=== PATIENT | male | born 1935 | race Caucasian/White ===

== ENCOUNTER 2020-11-16 17:37 | Inpatient (IN) ==
--- NOTE | 2020-11-16 20:09 | Emergency Department Note ---
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 It was very humid but he thinks he kept up with his fluid he had diarrhea for the last 2 days that has been the more of a loose stool without blood or melena. He tried some Pepto-Bismol. He feels quite a bit better now no abdominal pain no chest pain no ear ringing. No fall or trauma. No emesis. No urinary symptoms no unusual food or sick contacts no recent antibiotic use. No history of C. difficile. No focal numbness weakness no difficulty speaking or swallowing no change in vision. 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 Home Medications Medication Instructions Recorded Confirmed Type aspirin 81 mg tablet,delayed 81 mg PO DAILY 11/16/20 11/16/20 History release atorvastatin 80 mg tablet 80 mg PO DAILY 11/16/20 11/16/20 History cholecalciferol (vitamin D3) 25 25 mcg PO DAILY 11/16/20 11/16/20 History mcg (1,000 unit) tablet (Vitamin D3) hydrochlorothiazide 25 mg tablet 12.5 mg PO DAILY 11/16/20 11/16/20 History lisinopril 20 mg tablet 20 mg PO DAILY 11/16/20 11/16/20 History Allergies Allergy/AdvReac Type Severity Reaction Status Date / Time No Known Allergies Allergy Verified 11/16/20 22:04 Past Med/Surg History Social History Smoking Status: Former smoker Preferred Language: Yakut Feels Safe at Home: Yes Review of Systems A total of 10 systems reviewed and were otherwise negative Physical Exam Vital Signs Vital Signs - 24 hr 11/16/20 17:41 11/16/20 19:55 11/16/20 19:59 Temperature 36.9 C Temperature Source Temporal Artery Scan Pulse Rate 98 H Pulse Rate [Apical] 89 Pulse Rate from SpO2 Sensor Pulse Rhythm [Apical] Regular Pulse Strength [Apical] Normal Respiratory Rate 18 22 Respiratory Effort / Characteristics Non-Labored Non-Labored Spontaneous Respiratory Depth Normal Normal Respiratory Pattern Regular Blood Pressure 111/61 Blood Pressure Mean 77 Pulse Oximetry 94 98 Oxygen Delivery Method Room Air Room Air Room Air Oxygen Flow Rate Sepsis Recent Fever Within 48 Hours Yes Sepsis New/Unexplained Change in Mental Status No Sepsis Action Taken by Nursing No Action Required 11/16/20 20:01 11/16/20 20:10 11/16/20 20:16 Temperature Temperature Source Pulse Rate 97 H 91 H 95 H Pulse Rate [Apical] Pulse Rate from SpO2 Sensor Pulse Rhythm [Apical] Pulse Strength [Apical] Respiratory Rate 24 26 H 20 Respiratory Effort / Characteristics Respiratory Depth Respiratory Pattern Blood Pressure Blood Pressure Mean Pulse Oximetry 98 Oxygen Delivery Method Room Air Oxygen Flow Rate Sepsis Recent Fever Within 48 Hours Sepsis New/Unexplained Change in Mental Status Sepsis Action Taken by Nursing 11/16/20 20:20 11/16/20 20:30 11/16/20 20:40 Temperature Temperature Source Pulse Rate 94 H 86 81 Pulse Rate [Apical] Pulse Rate from SpO2 Sensor Pulse Rhythm [Apical] Pulse Strength [Apical] Respiratory Rate 20 29 H 26 H Respiratory Effort / Characteristics Respiratory Depth Respiratory Pattern Blood Pressure Blood Pressure Mean Pulse Oximetry Oxygen Delivery Method Oxygen Flow Rate Sepsis Recent Fever Within 48 Hours Sepsis New/Unexplained Change in Mental Status Sepsis Action Taken by Nursing 11/16/20 20:57 11/16/20 21:22 11/16/20 21:51 Temperature Temperature Source Pulse Rate 125 H 129 H 113 H Pulse Rate [Apical] Pulse Rate from SpO2 Sensor 128 H 114 H Pulse Rhythm [Apical] Pulse Strength [Apical] Respiratory Rate 23 50 H 47 H Respiratory Effort / Characteristics Respiratory Depth Respiratory Pattern Blood Pressure 197/121 H 225/133 H Blood Pressure Mean 146 163 Pulse Oximetry 92 97 Oxygen Delivery Method Oxygen Flow Rate 2 5 Sepsis Recent Fever Within 48 Hours Sepsis New/Unexplained Change in Mental Status Sepsis Action Taken by Nursing 11/16/20 22:00 11/16/20 22:15 11/16/20 22:30 Temperature Temperature Source Pulse Rate 120 H 107 H 82 Pulse Rate [Apical] Pulse Rate from SpO2 Sensor 119 H 116 H 84 Pulse Rhythm [Apical] Pulse Strength [Apical] Respiratory Rate 34 H 43 H 41 H Respiratory Effort / Characteristics Respiratory Depth Respiratory Pattern Blood Pressure 191/119 H 189/117 H 178/103 H Blood Pressure Mean 143 141 128 Pulse Oximetry 92 87 L 96 Oxygen Delivery Method Oxygen Flow Rate Sepsis Recent Fever Within 48 Hours Sepsis New/Unexplained Change in Mental Status Sepsis Action Taken by Nursing 11/16/20 22:46 11/16/20 22:50 11/16/20 23:00 Temperature Temperature Source Pulse Rate 106 H 125 H 85 Pulse Rate [Apical] Pulse Rate from SpO2 Sensor 114 H 124 H 82 Pulse Rhythm [Apical] Pulse Strength [Apical] Respiratory Rate 39 H 29 H Respiratory Effort / Characteristics Respiratory Depth Respiratory Pattern Blood Pressure 182/131 H 185/131 H 180/85 H Blood Pressure Mean 148 149 116 Pulse Oximetry 92 97 Oxygen Delivery Method Oxygen Flow Rate Sepsis Recent Fever Within 48 Hours Sepsis New/Unexplained Change in Mental Status Sepsis Action Taken by Nursing 11/16/20 23:16 11/16/20 23:29 11/16/20 23:30 Temperature Temperature Source Pulse Rate 78 74 Pulse Rate [Apical] 79 Pulse Rate from SpO2 Sensor 81 76 Pulse Rhythm [Apical] Pulse Strength [Apical] Respiratory Rate 44 H 30 H 44 H Respiratory Effort / Characteristics Non-Labored Spontaneous Respiratory Depth Respiratory Pattern Blood Pressure 188/105 H 158/90 H Blood Pressure Mean 132 112 Pulse Oximetry 98 99 100 Oxygen Delivery Method Nasal Cannula Oxygen Flow Rate 5 Sepsis Recent Fever Within 48 Hours Sepsis New/Unexplained Change in Mental Status Sepsis Action Taken by Nursing 11/16/20 23:49 11/16/20 23:50 11/17/20 00:00 Temperature Temperature Source Pulse Rate 126 H 114 H 117 H Pulse Rate [Apical] Pulse Rate from SpO2 Sensor 120 H 120 H Pulse Rhythm [Apical] Pulse Strength [Apical] Respiratory Rate 36 H 43 H 34 H Respiratory Effort / Characteristics Respiratory Depth Respiratory Pattern Blood Pressure 159/95 H Blood Pressure Mean 116 Pulse Oximetry 87 L 95 Oxygen Delivery Method Oxygen Flow Rate Sepsis Recent Fever Within 48 Hours Sepsis New/Unexplained Change in Mental Status Sepsis Action Taken by Nursing 11/17/20 00:15 11/17/20 00:30 11/17/20 00:45 Temperature Temperature Source Pulse Rate 107 H 101 H 95 H Pulse Rate [Apical] Pulse Rate from SpO2 Sensor 106 H 101 H 95 H Pulse Rhythm [Apical] Pulse Strength [Apical] Respiratory Rate 35 H 30 H 30 H Respiratory Effort / Characteristics Respiratory Depth Respiratory Pattern Blood Pressure 146/82 H 153/76 H 136/72 Blood Pressure Mean 103 101 93 Pulse Oximetry 96 96 97 Oxygen Delivery Method Oxygen Flow Rate 3 3 Sepsis Recent Fever Within 48 Hours Sepsis New/Unexplained Change in Mental Status Sepsis Action Taken by Nursing General: Well developed well nourished in no acute distress, breathing comfortably on room air. Normal speech HEENT: Normal cephalic atraumatic. Pupils are equal round and reactive to light. Baseline surgery and droop on the right eye/face with postsurgical c hanges. Extraocular movements are intact. Oropharynx is pink with moist mucous membranes. No swelling of the mouth lips or tongue. TMs are partially particular by cerumen bilaterally Neck: Supple with a midline trachea. No meningeal signs or stiffness, no JVD or bruits. No Stridor. Chest: Clear to auscultation bilaterally. No wheezes or rhonchi. No increased work of breathing. Heart: Regular rate and rhythm without murmurs or gallops. Abdomen: Soft nontender, nondistended without rebound guarding or rigidity. Extremities: No cyanosis clubbing or edema. No calf tenderness or assymetry Spine/Back. Non tender to palpation. No CVA tenderness Skin: Good turgor without rashes. Neurologic exam: Cranial nerves two through 12 are intact. Motor and sensation are intact and symmetrical throughout. Finger-nose intact. Course Administered Medications Diltiazem HCl 125 mg/ Dextrose 125 mls @ 5 mls/hr IV .Q24H [facility]; Protocol Stop: 12/16/20 22:59 Last Admin: 11/16/20 23:13 Dose: 5 mg/hr, 5 mls/hr Documented by: [id number] Cosigned by: [id number] Heparin Sodium/Dextrose (Heparin Sodium/Dextrose) 25,000 units in 500 mls @ 20 mls/hr IV .Q24H [facility]; Protocol Stop: 12/16/20 23:14 Last Admin: 11/16/20 23:18 Dose: 1,000 units/hr, 20 mls/hr Documented by: [id number] Cosigned by: [id number] Levalbuterol HCl (Levalbuterol 1.25mg/0.5ml Neb) 1.25 mg NEB Q4H PRN PRN Reason: Shortness Of Breath Or Wheezing Stop: 12/16/20 23:00 Last Admin: 11/16/20 23:25 Dose: 1.25 mg Documented by: [id number] Discontinued Medications Diltiazem HCl (Diltiazem Hcl 5 Mg/Ml 5 Ml Vial) 10 mg IV NOW STA Stop: 11/16/20 22:38 Last Admin: 11/16/20 22:52 Dose: 10 mg Documented by: [id number] Cosigned by: [id number] Furosemide (Furosemide 40 Mg/4 Ml Vial) 20 mg IV NOW STA Stop: 11/17/20 00:52 Last Admin: 11/17/20 01:02 Dose: 20 mg Documented by: [id number] Heparin Sodium/Dextrose (Heparin Iv Adult Wt-Based Low-Dose *No* Bolus Protocol) 1 ea N/A ONE ONE; Protocol Stop: 11/16/20 23:02 Last Admin: 11/16/20 23:13 Dose: 1 ea Documented by: [id number] Sodium Chloride (Nss 1000ml) 1,000 mls @ 999 mls/hr IV .Q1H1M JORDAN Stop: 11/16/20 21:15 Last Infusion: 11/16/20 21:25 Dose: 999 mls/hr Documented by: [id number] Admin: 11/16/20 20:15 Dose: 999 mls/hr Documented by: [id number] Metoprolol Tartrate (Metoprolol Tartrate 1 Mg/Ml Vial) 3 mg IV NOW STA Stop: 11/16/20 22:10 Last Admin: 11/16/20 22:12 Dose: 3 mg Documented by: [id number] Miscellaneous (Stat Iv Infusion Titration Per Protocol) 1 ea N/A NOW STA Stop: 11/16/20 22:38 Last Admin: 11/16/20 23:17 Dose: 1 ea Documented by: [id number] Morphine Sulfate (Morphine Sulfate 2 Mg/Ml Carp) 2 mg IV NOW STA Stop: 11/16/20 21:46 Last Admin: 11/16/20 21:52 Dose: 2 mg Documented by: [id number] Ondansetron HCl (Ondansetron Inj 2 Mg/Ml 2 Ml Vial) 4 mg IV NOW STA Stop: 11/16/20 21:46 Last Admin: 11/16/20 21:52 Dose: 4 mg Documented by: [id number] Medical Decision Making Differential Diagnosis Dehydration, electrolyte or metabolic abnormality cardiac arrhythmia, anemia, diarrhea, intra-abdominal process, neurologic disease, intracranial process Medical Records Attestation: I reviewed the patient's medical records. Home Medications Current Medication List: was personally reviewed by me Laboratory Data Attestation: I reviewed the patient's lab results. Result diagrams: 11/16/20 20:20 11/16/20 20:20 Lab Results 11/16/20 11/16/20 11/16/20 Range/Units 20:20 20:20 21:24 WBC 7.26 (4.8-10.8) K/uL RBC 3.86 L (4.7-6.1) M/uL Hgb 12.7 L (14.0-18.0) g/dL Hct 37.9 L (42-52) % MCV 98.2 (80-100) fL MCH 32.9 (25-34) pg MCHC 33.5 (32-36) g/dL RDW Std Deviation 54.3 H (36.4-46.3) fL RDW Coeff of Derrek 15.0 H (11.5-14.5) % Plt Count 187 (130-400) K/uL MPV 10.4 (7.4-10.4) fL Immature Gran % (Auto) 0.1 % Neut % (Auto) 89.5 % Lymph % (Auto) 7.3 % [place] % (Auto) 2.8 % Eos % (Auto) 0.0 % Baso % (Auto) 0.3 % Neut # (Auto) 6.50 (1.4-6.5) K/uL Lymph # (Auto) 0.53 L (1.2-3.4) K/uL [place] # (Auto) 0.20 (0.11-0.59) K/uL Eos # (Auto) 0.00 (0-0.5) K/uL Baso # (Auto) 0.02 (0-0.2) K/uL Immature Gran # (Auto) 0.01 (0.00-0.02) K/uL Sodium 137 (136-145) mmol/L Potassium 3.8 (3.5-5.1) mmol/L Chloride 108 H (98-107) mmol/L Carbon Dioxide 25 (21-32) mmol/L Anion Gap 4.0 (3-11) BUN 30 H (7-18) mg/dl Creatinine 1.38 (0.6-1.4) mg/dl Est Cr Clr Drug Dosing 48.0 ml/min Est GFR ( Amer) 53.6 ml/min Est GFR (Non-Af Amer) 46.3 ml/min BUN/Creatinine Ratio 21.5 H (10-20) Glucose 106 H (70-99) mg/dl Calcium 8.1 L (8.5-10.1) mg/dl Total Bilirubin 0.5 (0.2-1) mg/dl AST 24 (15-37) U/L ALT 23 (12-78) U/L Alkaline Phosphatase 61 (45-117) U/L Troponin I 0.072 H* (0-0.045) ng/ml NT-Pro-B Natriuret Pep 2013 H (0-1800) pg/ml Total Protein 7.0 (6.4-8.2) gm/dl Albumin 3.4 (3.4-5.0) gm/dl Globulin 3.6 (2.5-4.0) gm/dl Albumin/Globulin Ratio 0.9 (0.9-2) TSH 1.550 (0.300-4.500) uIu/ml Urine Color Yellow Urine Appearance Clear (Clear) Urine pH 5.0 (4.5-7.5) Ur Specific [place] 1.014 (1.000-1.030) Urine Protein Negative (Negative) Urine Glucose (UA) Negative (Negative) Urine Ketones Negative (Negative) Urine Blood 3+ H (Negative) Urine Nitrite Negative (Negative) Urine Bilirubin Negative (Negative) Urine Urobilinogen Negative (Negative) Ur Leukocyte Esterase Negative (Negative) Urine WBC (Auto) 1-5 (0-5) /hpf Urine RBC (Auto) 10-30 H (0-4) /hpf U Hyaline Cast (Auto) 1-5 (0-5) /lpf U Epithel Cells (Auto) 5-10 H (0-5) /lpf Urine Bacteria (Auto) Negative (Negative) COVID-19 Eval Order SARS-CoV-2 (PCR) (Negative) 11/16/20 11/16/20 Range/Units 22:02 22:02 WBC (4.8-10.8) K/uL RBC (4.7-6.1) M/uL Hgb (14.0-18.0) g/dL Hct (42-52) % MCV (80-100) fL MCH (25-34) pg MCHC (32-36) g/dL RDW Std Deviation (36.4-46.3) fL RDW Coeff of Derrek (11.5-14.5) % Plt Count (130-400) K/uL MPV (7.4-10.4) fL Immature Gran % (Auto) % Neut % (Auto) % Lymph % (Auto) % [place] % (Auto) % Eos % (Auto) % Baso % (Auto) % Neut # (Auto) (1.4-6.5) K/uL Lymph # (Auto) (1.2-3.4) K/uL [place] # (Auto) (0.11-0.59) K/uL Eos # (Auto) (0-0.5) K/uL Baso # (Auto) (0-0.2) K/uL Immature Gran # (Auto) (0.00-0.02) K/uL Sodium (136-145) mmol/L Potassium (3.5-5.1) mmol/L Chloride (98-107) mmol/L Carbon Dioxide (21-32) mmol/L Anion Gap (3-11) BUN (7-18) mg/dl Creatinine (0.6-1.4) mg/dl Est Cr Clr Drug Dosing ml/min Est GFR ( Amer) ml/min Est GFR (Non-Af Amer) ml/min BUN/Creatinine Ratio (10-20) Glucose (70-99) mg/dl Calcium (8.5-10.1) mg/dl Total Bilirubin (0.2-1) mg/dl AST (15-37) U/L ALT (12-78) U/L Alkaline Phosphatase (45-117) U/L Troponin I (0-0.045) ng/ml NT-Pro-B Natriuret Pep (0-1800) pg/ml Total Protein (6.4-8.2) gm/dl Albumin (3.4-5.0) gm/dl Globulin (2.5-4.0) gm/dl Albumin/Globulin Ratio (0.9-2) TSH (0.300-4.500) uIu/ml Urine Color Urine Appearance (Clear) Urine pH (4.5-7.5) Ur Specific [place] (1.000-1.030) Urine Protein (Negative) Urine Glucose (UA) (Negative) Urine Ketones (Negative) Urine Blood (Negative) Urine Nitrite (Negative) Urine Bilirubin (Negative) Urine Urobilinogen (Negative) Ur Leukocyte Esterase (Negative) Urine WBC (Auto) (0-5) /hpf Urine RBC (Auto) (0-4) /hpf U Hyaline Cast (Auto) (0-5) /lpf U Epithel Cells (Auto) (0-5) /lpf Urine Bacteria (Auto) (Negative) COVID-19 Eval Order Covid19 at [facility] SARS-CoV-2 (PCR) NEGATIVE (Negative) Imaging Data Attestation: I personally reviewed and interpreted this imaging study as follows: My Impression: Chest x-rayno acute infiltrate, failure, pneumothorax seen Radiologist's Impression: Abdomen/Pelvis CT 11/16/20 20:[address] WITHOUT CONTRAST CT DOSE: 663.17 mGy.cm HISTORY: Acute generalized abdominal pain. History of salivary gland neoplasm. abd pain, dizziness TECHNIQUE: Multiaxial CT images of the abdomen and pelvis were performed without contrast. A dose lowering technique was utilized adhering to the principles of ALARA. COMPARISON STUDY: PET CT 07/11/2011 FINDINGS: Mild bibasilar bronchial wall thickening with subsegmental atelectasis/scarring. Mild soft tissue thickening with calcifications noted along the right diaphragmatic margin, progressed from comparison. Study is mildly degraded by respiratory motion artifact. No pneumatosis or pneumoperitoneum. Cardiomegaly. Coronary artery calcifications. Absent spleen. Soft tissue nodules of the abdominal left upper quadrant are suggestive of splenosis, some of which are partially calcified. Mildly atrophic pancreas. The adrenal glands are within normal limits. Moderate gallbladder distention. Unremarkable liver. 4.5 cm cyst of the superior pole right kidney. 1.5 cm nonobstructing calculus of the inferior pole left kidney. No ureteral calculi or hydronephrosis. Mild prostamegaly. Unremarkable urinary bladder. Small fat filled hernias suggested. Calcified plaque the abdominal aorta without aneurysm. No adenopathy. No bowel obstruction or bowel wall thickening. Tiny hiatal hernia. Enteric contrast within the ascending colon. Normal appendix. No ascites or mesenteric inflammation. Right hip total joint arthroplasty. Degenerative changes of the spine, pelvis and left hip. No suspicious bone lesions. IMPRESSION: 1. No bowel obstruction or bowel wall thickening. Normal appendix. 2. Nonobstructing left nephrolithiasis. 3. Mild gallbladder distention. 4. Additional findings as above. ACT 112: Negative or not required by law. The above report was generated using voice recognition software. It may contain grammatical, syntax or spelling errors. Electronically signed by: Jake Colon M.D. 11/16/2020 9:[address] 11/16/20 20:03 CT head/brain wo con CLINICAL HISTORY: 85 years-old Male with dizziness. Acute dizziness TECHNIQUE: Multiple axial CT images of the head were obtained without contrast. A dose lowering technique was utilized adhering to the principles of ALARA. CT DOSE: 537.48 mGy.cm COMPARISON: None. FINDINGS: No acute intracranial hemorrhage, midline shift, intracranial mass, hydrocephalus, territorial ischemia or abnormal extra-axial collection. Age- related involutional changes. White matter hypodensities suggestive of chronic microvascular ischemic disease. Cerebral vascular calcifications. The calvarium is intact. Small right mastoid effusion. Left mastoid air cells and paranasal sinuses are clear. Unremarkable soft tissues. Prior bilateral lens repair. Metallic density focus is noted anterior to the right globe with resultant streak artifact. IMPRESSION: 1. No acute intracranial abnormality. 2. Small right mastoid effusion. ACT 112: Negative or not required by law. The above report was generated using voice recognition software. It may contain grammatical, syntax or spelling errors. Electronically signed by: Jake Colon M.D. 11/16/2020 8:54 PM Chest X-Ray 11/16/20 20:04 XR chest 1V portable HISTORY: 85 years-old Male weakness acute weakness COMPARISON: Chest radiographs 06/02/2013 TECHNIQUE: Portable AP view of the chest FINDINGS: Cardiac silhouette is enlarged. Pulmonary vascular congestion with emphysema and chronic interstitial coarsening. No pneumothorax, pleural effusion or overt pulmonary edema. Chronic blunting of the costophrenic angles is unchanged linear left lung base atelectasis/scarring. Previously noted 9 mm nodule of the right upper lung is not identified. There is a new 11 mm nodular opacity of the right lung base. Degenerative changes of the shoulders and spine. IMPRESSION: 1. Cardiomegaly with pulmonary vascular congestion. 2. Emphysema. 3. Indeterminate 11 mm nodule of the right lung base. ACT 112: Negative or not required by law. The above report was generated using voice recognition software. It may contain grammatical, syntax or spelling errors. Electronically signed by: Jake Colon M.D. 11/16/2020 8:41 PM ECG Data Attestation: I personally reviewed and interpreted this ECG as follows: Indication: + weakness Rate (beats per minute): 92 Rhythm: + normal sinus ECG Intervals/blocks: + First degree AV block ECG [place]: + Normal ECG ST segments: + Nonspecific ST abnormalities ECG Findings: no PACs or no PVCs Comparison ECG Date: from (07/03/10) Change: no significant change Additional Comments: EKG #2, A. fib with rapid ventricular response and 128 rate. There is some ST depression laterally. Compared EKG #1 there are significant changes he is now in A. fib. MDM Narrative This patient is an 85-year-old male who comes in after having sensation of weakness and dizziness he says it was not a spinning. He felt woozy has had diarrhea for couple days and was out in the heat. No chest pain. IV access was established and he was hydrated with 1 L normal saline bolus was placed on a library monitor. I did a chest x-ray head CT and abdominal and pelvis CT as well as multiple blood tests and urinalysis and culture. EKG does not show any significant arrhythmia. His EKG does not suggest ischemia or ectopy initially. His troponin did come back mildly elevated. The patient then started complain of abdominal cramping and lower abdomen and was given morphine 2 mg IV and Zofran 4 mg IV. When I noticed on his EKG he had a rapid A. fib which is new he has no reported history of A. fib. He also was hypoxemic with the A. fib although did not appear to be short of breath. He was given Lopressor 3 mg IV as he is never had these meds before and his heart rate came down in the 80s. His O2 sat came up into the high 90s and he looks much better. I do think he needs to be admitted/observe given his elevated troponin and his new onset A. fib. I have consulted Dr. Singh who who saw the patient in the ER and will admit him for these measures Continuous cardiac monitoring: Orders placed in EMR for continuous cardiac monitoring. Upon my interpretation the patient was noted to be in normal sinus rhythm in 90s. Impression & Plan New onset a-fib, Elevated troponin, Weakness, Abdominal cramping, Lab test negative for COVID-19 virus Discharge Plan Visit Data Chief Complaint: GI Assessment Stated Complaint: DIZZY, UPSET STOMACH, RUNNING A FEVER ED Provider: Garcia Snyder Discharge Problem: New onset a-fib, Elevated troponin, Weakness, Abdominal cramping, Lab test negative for COVID-19 virus Forms Stand Alone Forms: [facility] Prescriptions Prescriptions: No Action atorvastatin 80 mg tablet 80 mg PO DAILY RF: 0 lisinopril 20 mg tablet 20 mg PO DAILY RF: 0 aspirin [Aspir-Low] 81 mg Tablet,Delayed Release (Dr/Ec) 81 mg PO DAILY RF: 0 hydrochlorothiazide 25 mg tablet 12.5 mg PO DAILY RF: 0 cholecalciferol (vitamin D3) [Vitamin D3] 25 mcg (1,000 unit) Tablet 25 mcg PO DAILY RF: 0 Referrals Referrals: PCP,NO [Physician] -
[2020-11-16] MEDS ORDERED: SODIUM CHLORIDE 0.9% 1000ML 1,000 ML IV SCH (20:15)
[2020-11-16 20:37] LABS: Basophils # (auto) 0.02 K/uL (0-0.2); Basophils % (auto) 0.3 %; Hematocrit (blood only) 37.9 % (42-52); Hemoglobin 12.7 g/dL (14.0-18.0); Immature Granulocytes # (auto) 0.01 K/uL (0.00-0.02); Immature Granulocytes % (auto) 0.1 %; Lymphocytes # (auto) 0.53 K/uL (1.2-3.4); Lymphocytes % (auto) 7.3 %; Mean Corpuscular Hemoglobin 32.9 pg (25-34); Mean Corpuscular Hgb Conc 33.5 g/dL (32-36); Mean Corpuscular Volume 98.2 fL (80-100); Mean Platelet Volume 10.4 fL (7.4-10.4); Monocytes % (auto) 2.8 %; Neutrophils % (auto) 89.5 %; Platelet Count 187 K/uL (130-400); RDW Standard Deviation 54.3 fL (36.4-46.3); Red Blood Count 3.86 M/uL (4.7-6.1); White Blood Count 7.26 K/uL (4.8-10.8)
--- NOTE | 2020-11-16 20:43 | XRay Report ---
XR chest 1V portable HISTORY: 85 years-old Male weakness acute weakness COMPARISON: Chest radiographs 06/02/2013 TECHNIQUE: Portable AP view of the chest FINDINGS: Cardiac silhouette is enlarged. Pulmonary vascular congestion with emphysema and chronic interstitial coarsening. No pneumothorax, pleural effusion or overt pulmonary edema. Chronic blunting of the cost ophrenic angles is unchanged linear left lung base atelectasis/scarring. Previously noted 9 mm nodule of the right upper lung is not identified. There is a new 11 mm nodular opacity of the right lung ba se. Degenerative changes of the shoulders and spine. IMPRESSION: 1. Cardiomegaly with pulmonary vascular congestion. 2. Emphysema. 3. Indeterminate 11 mm nodule of the right lung base. ACT 112: Negative or not required by law. The above report was generated using voice recognition software. It may contain grammatical, syntax o r spelling errors. Electronically signed by: Jake Colon M.D. 11/16/2020 8:41 PM
[2020-11-16 20:50] LABS: Albumin Level 3.4 gm/dl (3.4-5.0); BUN Creatinine Ratio 21.5 (10-20); Calcium 8.1 mg/dl (8.5-10.1); Est GFR (African American) 53.6 ml/min; Est GFR (Non-African American) 46.3 ml/min; Potassium 3.8 mmol/L (3.5-5.1)
--- NOTE | 2020-11-16 20:56 | CT Scan Report ---
CT head/brain wo con CLINICAL HISTORY: 85 years-old Male with dizziness. Acute dizziness TECHNIQUE: Multiple axial CT images of the head were obtained without contrast. A dose lowering tech nique was utilized adhering to the principles of ALARA. CT DOSE: 537.48 mGy.cm COMPARISON: None. FINDINGS: No acute intracranial hemorrhage, midline shift, intracranial mass, hydrocephalus, territorial ischem ia or abnormal extra-axial collection. Age-related involutional changes. White matter hypodensities s uggestive of chronic microvascular ischemic disease. Cerebral vascular calcifications. The calvarium is intact. Small right mastoid effusion. Left mastoid air cells and paranasal sinuses are clear. Unremarkable soft tissues. Prior bilateral lens repair. Metallic density focus is noted an terior to the right globe with resultant streak artifact. IMPRESSION: 1. No acute intracranial abnormality. 2. Small right mastoid effusion. ACT 112: Negative or not required by law. The above report was generated using voice recognition software. It may contain grammatical, syntax o r spelling errors. Electronically signed by: Jake Colon M.D. 11/16/2020 8:54 PM
--- NOTE | 2020-11-16 21:02 | CT Scan Report ---
ABDOMEN AND PELVIS CT WITHOUT CONTRAST CT DOSE: 663.17 mGy.cm HISTORY: Acute generalized abdominal pain. History of salivary gland neoplasm. abd pain, dizziness TECHNIQUE: Multiaxial CT images of the abdomen and pelvis were performed without contrast. A dose lo wering technique was utilized adhering to the principles of ALARA. COMPARISON STUDY: PET CT 07/11/2011 FINDINGS: Mild bibasilar bronchial wall thickening with subsegmental atelectasis/scarring. Mild soft tissue thi ckening with calcifications noted along the right diaphragmatic margin, progressed from comparison. S tudy is mildly degraded by respiratory motion artifact. No pneumatosis or pneumoperitoneum. Cardiomeg radha. Coronary artery calcifications. Absent spleen. Soft tissue nodules of the abdominal left upper q uadrant are suggestive of splenosis, some of which are partially calcified. Mildly atrophic pancreas. The adrenal glands are within normal limits. Moderate gallbladder distention. Unremarkable liver. 4.5 cm cyst of the superior pole right kidney. 1.5 cm nonobstructing calculus of the inferior pole le ft kidney. No ureteral calculi or hydronephrosis. Mild prostamegaly. Unremarkable urinary bladder. Sm all fat filled hernias suggested. Calcified plaque the abdominal aorta without aneurysm. No adenopath y. No bowel obstruction or bowel wall thickening. Tiny hiatal hernia. Enteric contrast within the ascend ing colon. Normal appendix. No ascites or mesenteric inflammation. Right hip total joint arthroplasty . Degenerative changes of the spine, pelvis and left hip. No suspicious bone lesions. IMPRESSION: 1. No bowel obstruction or bowel wall thickening. Normal appendix. 2. Nonobstructing left nephrolithiasis. 3. Mild gallbladder distention. 4. Additional findings as above. ACT 112: Negative or not required by law. The above report was generated using voice recognition software. It may contain grammatical, syntax o r spelling errors. Electronically signed by: Jake Colon M.D. 11/16/2020 9:01 PM
[2020-11-16 21:05] LABS: Albumin Globulin Ratio 0.9 (0.9-2); Bilirubin,Total 0.5 mg/dl (0.2-1); Globulin 3.6 gm/dl (2.5-4.0); Thyroid Stimulating Hormone 1.55 uIu/ml (0.300-4.500); Troponin I 0.072 ng/ml (0-0.045)
[2020-11-16 21:38] LABS: Appearance Urine Clear (Clear); Bacteria Urine Automated Negative (Negative); Bilirubin Urine Negative (Negative); Blood Urine 3+ (Negative); Color Urine Yellow; Glucose Urine UA Negative (Negative); Ketones Urine Negative (Negative); Leukocyte Esterase Urine Negative (Negative); Nitrite Urine Negative (Negative); Protein Urine Negative (Negative); Specific Gravity Urine 1.014 (1.000-1.030); Urobilinogen Urine Negative (Negative)
[2020-11-16] MEDS ORDERED: ONDANSETRON INJ 2 MG/ML 2 ML VIAL IV STA (21:45)
[2020-11-16] MEDS ORDERED: MoRPHine SULFATE 2 MG/ML CARP IV STA (21:45)
[2020-11-16] MEDS ORDERED: METOPROLOL TARTRATE 1 MG/ML VIAL IV STA (22:09)
[2020-11-16] MEDS ORDERED: STAT IV Infusion **Titration per Protocol STA (22:37)
[2020-11-16] MEDS ORDERED: dilTIAZem HCl 5 MG/ML 5 ML VIAL IV STA (22:37)
[2020-11-16] MEDS ORDERED: dilTIAZem HCL 125 MG in DEXTROSE 5% 100 ML IV SCH (23:00)
[2020-11-16] MEDS ORDERED: Heparin IV Adult Wt-Based Low-Dose *NO* Bolus Protocol ONE (23:01)
[2020-11-16] MEDS ORDERED: LEVALBUTEROL 1.25MG/0.5ML NEB NEB PRN (23:01)
[2020-11-16] MEDS: HEPARIN SODIUM/DEXTROSE 25,000 UNITS/500 ML BAG IV SCH (23:18)
[2020-11-17] MEDS ORDERED: FUROSEMIDE 40 MG/4 ML VIAL IV STA (00:51)
--- NOTE | 2020-11-17 04:03 | History and Physical Report ---
DATE OF ADMISSION: 11/16/2020. CHIEF COMPLAINT: Dizziness and near syncope. HISTORY OF PRESENT ILLNESS: An 85-year-old male with past medical history significant for hyperlipidemia, prediabetes, mitral valve regurgitation, hypertension, chronic kidney disease stage III, vitamin D deficiency, history of parotid cancer. The patient presents with dizziness and near syncope. 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 Today, he felt almost passed out and dizzy, so that is why he was brought in here. In the ER he was found to be in rapid AFib and elevated blood pressure. His troponin was slightly low at 0.07. BNP was 2000. SARS-CoV-2 PCR negative. Chest x-ray showed mild congestion. CT head, no acute findings. CT of abdomen and pelvis, mild diverticulosis, otherwise no acute findings. The patient denies any palpitations. No chest pain. Does not feel short of breath, but is requiring 5 liters of oxygen in the ER. Denies any headache, no blurred visions, no earache, no runny nose, no sore throat, no cough, no nausea, some abdominal cramps because he states he did not eat anything today. Normal bowel and bladder movements. ALLERGIES: No known drug allergies. PAST MEDICAL HISTORY: As mentioned above. PAST SURGICAL HISTORY: Colonoscopy with biopsy, removal of right side parotid tumor, splenectomy, tonsillectomy, bilateral cataract surgery, suture repair of ectropion on the right side. MEDICATIONS: The patient is on aspirin 81 mg p.o. daily, atorvastatin 80 mg p.o. daily, vitamin D 25 mg p.o. daily, hydrochlorothiazide 12.5 mg p.o. daily, Lisinopril 20 mg p.o. daily. FAMILY HISTORY: Significant for mother has Alzheimer's; father has [place], history of hyperlipidemia, brother has hyperlipidemia. SOCIAL HISTORY: , lives with . Quit smoking in 1963. Smoked for 20 years. Alcohol, rarely. No drug use. REVIEW OF SYSTEMS: As per HPI. Rest of review of system is negative. PHYSICAL EXAMINATION: GENERAL: The patient is of moderate build, not in acute distress. VITAL SIGNS: Temperature 36.9, pulse 107, respiratory rate in the 30s, blood pressure when he came in was like 210_/133, currently 146/82, oxygen 96% on 5 liters. HEENT: Pupils equal, round and reactive to light. Status post right parotid tumor excision and right sided facial deformities seen. Oral mucosa moist. NECK: No JVD or neck masses. HEART: S1 and S2 heard. Tachycardia. Irregular. No murmurs. RESPIRATORY SYSTEM: Normal AP diameter. No accessory muscle use. Mild bibasilar crackles. No wheezing. ABDOMEN: Soft, bowel sounds present. Mild abdominal discomfort, no guarding, no rigidity. CENTRAL NERVOUS SYSTEM: Cranial nerves II-XII grossly intact, nonfocal. EXTREMITIES: No edema, no erythema. LABORATORY DATA: WBC 7.2, hemoglobin 12.7, hematocrit 37.9, platelets 187. Sodium 137, potassium 3.8, chloride 108, bicarbonate 25, BUN 30, creatinine 1.3, serum glucose 106, calcium 8.1, total bilirubin 0.5, AST 24, ALT 23, alkaline phosphatase 61. Troponin I is 0.07. BNP is 2000. TSH 1.5. Urinalysis negative. SARS-CoV-2 PCR negative. IMAGING DATA: Chest x-ray: Mild pulmonary vascular congestion, emphysema. Head CT: No acute intracranial abnormality. Small right sided mastoid effusion. CT of abdomen and pelvis without contrast, no bowel obstruction or bowel wall thickening. Normal appendix. Nonobstructing left nephrolithiasis, mild gallbladder distention. EKG: Atrial fibrillation with rapid ventricular response with PVCs, rate of 128. ASSESSMENT AND PLAN: This is an 85-year-old male presents with near syncope and probable rapid atrial fibrillation. 1. Rapid atrial fibrillation: He received a dose of Lopressor in the ER. We will place him on Cardizem drip and bolus and IV heparin low dose. Follow his cardiac enzymes and echo, consult cardiology in a.m. Monitor in the tele floor. 2. Mild elevation of troponin, most likely demand ischemia. Denies any chest pain. We will follow serial enzymes, echocardiogram. 3. Near syncope, possibly from above. We will monitor in tele. 4. Hypoxia requiring 5 liters of oxygen. denies any shortness of breath. Chest x-ray showed mild congestion and BNP is elevated. The patient also has possible Acut CHF. We will give a small dose of IV Lasix and follow echocardiogram. Monitor the response. 5. Hypertension: On lisinopril, We will hold hydrochlorothiazide. Currently getting a Cardizem drip. We will monitor the blood pressure. 6. Chronic kidney disease stage III, creatinine is 1.3, seems at baseline. We will follow the labs. 7. History of parotid cancer, status post resection. Right side facial deformity seen. 8. Prediabetes. We will follow HbA1c levels. 9. Hyperlipidemia, on statin. 10. Deep venous thrombosis prophylaxis, on IV heparin. DISPOSITION: Closely monitor in tele floor. Level 1 full code. PT/OT prior to discharge. Social service to help with discharge planning. Job ID: [id number] [facility]
[2020-11-17] MEDS ORDERED: NITROGLYCERIN SL 0.4 MG/TAB TAB SL PRN (04:42)
[2020-11-17 05:49] LABS: Partial Thromboplastin Ratio 1.7; Partial Thromboplastin Time 43.7 Seconds (21.0-31.0)
[2020-11-17] MEDS ORDERED: METOPROLOL TARTRATE 1 MG/ML VIAL IV PRN (06:10)
--- NOTE | 2020-11-17 06:13 | Hospitalist Progress Note ---
Date of Service November 17, 2020 Assessment & Plan Admission and Anticipated Discharge Date Admission Date: November 17, 2020 Subjective NSTEMI. Troponin went upto 1.7. Seems asymtomatic and currently in sinus rhythm. Stopped Cardizem drip. Started on low dose lopressor and placed on iv lopressor prn. Results & Data Results & Data ([facility]) Vital Signs (Past 12 Hours) Vital Signs Temp Pulse Pulse Resp BP BP Pulse Ox 11/17/20 04:45 36.9 C 90 20 132/69 95 11/17/20 04:00 75 29 H 105/58 L 100 11/17/20 03:45 72 31 H 117/61 98 11/17/20 03:30 80 28 H 133/71 99 11/17/20 03:15 73 31 H 112/56 L 99 11/17/20 03:00 75 30 H 106/57 L 98 11/17/20 02:45 75 29 H 107/60 98 11/17/20 02:30 78 32 H 103/53 L 97 11/17/20 02:15 83 28 H 109/55 L 96 11/17/20 02:00 83 31 H 112/58 L 96 11/17/20 01:45 85 30 H 107/67 97 11/17/20 01:30 89 29 H 130/67 96 11/17/20 01:15 93 H 31 H 124/64 95 11/17/20 01:00 99 H 26 H 134/66 97 11/17/20 00:45 95 H 30 H 136/72 97 11/17/20 00:30 101 H 30 H 153/76 H 96 11/17/20 00:15 107 H 35 H 146/82 H 96 11/17/20 00:00 117 H 34 H 159/95 H 95 11/16/20 23:50 114 H 43 H 87 L 11/16/20 23:49 126 H 36 H 11/16/20 23:30 74 44 H 158/90 H 100 11/16/20 23:29 79 30 H 99 11/16/20 23:16 78 44 H 188/105 H 98 11/16/20 23:00 85 29 H 180/85 H 97 11/16/20 22:50 125 H 39 H 185/131 H 92 11/16/20 22:46 106 H 182/131 H 11/16/20 22:30 82 41 H 178/103 H 96 11/16/20 22:15 107 H 43 H 189/117 H 87 L 11/16/20 22:00 120 H 34 H 191/119 H 92 11/16/20 21:51 113 H 47 H 225/133 H 97 11/16/20 21:22 129 H 50 H 197/121 H 92 11/16/20 20:57 125 H 23 11/16/20 20:40 81 26 H 11/16/20 20:30 86 29 H 11/16/20 20:20 94 H 20 11/16/20 20:16 95 H 20 98 11/16/20 20:10 91 H 26 H 11/16/20 20:01 97 H 24 11/16/20 19:59 89 22 98
[2020-11-17] MEDS ORDERED: METOPROLOL TARTRATE 25 MG TAB PO SCH ×2 (06:45→09:00)
[2020-11-17] MEDS: ATORVASTATIN 40 MG TAB PO SCH (08:21)
[2020-11-17] MEDS: ASPIRIN 81 MG ECTAB PO SCH (08:21)
[2020-11-17] MEDS: CHOLECALCIFEROL 1,000 UNITS 25 MCG TAB PO SCH (08:22)
--- NOTE | 2020-11-17 08:43 | Hospitalist Progress Note ---
Date of Service November 17, 2020 Assessment & Plan (1) New onset a-fib: Plan: ASSESSMENT AND PLAN: This is an 85-year-old male presents with near syncope and probable rapid atrial fibrillation. 1. Rapid atrial fibrillation:Acute on Chronic combined Systolic and Diastolic CHF. He received a dose of Lopressor in the ER. We will place him on Cardizem drip and bolus and IV heparin low dose. Follow his cardiac enzymes and echo, consult cardiology in a.m. Monitor in the tele floor. 2. Mild elevation of troponin, most likely demand ischemia. Denies any chest pain. We will follow serial enzymes, echocardiogram. 3. Near syncope, possibly from above. We will monitor in tele. 4. Hypoxia requiring 5 liters of oxygen. denies any shortness of breath. Chest x-ray showed mild congestion and BNP is elevated. The patient also has Acute on Chronic combined CHF. We will give a small dose of IV Lasix and follow echocardiogram. Monitor the response. 5. Hypertension: On lisinopril, We will hold hydrochlorothiazide. Currently getting a Cardizem drip. We will monitor the blood pressure. 6. Chronic kidney disease stage III, creatinine is 1.3, seems at baseline. We will follow the labs. 7. History of parotid cancer, status post resection. Right side facial deformity seen. 8. Prediabetes. We will follow HbA1c levels. 9. Hyperlipidemia, on statin. 10. Deep venous thrombosis prophylaxis, on IV heparin. DISPOSITION: Closely monitor in tele floor. Level 1 full code. PT/OT prior to discharge. Social service to help with discharge planning. Patient was seen by my partner at 4 am and I saw him as well-Continue Plan ROS-No Headache, No Visual Changes, No Nausea, No Vomiting, No Fever, No Chills, No Neck Pain or Stiffness, No Chest Pain, No Palpitations, No SOB, No CONLEY, No Cough, No Sputum, No Wheezing, No Abdominal Pain, No Diarrhea, No Hematemesis, No Hemoptysis, No Unexpected Weight Loss, No Flank pain, No Melena, No Hematochezia, No Frequency, No Urgency, No Burning, No Hematuria, No Rashes, No Diaphoresis. Appetite is Normal Physical Exam Gen-AAO x 3, NAD, Afebrile Head-NCAT, EOMI, PERRLA, Anicteric Sclera, No Posterior Pharyngeal Erythema Neck-Supple, No JVD, No Thyromegaly, No Masses, No LAD, No Bruits Lungs-Clear to Auscultation Bilaterally, No Rales, No Rhonchi, No Wheezing, No Crepitus Chest-Irreg/Irreg, No S4, +S1, +S2, No S3, No Murmurs, No Rubs, No Gallops, No Ectopy Abdomen-Soft, Bowel Sounds Present, Non Tender, Non Distended, No Hepatomegaly, No Splenomegaly, No Palpable Masses, No Rebound, No Rigidity, No Guarding Musculoskeletal-Full Range of Motion Bilaterally, No CVAT Extremities-No Cyanosis, No Clubbing, No Edema Nuero-Cranial Nerves II-XII grossly intact, Motor WNL, DTRs WNL, Strength WNL, Non Focal Psych-Normal Mood Admission and Anticipated Discharge Date Admission Date: November 17, 2020 Results & Data Results & Data ([facility]) Vital Signs (Past 12 Hours) Vital Signs Temp Pulse Pulse Resp BP BP Pulse Ox 11/17/20 08:01 37.0 C 105 H 18 142/65 H 100 11/17/20 04:45 36.9 C 90 20 132/69 95 11/17/20 04:00 75 29 H 105/58 L 100 11/17/20 03:45 72 31 H 117/61 98 11/17/20 03:30 80 28 H 133/71 99 11/17/20 03:15 73 31 H 112/56 L 99 11/17/20 03:00 75 30 H 106/57 L 98 11/17/20 02:45 75 29 H 107/60 98 11/17/20 02:30 78 32 H 103/53 L 97 11/17/20 02:15 83 28 H 109/55 L 96 11/17/20 02:00 83 31 H 112/58 L 96 11/17/20 01:45 85 30 H 107/67 97 11/17/20 01:30 89 29 H 130/67 96 11/17/20 01:15 93 H 31 H 124/64 95 11/17/20 01:00 99 H 26 H 134/66 97 11/17/20 00:45 95 H 30 H 136/72 97 11/17/20 00:30 101 H 30 H 153/76 H 96 11/17/20 00:15 107 H 35 H 146/82 H 96 11/17/20 00:00 117 H 34 H 159/95 H 95 11/16/20 23:50 114 H 43 H 87 L 11/16/20 23:49 126 H 36 H 11/16/20 23:30 74 44 H 158/90 H 100 11/16/20 23:29 79 30 H 99 11/16/20 23:16 78 44 H 188/105 H 98 11/16/20 23:00 85 29 H 180/85 H 97 11/16/20 22:50 125 H 39 H 185/131 H 92 11/16/20 22:46 106 H 182/131 H 11/16/20 22:30 82 41 H 178/103 H 96 11/16/20 22:15 107 H 43 H 189/117 H 87 L 11/16/20 22:00 120 H 34 H 191/119 H 92 11/16/20 21:51 113 H 47 H 225/133 H 97 11/16/20 21:22 129 H 50 H 197/121 H 92 11/16/20 20:57 125 H 23 11/16/20 20:40 81 26 H
[2020-11-17] MEDS ORDERED: lisinopril 20 MG TAB PO SCH (09:00)
--- NOTE | 2020-11-17 10:24 | Cardiology Consultation ---
Date of Consultation November 17, 2020 Assessment & Plan (1) Weakness: (2) PAF (paroxysmal atrial fibrillation): (3) Elevated troponin: (4) NSTEMI (non-ST elevated myocardial infarction): (5) HTN (hypertension): (6) Dyslipidemia, goal LDL below 70: Patient admitted following an episode of weakness and near syncope, transiently lapsing into atrial fibrillation with a rapid ventricular response with resultant demand ischemia, non-ST segment elevation myocardial infarction. Rhythm currently sinus/sinus tachycardia with a degree AV block. No overt angina symptoms. There is no clinical evidence of volume overload (clinically appears hypovolemic). Recommendations Metoprolol tartrate 25 mg twice per day. Continue IV heparin for now, likely transitioning to Eliquis anticoagulation tomorrow noting the elevated [id number] Score of 4-5 points. Hold diuretics Continue aspirin Continue high intensity statin therapy. Reassess labs. Await resting echocardiography interpretation. Consider noncardiac evaluation of hypoxemia Supervising Physician Co-Signing Physician Notes I have seen and examined the patient. I have reviewed the medical record and discussed the case with Mr. Kumar. I agree with his current management plan. History of Present Illness Reason for Consultation: Atrial fibrillation Requesting Physician: Mora Attending Physician: Aly History of Present Illness Mr. Kevin Guthrie is a very pleasant 85-year-old male who awoke yesterday morning with an upset stomach. 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 He ultimately decided to attend and notes that it was very hot and humid. He had been doing quite a bit of walking when all of a sudden he had trouble keeping his balance, developing dizziness, and going to the ground without overt loss of consciousness. He notes that the girls that were with him helped put him in the chair then called his . He then stopped and picked up some Pepto-Bismol which seemed to ease the stomach before presenting to the ER for further evaluation. Initial EKG revealed atrial fibrillation with a rapid ventricular response with premature ventricular or aberrantly conducted complexes with the lateral ST depression. Follow-up EKG revealed sinus rhythm with first-degree AV block and a QTC of 479 ms. EKG this morning reveals sinus rhythm at 86 bpm with a first-degree AV block and a QTC of 483 ms. Troponin was minimally elevated at 0.072 then 1.780. Chest x-ray was reported as demonstrating cardiomegaly with pulmonary vascular congestion, emphysema, and an indeterminate 11 mm nodule of the right lung base. The patient denies chest pain, overt palpitations, or unusual dyspnea. He notes no recent colds, cough, chest congestion, or sick contacts. No fevers, chills, or night sweats. No orthopnea, PND, or peripheral edema. No true syncope. Patient denies prior cardiac history. He specifically denies history of arrhyth arlet, heart murmur, CAD, IA, CHF, rheumatic fever, or scarlet fever. 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 He notes receiving both radiation and chemotherapy for the parotid carcinoma. He notes a history of hypertension, dyslipidemia, chronic kidney disease, and prediabetes. Family History: Father with an IA at 52. Sister with an IA at 82. Mother at 85 with dementia. 2 brothers are alive and well. Social History: Reformed smoker having smoked up until the age of 22. No alcohol. No illegal drug use. . 2 children - 1 daughter and 1 son. He notes that his daughter who lives in [place] and works for [employer] lost her sudden 1 month ago. 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 Allergies Allergy/AdvReac Type Severity Reaction Status Date / Time No Known Allergies Allergy Verified 11/16/20 22:04 Home Medications Medication Instructions Recorded Confirmed Type aspirin 81 mg tablet,delayed 81 mg PO DAILY 11/16/20 11/16/20 History release atorvastatin 80 mg tablet 80 mg PO DAILY 11/16/20 11/16/20 History cholecalciferol (vitamin D3) 25 25 mcg PO DAILY 11/16/20 11/16/20 History mcg (1,000 unit) tablet (Vitamin D3) hydrochlorothiazide 25 mg tablet 12.5 mg PO DAILY 11/16/20 11/16/20 History lisinopril 20 mg tablet 20 mg PO DAILY 11/16/20 11/16/20 History Patient History Medical History (Updated 11/17/20 @ 10:23 by Sergio Kumar) Dyslipidemia, goal LDL below 70 HTN (hypertension) NSTEMI (non-ST elevated myocardial infarction) PAF (paroxysmal atrial fibrillation) Social History Smoking Status: Former smoker Do You Dip or Chew Tobacco: No; Hx Alcohol Use: No Hx Substance Use: No Preferred Language: Welsh Communication Ability: Effective Beliefs That Will Affect Care: None Current Living Situation: Spouse Other Information That Helps Us Care for You: No Feels Safe at Home: Yes Safety Concerns: Feels Safe At This Time Assistive Devices: Glasses, Hearing Aid - Left and Hearing Aid - Right Review of Systems Review of Systems: Complete Review of Systems is as stated above, negative, or noncontributory. Physical Exam Physical Exam: General: A&Ox3. NAD. HENT: Right sided facial droop Neck: Bilateral carotid bruits. Lungs: Dry crackles. Heart: Regular at 100 bpm with a soft systolic murm Abdomen: +BS. Soft. Nontender. Extremities: No clubbing. No cyanosis. No edema. Neuro: Right sided facial droop, chronic. Pulses are excellent bilaterally, radial: 2/4, posterior tibial 2-3/4. Results & Data ([facility]) Vital Signs (Past 12 Hours) Vital Signs Temp Pulse Pulse Resp BP BP Pulse Ox 11/17/20 08:01 37.0 C 105 H 18 142/65 H 100 11/17/20 04:45 36.9 C 90 20 132/69 95 11/17/20 04:00 75 29 H 105/58 L 100 11/17/20 03:45 72 31 H 117/61 98 11/17/20 03:30 80 28 H 133/71 99 11/17/20 03:15 73 31 H 112/56 L 99 11/17/20 03:00 75 30 H 106/57 L 98 11/17/20 02:45 75 29 H 107/60 98 11/17/20 02:30 78 32 H 103/53 L 97 11/17/20 02:15 83 28 H 109/55 L 96 11/17/20 02:00 83 31 H 112/58 L 96 11/17/20 01:45 85 30 H 107/67 97 11/17/20 01:30 89 29 H 130/67 96 11/17/20 01:15 93 H 31 H 124/64 95 11/17/20 01:00 99 H 26 H 134/66 97 11/17/20 00:45 95 H 30 H 136/72 97 11/17/20 00:30 101 H 30 H 153/76 H 96 11/17/20 00:15 107 H 35 H 146/82 H 96 11/17/20 00:00 117 H 34 H 159/95 H 95 11/16/20 23:50 114 H 43 H 87 L 11/16/20 23:49 126 H 36 H 11/16/20 23:30 74 44 H 158/90 H 100 11/16/20 23:29 79 30 H 99 11/16/20 23:16 78 44 H 188/105 H 98 11/16/20 23:00 85 29 H 180/85 H 97 11/16/20 22:50 125 H 39 H 185/131 H 92 11/16/20 22:46 106 H 182/131 H 11/16/20 22:30 82 41 H 178/103 H 96 Laboratory Results Laboratory Results - last 24 hr 11/16/20 11/16/20 11/16/20 20:20 20:20 21:24 WBC 7.26 RBC 3.86 L Hgb 12.7 L Hct 37.9 L MCV 98.2 MCH 32.9 MCHC 33.5 RDW Std Deviation 54.3 H RDW Coeff of Derrek 15.0 H Plt Count 187 MPV 10.4 Immature Gran % (Auto) 0.1 Neut % (Auto) 89.5 Lymph % (Auto) 7.3 Vance % (Auto) 2.8 Eos % (Auto) 0.0 Baso % (Auto) 0.3 Neut # (Auto) 6.50 Lymph # (Auto) 0.53 L Vance # (Auto) 0.20 Eos # (Auto) 0.00 Baso # (Auto) 0.02 Immature Gran # (Auto) 0.01 APTT PTT Ratio Sodium 137 Potassium 3.8 Chloride 108 H Carbon Dioxide 25 Anion Gap 4.0 BUN 30 H Creatinine 1.38 Est Cr Clr Drug Dosing 48.0 Est GFR ( Amer) 53.6 Est GFR (Non-Af Amer) 46.3 BUN/Creatinine Ratio 21.5 H Glucose 106 H Calcium 8.1 L Total Bilirubin 0.5 AST 24 ALT 23 Alkaline Phosphatase 61 Troponin I 0.072 H* NT-Pro-B Natriuret Pep 2013 H Total Protein 7.0 Albumin 3.4 Globulin 3.6 Albumin/Globulin Ratio 0.9 TSH 1.550 Urine Color Yellow Urine Appearance Clear Urine pH 5.0 Ur Specific [place] 1.014 Urine Protein Negative Urine Glucose (UA) Negative Urine Ketones Negative Urine Blood 3+ H Urine Nitrite Negative Urine Bilirubin Negative Urine Urobilinogen Negative Ur Leukocyte Esterase Negative Urine WBC (Auto) 1-5 Urine RBC (Auto) 10-30 H U Hyaline Cast (Auto) 1-5 U Epithel Cells (Auto) 5-10 H Urine Bacteria (Auto) Negative COVID-19 Eval Order SARS-CoV-2 (PCR) 11/16/20 11/16/20 11/17/20 22:02 22:02 05:24 WBC RBC Hgb Hct MCV MCH MCHC RDW Std Deviation RDW Coeff of Derrek Plt Count MPV Immature Gran % (Auto) Neut % (Auto) Lymph % (Auto) Vance % (Auto) Eos % (Auto) Baso % (Auto) Neut # (Auto) Lymph # (Auto) Vance # (Auto) Eos # (Auto) Baso # (Auto) Immature Gran # (Auto) APTT PTT Ratio Sodium Potassium Chloride Carbon Dioxide Anion Gap BUN Creatinine Est Cr Clr Drug Dosing Est GFR ( Amer) Est GFR (Non-Af Amer) BUN/Creatinine Ratio Glucose Calcium Total Bilirubin AST ALT Alkaline Phosphatase Troponin I 1.780 H* NT-Pro-B Natriuret Pep Total Protein Albumin Globulin Albumin/Globulin Ratio TSH Urine Color Urine Appearance Urine pH Ur Specific [place] Urine Protein Urine Glucose (UA) Urine Ketones Urine Blood Urine Nitrite Urine Bilirubin Urine Urobilinogen Ur Leukocyte Esterase Urine WBC (Auto) Urine RBC (Auto) U Hyaline Cast (Auto) U Epithel Cells (Auto) Urine Bacteria (Auto) COVID-19 Eval [address] Cov[address] [facility] SARS-CoV-2 (PCR) NEGATIVE 11/17/20 05:24 WBC RBC Hgb Hct MCV MCH MCHC RDW Std Deviation RDW Coeff of Derrek Plt Count MPV Immature Gran % (Auto) Neut % (Auto) Lymph % (Auto) Vance % (Auto) Eos % (Auto) Baso % (Auto) Neut # (Auto) Lymph # (Auto) Vance # (Auto) Eos # (Auto) Baso # (Auto) Immature Gran # (Auto) APTT 43.7 H PTT Ratio 1.7 Sodium Potassium Chloride Carbon Dioxide Anion Gap BUN Creatinine Est Cr Clr Drug Dosing Est GFR ( Amer) Est GFR (Non-Af Amer) BUN/Creatinine Ratio Glucose Calcium Total Bilirubin AST ALT Alkaline Phosphatase Troponin I NT-Pro-B Natriuret Pep Total Protein Albumin Globulin Albumin/Globulin Ratio TSH Urine Color Urine Appearance Urine pH Ur Specific [place] Urine Protein Urine Glucose (UA) Urine Ketones Urine Blood Urine Nitrite Urine Bilirubin Urine Urobilinogen Ur Leukocyte Esterase Urine WBC (Auto) Urine RBC (Auto) U Hyaline Cast (Auto) U Epithel Cells (Auto) Urine Bacteria (Auto) COVID-19 Eval Order SARS-CoV-2 (PCR) Diagnostic Findings Telemetry reveals atrial fibrillation initially then sinus with pac's, first degree AV block.
[2020-11-17 11:19] LABS: Hematocrit (blood only) 40.8 % (42-52); Hemoglobin 13.4 g/dL (14.0-18.0); Mean Corpuscular Hemoglobin 32.5 pg (25-34); Mean Corpuscular Hgb Conc 32.8 g/dL (32-36); Mean Platelet Volume 11.1 fL (7.4-10.4); Platelet Count 188 K/uL (130-400); RDW Standard Deviation 54.6 fL (36.4-46.3); Red Blood Count 4.12 M/uL (4.7-6.1)
[2020-11-17 11:30] LABS: BUN Creatinine Ratio 19.3 (10-20); Calcium 8.1 mg/dl (8.5-10.1); Creatinine Clr Calc Pharmacy 41.2 ml/min; Potassium 3.5 mmol/L (3.5-5.1)
[2020-11-17] MEDS: METOPROLOL TARTRATE 25 MG TAB PO SCH ×2 (12:03→22:00)
[2020-11-17 12:28] LABS: Partial Thromboplastin Ratio 2.2
[2020-11-17 12:29] LABS: Partial Thromboplastin Time 56.7 Seconds (21.0-31.0)
--- NOTE | 2020-11-17 13:53 | Electrocardiogram Report ---
Test Reason : Blood Pressure : / mmHG Vent. Rate : 092 BPM Atrial Rate : 092 BPM P-R Int : 224 ms QRS Dur : 100 ms QT Int : 388 ms P-R-T Axes : 075 023 056 degrees QTc Int : 479 ms Sinus rhythm with 1st degree A-V block Nonspecific ST and T wave abnormality Prolonged QT Abnormal ECG When compared with ECG of 03-JUL-2010 10:00, Vent. rate has increased BY 30 BPM QT has lengthened Confirmed by José Mcginnis ([id number]) on 11/17/2020 1:53:19 PM Referred By: REFERRED SELF Confirmed By:Melvin Mcginnis
--- NOTE | 2020-11-17 13:54 | Electrocardiogram Report ---
Test Reason : Blood Pressure : / mmHG Vent. Rate : 128 BPM Atrial Rate : 104 BPM P-R Int : 000 ms QRS Dur : 100 ms QT Int : 302 ms P-R-T Axes : 000 051 042 degrees QTc Int : 440 ms Poor data quality, interpretation may be adversely affected Atrial fibrillation with rapid ventricular response with premature ventricular or aberrantly conducte d complexes ST depression, consider subendocardial injury Abnormal ECG When compared with ECG of 16-NOV-2020 20:04, (unconfirmed) Atrial fibrillation has replaced Sinus rhythm Confirmed by José Mcginnis ([id number]) on 11/17/2020 1:54:14 PM Referred By: REFERRED SELF Confirmed By:Melvin Mcginnis
--- NOTE | 2020-11-17 16:44 | Electrocardiogram Report ---
Test Reason : Blood Pressure : / mmHG Vent. Rate : 086 BPM Atrial Rate : 086 BPM P-R Int : 216 ms QRS Dur : 104 ms QT Int : 404 ms P-R-T Axes : 076 017 045 degrees QTc Int : 483 ms Sinus rhythm with 1st degree A-V block Prolonged QT Abnormal ECG When compared with ECG of 16-NOV-2020 21:47, (unconfirmed) Sinus rhythm has replaced Atrial fibrillation Vent. rate has decreased BY [address] no longer depressed in Lateral leads Confirmed by José Mcginnis ([id number]) on 11/17/2020 4:44:20 PM Referred By: REFERRED SELF Confirmed By:Melvin Mcginnis
[2020-11-17] MEDS: ACETAMINOPHEN 325 MG TAB PO PRN ×2 (17:23→20:35)
[2020-11-17] MEDS ORDERED: RAPID SEQUENCE INDUCTION BAG ONE (18:17)
[2020-11-17] MEDS ORDERED: NITROGLYCERIN/D5W 100 MCG/ML BTL ONE (18:18)
--- NOTE | 2020-11-17 18:20 | XRay Report ---
XR chest 1V portable HISTORY: Respiratory distress. COMPARISON: Chest 11/16/2020. FINDINGS: Interval development of a right mid to lower lung zone airspace opacity. Mild diffuse inter stitial thickening also persists. Patchy densities at the left lung base remain unchanged. The heart is top normal in size. There are trace bilateral pleural effusions. No pneumothorax. Degenerative britton nges again noted within the shoulders. IMPRESSION: 1. Interval development of a right mid to lower lung zone airspace opacity. This likely represents a pneumonia. Asymmetric pulmonary edema could also have a similar appearance in the appropriate clinica l setting. 2. Trace bilateral pleural effusions. ACT 112: Negative or not required by law. Electronically signed by: Jose Carlos Winkler M.D. 11/17/2020 6:18 PM
[2020-11-17 18:27] LABS: Basophils # (auto) 0.02 K/uL (0-0.2); Basophils % (auto) 0.2 %; Hematocrit (blood only) 44.4 % (42-52); Immature Granulocytes # (auto) 0.02 K/uL (0.00-0.02); Immature Granulocytes % (auto) 0.2 %; Lymphocytes # (auto) 2.53 K/uL (1.2-3.4); Lymphocytes % (auto) 20.1 %; Mean Corpuscular Hemoglobin 32.9 pg (25-34); Mean Corpuscular Volume 97.4 fL (80-100); Mean Platelet Volume 10.5 fL (7.4-10.4); Monocytes # (auto) 0.34 K/uL (0.11-0.59); Monocytes % (auto) 2.7 %; Neutrophils # (auto) 9.65 K/uL (1.4-6.5); Neutrophils % (auto) 76.8 %; Platelet Count 142 K/uL (130-400); RDW Standard Deviation 53.3 fL (36.4-46.3); Red Blood Count 4.56 M/uL (4.7-6.1); White Blood Count 12.56 K/uL (4.8-10.8)
[2020-11-17 18:29] LABS: Mean Corpuscular Hgb Conc 33.8 g/dL (32-36)
[2020-11-17] MEDS ORDERED: PROPOFOL IV EMULSION 10 MG/ML 100 ML VIAL IV ONE (18:29)
--- NOTE | 2020-11-17 18:44 | Critical Care Consultation ---
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 A CODE PURPLE on 11/17 in which patient was reported to have abdominal pain, and was found to be in acute hypoxemic, hypercapnic respiratory failure in the setting of new, right-sided lung opacities seen on chest imaging. His work- up is ongoing. He requires ICU placement for management of his AHHRF and intensive hemodynamic monitoring. Neuro - [facility] ICU: Unobtainable Sedation: Versed Analgesia: Fentanyl Metabolic Encephalopathy * Suspect secondary to acute hypercapnia and acidemia in setting of respiratory decline * In setting of profound HTN, AMS, AFib --> stat CT-H to r/o ischemic and hemorrhagic process --> Echocardiogram 11/17 revealing of mildly diminished LV function, but otherwise normal * Lytes, CBC otherwise unrevealing * Given concern for respiratory decline and deteriorating mental status, patient was emergently intubated for airway protection and ventilation * History of R facial droop sec to prior intracranial mass (s/p resection) per Nursing. Noted in previous exams on patient's chart Cardiac - Atrial Fibrillation with Rapid Ventricular Response * Patient found to be in AFib with RVR in 120-130s upon arrival to [facility] * Lopressor IV p.r.n. for rates > 110 * Metoprolol tartrate 25mg b.i.d. via OG * Hold hep gtt while CT-H w/u is ongoing to r/o hemorrhagic process * Echocardiogram 11/17 revealing of mildly diminished LV function (EF 45-50), but otherwise normal HTN * Patient found with BPs exceeding 200-220/100-110 upon arrival to [facility] * Out of concern for possible acute CHF --> initially nitro SL, then briefly on nitro gtt * Hold nitro gtt for now * Proceed with A-line for continuous hemodynamic monitoring Elevated Troponin * Troponin from admission initially downtrended (peak 2.070) - last at 1441 * Repeat troponin demonstrating 1.780 * Will continue to trend in setting of AHHRF, unclear abdominal/back pain, new arrhythmia * Stat ECG * As above - hep gtt pending CT-H * ASA, statin via OGT * Strict I+Os Respiratory - Right Airspace Opacities * CXR on arrival revealing for mild pulmonary vascular congestion and emphysema * CXR during [facility] --> right RML/RLL opacities c/f aspiration/pneumonitis vs. asymmetric pulmonary edema * At this time, suspect that this is likely due to aspiration * Consider Unasyn pending work-up * Await ongoing work-up -- consider diuresis * Strict I+Os VDRF * Patient briefly transition to BiPAP prior to transfer in the ICU * Emergent intubation sec to deteriorating mental status and respiratory decline * Recheck ABG in 1 hour GI - Abdominal Pain * Upon arrival to [facility], patient was c/o significant right-sided/flank abdominal pain * No obvious distention on exam, +TTP, no rebound or guarding * Major concern in +new-onset AFib is mesenteric ischemia sec to embolus * Stat CT-A/P with contrast, follow-up results * NPO * OGT RENAL/LYTES - Acute Kidney Injury * Unknown baseline Cr, does have h/o CKD3 - on admission Cr 1.71 * Worsening from this AM - BUN 27 / 1.71 from (28/1.44) * Suspect likely prerenal at this point * Consider gentle IVF once volume status elucidated - * Insert [place] * Strict I+Os ENDO - * ICU Hyperglycemia protocol HEME - * Stable H&H * Will monitor for any drops in the setting of Heparin gtt ID - * See respiratory above INTEGUMENTARY - * No acute concerns LINES/IV ACCESS - PIVs intact, anticipate A-line DVT PROPHYLAXIS - Heparin gtt - currently on hold while awaiting CT-H Thank you for allowing us to be part of this patient's care. Please refer to Dr. Segal's documentation for any further recommendations. (2) NSTEMI (non-ST elevated myocardial infarction): (3) PAF (paroxysmal atrial fibrillation): (4) New onset a-fib: (5) Elevated troponin: (6) Weakness: (7) Abdominal cramping: (8) Lab test negative for COVID-19 virus: (9) Dyslipidemia, goal LDL below 70: Supervising Physician Co-Signing Physician Notes Dr. Peck was resident physician during care of patient. I separately evaluated patient for mason portions of the history and the exam. I was present during the critical portion of medical decision making, and I discussed the case with the resident. I generally agree with the findings and plan. Acute hypercapnic respiratory failure I have personally spent 45 minutes of critical care time in the direct management of this patient. This is a life/limb threatening event. This includes time spent evaluating patient, direct bedside care, chart review, placing orders, interpretation of diagnostic studies, discussion with consultants, patient, and/or family members regarding treatment decisions, as well as other required patient management activities. This time is exclusive of all separately billable procedures, and teaching time and separate from and in addition to any other critical care service time. History of Present Illness Attending Physician: Leonardo Lu DO History of Present Illness This is an 85-year-old gentleman with a notable past medical history of hypertension, hyperlipidemia, prediabetes, known mitral valve regurgitation, CKD stage III, history of parotid cancer who presented to [facility] for evaluation of dizziness and near syncope. In the ER, he was found to be in A. fib with rapid ventricular response, as well as hypertensive. CT of the head at that time showed no findings, nor did CT of abdomen and pelvis. At this time, he did deny chest pain, palpitations, shortness of breath, although he did require 5 L of oxygen. He was subsequently started on a Cardizem drip after receiving a dose of Lopressor in the ER, and was also started on IV heparin. Echocardiography performed this morning demonstrated mildly reduced left ventricular function with an EF 45 to 50%, with normal right ventricular function. Between 1730 and 1800, patient was noted to have increasing oxygen requirement as well as having severe abdominal pain. A CODE PURPLE was called. Upon arrival in the room, patient was found to be tachypneic with increased work of breathing. He was found to be in atrial fibrillation with rapid ventricular response with rates in the 120s to 140 range. His blood pressure was found to be rising into the 200-220/110 range. His respiratory exam was significant for bilateral rales, more appreciable on the right than the left. There was mild tenderness to palpation in the right abdomen and flank; no appreciable distention. He was subsequently given sublingual nitro X3 with only modest improvement in his pressures. He was subsequently transferred down to the ICU I- STAT demonstrated respiratory acidosis with pH of 7.2, PCO2 of 70, HCO3 of 27, PO2 235. In the ICU, patient became more alteredhe intermittently stopped responding to questions and was unable to follow commands. He would then have some return of mentation and could follow commands; although this was not clear. Given concern for his deteriorating mentation and inability to protect his airw ay and increasing oxygenation and ventilatory requirements, patient was intubated emergently and sent to imaging for further diagnostic aid. Per nursing report, patient has a history of a brain tumor that was resected a number of years ago that yielded a permanent right facial droop. Allergies Allergy/AdvReac Type Severity Reaction Status Date / Time No Known Allergies Allergy Verified 11/16/20 22:04 Home Medications Medication Instructions Recorded Confirmed Type aspirin 81 mg tablet,delayed 81 mg PO DAILY 11/16/20 11/16/20 History release atorvastatin 80 mg tablet 80 mg PO DAILY 11/16/20 11/16/20 History cholecalciferol (vitamin D3) 25 25 mcg PO DAILY 11/16/20 11/16/20 History mcg (1,000 unit) tablet (Vitamin D3) hydrochlorothiazide 25 mg tablet 12.5 mg PO DAILY 11/16/20 11/16/20 History lisinopril 20 mg tablet 20 mg PO DAILY 11/16/20 11/16/20 History Patient History Medical History (Updated 11/17/20 @ 10:23 by Sergio Kumar) Dyslipidemia, goal LDL below 70 HTN (hypertension) NSTEMI (non-ST elevated myocardial infarction) PAF (paroxysmal atrial fibrillation) Social History Smoking Status: Former smoker Do You Dip or Chew Tobacco: No; Hx Alcohol Use: No Hx Substance Use: No Preferred Language: Belarusian Communication Ability: Effective Beliefs That Will Affect Care: None Current Living Situation: Spouse Other Information That Helps Us Care for You: No Feels Safe at Home: Yes Safety Concerns: Feels Safe At This Time Assistive Devices: Glasses, Hearing Aid - Bilateral and Oxygen - Continuous Review of Systems Review of Systems: Unobtainable due to cognitive status Physical Exam Physical Exam: General: Frail appearing 85-year-old gentleman who is lying back in his hospital bed in obvious distress. There is evidence of right facial droop. He intermittently responds to questions before occasionally dosing off and becoming unresponsive to pain or tactile stimuli. HEENT: NCAT. Eyes - Sclera are white, anicteric, and without injection. There is clear ptosis and facial droop involving the RIGHT face. PERRL. Mouth - MMM with no tonsillar edema or exudates. Cardiac: Rapid rate and irregular rhythm; S1 and S2 present with no murmurs, rubs, or gallops. Pulmonary: Moderate respiratory distress. Use of accessory muscles in the neck noted mildly. Lungs demonstrate prominent deep wheezes, more appreciable on RIGHT rather than left - although also present on left too. Abdominal: Abdomen was soft, nondistended, and moderately tender to palpation in the RUQ/RLQ, alongside the midaxillary line. No involuntary guarding. Extremities: Upper and lower extremities are warm and well perfused. Radial and dorsalis pedis pulses were EQUAL and 2+ b/l. Capillary refill assessed in UE was 3 sec. Neuro: - Cranial Nerves: Right-sided facial droop noted. EOMs appear intact grossly. - Motor: UE - Finger, wrist, elbow, and shoulder strength is 5/5 bilaterally. LE - Hip, knee, and ankle strength is 5/5 bilaterally. Results & Data Results & Data ([facility]) Vital Signs (Past 12 Hours) Vital Signs Temp Pulse Pulse Resp BP Pulse Ox 11/17/20 18:13 120 H 34 H 94 11/17/20 16:00 36.8 C 99 H 20 135/74 95 11/17/20 11:53 37.0 C 102 H 18 138/67 94 11/17/20 08:01 37.0 C 105 H 18 142/65 H 100 Resident Activity Tracking Resident Involvement: Resident Care Provided Care Provided: Adult [facility]
[2020-11-17] MEDS ORDERED: OPTIRAY 320 125ml IV ONE (18:46)
[2020-11-17 18:49] LABS: INR 1.1 (0.9-1.1); Partial Thromboplastin Ratio 2.9; Prothrombin Time 10.8 Seconds (9.0-12.0)
[2020-11-17 18:51] LABS: iSTAT Allen Test Pass; iSTAT Art Bld Gas pCO2 Correct 70 mmHg (35-46); iSTAT Art Bld Gas pH Corrected 7.203 (7.35-7.45); iSTAT Arterial Blood Gas HCO3 27 meg/L (19-24); iSTAT Arterial Blood Gas pCO2 70 mmHg (35-46); iSTAT Arterial Blood Gas pO2 235 mmHg (80-95); iSTAT Arterial Blood Gas pO2 C 235; iSTAT Carbon Dioxide 30 mmol/L (24-31); iSTAT FiO2 100 %; iSTAT Hematocrit 45 % (42-52); iSTAT Hemoglobin 15.3 g/dl (14.0-18.0); iSTAT Potassium 3.8 mmol/L (3.3-5.0); iSTAT Site R Radial; iSTAT Sodium 134 mmol/L (135-144)
[2020-11-17 18:55] LABS: Albumin Level 3.2 gm/dl (3.4-5.0); BUN Creatinine Ratio 15.7 (10-20); Calcium 7.6 mg/dl (8.5-10.1); Creatinine Clr Calc Pharmacy 34.7 ml/min; Est GFR (African American) 41.4 ml/min; Est GFR (Non-African American) 35.7 ml/min; Potassium 3.8 mmol/L (3.5-5.1)
--- NOTE | 2020-11-17 18:56 | Billing Data ---
Date of Service November 17, 2020 Coding Level of Care Code Critical Care 1st -74 mins
--- NOTE | 2020-11-17 18:58 | Procedure Note ---
Procedure Note Date of Service November 17, 2020 Note Procedure Date: Noted above Procedure: Endotracheal intubation Pre-procedure Diagnosis: Acute hypercapnic respiratory Post-procedure Diagnosis: same as above Prior to Procedure: Informed Consent: emergent Attending Staff: Elizabeth Segal DO Resident: Cisco LINDO The identity of the patient was confirmed and a bedside time out was performed. Description of Procedure: Patient was evaluated and required intubation for impending respiratory failure. The patient was prepared in the usual fashion. A video laryngoscope was used. A 8 mm inner diameter endotrachial tube was placed endotracheally. A grade 1 view was obtained. The endotracheal tube was noted to pass through the vocal cords. Chest rise was bilateral. Bilateral breath sounds were heard without air sounds in the abdomen. Mist was noted in the endotracheal tube. End-tidal CO2 measurement was positive. Chest x-ray shows proper endotracheal tube placement. Complications: None Findings: Not applicable Specimens: Not applicable Estimated blood loss: Zero Coding CPT Codes Resuscitation - Resuscitation: 88472 Endotracheal Intubation, emergency ([id number]) [facility] Procedure Codes (Charges) Resuscitation Resuscitation: 03183 Endotracheal Intubation, emergency
[2020-11-17 19:03] LABS: Albumin Globulin Ratio 0.7 (0.9-2); Bilirubin,Total 0.6 mg/dl (0.2-1); Globulin 4.5 gm/dl (2.5-4.0); Total Protein 7.7 gm/dl (6.4-8.2); Troponin I 1.78 ng/ml (0-0.045)
[2020-11-17 19:05] LABS: Partial Thromboplastin Time 77.1 Seconds (21.0-31.0)
[2020-11-17] MEDS ORDERED: STAT IV Infusion **Titration per Protocol STA ×2 (19:11→19:52)
[2020-11-17] MEDS ORDERED: MIDAZOLAM BOLUS FROM BAG IV PRN (19:11)
[2020-11-17] MEDS ORDERED: MIDAZOLAM HCL 125MG/250ML D5W ONE (19:13)
[2020-11-17] MEDS ORDERED: MIDAZOLAM HCL 125 MG/250 ML BAG IV SCH (19:15)
--- NOTE | 2020-11-17 19:18 | CT Scan Report ---
HEAD CT NONCONTRAST CT DOSE: HISTORY: Altered mental status. Hypertension. TECHNIQUE: Multiaxial CT images of the head were performed without the use of intravenous contrast. A utomated exposure control was utilized for this study. A dose lowering technique was utilized adheri ng to the principles of ALARA. Comparison: Head CT 11/16/2020. Findings: Small right mastoid effusion, unchanged. The paranasal sinuses and left mastoid air cells a re clear. Metallic density anterior to the right globe with associated streak artifact. This remains unchanged. Focal soft tissue defect within the right lateral neck unchanged. This is likely due to ol d postoperative change. The calvarium and skull base are intact. There is no mass, hematoma, midline shift, acute infarct. White matter hypodensity is nonspecific but suggestive of microvascular ischemi c change. The ventricles and sulci demonstrate mild age-related involutional changes. Impression: No significant change compared to the prior study. No acute intracranial abnormality. ACT 112: Negative or not required by law. Electronically signed by: Jose Carlos Winkler M.D. 11/17/2020 7:16 PM
--- NOTE | 2020-11-17 20:06 | CT Scan Report ---
CHEST CTA for PULMONARY ARTERIES CT DOSE: 2152.31 mGy.cm HISTORY: acute hypoxia, AFib, chest/abdominal pain - r/o PE TECHNIQUE: Multiaxial CT images of the chest were performed following the intravenous administration of contrast to evaluate the pulmonary arteries. Maximal intensity projection images were also obtaine d. A dose lowering technique was utilized adhering to the principles of ALARA. COMPARISON STUDY: PET CT 11/30/2013. FINDINGS: An endotracheal tube terminates 4.9 cm from the latricia. A nasogastric tube terminates in th e proximal stomach. Mild calcified plaque within the thoracic aorta. No evidence for an aortic dissec tion. Trace pericardial effusion. There is also a trace right pleural effusion. A few partially calci fied mediastinal lymph nodes are noted. No significant mediastinal hilar lymphadenopathy. There are r ight basilar calcified pleural plaques. No suspicious lytic or blastic osseous lesions. Suboptimal ev aluation of the bilateral lower lobe and right middle lobe segmental and subsegmental pulmonary arter ies due to the motion artifact. However, no definite filling defects within the pulmonary arteries to suggest a pulmonary embolus. No pneumothorax. Emphysema. Partial opacification of the right middle a nd lower lobe distal bronchi with associated bronchial wall thickening. Small patchy groundglass dens ities at the base of the left lower lobe. Consolidative and groundglass airspace opacities within the right upper lobe, right middle lobe, and right lower lobe most pronounced posteriorly. This is consi stent with a pneumonia could be secondary to aspiration. IMPRESSION: 1. No evidence for pulmonary embolus. 2. Satisfactory support line placement. 3. Right lung airspace opacities as described above as well as a small patchy airspace opacities with in the base of the left lower lobe. These likely represent a pneumonia could be secondary to aspirati on. 4. Trace pericardial effusion and a trace right pleural effusion. ACT 112: Negative or not required by law. Electronically signed by: Jose Carlos Winkler M.D. 11/17/2020 8:05 PM
[2020-11-17 20:09] LABS: iSTAT Allen Test Pass; iSTAT Art Bld Gas pCO2 Correct 50 mmHg (35-46); iSTAT Art Bld Gas pH Corrected 7.335 (7.35-7.45); iSTAT Arterial Blood Gas HCO3 27 meg/L (19-24); iSTAT Arterial Blood Gas pCO2 48 mmHg (35-46); iSTAT Arterial Blood Gas pH 7.35 (7.35-7.45); iSTAT Arterial Blood Gas pO2 85 mmHg (80-95); iSTAT Arterial Blood Gas pO2 C 93; iSTAT Carbon Dioxide 28 mmol/L (24-31); iSTAT FiO2 50 %; iSTAT Hematocrit 38 % (42-52); iSTAT Hemoglobin 12.9 g/dl (14.0-18.0); iSTAT Potassium 3.6 mmol/L (3.3-5.0); iSTAT Site L Radial; iSTAT Sodium 133 mmol/L (135-144)
[2020-11-17] MEDS ORDERED: fentaNYL citrate 100 MCG/2 ML VIAL IV ONE (20:09)
[2020-11-17] MEDS ORDERED: ETOMIDATE 2 MG/ML 20 ML VIAL IV ONE (20:09)
[2020-11-17] MEDS ORDERED: SUCCINYLCHOLINE CHLORIDE 20 MG/ML 10 ML VIAL IV ONE (20:09)
--- NOTE | 2020-11-17 20:12 | CT Scan Report ---
ABDOMEN AND PELVIS CT WITH IV CONTRAST CT DOSE: HISTORY: abdominal pain, afib - r/o mesenteric ischemia TECHNIQUE: Multiaxial CT images of the abdomen and pelvis were performed following the use of intrave nous contrast. A dose lowering technique was utilized adhering to the principles of ALARA. COMPARISON STUDY: Abdomen and pelvis CT 11/16/2020. FINDINGS: Please refer to same day chest CTA for further evaluation of the lung bases. A nasogastric tube terminates in the proximal stomach. Suboptimal evaluation of the abdomen and pelvis due to motio n artifact and streak artifact from the patient's overlapping left arm. No pneumoperitoneum. No pneum atosis. There is a right total hip arthroplasty. 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 This remains unchanged. F at-containing bilateral inguinal hernias, unchanged. The gallbladder remains mildly distended. Questi onable mild gallbladder wall thickening is noted. The liver, pancreas, and adrenal glands are unremar kable. Suboptimal evaluation of the kidneys due to motion artifact. Stable hypodense lesions within t he right kidney consistent with cysts. No hydronephrosis. Stable left-sided nephrolithiasis. Calcifie d plaque within the mildly ectatic abdominal aorta. No retroperitoneal lymphadenopathy. The main port al vein is patent. There is splenosis within the left upper quadrant. The visualized bladder appears unremarkable. A few colonic diverticula. No evidence for acute diverticulitis. No bowel wall thickeni ng or obstruction. Normal appendix. IMPRESSION: 1. Distended gallbladder. This is similar to the prior study. There may be mild gallbladder wall thic kening. Consider follow-up right upper quadrant ultrasound to exclude the possibility of a developing acute cholecystitis. 2. Left-sided nephrolithiasis. No hydronephrosis. 3. A nasogastric tube terminates in the proximal stomach. 4. No definite bowel wall thickening or obstruction. 5. Additional findings as described above. ACT 112: Negative or not required by law. Electronically signed by: Jose aCrlos Winkler M.D. 11/17/2020 8:11 PM
--- NOTE | 2020-11-17 20:45 | XRay Report ---
XR chest 1V portable HISTORY: line placement COMPARISON: Chest 11/17/2020. FINDINGS: Right lung airspace opacities have slightly improved in the interval. No pneumothorax. No p leural effusions. The heart remains mildly enlarged. Interval placement of right jugular central veno us catheter which terminates in the expected location of the SVC. The endotracheal tube terminates 4. 1 cm and the latricia. Nasogastric tube terminates in the proximal stomach. IMPRESSION: 1. Satisfactory support line placement. 2. No pneumothorax. 3. Slight improved aeration within the right lung airspace opacities consistent with a pneumonia. ACT 112: Negative or not required by law. Electronically signed by: Jose Carlos Winkler M.D. 11/17/2020 8:44 PM
[2020-11-17] MEDS ORDERED: VANCOMYCIN CONSULT ACTIVE PRN ×2 (20:46)
--- NOTE | 2020-11-17 20:52 | Procedure Note ---
Procedure Note Date of Service November 17, 2020 Note INTERNAL JUGULAR CENTRAL LINE PROCEDURE NOTE: Procedure: Internal Jugular Central Line Placement Attending: Dr. Garcai Segal Provider: ALICIA Bay Indication: Central Drug Administration Anesthesia: None Line placed emergently in the setting of hypotension/septic shock requiring vasopressor support. A time-out was completed verifying correct patient, procedure, site, positioning, and implants(s) or special equipment if applicable. Patients right neck was cleansed and draped in the typical sterile fashion using Chloraprep. The Internal Jugular Vein and Carotid Artery were identified using ultrasound. The Internal Jugular vein was cannulated under direct ultrasound guidance using an introducer needle on a syringe. Good venous blood return was maintained prior to removal of syringe from introducer needle. Using Seldinger Technique, a guide wire was advanced through the introducer needle without resistance. The introducer needle was removed and ultrasound images were obtained of the guide wire within the Internal Jugular Vein and saved to the patients medical record. A small incision was made in penetrating fashion at the guide wire insertion site utilizing an 11 blade scalpel. The dilator was advanced to the vessel without resistance. The dilator was exchanged for the triple lumen catheter which was advanced into the vessel without resistance. The guide wire was removed intact from the catheter without issue. Claves were placed on each catheter tip with confirmation of good blood flow from each lumen. Each port was easily flushed with sterile saline. The catheter was placed at 17 cm and sut[address] in place. BioPatch was applied to the catheter and a sterile Tegaderm dressing was applied over the catheter with careful attention to sterility. Patient tolerated procedure well. No immediate complications were met. Post procedure x-ray was completed, placement was appropriate and no pneumothorax was noted. Images obtained are saved for permanent record Procedural Ultrasound Guidance: Procedure Date: 11/17/2020 Indication: Central venous catheter insertion Attending: Dr. Garcia Segal Provider: ALICIA Bay Artery AND Vein visualized: Yes Compressible Vein: Yes Guidewire or Short Catheter seen in vein prior to dilation: Yes Line confirmed in Vein with ultrasound: Yes Images obtained are saved for permanent record. Coding CPT Codes Tubes, Drains, and Vasc Access - Tubes, Drains, and Vasc Access: [id number] Place catheter in vein superior or inferior vena cava ([id number]) Tubes, Drains, and Vasc Access - Tubes, Drains, and Vasc Access: [id number] Ultrasound Guidance For Vascular ([id number]) [facility] [place] Procedure Codes (Charges) Tubes, Drains, and Vasc Access Procedure 3: Tubes, Drains, and Vasc Access: [id number] Place catheter in vein superior or inferior vena cava Procedure 4: Tubes, Drains, and Vasc Access: [id number] Ultrasound Guidance For Vascular
--- NOTE | 2020-11-17 20:53 | Procedure Note ---
Procedure Note Date of Service November 17, 2020 Note ARTERIAL LINE PROCEDURE NOTE: Procedure: Arterial Line Placement Attending: Dr. Garcia Segal Provider: ALICIA Bay Indication: Monitoring on Pressors Anesthesia: None Line placed emergently in the setting of hypotension/septic shock requiring vasopressor support. A time-out was completed verifying correct patient, procedure, site, positioning, and implant(s) or special equipment if applicable. Allens test was performed to ensure adequate perfusion. Patients right wrist was prepped and draped in the usual sterile fashion. Ultrasound guidance was used to aid needle placement. A 20g Arrow arterial line was introduced into the right radial artery. Catheter was threaded, and the needle was removed with appropriate blood return. Good waveform was observed. The patient tolerated the procedure well. Confirmation of placement with ultrasound. Blood Loss: Minimal Complications: None Procedural Ultrasound Guidance: Procedure Date: 11/17/2020 Indication: Arterial line insertion Attending: Dr. Garcia Segal Provider: ALICIA Bay Artery Identified: YES Line confirmed in Artery with ultrasound: Yes Complications: NONE Patient tolerated procedure: WELL Coding CPT Codes Tubes, Drains, and Vasc Access - Tubes, Drains, and Vasc Access: [id number] Place Catheter In Artery ([id number]) Tubes, Drains, and Vasc Access - Tubes, Drains, and Vasc Access: [id number] Ultrasound Guidance For Vascular ([id number]) [facility] Procedure Codes (Charges) Tubes, Drains, and Vasc Access Procedure 1: Tubes, Drains, and Vasc Access: [id number] Place Catheter In Artery Procedure 2: Tubes, Drains, and Vasc Access: [id number] Ultrasound Guidance For Vascular
[2020-11-17] MEDS ORDERED: ICU PROTOCOL FOR HYPERGLYCEMIA PRN (20:57)
[2020-11-17] MEDS ORDERED: NORMOSOL-R 500 ML IV ONE (20:57)
[2020-11-17 21:14] LABS: Gastric Occult Blood Positive (Negative); pH Gastric Fluid 3
[2020-11-17] MEDS ORDERED: VANCOMYCIN HCL 1,750 MG in SODIUM CHLORIDE 0.9% 500 ML IV ONE (21:30)
[2020-11-17] MEDS ORDERED: PANTOPRAZOLE BOLUS/DRIP 1 EA IV STA (21:38)
[2020-11-17] MEDS ORDERED: PANTOprazole 80 MG in DEXTROSE 5% 100 ML IV ONE (21:45)
[2020-11-17] MEDS: fentaNYL DRIP 1,250 MCG/250 ML BAG IV SCH (21:56)
[2020-11-17] MEDS: NOREPINEPHRINE/D5W 8 MG/508 ML BAG IV SCH (22:03)
[2020-11-17 22:18] LABS: Magnesium 2.1 mg/dl (1.8-2.4); Phosphorus 3.2 mg/dl (2.5-4.9); Troponin I 3.52 ng/ml (0-0.045)
[2020-11-17] MEDS: levoFLOXacin/D5W 750 MG/150 ML BAG IV SCH (22:27)
[2020-11-17] MEDS: CEFEPIME 2,000 MG in SYRINGE 0 ML IV SCH (22:27)
[2020-11-17] MEDS: NORMOSOL-R 1,000 ML IV SCH (22:53)
[2020-11-18 00:09] LABS: Hematocrit (blood only) 36.3 % (42-52); Hemoglobin 12.2 g/dL (14.0-18.0)
[2020-11-18] MEDS: PANTOprazole 40 MG in DEXTROSE 5% 100 ML IV SCH ×3 (01:24→07:51)
[2020-11-18] MEDS: ACETAMINOPHEN 325 MG TAB PO PRN (01:31)
[2020-11-18 04:38] LABS: Hematocrit (blood only) 36.3 % (42-52); Hemoglobin 12.2 g/dL (14.0-18.0); Mean Corpuscular Hemoglobin 31.8 pg (25-34); Mean Corpuscular Hgb Conc 33.6 g/dL (32-36); Mean Corpuscular Volume 94.5 fL (80-100); Mean Platelet Volume 10.2 fL (7.4-10.4); Platelet Count 111 K/uL (130-400); RDW Standard Deviation 52.1 fL (36.4-46.3); Red Blood Count 3.84 M/uL (4.7-6.1); White Blood Count 5.95 K/uL (4.8-10.8)
[2020-11-18] MEDS: fentaNYL DRIP 1,250 MCG/250 ML BAG IV SCH ×2 (04:58→16:14)
[2020-11-18 05:01] LABS: Albumin Globulin Ratio 0.8 (0.9-2); Albumin Level 2.4 gm/dl (3.4-5.0); BUN Creatinine Ratio 25.6 (10-20); Bilirubin Direct 0.3 mg/dl (0-0.2); Bilirubin,Total 0.7 mg/dl (0.2-1); Calcium 6.8 mg/dl (8.5-10.1); Est GFR (African American) 59.9 ml/min; Est GFR (Non-African American) 51.7 ml/min; Globulin 3.1 gm/dl (2.5-4.0); Potassium 3.2 mmol/L (3.5-5.1); Total Protein 5.5 gm/dl (6.4-8.2)
[2020-11-18 05:24] LABS: iSTAT Art Bld Gas pCO2 Correct 43 mmHg (35-46); iSTAT Art Bld Gas pH Corrected 7.372 (7.35-7.45); iSTAT Arterial Blood Gas HCO3 24 meg/L (19-24); iSTAT Arterial Blood Gas pCO2 39 mmHg (35-46); iSTAT Arterial Blood Gas pO2 77 mmHg (80-95); iSTAT Arterial Blood Gas pO2 C 89; iSTAT Carbon Dioxide 25 mmol/L (24-31); iSTAT FiO2 40 %; iSTAT Hematocrit 36 % (42-52); iSTAT Hemoglobin 12.2 g/dl (14.0-18.0); iSTAT Site Art Line; iSTAT Sodium 134 mmol/L (135-144)
[2020-11-18] MEDS: ACETAMINOPHEN 1,000 MG/100 ML VIAL IV PRN (05:29)
[2020-11-18] MEDS ORDERED: POTASSIUM PHOS 3 MMOL/1 ML INFUSION IV STA (05:39)
[2020-11-18] MEDS ORDERED: POTASSIUM PHOSPHATE 30 MMOL in SODIUM CHLORIDE 0.9% 500 ML IV ONE (06:00)
--- NOTE | 2020-11-18 06:06 | Critical Care Progress Note ---
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 A CODE [facility] on 11/17 in which patient was reported to have abdominal pain, and was found to be in acute hypoxemic, hypercapnic respiratory failure in the setting of new, right-sided lung opacities seen on chest imaging, as well as HTN urgency. His work-up is ongoing. He requires ICU placement for management of his AHHRF, HTN and intensive hemodynamic monitoring. Neuro - [facility] ICU: Unobtainable Sedation: Versed Analgesia: Fentanyl Metabolic Encephalopathy * Secondary to acute hypercapnia and acidemia in setting of respiratory decline * Possible component of hypertensive encephalopathy in context of HTN urgency vs. emergency yesterday * Repeat CT-H without acute process * Lytes, CBC otherwise unrevealing * Maintain intubation * History of chronic RIGHT facial droop sec to prior intracranial mass (s/p resection) per Nursing. Noted in previous exams on patient's chart Cardiac - Atrial Fibrillation with Rapid Ventricular Response * Patient found to be in AFib with RVR in 120-130s upon arrival to [facility] and on admission * Metoprolol tartrate 25mg b.i.d. via OG * Lopressor IV p.r.n. for rates > 110 * Resume heparin gtt * Echocardiogram 11/17 revealing of mildly diminished LV function (EF 45-50), but otherwise normal * Maintain K > 4, Mg > 2 HTN Urgency - Resolved * Patient found with BPs exceeding 200-220/100-110 upon arrival to [facility] * In setting of +encephalopathy, +JOÃO, +elevating troponins * s/p nitroglycerin with achievement of normotension * A-line Shock * Patient now requiring pressor support for maintenance of BPs * Good peripheral perfusion on exam * Possibly secondary to sepsis VS. sedation > cardiogenic * Maintain MAP > 65, UOP > 0.5cc/kg/hr Elevated Troponin * Troponin from admission initially downtrended (peak 2.070) * Troponin trend demonstrating 1.780 --> 4.350 --> 5.18 this AM * Suspect secondary to demand ischemia * Continue heparin gtt * ASA, statin via OGT * Strict I+Os * Continue trending troponin, serial ECGs * Cardiology following Respiratory - Aspiration Pneumonia * CXR on arrival revealing for mild pulmonary vascular congestion and emphysema * CT Chest demonstrating diffuse right airspace and LLL opacities --> +procal, +high fevers overnight * At this time, suspect that this is likely due to aspiration in setting of AMS * Continue cefepime, levofloxacin, * Discontinue vancomycin * Await BCX * VDRF as below VDRF * Patient briefly transition to BiPAP prior to transfer in the ICU * Emergent intubation sec to deteriorating mental status and respiratory decline * Still requiring mechanical ventilation * Ween as tolerated. Recheck ABGs. GI - Abdominal Pain * Upon arrival to [facility], patient was c/o significant right-sided/flank abdominal pain * No obvious distention on exam, +TTP, no rebound or guarding * CT-A/P: Distended gallbladder with possible mild wall thickening, nephrolithiasis -- Low threshold for US RUQ / Gallbladder * Diet via OGT RENAL/LYTES - Acute Kidney Injury * Unknown baseline Cr, does have h/o CKD3 - on admission Cr 1.71 * Improving - BUN 27 / 1.71 ----> 32 / 1.3 * Prerenal vs. secondary to HTN emergency * Continue Normosol mIVF - * [place] * Strict I+Os ENDO - * ICU Hyperglycemia protocol HEME - * Stable H&H * Will monitor for any drops in the setting of Heparin gtt ID - * See respiratory above INTEGUMENTARY - * No acute concerns LINES/IV ACCESS - PIVs intact, A-line, OGT DVT PROPHYLAXIS - Heparin gtt Thank you for allowing us to be part of this patient's care. Please refer to Dr. Segal's documentation for any further recommendations. (2) NSTEMI (non-ST elevated myocardial infarction): (3) PAF (paroxysmal atrial fibrillation): (4) New onset a-fib: (5) Elevated troponin: (6) Weakness: (7) Abdominal cramping: (8) Lab test negative for COVID-19 virus: (9) Dyslipidemia, goal LDL below 70: Admission and Anticipated Discharge Date Admission Date: November 17, 2020 Supervising Physician Co-Signing Physician Notes Dr. Peck was resident physician during care of patient. I separately evaluated patient for mason portions of the history and the exam. I was present during the critical portion of medical decision making, and I discussed the case with the resident. I generally agree with the findings and plan. Acute hypercapnic respiratory failure, suspect secondary to aspiration event. O vernight patient was febrile he is on antibiotics for aspiration: Cefepime Levaquin can discontinue vancomycin. Lactic acidosis resolved, JOÃO improved. Normal sinus rhythm from his paroxysmal atrial fibrillation. Can discontinue Protonix infusion and convert to 80 mg twice daily, I do not believe he needs aggressive intervention as his H&H remains within acceptable limits. Continue heparin for increasing troponins. Decrease ventilator settings from yesterday. Repeat BMP and H&H this afternoon. I have personally spent 50 minutes of critical care time in the direct management of this patient. This is a life/limb threatening event. This includes time spent evaluating patient, direct bedside care, chart review, placing orders, interpretation of diagnostic studies, discussion with co nsultants, patient, and/or family members regarding treatment decisions, as well as other required patient management activities. This time is exclusive of all separately billable procedures, and teaching time and separate from and in addition to any other critical care service time. Subjective Overnight, patient did become hypotensive and required emergent placement of central venous catheter as well as initiation of Levophed. Further, he did have a T-max of 40 C; while this is decreased, he still remains with an elevated temperature this morning, ranging between high 37 and 39 C. Still requiring mechanical ventilation. Minimally responsive, on Versed and fentanyl. Review of Systems 2 Review of Systems: Unobtainable due to endotracheal tube and Unobtainable due to reduced consciousness Physical Exam Physical Exam: General: Intubated and mechanically ventilated 85-year-old gentleman lying in his hospital bed. He is unresponsive to verbal, tactile, or painful stimuli this morning. HEENT: NCAT. Eyes - Sclera are white, anicteric, and without injection. Right facial droop is evident. Pupils are sluggish, but equal and reactive to light; size approximately 2 mm bilaterally. Minimal corneal reflex, oculocephalic reflex negative. Endotracheal tube in place. Cardiac: Normal rate and regular rhythm; S1 and S2 present with no murmurs, rubs, or gallops. Pulmonary: Mechanically ventilated. There is decreased lung sounds globally across the right lung gautam; intermittent crackles are heard throughout. The left lung demonstrates vesicular breath sounds. Abdominal: Normoactive bowel sounds. Abdomen was soft and mildly distended to palpation. Extremities: Upper and lower extremities are warm and well perfused. Capillary refill approximately 2 seconds. Neuro: As aboveevidence of chronic right-sided facial droop, sluggish pupil response, minimal corneal reflex, oculocephalic reflex negative. Upper and lower extremities are flaccid. Reflexes 2+ in the upper extremities and lower extremities. Results & Data Results & Data ([facility]) Vital Signs (Past 12 Hours) Vital Signs Temp Pulse Resp BP Pulse Ox 11/18/20 04:37 39.4 C H 70 94/57 L 96 11/18/20 04:22 77 87/54 L 96 11/18/20 04:07 39.6 C H 79 89/59 L 96 11/18/20 03:52 40 C H 71 95/59 L 95 11/18/20 03:37 84 91/58 L 94 11/18/20 03:27 95 H 18 91 11/18/20 03:22 91 H 89/55 L 94 11/18/20 03:07 39.8 C H 94 H 105/64 94 11/18/20 02:52 99 H 141/76 H 98 11/18/20 02:37 90 123/65 95 11/18/20 02:22 91 H 108/63 94 11/18/20 02:07 39.7 C H 92 H 91/57 L 94 11/18/20 01:52 39.5 C H 99 H 81/50 L 94 11/18/20 01:37 106 H 102/63 93 11/18/20 01:16 113 H 129/73 93 11/18/20 01:07 39.3 C H 106 H 114/72 89 L 11/18/20 00:52 103 H 147/82 H 94 11/18/20 00:37 39.1 C H 89 98/69 L 98 11/18/20 00:22 83 102/58 L 99 11/18/20 00:07 79 94/53 L 99 11/17/20 23:52 76 86/55 L 97 11/17/20 23:37 75 97/70 L 81 L 11/17/20 23:22 74 93/60 L 96 11/17/20 23:07 74 93/62 L 96 11/17/20 22:52 73 87/58 L 95 11/17/20 22:37 67 128/76 97 11/17/20 22:31 67 18 97 11/17/20 22:22 67 123/76 96 11/17/20 22:07 69 113/73 98 11/17/20 21:52 67 107/68 97 11/17/20 21:37 68 104/67 97 11/17/20 21:22 38.2 C H 69 107/66 95 11/17/20 21:02 71 97/59 L 94 11/17/20 20:52 72 100/65 94 11/17/20 20:32 38.3 C H 72 81/55 L 96 11/17/20 20:22 72 102/65 95 11/17/20 20:02 38.4 C H 83 62/43 L 92 11/17/20 19:52 82 66/42 L 93 11/17/20 19:38 88 70/55 L 93 11/17/20 19:30 88 22 93 11/17/20 19:23 81 21 122/65 96 11/17/20 19:03 88 26 H 79/47 L 90 11/17/20 18:30 105 H 22 93 11/17/20 18:13 120 H 34 H 94 Resident Activity Tracking Resident Involvement: Resident Care Provided Care Provided: Adult Hospital Medicine
[2020-11-18] MEDS: NORMOSOL-R 1,000 ML IV SCH (07:51)
[2020-11-18] MEDS: ATORVASTATIN 40 MG TAB PO SCH (07:51)
[2020-11-18] MEDS: HEPARIN SODIUM/DEXTROSE 25,000 UNITS/500 ML BAG IV SCH (07:51)
[2020-11-18] MEDS: ASPIRIN 81 MG ECTAB PO SCH (07:52)
[2020-11-18] MEDS: CHOLECALCIFEROL 1,000 UNITS 25 MCG TAB PO SCH (07:52)
[2020-11-18] MEDS: METOPROLOL TARTRATE 25 MG TAB PO SCH ×2 (07:52→20:37)
--- NOTE | 2020-11-18 08:24 | XRay Report ---
XR chest 1V portable HISTORY: resp failure COMPARISON: Chest 11/17/2020. FINDINGS: Satisfactory support line placement with the endotracheal tube terminates 2.3 cm from the c emely. Right lung airspace opacities persist. No pneumothorax. No pleural effusions. The heart remain s mildly enlarged. Calcified right basilar pleural plaques are again noted. IMPRESSION: 1. Satisfactory support line placement. 2. Right lung airspace opacities persist. ACT 112: Negative or not required by law. Electronically signed by: Jose Carlos Winkler M.D. 11/18/2020 8:23 AM
--- NOTE | 2020-11-18 09:14 | Cardiology Progress Note ---
Date of Service November 18, 2020 Assessment & Plan (1) Dyslipidemia, goal LDL below 70: (2) HTN (hypertension): (3) NSTEMI (non-ST elevated myocardial infarction): (4) PAF (paroxysmal atrial fibrillation): Plan: Complex, critically ill, 85-year-old male intubated and mechanically ventilated following probable aspiration event, initially admitted following an episode of weakness and near syncope with observed hypoxemia, transiently lapsing into atrial fibrillation with a rapid ventricular response x 2, with resultant demand ischemia. On initial evaluation, patient was without acute chest pain, symptoms suggestive of pericarditis, or volume overload. Continue IV heparin, aspirin, beta-richard therapy, and high intensity statin therapy. Maintain electrolytes. Admission and Anticipated Discharge Date Admission Date: November 16, 2020 Supervising Physician Co-Signing Physician Notes I have his I have seen and examined the patient. I reviewed the medical record and discussed the case with Mr. Kumar. This is a critically ill patient who is in the ICU possibly following aspiration. He is intubated and mechanically ventilated. I would continue supportive care. Rate control for his atrial fibrillation and anticoagulation. Subjective Patient is seen and examined in the ICU, Room 111 - intubated mechanically ventilated. Events over the last 24 hours reviewed. Transferred to the ICU following a code purple, likely aspiration pneumonia. Patient noted, per documentation, to have significant right-sided/flank abdominal pain with imaging revealing a distended gallbladder with possible mild gallbladder wall thickening. Recurrent transient atrial fibrillation with rapid ventricular response noted, now back in sinus/sinus bradycardia. Echocardiography in the AM on 11/17/2020 was performed with the patient in atrial fibrillation, revealing mildly reduced LV systolic function with an ejection fraction of 45 to 50%. No left ventricular wall motion abnormalities noted. RV size and function were normal. No acute valvular issues observed, with mild aortic sclerosis without significant stenosis, mild mitral regurgitation, trace tricuspid regurgitation. Troponin 5.180 ng/mL. EKG this morning with ? minimal diffuse ST segment elevation. Review of Systems Review of Systems: Unable to be obtained Physical Exam Physical Exam: General: Intubated and mechanically ventilated HEENT: Right-sided facial droop. Right-sided line. Neck veins are flat. Heart: Regular rate and rhythm. No rub. Soft systolic murmur Lungs: Diminished breath sounds anteriorly with scattered rhonchi/crackles Abdomen: Positive bowel sounds Lower extremities: No edema Results & Data ([facility]) Vital Signs (Past 12 Hours) Vital Signs Temp Pulse Resp BP Pulse Ox 11/18/20 08:07 36.1 C L 62 85/61 L 99 11/18/20 07:52 36.3 C L 58 L 88/57 L 98 11/18/20 07:38 36.6 C 61 92/56 L 97 11/18/20 07:27 54 L 18 97 11/18/20 07:22 36.9 C 59 L 89/64 L 96 11/18/20 07:07 37.2 C 59 L 83/56 L 96 11/18/20 06:52 37.4 C 58 L 86/54 L 97 11/18/20 06:37 37.6 C H 58 L 95/56 L 98 11/18/20 06:22 59 L 85/54 L 97 11/18/20 06:07 37.7 C H 65 75/52 L 97 11/18/20 05:52 73 85/57 L 97 11/18/20 05:37 84 98/64 L 96 11/18/20 05:22 82 103/63 99 11/18/20 05:07 77 98/60 L 76 L 11/18/20 04:52 80 98/61 L 94 11/18/20 04:37 39.4 C H 70 94/57 L 96 11/18/20 04:22 77 87/54 L 96 11/18/20 04:07 39.6 C H 79 89/59 L 96 11/18/20 03:52 40 C H 71 95/59 L 95 11/18/20 03:37 84 91/58 L 94 11/18/20 03:27 95 H 18 91 11/18/20 03:22 91 H 89/55 L 94 11/18/20 03:07 39.8 C H 94 H 105/64 94 11/18/20 02:52 99 H 141/76 H 98 11/18/20 02:37 90 123/65 95 11/18/20 02:22 91 H 108/63 94 11/18/20 02:07 39.7 C H 92 H 91/57 L 94 11/18/20 01:52 39.5 C H 99 H 81/50 L 94 11/18/20 01:37 106 H 102/63 93 11/18/20 01:16 113 H 129/73 93 11/18/20 01:07 39.3 C H 106 H 114/72 89 L 11/18/20 00:52 103 H 147/82 H 94 11/18/20 00:37 39.1 C H 89 98/69 L 98 11/18/20 00:22 83 102/58 L 99 11/18/20 00:07 79 94/53 L 99 11/17/20 23:52 76 86/55 L 97 11/17/20 23:37 75 97/70 L 81 L 11/17/20 23:22 74 93/60 L 96 11/17/20 23:07 74 93/62 L 96 11/17/20 22:52 73 87/58 L 95 11/17/20 22:37 67 128/76 97 11/17/20 22:31 67 18 97 11/17/20 22:22 67 123/76 96 11/17/20 22:07 69 113/73 98 11/17/20 21:52 67 107/68 97 11/17/20 21:37 68 104/67 97 11/17/20 21:22 38.2 C H 69 107/66 95
[2020-11-18] MEDS: CEFEPIME 2,000 MG in SYRINGE 0 ML IV SCH ×2 (09:26→21:42)
--- NOTE | 2020-11-18 09:52 | Billing Data ---
Date of Service November 18, 2020 Coding Level of Care Code Critical Care 1st -74 mins
[2020-11-18] MEDS ORDERED: MIDAZOLAM HCL 1 MG/ML 2ML VIAL IV PRN ×2 (10:38)
[2020-11-18] MEDS: NOREPINEPHRINE/D5W 8 MG/508 ML BAG IV SCH ×2 (11:09→23:08)
--- NOTE | 2020-11-18 13:14 | Electrocardiogram Report ---
Test Reason : Blood Pressure : / mmHG Vent. Rate : 070 BPM Atrial Rate : 070 BPM P-R Int : 218 ms QRS Dur : 102 ms QT Int : 442 ms P-R-T Axes : 065 013 032 degrees QTc Int : 477 ms Sinus rhythm with 1st degree A-V block with occasional Premature ventricular complexes Otherwise normal ECG When compared with ECG of 17-NOV-2020 05:01, Premature ventricular complexes are now Present Confirmed by José Mcginnis ([id number]) on 11/18/2020 1:14:30 PM Referred By: REFERRED SELF Confirmed By:Melvin Mcginnis
--- NOTE | 2020-11-18 13:20 | Electrocardiogram Report ---
Test Reason : Blood Pressure : / mmHG Vent. Rate : 066 BPM Atrial Rate : 066 BPM P-R Int : 206 ms QRS Dur : 104 ms QT Int : 444 ms P-R-T Axes : 065 -02 024 degrees QTc Int : 465 ms Normal sinus rhythm with 1st degree A-V block Abnormal ECG When compared with ECG of 17-NOV-2020 22:50, (unconfirmed) Premature ventricular complexes are no longer Present Confirmed by José Mcginnis ([id number]) on 11/18/2020 1:19:33 PM Referred By: REFERRED SELF Confirmed By:Melvin Mcginnis
--- NOTE | 2020-11-18 13:54 | Hospitalist Progress Note ---
Date of Service November 18, 2020 Assessment & Plan (1) New onset a-fib: Plan: Cont Lopressor, when able plan to convert IV heparin to Eliquis for CHADS 4. (2) Acute respiratory failure with hypoxia: Plan: Possibly related to aspiration pneumonia, however, CXR also revealed congestion wtih elevated BNP. EF 45% on echo. No consistent diuretic therapy at this time. Cont mechanical ventilatory support at this time. Cefepime and Levaquin. (3) HTN (hypertension): Plan: held home lisinopril and HCTZ as patient is currently on Levophed for blood pressure support. (4) CKD (chronic kidney disease), stage III: Plan: around baseline. Trend BMP. 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 (6) DVT prophylaxis: Plan: heparin/Protonix Full Code Dispo-pending extubation, needs PT/OT evaluations following this. Sow[facility]iva [facility] and [facility]tic[facility]ated Discharge Date Admission Date: November 16, 2020 Subjective 85 yo M with lightheadedness possibly secondary to new onset atrial fibrillation s/p acute hypoxic respiratory failure. He is intubated and sedated and cannot answer questions. Family is at the bedside and has been updated by the ICU team. Review of Systems Review of Systems: cannot assess 2/2 intubated and sedated with ETT in place. Physical Exam Physical Exam: CONSTITUTIONAL: WNWD, vitals as above, intubated and sedated. EYES: pupils are pinpoint bilaterally, normal conjunctivae ENT: external ear and nose normal, MMM, ETT in place. NECK: trachea midline RESPIRATORY: clear to auscultation bilaterally, no crackles, rales or wheezes, vented. CARDIOVASCULAR: regular rate and rhythm, S1 and 2 heard without murmurs, gallops or rubs, no JVD, no peripheral edema GASTROINTESTINAL: soft, nondistended. MUSCULOSKELETAL: sedated, cannot assess. SKIN: warm and dry NEUROLOGIC: sedated, cannot assess. Results & Data Results & Data ([facility]) Vital Signs (Past 12 Hours) Vital Signs Temp Pulse Resp BP Pulse Ox 11/18/20 13:36 56 L 20 98 11/18/20 12:22 36.7 C 52 L 79/45 L 99 11/18/20 12:07 36.7 C 52 L 82/44 L 100 11/18/20 11:52 36.6 C 54 L 69/43 L 98 11/18/20 11:37 36.5 C 58 L 84/53 L 97 11/18/20 11:22 36.5 C 60 91/58 L 97 11/18/20 11:07 36.4 C L 59 L 95/59 L 98 11/18/20 10:59 58 L 18 97 11/18/20 10:52 36.3 C L 59 L 93/62 L 98 11/18/20 10:37 36.2 C L 58 L 96/59 L 98 11/18/20 10:23 36.1 C L 62 92/47 L 98 11/18/20 10:07 35.9 C L 60 102/60 97 11/18/20 09:52 35.9 C L 64 100/59 L 98 11/18/20 09:37 35.8 C L 63 84/63 L 97 11/18/20 09:22 35.7 C L 61 92/57 L 98 11/18/20 09:07 35.6 C L 61 99/58 L 98 11/18/20 08:52 35.6 C L 55 L 85/60 L 99 11/18/20 08:37 35.7 C L 58 L 105/64 99 11/18/20 08:22 35.9 C L 57 L 92/68 L 98 11/18/20 08:07 36.1 C L 62 85/61 L 99 11/18/20 08:00 59 L 11/18/20 07:52 36.3 C L 58 L 88/57 L 98 11/18/20 07:38 36.6 C 61 92/56 L 97 11/18/20 07:27 54 L 18 97 11/18/20 07:22 36.9 C 59 L 89/64 L 96 11/18/20 07:07 37.2 C 59 L 83/56 L 96 11/18/20 06:52 37.4 C 58 L 86/54 L 97 11/18/20 06:37 37.6 C H 58 L 95/56 L 98 11/18/20 06:22 59 L 85/54 L 97 11/18/20 06:07 37.7 C H 65 75/52 L 97 11/18/20 05:52 73 85/57 L 97 11/18/20 05:37 84 98/64 L 96 11/18/20 05:22 82 103/63 99 11/18/20 05:07 77 98/60 L 76 L 11/18/20 04:52 80 98/61 L 94 11/18/20 04:37 39.4 C H 70 94/57 L 96 11/18/20 04:22 77 87/54 L 96 11/18/20 04:07 39.6 C H 79 89/59 L 96 11/18/20 03:52 40 C H 71 95/59 L 95 11/18/20 03:37 84 91/58 L 94 11/18/20 03:27 95 H 18 91 11/18/20 03:22 91 H 89/55 L 94 11/18/20 03:07 39.8 C H 94 H 105/64 94 11/18/20 02:52 99 H 141/76 H 98 11/18/20 02:37 90 123/65 95 11/18/20 02:22 91 H 108/63 94 11/18/20 02:07 39.7 C H 92 H 91/57 L 94 Laboratory Results Short CBC 11/17/20 11/17/20 11/18/20 Range/Units 18:18 23:56 04:22 WBC 12.56 H 5.95 (4.8-10.8) K/uL Hgb 15.0 12.2 L 12.2 L (14.0-18.0) g/dL Hct 44.4 36.3 L 36.3 L (42-52) % Plt Count 142 111 L (130-400) K/uL BMP 11/17/20 11/18/20 18:18 04:22 Sodium 134 L 134 L Potassium 3.8 3.2 L D Chloride 99 103 Carbon Dioxide 27 29 BUN 27 H 32 H Creatinine 1.71 H 1.26 D Glucose 180 H 111 H Calcium 7.6 L 6.8 L Cardiac Enzymes 11/17/20 11/17/20 11/17/20 Range/Units 14:41 18:18 21:35 Troponin I 2.070 H* 1.780 H* 3.520 H* (0-0.045) ng/ml 11/17/20 11/18/2011/18/21 Range/Units 23:56 04:22 10:07 Troponin I 4.350 H* 5.180 H* 4.410 H* (0-0.045) ng/ml Liver Function 11/17/20 11/18/20 Range/Units 18:18 04:22 Total Bilirubin 0.6 0.7 (0.2-1) mg/dl Direct Bilirubin 0.3 H (0-0.2) mg/dl AST 90 H 94 H (15-37) U/L ALT 38 33 (12-78) U/L Alkaline Phosphatase 66 43 L (45-117) U/L Albumin 3.2 L 2.4 L (3.4-5.0) gm/dl Medications Administered Current Inpatient Medications Aspirin (Aspirin 81 Mg Ectab) 81 mg PO DAILY JORDAN Stop: 12/17/20 08:59 Last Admin: 11/18/20 07:52 Dose: 81 mg Documented by: Atorvastatin Calcium (Atorvastatin 40 Mg Tab) 80 mg PO DAILY JORDAN Stop: 12/17/20 08:59 Last Admin: 11/18/20 07:51 Dose: 80 mg Documented by: Fentanyl Citrate (Fentanyl Bolus From Bag) 50 mcg IV Q60M PRN PRN Reason: Pain or Agitation Stop: 12/01/20 19:10 Heparin Sodium/Dextrose (Heparin Sodium/Dextrose) 25,000 units in 500 mls @ 22 mls/hr IV .[id number] [facility]; Protocol Stop: 12/16/20 23:14 Last Admin: 11/18/20 07:51 Dose: 1,100 units/hr, 22 mls/hr Documented by: Fentanyl Citrate (Fentanyl Drip) 1,250 mcg in 250 mls @ 20 mls/hr IV .[id number] [facility]; Protocol Stop: 12/01/20 19:14 Last Admin: 11/18/20 04:58 Dose: 100 mcg/hr, 20 mls/hr Documented by: Norepinephrine Bitartrate (Levophed/D5w) 8 mg in 508 mls @ 44.329 mls/hr IV .[id number] [facility]; Protocol Stop: 12/17/20 19:59 Last Admin: 11/18/20 11:09 Dose: 0.13 mcg/kg/min, 44.3 mls/hr Documented by: Cefepime HCl 2,000 mg/ Syringe 20 mls @ 5 mls/min IV Q12H [facility]; Protocol Stop: 11/24/20 21:59 Last Admin: 11/18/20 09:26 Dose: 5 mls/min Documented by: Levofloxacin/Dextrose (Levaquin/D5w) 750 mg in 150 mls @ 100 mls/hr IV Q48H [facility]; Protocol Stop: 11/24/20 22:59 Last Infusion: 11/18/20 00:05 Dose: Infused Documented by: Parenteral Electrolytes (Normosol-R) 1,000 mls @ 50 mls/hr IV .Q20H [facility] Stop: 12/17/20 20:59 Last Admin: 11/18/20 07:51 Dose: 50 mls/hr Documented by: Acetaminophen (Ofirmev) 1,000 mg in 100 mls @ 400 mls/hr IV Q8H PRN PRN Reason: Fever Stop: 11/21/20 04:50 Last Infusion: 11/18/20 06:28 Dose: Infused Documented by: Pantoprazole Sodium 40 mg/ (Syringe) 10 mls @ 5 mls/min IV BID [facility] Stop: 11/22/20 09:01 Levalbuterol HCl (Levalbuterol 1.25mg/0.5ml Neb) 1.25 mg NEB Q4H PRN PRN Reason: Shortness Of Breath Or Wheezing Stop: 12/16/20 23:00 Last Admin: 11/16/20 23:25 Dose: 1.25 mg Documented by: Metoprolol Tartrate (Metoprolol Tartrate 1 Mg/Ml Vial) 5 mg IV Q6 PRN PRN Reason: Tachycardia Stop: 12/17/20 11:59 Metoprolol Tartrate (Metoprolol Tartrate 25 Mg Tab) 25 mg PO BID [facility] Stop: 12/17/20 10:44 Last Admin: 11/18/20 07:52 Dose: 25 mg Documented by: Midazolam HCl (Midazolam Hcl 1 Mg/Ml 2ml Vial) 1 mg IV Q2H PRN PRN Reason: RASS goal -1 Stop: 12/18/20 10:37 Midazolam HCl (Midazolam Hcl 1 Mg/Ml 2ml Vial) 2 mg IV Q2H PRN PRN Reason: RASS goal -1 Stop: 12/18/20 10:37 Miscellaneous (Icu Protocol For Hyperglycemia) 1 ea N/A PRN PRN; Protocol PRN Reason: Hyperglycemia Protocol Stop: 11/19/20 20:56 Nitroglycerin (Nitroglycerin Sl 0.4 Mg/Tab Tab) 0.4 mg SL UD PRN PRN Reason: Chest Pain Stop: 12/17/20 04:41 Vitamin D (Cholecalciferol 1,000 Units 25 Mcg Tab) 1,000 units PO DAILY JORDAN Stop: 12/17/20 08:59 Last Admin: 11/18/20 07:52 Dose: 1,000 units Documented by:
[2020-11-18 14:22] LABS: Hematocrit (blood only) 37.7 % (42-52); Hemoglobin 12.5 g/dL (14.0-18.0); Immature Granulocytes # (auto) 0.02 K/uL (0.00-0.02); Immature Granulocytes % (auto) 0.3 %; Lymphocytes # (auto) 0.34 K/uL (1.2-3.4); Lymphocytes % (auto) 4.4 %; Mean Corpuscular Hemoglobin 31.8 pg (25-34); Mean Corpuscular Hgb Conc 33.2 g/dL (32-36); Mean Corpuscular Volume 95.9 fL (80-100); Mean Platelet Volume 11.3 fL (7.4-10.4); Monocytes # (auto) 0.26 K/uL (0.11-0.59); Monocytes % (auto) 3.4 %; Neutrophils % (auto) 91.9 %; Platelet Count 111 K/uL (130-400); RDW Coefficient of Variation 14.9 % (11.5-14.5); RDW Standard Deviation 53.3 fL (36.4-46.3); Red Blood Count 3.93 M/uL (4.7-6.1); White Blood Count 7.72 K/uL (4.8-10.8)
[2020-11-18 14:39] LABS: Albumin Level 2.3 gm/dl (3.4-5.0); BUN Creatinine Ratio 24.2 (10-20); Calcium 6.6 mg/dl (8.5-10.1); Creatinine Clr Calc Pharmacy 39.8 ml/min; Est GFR (African American) 48.9 ml/min; Est GFR (Non-African American) 42.2 ml/min; Potassium 3.7 mmol/L (3.5-5.1)
[2020-11-18 14:41] LABS: Partial Thromboplastin Ratio 3.1
[2020-11-18 14:43] LABS: Albumin Globulin Ratio 0.7 (0.9-2); Bilirubin,Total 0.6 mg/dl (0.2-1); Globulin 3.5 gm/dl (2.5-4.0); Total Protein 5.8 gm/dl (6.4-8.2)
[2020-11-18 14:45] LABS: Partial Thromboplastin Time 81.5 Seconds (21.0-31.0)
[2020-11-18] MEDS: PANTOprazole 40 MG in SYRINGE 0 ML IV SCH (20:41)
[2020-11-18 22:32] LABS: Partial Thromboplastin Ratio 3.7
[2020-11-18 22:37] LABS: Partial Thromboplastin Time 98.5 Seconds (21.0-31.0)
[2020-11-19] MEDS ORDERED: VANCOMYCIN HCL 1,250 MG in SODIUM CHLORIDE 0.9% 250 ML IV SCH (02:00)
[2020-11-19] MEDS: NORMOSOL-R 1,000 ML IV SCH (04:13)
[2020-11-19 04:39] LABS: iSTAT Art Bld Gas pCO2 Correct 37 mmHg (35-46); iSTAT Art Bld Gas pH Corrected 7.423 (7.35-7.45); iSTAT Arterial Blood Gas HCO3 24 meg/L (19-24); iSTAT Arterial Blood Gas pCO2 35 mmHg (35-46); iSTAT Arterial Blood Gas pH 7.44 (7.35-7.45); iSTAT Arterial Blood Gas pO2 83 mmHg (80-95); iSTAT Arterial Blood Gas pO2 C 91; iSTAT Carbon Dioxide 25 mmol/L (24-31); iSTAT FiO2 30 %; iSTAT Hematocrit 35 % (42-52); iSTAT Hemoglobin 11.9 g/dl (14.0-18.0); iSTAT Potassium 3.2 mmol/L (3.3-5.0); iSTAT Site Art Line; iSTAT Sodium 133 mmol/L (135-144)
[2020-11-19] MEDS: fentaNYL DRIP 1,250 MCG/250 ML BAG IV SCH ×2 (05:42→14:24)
[2020-11-19 06:04] LABS: Basophils # (auto) 0.01 K/uL (0-0.2); Basophils % (auto) 0.2 %; Hematocrit (blood only) 37.2 % (42-52); Hemoglobin 12.5 g/dL (14.0-18.0); Immature Granulocytes # (auto) 0.01 K/uL (0.00-0.02); Immature Granulocytes % (auto) 0.2 %; Lymphocytes % (auto) 10.5 %; Mean Corpuscular Hgb Conc 33.6 g/dL (32-36); Mean Corpuscular Volume 95.1 fL (80-100); Mean Platelet Volume 11.9 fL (7.4-10.4); Monocytes # (auto) 0.38 K/uL (0.11-0.59); Monocytes % (auto) 5.7 %; Neutrophils # (auto) 5.55 K/uL (1.4-6.5); Neutrophils % (auto) 83.4 %; Platelet Count 110 K/uL (130-400); RDW Standard Deviation 52.4 fL (36.4-46.3); Red Blood Count 3.91 M/uL (4.7-6.1); White Blood Count 6.65 K/uL (4.8-10.8)
[2020-11-19 06:26] LABS: Partial Thromboplastin Ratio 3.5
[2020-11-19 06:36] LABS: BUN Creatinine Ratio 23.2 (10-20); Calcium 7.1 mg/dl (8.5-10.1); Creatinine Clr Calc Pharmacy 41.7 ml/min; Est GFR (African American) 51.8 ml/min; Est GFR (Non-African American) 44.7 ml/min; Magnesium 2.2 mg/dl (1.8-2.4); Potassium 3.3 mmol/L (3.5-5.1)
[2020-11-19 06:39] LABS: Phosphorus 2.7 mg/dl (2.5-4.9)
[2020-11-19 06:46] LABS: Partial Thromboplastin Time 92.5 Seconds (21.0-31.0)
[2020-11-19] MEDS: POTASSIUM CHLORIDE / WTR 20 MEQ/100 ML PLCT IV SCH ×2 (06:51→08:33)
--- NOTE | 2020-11-19 08:26 | XRay Report ---
XR chest 1V portable HISTORY: Resp failure COMPARISON: Chest 11/18/2020. FINDINGS: Endotracheal tube terminates 2.1 cm from the latricia. Nasogastric tube terminates below the diaphragm. The tip is not included on this study. Right jugular central venous catheter terminates at the proximal SVC. No pneumothorax. Right perihilar airspace opacities have improved in the interval. Suspect trace bilateral pleural effusions. Right basilar calcified pleural plaque is again noted. IMPRESSION: 1. Satisfactory support line placement. 2. Improved aeration within the right lung airspace opacities. ACT 112: Negative or not required by law. Electronically signed by: Jose Carlos Winkler M.D. 11/19/2020 8:25 AM
[2020-11-19] MEDS: CHOLECALCIFEROL 1,000 UNITS 25 MCG TAB PO SCH (08:29)
[2020-11-19] MEDS: ATORVASTATIN 40 MG TAB PO SCH (08:29)
[2020-11-19] MEDS: PANTOprazole 40 MG in SYRINGE 0 ML IV SCH ×2 (08:30→21:00)
[2020-11-19] MEDS: ASPIRIN 81 MG ECTAB PO SCH (08:30)
[2020-11-19] MEDS: METOPROLOL TARTRATE 25 MG TAB PO SCH ×2 (09:26→21:30)
[2020-11-19] MEDS: ACETAMINOPHEN 1,000 MG/100 ML VIAL IV PRN (10:07)
[2020-11-19] MEDS: CEFEPIME 2,000 MG in SYRINGE 0 ML IV SCH ×2 (10:09→21:00)
--- NOTE | 2020-11-19 11:51 | Cardiology Progress Note ---
Date of Service November 19, 2020 Assessment & Plan (1) NSTEMI (non-ST elevated myocardial infarction): (2) PAF (paroxysmal atrial fibrillation): Plan: Respiratory insufficiency due to aspiration pneumonia, suspected supply/demand mismatch related type II non-STEMI. Patient had also been in atrial fibrillation with rapid ventricular response, and has converted to sinus rhythm.Troponin peaded at 5.1 ng/ml on 11/18/20, trending down to 2.5 ng/ml after. Continue IV heparin for now, likely transitioning to Eliquis anticoagulation noting the elevated [id number] Score of 4-5 points when certain he can tolerate pills.Appropriate dose of Eliquis likely 2.5 mg BID given age > 80 years old, and creatinine of ~1.5. Continue ASA, metoprolol, atorvastatin.Received potassium replacement IV earlier today. Admission and Anticipated Discharge Date Admission Date: November 16, 2020 Subjective Patient seen in cardiology follow up. He is awake , conversant and comfortable. He was successfully extubated at 930 am . Telemetry reveals SR in the 80 with occasional PVCs. Current temp 38.4 C with bladder thermometer. Denies any symptoms suggestive of angina. Review of Systems Review of Systems: All systems reviewed & are unremarkable except as noted in HPI & below Physical Exam Physical Exam: Temp Pulse Resp BP Pulse Ox 38.3 C H 91 H 16 101/55 L 97 11/19/20 06:22 11/19/20 07:40 11/19/20 07:40 11/19/20 07:18 11/19/20 07:40 Constitutional: chronically ill in appearance right face consistent with surgical history of parotid carcinoma Respiratory: coarse BS, no wheezing Cardiovascular: RRR, no murmur, no edema Neurologic: PERRL, EOMI, accommodation nl, no face palsy, no dysarthria Results & Data ([facility]) Vital Signs (Past 12 Hours) Vital Signs Temp Pulse Resp BP Pulse Ox 11/19/20 07:40 91 H 16 97 11/19/20 07:18 80 101/55 L 11/19/20 06:22 38.3 C H 80 101/55 L 96 11/19/20 06:07 38.3 C H 74 95/56 L 94 11/19/20 05:52 38.3 C H 86 81/50 L 95 11/19/20 05:38 38.2 C H 87 98/58 L 93 11/19/20 05:22 38.2 C H 106 H 141/84 H 100 11/19/20 05:07 38.2 C H 90 127/86 97 11/19/20 04:52 38.2 C H 81 105/54 L 97 11/19/20 04:37 38.2 C H 67 113/79 97 11/19/20 04:22 38.3 C H 78 117/64 97 11/19/20 04:07 38.3 C H 72 100/54 L 98 11/19/20 03:52 38.3 C H 70 102/57 L 97 11/19/20 03:44 79 22 98 11/19/20 03:37 38.3 C H 77 104/54 L 97 11/19/20 03:22 38.3 C H 70 91/57 L 96 11/19/20 03:07 38.3 C H 72 101/65 96 11/19/20 02:52 38.3 C H 70 105/50 L 95 11/19/20 02:37 38.3 C H 72 103/55 L 95 11/19/20 02:22 38.3 C H 77 93/47 L 97 11/19/20 02:07 38.2 C H 71 119/61 98 11/19/20 01:52 38.2 C H 71 97/56 L 96 11/19/20 01:37 38.2 C H 69 113/62 95 11/19/20 01:22 38.2 C H 69 126/71 97 11/19/20 01:07 38.1 C H 67 109/71 97 11/19/20 00:52 38.1 C H 79 129/72 97 11/19/20 00:37 38.0 C H 62 126/62 96 11/19/20 00:22 38.0 C H 74 136/66 97 11/19/20 00:07 38.0 C H 73 114/73 98 11/19/20 00:00 66 11/18/20 23:52 38.0 C H 67 113/61 96 Laboratory Results Cardiac Enzymes 11/18/20 11/18/20 Range/Units 14:09 15:56 AST 101 H (15-37) U/L Troponin I 2.540 H* (0-0.045) ng/ml Coagulation 11/18/20 11/18/20 11/19/20 Range/Units 14:09 21:28 05:37 APTT 81.5 H* 98.5 H* 92.5 H* (21.0-31.0) Seconds CBC 11/18/20 11/19/20 Range/Units 14:09 05:37 WBC 7.72 6.65 (4.8-10.8) K/uL RBC 3.93 L 3.91 L (4.7-6.1) M/uL Hgb 12.5 L 12.5 L (14.0-18.0) g/dL Hct 37.7 L 37.2 L (42-52) % Plt Count 111 L 110 L (130-400) K/uL Neut # (Auto) 7.10 H 5.55 (1.4-6.5) K/uL Lymph # (Auto) 0.34 L 0.70 L (1.2-3.4) K/uL Walker # (Auto) 0.26 0.38 (0.11-0.59) K/uL Eos # (Auto) 0.00 0.00 (0-0.5) K/uL Baso # (Auto) 0.00 0.01 (0-0.2) K/uL Comprehensive Metabolic Panel 11/18/20 11/19/20 Range/Units 14:09 05:37 Sodium 132 L 133 L (136-145) mmol/L Potassium 3.7 D 3.3 L (3.5-5.1) mmol/L Chloride 101 102 (98-107) mmol/L Carbon Dioxide 24 28 (21-32) mmol/L BUN 36 H 33 H (7-18) mg/dl Creatinine 1.49 H 1.42 H (0.6-1.4) mg/dl Glucose 142 H 105 H (70-99) mg/dl Calcium 6.6 L 7.1 L (8.5-10.1) mg/dl AST 101 H (15-37) U/L ALT 40 (12-78) U/L Alkaline Phosphatase 48 (45-117) U/L Total Protein 5.8 L (6.4-8.2) gm/dl Albumin 2.3 L (3.4-5.0) gm/dl Intake and Output 11/18/20 11/19/20 11/19/20 22:59 06:59 14:59 Intake Total 1047.667 / 3968.462 1491.953 / 3968.462 373.987 / 373.987 Output Total 475 / 1575 675 / 1575 1100 / 1100 Balance 572.667 / 2393.462 816.953 / 2393.462 -726.013 / -726.013 Intake: IV 1047.667 / 3868.462 1491.953 / 3868.462 373.987 / 373.987 Acetaminophen 1,000 mg In 100 100 / 100 ml @ 400 mls/hr IV Q8H PRN Rx#: [id number] Heparin Sodium/Dextrose 25,000 310.366 / 423.699 113.333 / 423.699 0 / 0 units In 500 ml @ 600 UNITS/HR 12 mls/hr IV .Q24H JORDAN Rx#: [id number] Midazolam HCl 125 mg In 250 ml 0 / 27.133 @ 2 MG/HR 4 mls/hr IV .[id number] JORDAN Rx#:[id number] Norepinephrine/D5w 8 mg In 508 453.635 / 843.630 186.953 / 843.630 16.32 / 16.32 ml @ 0 MCG/KG/MIN IV .Q0M JORDAN Rx#:[id number] Normosol-R 1,000 ml @ 50 mls/hr 1000 / 1448.333 IV .Q20H JORDAN Rx#:[id number] Potassium Chloride / Wtr 20 meq 185 / 185 In 100 ml @ 50 mls/hr IV Q2H JORDAN Rx#:[id number] fentaNYL DRIP 1,250 mcg In 250 283.666 / 475.333 191.667 / 475.333 72.667 / 72.667 ml @ 100 MCG/HR 20 mls/hr IV . [id number] JORDAN Rx#:[id number] Output: Urine Amount (Catheter) 475 / 1475 675 / 1475 1100 / 1100 [place]/Indwelling 475 / 1475 675 / 1475 1100 / 1100 Other: Other Intake Source NPO Weight 88.5 kg Weight Measurement Method Built in [facility] Diagnostic Findings EKG 11/18/20: SR at 66, first degree AVB, otherwise normal EKG. Echo 11/17/20: LVEF 45-50%
--- NOTE | 2020-11-19 11:53 | Critical Care Progress Note ---
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 A CODE [facility] on 11/17 in which patient was reported to have abdominal pain, and was found to be in acute hypoxemic, hypercapnic respiratory failure in the setting of new, right-sided lung opacities seen on chest imaging, as well as HTN urgency. His work-up is ongoing. He requires ICU placement for management of his AHHRF, HTN and intensive hemodynamic monitoring. Neuro - [facility] ICU: Unobtainable Sedation: Versed Analgesia: Fentanyl Metabolic Encephalopathy * Secondary to acute hypercapnia and acidemia in setting of respiratory decline * Possible component of hypertensive encephalopathy in context of HTN urgency vs. emergency yesterday * Repeat CT-H without acute process * Lytes, CBC otherwise unrevealing * History of chronic RIGHT facial droop sec to prior intracranial mass (s/p resection) per Nursing. Noted in previous exams on patient's chart Cardiac - Atrial Fibrillation with Rapid Ventricular Response * Patient found to be in AFib with RVR in 120-130s upon arrival to [facility] and on admission * Metoprolol tartrate 25mg b.i.d. via OG * Lopressor IV p.r.n. for rates > 110 * Resume heparin gtt * Echocardiogram 11/17 revealing of mildly diminished LV function (EF 45-50), but otherwise normal * Maintain K > 4, Mg > 2 HTN Urgency / Emergency: Resolved * Patient found with BPs exceeding 200-220/100-[address] [facility] * In setting of +encephalopathy, +JOÃO, +elevating troponins * s/p nitroglycerin with achievement of normotension * A-line Shock: Resolved * Patient now requiring pressor support for maintenance of BPs * Good peripheral perfusion on exam * Possibly secondary to sepsis VS. sedation > cardiogenic * Maintain MAP > 65, UOP > 0.5cc/kg/hr Elevated Troponin * Troponin from admission initially downtrended (peak 2.070) * Suspect secondary to demand ischemia * Continue heparin gtt * ASA, statin via OGT * Strict I+Os * Continue trending troponin, serial ECGs * Cardiology following Respiratory - Aspiration Pneumonia: Improving * CXR on arrival revealing for mild pulmonary vascular congestion and emphysema * CT Chest demonstrating diffuse right airspace and LLL opacities --> +procal, +high fevers overnight * At this time, suspect that this is likely due to aspiration in setting of AMS * Continue cefepime, levofloxacin, vancomycin * Await BCX * VDRF as below VDRF * Patient briefly transition to BiPAP prior to transfer in the ICU * Emergent intubation sec to deteriorating mental status and respiratory decline * Still requiring mechanical ventilation * Ween as tolerated. Recheck ABGs. -Liberated from ventilator this morning GI - Abdominal Pain * Upon arrival to [facility], patient was c/o significant right-sided/flank abdominal pain * No obvious distention on exam, +TTP, no rebound or guarding * CT-A/P: Distended gallbladder with possible mild wall thickening, nephrolithiasis -- Low threshold for US RUQ / Gallbladder * Diet via OGT RENAL/LYTES - Acute Kidney Injury: Improving * Unknown baseline Cr, does have h/o CKD3 - on admission Cr 1.71 * Prerenal vs. secondary to HTN emergency - * [place] * Strict I+Os ENDO - * ICU Hyperglycemia protocol HEME - * Stable H&H * Will monitor for any drops in the setting of Heparin gtt ID - * See respiratory above INTEGUMENTARY - * No acute concerns LINES/IV ACCESS - PIVs intact, A-line, OGT DVT PROPHYLAXIS - Heparin gtt (2) NSTEMI (non-ST elevated myocardial infarction): (3) PAF (paroxysmal atrial fibrillation): (4) New onset a-fib: (5) Elevated troponin: (6) Weakness: (7) Abdominal cramping: (8) Lab test negative for COVID-19 virus: (9) Dyslipidemia, goal LDL below 70: Admission and Anticipated Discharge Date Admission Date: November 16, 2020 Supervising Physician Co-Signing Physician Notes I have personally spent 45 minutes of critical care time in the direct management of this patient. This is a life/limb threatening event. This includes time spent evaluating patient, direct bedside care, chart review, p lacing orders, interpretation of diagnostic studies, discussion with consultants, patient, and/or family members regarding treatment decisions, as well as other required patient management activities. This time is exclusive of all separately billable procedures, and teaching time and separate from and in addition to any other critical care service time. Subjective No overnight events Review of Systems Review of Systems: Unobtainable due to endotracheal tube Physical Exam Physical Exam: General: Sedated. nontoxic. Skin: Warm, dry, Head: Atraumatic Ears, nose, mouth and throat: airway obscured by endotracheal tube Cardiovascular: Normal peripheral perfusion Respiratory: no respiratory distress Gastrointestinal: Non distended Musculoskeletal: No deformity Results & Data Results & Data ([facility]) Vital Signs (Past 12 Hours) Vital Signs Temp Pulse Resp BP Pulse Ox 11/19/20 07:40 91 H 16 97 11/19/20 07:18 80 101/55 L 11/19/20 06:22 38.3 C H 80 101/55 L 96 11/19/20 06:07 38.3 C H 74 95/56 L 94 11/19/20 05:52 38.3 C H 86 81/50 L 95 11/19/20 05:38 38.2 C H 87 98/58 L 93 11/19/20 05:22 38.2 C H 106 H 141/84 H 100 11/19/20 05:07 38.2 C H 90 127/86 97 11/19/20 04:52 38.2 C H 81 105/54 L 97 11/19/20 04:37 38.2 C H 67 113/79 97 11/19/20 04:22 38.3 C H 78 117/64 97 11/19/20 04:07 38.3 C H 72 100/54 L 98 11/19/20 03:52 38.3 C H 70 102/57 L 97 11/19/20 03:44 79 22 98 11/19/20 03:37 38.3 C H 77 104/54 L 97 11/19/20 03:22 38.3 C H 70 91/57 L 96 11/19/20 03:07 38.3 C H 72 101/65 96 11/19/20 02:52 38.3 C H 70 105/50 L 95 11/19/20 02:37 38.3 C H 72 103/55 L 95 11/19/20 02:22 38.3 C H 77 93/47 L 97 11/19/20 02:07 38.2 C H 71 119/61 98 11/19/20 01:52 38.2 C H 71 97/56 L 96 11/19/20 01:37 38.2 C H 69 113/62 95 11/19/20 01:22 38.2 C H 69 126/71 97 11/19/20 01:07 38.1 C H 67 109/71 97 11/19/20 00:52 38.1 C H 79 129/72 97 11/19/20 00:37 38.0 C H 62 126/62 96 11/19/20 00:22 38.0 C H 74 136/66 97 11/19/20 00:07 38.0 C H 73 114/73 98 11/19/20 00:00 66 11/18/20 23:52 38.0 C H 67 113/61 96 Laboratory Results 11/19/20 11/19/20 11/19/20 Range/Units 05:37 05:37 05:37 WBC 6.65 (4.8-10.8) K/uL RBC 3.91 L (4.7-6.1) M/uL Hgb 12.5 L (14.0-18.0) g/dL POC Hgb (14.0-18.0) g/dl Hct 37.2 L (42-52) % POC Hct (42-52) % MCV 95.1 (80-100) fL MCH 32.0 (25-34) pg MCHC 33.6 (32-36) g/dL RDW Std Deviation 52.4 H (36.4-46.3) fL RDW Coeff of Derrek 15.0 H (11.5-14.5) % Plt Count 110 L (130-400) K/uL MPV 11.9 H (7.4-10.4) fL Immature Gran % (Auto) 0.2 % Neut % (Auto) 83.4 % Lymph % (Auto) 10.5 % Robertson % (Auto) 5.7 % Eos % (Auto) 0.0 % Baso % (Auto) 0.2 % Neut # (Auto) 5.55 (1.4-6.5) K/uL Lymph # (Auto) 0.70 L (1.2-3.4) K/uL Robertson # (Auto) 0.38 (0.11-0.59) K/uL Eos # (Auto) 0.00 (0-0.5) K/uL Baso # (Auto) 0.01 (0-0.2) K/uL Immature Gran # (Auto) 0.01 (0.00-0.02) K/uL APTT 92.5 H* (21.0-31.0) Seconds PTT Ratio 3.5 Sample Site POC pH (7.35-7.45) POC pCO2 (35-46) mmHg POC pO2 (80-95) mmHg POC HCO3 (19-24) my/L POC Total CO2 (24-31) mmol/L POC Base Excess (-9-1.8) my/L ABG pH (Temp Correct) (7.35-7.45) ABG pCO2 (Temp Corrct (35-46) mmHg POC ABG pO2 at Pt Temp POC ABG O2 Sat (90-95) % Jose Test O2 Delivery Device POC O2 Rate POC FiO2 % Tidal Volume PEEP POC Sodium (135-144) mmol/L Sodium 133 L (136-145) mmol/L POC Potassium (3.3-5.0) mmol/L Potassium 3.3 L (3.5-5.1) mmol/L Chloride 102 (98-107) mmol/L Carbon Dioxide 28 (21-32) mmol/L Anion Gap 3.0 (3-11) BUN 33 H (7-18) mg/dl Creatinine 1.42 H (0.6-1.4) mg/dl Est Cr Clr Drug Dosing 41.7 ml/min Est GFR ( Amer) 51.8 ml/min Est GFR (Non-Af Amer) 44.7 ml/min BUN/Creatinine Ratio 23.2 H (10-20) Glucose 105 H (70-99) mg/dl POC Glucose (other) (70-99) mg/dl Calcium 7.1 L (8.5-10.1) mg/dl Phosphorus 2.7 (2.5-4.9) mg/dl Magnesium 2.2 (1.8-2.4) mg/dl Total Bilirubin (0.2-1) mg/dl AST (15-37) U/L ALT (12-78) U/L Alkaline Phosphatase (45-117) U/L Troponin I (0-0.045) ng/ml Total Protein (6.4-8.2) gm/dl Albumin (3.4-5.0) gm/dl Globulin (2.5-4.0) gm/dl Albumin/Globulin Ratio (0.9-2) Nasal Screen MRSA (PCR) (Negative) 11/19/20 11/19/20 11/18/20 Range/Units 04:25 00:53 21:28 WBC (4.8-10.8) K/uL RBC (4.7-6.1) M/uL Hgb (14.0-18.0) g/dL POC Hgb 11.9 L (14.0-18.0) g/dl Hct (42-52) % POC Hct 35 L (42-52) % MCV (80-100) fL MCH (25-34) pg MCHC (32-36) g/dL RDW Std Deviation (36.4-46.3) fL RDW Coeff of Derrek (11.5-14.5) % Plt Count (130-400) K/uL MPV (7.4-10.4) fL Immature Gran % (Auto) % Neut % (Auto) % Lymph % (Auto) % Robertson % (Auto) % Eos % (Auto) % Baso % (Auto) % Neut # (Auto) (1.4-6.5) K/uL Lymph # (Auto) (1.2-3.4) K/uL Robertson # (Auto) (0.11-0.59) K/uL Eos # (Auto) (0-0.5) K/uL Baso # (Auto) (0-0.2) K/uL Immature Gran # (Auto) (0.00-0.02) K/uL APTT 98.5 H* (21.0-31.0) Seconds PTT Ratio 3.7 Sample Site Art Line POC pH 7.44 (7.35-7.45) POC pCO2 35 (35-46) mmHg POC pO2 83 (80-95) mmHg POC HCO3 24 (19-24) my/L POC Total CO2 25 (24-31) mmol/L POC Base Excess 0.0 (-9-1.8) my/L ABG pH (Temp Correct) 7.423 (7.35-7.45) ABG pCO2 (Temp Corrct 37 (35-46) mmHg POC ABG pO2 at Pt Temp 91 POC ABG O2 Sat 97.0 H (90-95) % Jose Test NA O2 Delivery Device Ventilator POC O2 Rate 18 POC FiO2 30 % Tidal Volume 500 PEEP 5 POC Sodium 133 L (135-144) mmol/L Sodium (136-145) mmol/L POC Potassium 3.2 L (3.3-5.0) mmol/L Potassium (3.5-5.1) mmol/L Chloride (98-107) mmol/L Carbon Dioxide (21-32) mmol/L Anion Gap (3-11) BUN (7-18) mg/dl Creatinine (0.6-1.4) mg/dl Est Cr Clr Drug Dosing ml/min Est GFR ( Amer) ml/min Est GFR (Non-Af Amer) ml/min BUN/Creatinine Ratio (10-20) Glucose (70-99) mg/dl POC Glucose (other) 118 H (70-99) mg/dl Calcium (8.5-10.1) mg/dl Phosphorus (2.5-4.9) mg/dl Magnesium (1.8-2.4) mg/dl Total Bilirubin (0.2-1) mg/dl AST (15-37) U/L ALT (12-78) U/L Alkaline Phosphatase (45-117) U/L Troponin I (0-0.045) ng/ml Total Protein (6.4-8.2) gm/dl Albumin (3.4-5.0) gm/dl Globulin (2.5-4.0) gm/dl Albumin/Globulin Ratio (0.9-2) Nasal Screen MRSA (PCR) (Negative) 11/18/20 11/18/20 11/18/20 Range/Units 17:47 15:56 14:09 WBC (4.8-10.8) K/uL RBC (4.7-6.1) M/uL Hgb (14.0-18.0) g/dL POC Hgb (14.0-18.0) g/dl Hct (42-52) % POC Hct (42-52) % MCV (80-100) fL MCH (25-34) pg MCHC (32-36) g/dL RDW Std Deviation (36.4-46.3) fL RDW Coeff of Derrek (11.5-14.5) % Plt Count (130-400) K/uL MPV (7.4-10.4) fL Immature Gran % (Auto) % Neut % (Auto) % Lymph % (Auto) % Robertson % (Auto) % Eos % (Auto) % Baso % (Auto) % Neut # (Auto) (1.4-6.5) K/uL Lymph # (Auto) (1.2-3.4) K/uL Robertson # (Auto) (0.11-0.59) K/uL Eos # (Auto) (0-0.5) K/uL Baso # (Auto) (0-0.2) K/uL Immature Gran # (Auto) (0.00-0.02) K/uL APTT 81.5 H* (21.0-31.0) Seconds PTT Ratio 3.1 Sample Site POC pH (7.35-7.45) POC pCO2 (35-46) mmHg POC pO2 (80-95) mmHg POC HCO3 (19-24) my/L POC Total CO2 (24-31) mmol/L POC Base Excess (-9-1.8) my/L ABG pH (Temp Correct) (7.35-7.45) ABG pCO2 (Temp Corrct (35-46) mmHg POC ABG pO2 at Pt Temp POC ABG O2 Sat (90-95) % Jose Test O2 Delivery Device POC O2 Rate POC FiO2 % Tidal Volume PEEP POC Sodium (135-144) mmol/L Sodium (136-145) mmol/L POC Potassium (3.3-5.0) mmol/L Potassium (3.5-5.1) mmol/L Chloride (98-107) mmol/L Carbon Dioxide (21-32) mmol/L Anion Gap (3-11) BUN (7-18) mg/dl Creatinine (0.6-1.4) mg/dl Est Cr Clr Drug Dosing ml/min Est GFR ( Amer) ml/min Est GFR (Non-Af Amer) ml/min BUN/Creatinine Ratio (10-20) Glucose (70-99) mg/dl POC Glucose (other) 143 H (70-99) mg/dl Calcium (8.5-10.1) mg/dl Phosphorus (2.5-4.9) mg/dl Magnesium (1.8-2.4) mg/dl Total Bilirubin (0.2-1) mg/dl AST (15-37) U/L ALT (12-78) U/L Alkaline Phosphatase (45-117) U/L Troponin I 2.540 H* (0-0.045) ng/ml Total Protein (6.4-8.2) gm/dl Albumin (3.4-5.0) gm/dl Globulin (2.5-4.0) gm/dl Albumin/Globulin Ratio (0.9-2) Nasal Screen MRSA (PCR) (Negative) 11/18/20 11/18/20 11/18/20 Range/Units 14:09 14:09 11:46 WBC 7.72 (4.8-10.8) K/uL RBC 3.93 L (4.7-6.1) M/uL Hgb 12.5 L (14.0-18.0) g/dL POC Hgb (14.0-18.0) g/dl Hct 37.7 L (42-52) % POC Hct (42-52) % MCV 95.9 (80-100) fL MCH 31.8 (25-34) pg MCHC 33.2 (32-36) g/dL RDW Std Deviation 53.3 H (36.4-46.3) fL RDW Coeff of Derrek 14.9 H (11.5-14.5) % Plt Count 111 L (130-400) K/uL MPV 11.3 H (7.4-10.4) fL Immature Gran % (Auto) 0.3 % Neut % (Auto) 91.9 % Lymph % (Auto) 4.4 % Robertson % (Auto) 3.4 % Eos % (Auto) 0.0 % Baso % (Auto) 0.0 % Neut # (Auto) 7.10 H (1.4-6.5) K/uL Lymph # (Auto) 0.34 L (1.2-3.4) K/uL Robertson # (Auto) 0.26 (0.11-0.59) K/uL Eos # (Auto) 0.00 (0-0.5) K/uL Baso # (Auto) 0.00 (0-0.2) K/uL Immature Gran # (Auto) 0.02 (0.00-0.02) K/uL APTT (21.0-31.0) Seconds PTT Ratio Sample Site POC pH (7.35-7.45) POC pCO2 (35-46) mmHg POC pO2 (80-95) mmHg POC HCO3 (19-24) my/L POC Total CO2 (24-31) mmol/L POC Base Excess (-9-1.8) my/L ABG pH (Temp Correct) (7.35-7.45) ABG pCO2 (Temp Corrct (35-46) mmHg POC ABG pO2 at Pt Temp POC ABG O2 Sat (90-95) % Jose Test O2 Delivery Device POC O2 Rate POC FiO2 % Tidal Volume PEEP POC Sodium (135-144) mmol/L Sodium 132 L (136-145) mmol/L POC Potassium (3.3-5.0) mmol/L Potassium 3.7 D (3.5-5.1) mmol/L Chloride 101 (98-107) mmol/L Carbon Dioxide 24 (21-32) mmol/L Anion Gap 7.0 (3-11) BUN 36 H (7-18) mg/dl Creatinine 1.49 H (0.6-1.4) mg/dl Est Cr Clr Drug Dosing 39.8 ml/min Est GFR ( Amer) 48.9 ml/min Est GFR (Non-Af Amer) 42.2 ml/min BUN/Creatinine Ratio 24.2 H (10-20) Glucose 142 H (70-99) mg/dl POC Glucose (other) 131 H (70-99) mg/dl Calcium 6.6 L (8.5-10.1) mg/dl Phosphorus (2.5-4.9) mg/dl Magnesium (1.8-2.4) mg/dl Total Bilirubin 0.6 (0.2-1) mg/dl AST 101 H (15-37) U/L ALT 40 (12-78) U/L Alkaline Phosphatase 48 (45-117) U/L Troponin I (0-0.045) ng/ml Total Protein 5.8 L (6.4-8.2) gm/dl Albumin 2.3 L (3.4-5.0) gm/dl Globulin 3.5 (2.5-4.0) gm/dl Albumin/Globulin Ratio 0.7 L (0.9-2) Nasal Screen MRSA (PCR) (Negative) 11/18/20 Range/Units 10:30 WBC (4.8-10.8) K/uL RBC (4.7-6.1) M/uL Hgb (14.0-18.0) g/dL POC Hgb (14.0-18.0) g/dl Hct (42-52) % POC Hct (42-52) % MCV (80-100) fL MCH (25-34) pg MCHC (32-36) g/dL RDW Std Deviation (36.4-46.3) fL RDW Coeff of Derrek (11.5-14.5) % Plt Count (130-400) K/uL MPV (7.4-10.4) fL Immature Gran % (Auto) % Neut % (Auto) % Lymph % (Auto) % Robertson % (Auto) % Eos % (Auto) % Baso % (Auto) % Neut # (Auto) (1.4-6.5) K/uL Lymph # (Auto) (1.2-3.4) K/uL Robertson # (Auto) (0.11-0.59) K/uL Eos # (Auto) (0-0.5) K/uL Baso # (Auto) (0-0.2) K/uL Immature Gran # (Auto) (0.00-0.02) K/uL APTT (21.0-31.0) Seconds PTT Ratio Sample Site POC pH (7.35-7.45) POC pCO2 (35-46) mmHg POC pO2 (80-95) mmHg POC HCO3 (19-24) my/L POC Total CO2 (24-31) mmol/L POC Base Excess (-9-1.8) my/L ABG pH (Temp Correct) (7.35-7.45) ABG pCO2 (Temp Corrct (35-46) mmHg POC ABG pO2 at Pt Temp POC ABG O2 Sat (90-95) % Jose Test O2 Delivery Device POC O2 Rate POC FiO2 % Tidal Volume PEEP POC Sodium (135-144) mmol/L Sodium (136-145) mmol/L POC Potassium (3.3-5.0) mmol/L Potassium (3.5-5.1) mmol/L Chloride (98-107) mmol/L Carbon Dioxide (21-32) mmol/L Anion Gap (3-11) BUN (7-18) mg/dl Creatinine (0.6-1.4) mg/dl Est Cr Clr Drug Dosing ml/min Est GFR ( Amer) ml/min Est GFR (Non-Af Amer) ml/min BUN/Creatinine Ratio (10-20) Glucose (70-99) mg/dl POC Glucose (other) (70-99) mg/dl Calcium (8.5-10.1) mg/dl Phosphorus (2.5-4.9) mg/dl Magnesium (1.8-2.4) mg/dl Total Bilirubin (0.2-1) mg/dl AST (15-37) U/L ALT (12-78) U/L Alkaline Phosphatase (45-117) U/L Troponin I (0-0.045) ng/ml Total Protein (6.4-8.2) gm/dl Albumin (3.4-5.0) gm/dl Globulin (2.5-4.0) gm/dl Albumin/Globulin Ratio (0.9-2) Nasal Screen MRSA (PCR) Negative (Negative) Coding Level of Care Code Critical Care 1st 30-74 mins Diagnoses HTN (hypertension) I10 NSTEMI (non-ST elevated myocardial infarction) I21.4 PAF (paroxysmal atrial fibrillation) I48.0 New onset a-fib I48.91 Elevated troponin R77.8 Weakness R53.1 Abdominal cramping R10.9 Lab test negative for COVID-19 virus Z20.822 Dyslipidemia, goal LDL below 70 E78.5
--- NOTE | 2020-11-19 12:03 | Hospitalist Progress Note ---
Date of Service November 19, 2020 Assessment & Plan (1) Acute metabolic encephalopathy: Plan: Resolved, was related to acute respiratory decline. (2) Acute respiratory failure with hypoxia: Plan: Improved, now extubated and doing well on 3LPM supplemental oxygen. Possibly related to aspiration pneumonia, however, CXR also revealed congestion wtih elevated BNP. EF 45% on echo. No consistent diuretic therapy at this time. Cont Cefepime and Levaquin. (3) Aspiration pneumonia: Plan: Plan as above. New fever noted overnight. Cont to monitor-treatment per ICU team. (4) New onset a-fib: Plan: New onset afib with RVR on arrival with presyncope possibly related to new rhythm. Cont Lopressor, when able plan to convert IV heparin to Eliquis for CHADS 4. Cardiology following. (5) NSTEMI (non-ST elevated myocardial infarction): Plan: Likely related to demand ischemia per cardiology. (6) CKD (chronic kidney disease), stage III: Plan: around baseline creatinine of 1.3 per outpatient [facility] records. Trend BMP. (7) Shock: Plan: resolved but remains on Levophed, per ICU team this was likely related to sepsis vs sedation with a smaller probability of cardiogenic shock considered. Continue weaning Levophed as able. (8) Hypertensive urgency: Plan: BP 225/133 on arrival to the ER on 11/16. Improved with home lisinopril and was placed on diltiazem drip for afib with RVR. Subsequent code purple on 11/17 around 1800 (the following day) and BP was low. He was intubated, sedated and placed on Levophed. Remains off his home lisinopril and HCTZ as he continues on Levophed at this time for blood pressure support. 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 (10) DVT prophylaxis: Plan: heparin/Protonix Full Code Dispo-pending extubation, needs PT/OT evaluations following this. Sowmya Leiva DO [facility] Hospitalist Admission and Anticipated Discharge Date Admission Date: November 16, 2020 Subjective 85-year-old man with a history of brain mass status post resection with chronic residual right-sided facial droop, presented with acute dizziness and near syncope, was found to be in new onset atrial fibrillation with RVR on arrival. A subsequent code purple resulted secondary to abdominal pain and he was found to be in acute hypoxemic, hypercapnic respiratory failure with new right-sided lung opacities on chest imaging and hypertensive emergency. He was subsequently intubated and sedated with management for the past 2 days in the ICU. He was extubated this morning after passing a spontaneous breathing trial and is doing well overall. He denies any pain, although he reports a sore throat from the tube. He denies any shortness of breath or issues with breathing. He has been febrile since last night with a temp of 38.3 C. Review of Systems Review of Systems: All systems were reviewed and negative except as indicated in HPI above. Physical Exam Physical Exam: CONSTITUTIONAL: WNWD, vitals as above, NAD EYES: normal conjunctivae, nonicteric sclerae, significant right sided facial droop that is known ENT: MMM, recently extubated, speech normal, normal work of breathing. NECK: trachea midline RESPIRATORY: coarse rhonchi on the right base, clear to auscultation on the left, no rales or wheezes, normal respiratory effort, no CARDIOVASCULAR: regular rate and rhythm, S1 and 2 heard without murmurs, gallops or rubs, no JVD, no peripheral edema GASTROINTESTINAL: soft, nondistended. MUSCULOSKELETAL: moves arms and legs symmetrically SKIN: warm and dry NEUROLOGIC: chronic right facial droop as noted, oriented to person, place and time, speech normal, no tremor, no sensation deficit. Results & Data Results & Data ([facility]) Vital Signs (Past 12 Hours) Vital Signs Temp Pulse Resp BP Pulse Ox 11/19/20 07:40 91 H 16 97 11/19/20 07:18 80 101/55 L 11/19/20 06:22 38.3 C H 80 101/55 L 96 11/19/20 06:07 38.3 C H 74 95/56 L 94 11/19/20 05:52 38.3 C H 86 81/50 L 95 11/19/20 05:38 38.2 C H 87 98/58 L 93 11/19/20 05:22 38.2 C H 106 H 141/84 H 100 11/19/20 05:07 38.2 C H 90 127/86 97 11/19/20 04:52 38.2 C H 81 105/54 L 97 11/19/20 04:37 38.2 C H 67 113/79 97 11/19/20 04:22 38.3 C H 78 117/64 97 11/19/20 04:07 38.3 C H 72 100/54 L 98 11/19/20 03:52 38.3 C H 70 102/57 L 97 11/19/20 03:44 79 22 98 11/19/20 03:37 38.3 C H 77 104/54 L 97 11/19/20 03:22 38.3 C H 70 91/57 L 96 11/19/20 03:07 38.3 C H 72 101/65 96 11/19/20 02:52 38.3 C H 70 105/50 L 95 11/19/20 02:37 38.3 C H 72 103/55 L 95 11/19/20 02:22 38.3 C H 77 93/47 L 97 11/19/20 02:07 38.2 C H 71 119/61 98 11/19/20 01:52 38.2 C H 71 97/56 L 96 11/19/20 01:37 38.2 C H 69 113/62 95 11/19/20 01:22 38.2 C H 69 126/71 97 11/19/20 01:07 38.1 C H 67 109/71 97 11/19/20 00:52 38.1 C H 79 129/72 97 11/19/20 00:37 38.0 C H 62 126/62 96 11/19/20 00:22 38.0 C H 74 136/66 97 11/19/20 00:07 38.0 C H 73 114/73 98 11/19/20 00:00 66 Laboratory Results Short CBC 11/18/20 11/19/20 Range/Units 14:09 05:37 WBC 7.72 6.65 (4.8-10.8) K/uL Hgb 12.5 L 12.5 L (14.0-18.0) g/dL Hct 37.7 L 37.2 L (42-52) % Plt Count 111 L 110 L (130-400) K/uL BMP 11/18/20 11/19/20 14:09 05:37 Sodium 132 L 133 L Potassium 3.7 D 3.3 L Chloride 101 102 Carbon Dioxide 24 28 BUN 36 H 33 H Creatinine 1.49 H 1.42 H Glucose 142 H 105 H Calcium 6.6 L 7.1 L Cardiac Enzymes 11/18/20 Range/Units 15:56 Troponin I 2.540 H* (0-0.045) ng/ml Liver Function 11/18/20 Range/Units 14:09 Total Bilirubin 0.6 (0.2-1) mg/dl AST 101 H (15-37) U/L ALT 40 (12-78) U/L Alkaline Phosphatase 48 (45-117) U/L Albumin 2.3 L (3.4-5.0) gm/dl Diagnostic Findings XR chest 1V portable (-) HISTORY: Resp failure COMPARISON: Chest 11/18/2020. FINDINGS: Endotracheal tube terminates 2.1 cm from the latricia. Nasogastric tube terminates below the diaphragm. The tip is not included on this study. Right jugular central venous catheter terminates at the proximal SVC. No pneumothorax. Right perihilar airspace opacities have improved in the interval. Suspect trace bilateral pleural effusions. Right basilar calcified pleural plaque is again noted. IMPRESSION: 1. Satisfactory support line placement. 2. Improved aeration within the right lung airspace opacities. Medications Administered Current Inpatient Medications Aspirin (Aspirin 81 Mg Ectab) 81 mg PO DAILY JORDAN Stop: 12/17/20 08:59 Last Admin: 11/19/20 08:30 Dose: 81 mg Documented by: Atorvastatin Calcium (Atorvastatin 40 Mg Tab) 80 mg PO DAILY JORDAN Stop: 12/17/20 08:59 Last Admin: 11/19/20 08:29 Dose: 80 mg Documented by: Heparin Sodium/Dextrose (Heparin Sodium/Dextrose) 25,000 units in 500 mls @ 12 mls/hr IV .Q24H JORDAN; Protocol Stop: 12/16/20 23:14 Last Titration: 11/19/20 07:47 Dose: 600 units/hr, 12 mls/hr Documented by: Norepinephrine Bitartrate (Levophed/D5w) 8 mg in 508 mls @ 10.23 mls/hr IV .Q24H JORDAN; Protocol Stop: 12/17/20 19:59 Last Titration: 11/19/20 11:17 Dose: 0.03 mcg/kg/min, 10.2 mls/hr Documented by: Cefepime HCl 2,000 mg/ Syringe 20 mls @ 5 mls/min IV Q12H JORDAN; Protocol Stop: 11/24/20 21:59 Last Admin: 11/19/20 10:09 Dose: 5 mls/min Documented by: Levofloxacin/Dextrose (Levaquin/D5w) 750 mg in 150 mls @ 100 mls/hr IV Q48H JORDAN; Protocol Stop: 11/24/20 22:59 Last Infusion: 11/18/20 00:05 Dose: Infused Documented by: Acetaminophen ([facility]) 1,000 mg in 100 mls @ 400 mls/hr IV Q8H PRN PRN Reason: Fever Stop: 11/21/20 04:50 Last Infusion: 11/19/20 10:25 Dose: Infused Documented by: Pantoprazole Sodium 40 mg/ (Syringe) 10 mls @ 5 mls/min IV BID JORDAN Stop: 11/22/20 09:01 Last Admin: 11/19/20 08:30 Dose: 5 mls/min Documented by: Levalbuterol HCl (Levalbuterol 1.25mg/0.5ml Neb) 1.25 mg NEB Q4H PRN PRN Reason: Shortness Of Breath Or Wheezing Stop: 12/16/20 23:00 Last Admin: 11/16/20 23:25 Dose: 1.25 mg Documented by: Metoprolol Tartrate (Metoprolol Tartrate 1 Mg/Ml Vial) 5 mg IV Q6 PRN PRN Reason: Tachycardia Stop: 12/17/20 11:59 Metoprolol Tartrate (Metoprolol Tartrate 25 Mg Tab) 25 mg PO BID [facility] Stop: 12/17/20 10:44 Last Admin: 11/19/20 09:26 Dose: 25 mg Documented by: Miscellaneous (Icu Protocol For Hyperglycemia) 1 ea N/A PRN PRN; Protocol PRN Reason: Hyperglycemia Protocol Stop: 11/19/20 20:56 Vitamin D (Cholecalciferol 1,000 Units 25 Mcg Tab) 1,000 units PO DAILY [facility] Stop: 12/17/20 08:59 Last Admin: 11/19/20 08:29 Dose: 1,000 units Documented by:
[2020-11-19] MEDS: NOREPINEPHRINE/D5W 8 MG/508 ML BAG IV SCH (14:23)
[2020-11-19 14:54] LABS: Partial Thromboplastin Ratio 3.5
[2020-11-19 15:28] LABS: Partial Thromboplastin Time 90.8 Seconds (21.0-31.0)
[2020-11-19] MEDS: HEPARIN SODIUM/DEXTROSE 25,000 UNITS/500 ML BAG IV SCH ×2 (16:30→16:47)
[2020-11-19 23:12] LABS: Partial Thromboplastin Ratio 2.6
[2020-11-19] MEDS: levoFLOXacin/D5W 750 MG/150 ML BAG IV SCH (23:20)
[2020-11-19 23:23] LABS: Partial Thromboplastin Time 68.2 Seconds (21.0-31.0)
[2020-11-20 05:37] LABS: Hematocrit (blood only) 36.5 % (42-52); Hemoglobin 12.3 g/dL (14.0-18.0); Mean Corpuscular Hemoglobin 32.5 pg (25-34); Mean Corpuscular Hgb Conc 33.7 g/dL (32-36); Mean Corpuscular Volume 96.3 fL (80-100); Mean Platelet Volume 11.3 fL (7.4-10.4); Platelet Count 103 K/uL (130-400); RDW Coefficient of Variation 15.1 % (11.5-14.5); RDW Standard Deviation 54.1 fL (36.4-46.3); Red Blood Count 3.79 M/uL (4.7-6.1); White Blood Count 7.64 K/uL (4.8-10.8)
[2020-11-20 05:57] LABS: Partial Thromboplastin Ratio 2.1
[2020-11-20 06:12] LABS: Partial Thromboplastin Time 55.4 Seconds (21.0-31.0)
[2020-11-20 06:26] LABS: BUN Creatinine Ratio 25.4 (10-20); Calcium 7.8 mg/dl (8.5-10.1); Creatinine Clr Calc Pharmacy 48.2 ml/min; Est GFR (African American) 61.7 ml/min; Est GFR (Non-African American) 53.2 ml/min; Magnesium 2.3 mg/dl (1.8-2.4); Phosphorus 2.5 mg/dl (2.5-4.9); Potassium 3.6 mmol/L (3.5-5.1)
[2020-11-20 06:45] LABS: Acanthocytes 1+; Basophils # (auto) 0.09 K/uL (0-0.2); Basophils % (auto) 1.2 %; Dohle Bodies 1+; Echinocytes 1+; Eosinophils # (auto) 0.01 K/uL (0-0.5); Eosinophils % (auto) 0.1 %; Immature Granulocytes # (auto) 0.01 K/uL (0.00-0.02); Immature Granulocytes % (auto) 0.1 %; Lymphocytes # (auto) 1.45 K/uL (1.2-3.4); Monocytes # (auto) 0.56 K/uL (0.11-0.59); Monocytes % (auto) 7.3 %; Neutrophils # (auto) 5.52 K/uL (1.4-6.5); Neutrophils % (auto) 72.3 %
[2020-11-20] MEDS ORDERED: POTASSIUM CHLORIDE CRTAB 20 MEQ TABCR PO STA (06:54)
--- NOTE | 2020-11-20 07:29 | Critical Care Progress Note ---
Date of Service November 20, 2020 Assessment & Plan (1) HTN (hypertension): Plan: Reason Critically Ill: Kevin is an 85-year-old gentleman with a reported history of a brain mass s/p resection with residual/chronic RIGHT sided facial droop, hypertension, hyperlipidemia, prediabetes, known mitral valve regurgitation, CKD stage III, history of parotid cancer who presented to [facility] for evaluation of dizziness and near syncope, found to be in AFib with RVR on arrival. A CODE PURPLE on 11/17 in which patient was reported to have abdominal pain, and was found to be in acute hypoxemic, hypercapnic respiratory failure in the setting of new, right-sided lung opacities seen on chest imaging, as well as HTN urgency. His work-up is ongoing. He requires ICU placement for management of his AHHRF, HTN and intensive hemodynamic monitoring. Neuro - [facility] ICU: Unobtainable Sedation: Versed Analgesia: Fentanyl Metabolic Encephalopathy: Resolved * Secondary to acute hypercapnia and acidemia in setting of respiratory decline * Possible component of hypertensive encephalopathy in context of HTN urgency vs. emergency yesterday * Repeat CT-H without acute process * Lytes, CBC otherwise unrevealing * History of chronic RIGHT facial droop sec to prior intracranial mass (s/p resection) per Nursing. Noted in previous exams on patient's chart Cardiac - Atrial Fibrillation with Rapid Ventricular Response: Resolved * Patient found to be in AFib with RVR in 120-130s upon arrival to [facility] and on admission *Increase metoprolol to 50 mg * Resume heparin gtt * Echocardiogram 11/17 revealing of mildly diminished LV function (EF 45-50), but otherwise normal * Maintain K > 4, Mg > 2 HTN Urgency / Emergency: Resolved * Patient found with BPs exceeding 200-220/100-110 upon arrival to [facility] * In setting of +encephalopathy, +JOÃO, +elevating troponins * s/p nitroglycerin with achievement of normotension * A-line: Discontinue Shock: Resolved * Possibly secondary to sepsis VS. sedation > cardiogenic * Maintain MAP > 65, UOP > 0.5cc/kg/hr Elevated Troponin * Troponin from admission initially downtrended (peak 2.070) * Suspect secondary to demand ischemia * Continue heparin gtt * ASA, statin * Cardiology following Respiratory - Aspiration Pneumonia: Improving * CXR on arrival revealing for mild pulmonary vascular congestion and emphysema * CT Chest demonstrating diffuse right airspace and LLL opacities * At this time, suspect that this is likely due to aspiration in setting of AMS *Discontinue cefepime and vancomycin finish course of Levaquin VDRF: Resolved GI - Abdominal Pain: Resolved * Upon arrival to [facility], patient was c/o significant right-sided/flank abdominal pain * No obvious distention on exam, +TTP, no rebound or guarding * CT-A/P: Distended gallbladder with possible mild wall thickening, nephrolithiasis -- Low threshold for US RUQ / Gallbladder RENAL/LYTES - Acute Kidney Injury: Resolved * Unknown baseline Cr, does have h/o CKD3 - on admission Cr 1.71 * Prerenal vs. secondary to HTN emergency - * [place]: Discontinue ENDO - * ICU Hyperglycemia protocol HEME - * Stable H&H * Will monitor for any drops in the setting of Heparin gtt ID - * See respiratory above INTEGUMENTARY - * No acute concerns LINES/IV ACCESS - PIVs intact, A-line, OGT: Discontinue A-line DVT PROPHYLAXIS - Heparin gtt Patient is stable for downgrade out of ICU (2) NSTEMI (non-ST elevated myocardial infarction): (3) PAF (paroxysmal atrial fibrillation): (4) New onset a-fib: (5) Elevated troponin: (6) Weakness: (7) Abdominal cramping: (8) Lab test negative for COVID-19 virus: (9) Dyslipidemia, goal LDL below 70: Admission and Anticipated Discharge Date Admission Date: November 16, 2020 Subjective No overnight events Physical Exam Physical Exam: General: Alert sitting in chair. nontoxic. Skin: Warm, dry, Head: Atraumatic Ears, nose, mouth and throat: airway patent Cardiovascular: Normal peripheral perfusion Respiratory: no respiratory distress Gastrointestinal: Non distended Musculoskeletal: No deformity Results & Data Results & Data ([facility]) Vital Signs (Past 12 Hours) Vital Signs Temp Pulse BP Pulse Ox 11/20/20 06:31 37.2 C 97 H 165/96 H 95 11/20/20 06:27 95 H 95 11/20/20 06:26 99 H 95 11/20/20 06:25 97 H 96 11/20/20 06:24 101 H 95 11/20/20 05:22 37.2 C 90 150/85 H 95 11/20/20 04:22 37.2 C 102 H 166/99 H 90 11/20/20 03:22 37.3 C 76 150/77 H 97 11/20/20 02:22 37.4 C 81 144/93 H 97 11/20/20 01:22 37.3 C 91 H 151/77 H 96 11/20/20 00:34 76 11/20/20 00:22 37.4 C 85 136/89 97 11/19/20 23:22 37.4 C 81 160/84 H 96 11/19/20 22:22 37.3 C 81 161/88 H 96 11/19/20 21:22 37.2 C 93 H 156/84 H 95 11/19/20 20:22 37.2 C 81 144/81 H 96 Laboratory Results 11/20/20 11/20/20 11/20/20 Range/Units 05:25 05:25 05:25 WBC 7.64 (4.8-10.8) K/uL RBC 3.79 L (4.7-6.1) M/uL Hgb 12.3 L (14.0-18.0) g/dL Hct 36.5 L (42-52) % MCV 96.3 (80-100) fL MCH 32.5 (25-34) pg MCHC 33.7 (32-36) g/dL RDW Std Deviation 54.1 H (36.4-46.3) fL RDW Coeff of Derrek 15.1 H (11.5-14.5) % Plt Count 103 L (130-400) K/uL MPV 11.3 H (7.4-10.4) fL Immature Gran % (Auto) 0.1 % Neut % (Auto) 72.3 % Lymph % (Auto) 19.0 % Granville % (Auto) 7.3 % Eos % (Auto) 0.1 % Baso % (Auto) 1.2 % Neut # (Auto) 5.52 (1.4-6.5) K/uL Lymph # (Auto) 1.45 (1.2-3.4) K/uL [place]ville # (Auto) 0.56 (0.11-0.59) K/uL Eos # (Auto) 0.01 (0-0.5) K/uL Baso # (Auto) 0.09 (0-0.2) K/uL Immature Gran # (Auto) 0.01 (0.00-0.02) K/uL Dohle Bodies 1+ Echinocytes 1+ Acanthocytes (Spur) 1+ APTT 55.4 H* (21.0-31.0) Seconds PTT Ratio 2.1 Sodium Pending Potassium 3.6 (3.5-5.1) mmol/L Chloride 107 (98-107) mmol/L Carbon Dioxide 27 (21-32) mmol/L Anion Gap 6.0 (3-11) BUN 31 H (7-18) mg/dl Creatinine 1.23 (0.6-1.4) mg/dl Est Cr Clr Drug Dosing 48.2 ml/min Est GFR ( Amer) 61.7 ml/min Est GFR (Non-Af Amer) 53.2 ml/min BUN/Creatinine Ratio 25.4 H (10-20) Glucose 95 (70-99) mg/dl Calcium 7.8 L (8.5-10.1) mg/dl Phosphorus 2.5 (2.5-4.9) mg/dl Magnesium 2.3 (1.8-2.4) mg/dl 11/19/20 11/19/20 Range/Units 22:34 14:13 WBC (4.8-10.8) K/uL RBC (4.7-6.1) M/uL Hgb (14.0-18.0) g/dL Hct (42-52) % MCV (80-100) fL MCH (25-34) pg MCHC (32-36) g/dL RDW Std Deviation (36.4-46.3) fL RDW Coeff of Derrek (11.5-14.5) % Plt Count (130-400) K/uL MPV (7.4-10.4) fL Immature Gran % (Auto) % Neut % (Auto) % Lymph % (Auto) % [place]ville % (Auto) % Eos % (Auto) % Baso % (Auto) % Neut # (Auto) (1.4-6.5) K/uL Lymph # (Auto) (1.2-3.4) K/uL [place]ville # (Auto) (0.11-0.59) K/uL Eos # (Auto) (0-0.5) K/uL Baso # (Auto) (0-0.2) K/uL Immature Gran # (Auto) (0.00-0.02) K/uL Dohle Bodies Echinocytes Acanthocytes (Spur) APTT 68.2 H* 90.8 H* (21.0-31.0) Seconds PTT Ratio 2.6 3.5 Sodium Potassium (3.5-5.1) mmol/L Chloride (98-107) mmol/L Carbon Dioxide (21-32) mmol/L Anion Gap (3-11) BUN (7-18) mg/dl Creatinine (0.6-1.4) mg/dl Est Cr Clr Drug Dosing ml/min Est GFR ( Amer) ml/min Est GFR (Non-Af Amer) ml/min BUN/Creatinine Ratio (10-20) Glucose (70-99) mg/dl Calcium (8.5-10.1) mg/dl Phosphorus (2.5-4.9) mg/dl Magnesium (1.8-2.4) mg/dl Coding Level of Care Code 92801 Subseq Hosp Care Lvl 3 Diagnoses HTN (hypertension) I10 NSTEMI (non-ST elevated myocardial infarction) I21.4 PAF (paroxysmal atrial fibrillation) I48.0 New onset a-fib I48.91 Elevated troponin R77.8 Weakness R53.1 Abdominal cramping R10.9 Lab test negative for COVID-19 virus Z20.822 Dyslipidemia, goal LDL below 70 E78.5
[2020-11-20] MEDS: ASPIRIN 81 MG ECTAB PO SCH (08:16)
[2020-11-20] MEDS: ATORVASTATIN 40 MG TAB PO SCH (08:17)
[2020-11-20] MEDS: CHOLECALCIFEROL 1,000 UNITS 25 MCG TAB PO SCH (08:17)
[2020-11-20] MEDS: METOPROLOL TARTRATE 50 MG TAB PO SCH ×2 (09:21→20:20)
--- NOTE | 2020-11-20 13:45 | Cardiology Progress Note ---
Date of Service November 20, 2020 Assessment & Plan (1) NSTEMI (non-ST elevated myocardial infarction): (2) PAF (paroxysmal atrial fibrillation): Plan: Respiratory insufficiency due to aspiration pneumonia, suspected supply/demand mismatch related type II non-STEMI. Patient had also been in atrial fibrillation with rapid ventricular response, and has converted to sinus rhythm.Troponin peaked at 5.1 ng/ml on 11/18/20, trending down to 2.5 ng/ml after. Continue IV heparin for now, likely transitioning to Eliquis anticoagulation noting the elevated [id number] Score of 4-5 points.Appropriate dose of Eliquis likely 2.5 mg BID given age > 80 years old, and creatinine of ~1.5. Continue ASA, metoprolol, atorvastatin.Received potassium replacement IV earlier today. Agree with increasing metoprolol as BP has trended up to 170/94. Resume home treatment with lisinopril and HCTZ. Admission and Anticipated Discharge Date Admission Date: November 16, 2020 Subjective Patient seen in follow up. He is in the bedside chair. His only complaint is that he does not like his food. Review of Systems Review of Systems: All systems reviewed & are unremarkable except as noted in HPI & below Physical Exam Physical Exam: Temp Pulse Resp BP Pulse Ox 37.2 C 89 16 170/94 H 98 11/20/20 08:22 11/20/20 12:00 11/19/20 07:40 11/20/20 12:00 11/20/20 08:22 Respiratory: normal respiratory effort, lungs clear to auscultation Cardiovascular: RRR, no murmur, no edema Gastrointestinal (Abdomen): normal bowel sounds, soft, nontender, no hepatosplenomegaly Neurologic: PERRL, EOMI, accommodation nl, no face palsy, no dysarthria Results & Data ([facility]) Vital Signs (Past 12 Hours) Vital Signs Temp Pulse BP Pulse Ox 11/20/20 12:00 89 170/94 H 11/20/20 08:22 37.2 C 89 170/94 H 98 11/20/20 07:22 37.2 C 105 H 180/104 H 96 11/20/20 06:31 37.2 C 97 H 165/96 H 95 11/20/20 06:27 95 H 95 07/18/21 06:26 99 H 95 11/20/20 06:25 97 H 96 11/20/20 06:24 101 H 95 11/20/20 05:22 37.2 C 90 150/85 H 95 11/20/20 04:22 37.2 C 102 H 166/99 H 90 11/20/20 03:22 37.3 C 76 150/77 H 97 11/20/20 02:22 37.4 C 81 144/93 H 97 Laboratory Results Coagulation 11/19/20 11/19/20 11/20/20 Range/Units 14:13 22:34 05:25 APTT 90.8 H* 68.2 H* 55.4 H* (21.0-31.0) Seconds CBC 11/20/20 Range/Units 05:25 WBC 7.64 (4.8-10.8) K/uL RBC 3.79 L (4.7-6.1) M/uL Hgb 12.3 L (14.0-18.0) g/dL Hct 36.5 L (42-52) % Plt Count 103 L (130-400) K/uL Neut # (Auto) 5.52 (1.4-6.5) K/uL Lymph # (Auto) 1.45 (1.2-3.4) K/uL Rich # (Auto) 0.56 (0.11-0.59) K/uL Eos # (Auto) 0.01 (0-0.5) K/uL Baso # (Auto) 0.09 (0-0.2) K/uL Comprehensive Metabolic Panel 11/20/20 Range/Units 05:25 Sodium 140 D (136-145) mmol/L Potassium 3.6 (3.5-5.1) mmol/L Chloride 107 (98-107) mmol/L Carbon Dioxide 27 (21-32) mmol/L BUN 31 H (7-18) mg/dl Creatinine 1.23 (0.6-1.4) mg/dl Glucose 95 (70-99) mg/dl Calcium 7.8 L (8.5-10.1) mg/dl Intake and Output 11/19/20 11/20/20 11/20/20 22:59 06:59 14:59 Intake Total 311.301 / 1386.992 255.067 / 1386.992 46.6 / 46.6 Output Total 1550 / 3375 725 / 3375 125 / 125 Balance -1238.699 / -1988.008 -469.933 / -1987.008 -78.4 / -78.4 Intake: IV 71.301 / 1096.992 205.067 / 1096.992 46.6 / 46.6 Heparin Sodium/Dextrose 25,000 71.301 / 126.368 55.067 / 126.368 46.6 / 46.6 units In 500 ml @ 400 UNITS/HR 8 mls/hr IV .Q24H JORDAN Rx#: [id number] Norepinephrine/D5w 8 mg In 508 0 / 0 ml @ 0 MCG/KG/MIN IV .Q0M JORDAN Rx#:[id number] levoFLOXacin/D5W 750 mg In 150 150 / 150 ml @ 100 mls/hr IV Q48H JORDAN Rx# :[id number] Oral 240 / 290 50 / 290 Output: Urine Amount (Catheter) 1550 / 3375 725 / 3375 125 / 125 Whitfield/Indwelling 1550 / 3375 725 / 3375 125 / 125
[2020-11-20] MEDS: lisinopril 20 MG TAB PO SCH (14:36)
[2020-11-20] MEDS ORDERED: ACETAMINOPHEN 325 MG TAB PO PRN (15:56)
--- NOTE | 2020-11-20 15:58 | Hospitalist Progress Note ---
Date of Service November 20, 2020 Assessment & Plan (1) Acute metabolic encephalopathy: Plan: Resolved, was related to acute respiratory decline. (2) Acute respiratory failure with hypoxia: Plan: Improved, now extubated and doing well on low amount of supplemental oxygen. Possibly related to aspiration pneumonia, however, CXR also revealed congestion wtih elevated BNP. EF 45% on echo. No consistent diuretic therapy at this time. Cont with Levaquin and wean oxygen as tolerated. (3) Aspiration pneumonia: Plan: Plan as above. Fever yesterday has resolved. Will request a speech evaluation now that he is eating. (4) New onset a-fib: Plan: New onset afib with RVR on arrival with presyncope possibly related to new rhythm. He has converted to sinus rhythm. Cont Lopressor, when able plan to convert IV heparin to Eliquis for CHADS 4. Cardiology following. Would mckeon out Eliquis 2.5mg BID tomorrow before converting him to ensure this won't be cost prohibitive. (5) NSTEMI (non-ST elevated myocardial infarction): Plan: Likely related to demand ischemia as patient had been in atrial fibrillation with rapid ventricular response. (6) CKD (chronic kidney disease), stage III: Plan: around baseline creatinine of 1.3 per outpatient [facility] records. Trend BMP. (7) Shock: Plan: resolved but remains on Levophed, per ICU team this was likely related to sepsis vs sedation with a smaller probability of cardiogenic shock considered. Off pressors and now hypertensive again. (8) Hypertensive urgency: Plan: BP 225/133 on arrival to the ER on 11/16. Improved with home lisinopril and was placed on diltiazem drip for afib with RVR. Subsequent code purple on 11/17 around 1800 (the following day) and BP was low. He was intubated, sedated and placed on Levophed. Levophed stopped and he is more hypertensive today in the 170s systolic. Lisinopril was restarted. Cont holding HCTZ for now. 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 (10) DVT prophylaxis: Plan: heparin/Protonix Full Code Dispo-PT/OT ordered, to home when medically stable. Transferred out of ICU to PCU status. 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 A subsequent code purple resulted secondary to abdominal pain and he was found to be in acute hypoxemic, hypercapnic respiratory failure with new right-sided lung opacities on chest imaging and hypertensive emergency. He was subsequently intubated and sedated with management for the past 2 days in the ICU. He was extubated on 11/19. Fever yesterday has resolved and he feels well overall. He denies abdominal pain and is eating. He reports having a BM. Denies chest pain or SOB. Was up in the chair for most of the morning. Review of Systems Review of Systems: All systems were reviewed and negative except as indicated in HPI above. Physical Exam Physical Exam: CONSTITUTIONAL: WNWD, vitals as above, NAD EYES: normal conjunctivae, nonicteric sclerae, significant right sided facial droop that is known ENT: MMM, speech normal, normal work of breathing. Multiple missing teeth and poor dentition. NECK: trachea midline RESPIRATORY: coarse rhonchi on the right base, clear to auscultation on the left, no rales or wheezes, normal increased respiratory effort CARDIOVASCULAR: regular rate and rhythm, S1 and 2 heard without murmurs, gallops or rubs, no JVD, no peripheral edema GASTROINTESTINAL: soft, nondistended. MUSCULOSKELETAL: moves arms and legs symmetrically SKIN: warm and dry NEUROLOGIC: chronic right facial droop as noted, oriented to person, place and time, speech normal, no tremor, no sensation deficit. Results & Data Results & Data ([facility]) Vital Signs (Past 12 Hours) Vital Signs Temp Pulse Resp BP Pulse Ox 11/20/20 14:38 78 29 H 171/83 H 11/20/20 13:22 37.0 C 76 35 H 146/86 H 97 11/20/20 12:23 37.1 C 72 34 H 130/70 97 11/20/20 12:00 89 170/94 H 11/20/20 11:17 37.1 C 71 28 H 153/86 H 99 11/20/20 10:52 37.3 C 90 173/100 H 90 11/20/20 08:22 37.2 C 89 170/94 H 98 11/20/20 07:22 37.2 C 105 H 180/104 H 96 11/20/20 06:31 37.2 C 97 H 165/96 H 95 11/20/20 06:27 95 H 95 11/20/20 06:26 99 H 95 11/20/20 06:25 97 H 96 11/20/20 06:24 101 H 95 11/20/20 05:22 37.2 C 90 150/85 H 95 11/20/20 04:22 37.2 C 102 H 166/99 H 90 Laboratory Results Short CBC 11/20/20 Range/Units 05:25 WBC 7.64 (4.8-10.8) K/uL Hgb 12.3 L (14.0-18.0) g/dL Hct 36.5 L (42-52) % Plt Count 103 L (130-400) K/uL BMP 11/20/20 05:25 Sodium 140 D Potassium 3.6 Chloride 107 Carbon Dioxide 27 BUN 31 H Creatinine 1.23 Glucose 95 Calcium 7.8 L Medications Administered Current Inpatient Medications Aspirin (Aspirin 81 Mg Ectab) 81 mg PO DAILY [facility] Stop: 12/17/20 08:59 Last Admin: 11/20/20 08:16 Dose: 81 mg Documented by: Atorvastatin Calcium (Atorvastatin 40 Mg Tab) 80 mg PO DAILY [facility] Stop: 12/17/20 08:59 Last Admin: 11/20/20 08:17 Dose: 80 mg Documented by: Hydrochlorothiazide (Hydrochlorothiazide 25 Mg Tab) 12.5 mg PO QAM [facility] Stop: 12/21/20 08:59 Hydrochlorothiazide (Hydrochlorothiazide 25 Mg Tab) 12.5 mg PO QAM [facility] Stop: 12/20/20 15:44 Heparin Sodium/Dextrose (Heparin Sodium/Dextrose) 25,000 units in 500 mls @ 8 mls/hr IV .Q24H [facility]; Protocol Stop: 12/16/20 23:14 Last Titration: 11/20/20 07:09 Dose: 300 units/hr, 6 mls/hr Documented by: Levofloxacin/Dextrose (Levaquin/D5w) 750 mg in 150 mls @ 100 mls/hr IV Q48H [facility]; Protocol Stop: 11/24/20 22:59 Last Infusion: 11/20/20 00:50 Dose: Infused Documented by: Acetaminophen (Ofirmev) 1,000 mg in 100 mls @ 400 mls/hr IV Q8H PRN PRN Reason: Fever Stop: 11/21/20 04:50 Last Infusion: 11/19/20 10:25 Dose: Infused Documented by: Levalbuterol HCl (Levalbuterol 1.25mg/0.5ml Neb) 1.25 mg NEB Q4H PRN PRN Reason: Shortness Of Breath Or Wheezing Stop: 12/16/20 23:00 Last Admin: 11/16/20 23:25 Dose: 1.25 mg Documented by: Lisinopril (Lisinopril 20 Mg Tab) 20 mg PO QAM [facility] Stop: 12/20/20 13:44 Last Admin: 11/20/20 14:36 Dose: 20 mg Documented by: Metoprolol Tartrate (Metoprolol Tartrate 50 Mg Tab) 50 mg PO BID [facility] Stop: 12/20/20 08:59 Last Admin: 11/20/20 09:21 Dose: 50 mg Documented by: Vitamin D (Cholecalciferol 1,000 Units 25 Mcg Tab) 1,000 units PO DAILY [facility] Stop: 12/17/20 08:59 Last Admin: 11/20/20 08:17 Dose: 1,000 units Documented by:
[2020-11-20] MEDS ORDERED: hydroCHLOROthiazide 25 MG TAB PO ONE (16:00)
[2020-11-21 05:49] LABS: Partial Thromboplastin Ratio 1.3; Partial Thromboplastin Time 34.2 Seconds (21.0-31.0)
[2020-11-21 05:53] LABS: Hematocrit (blood only) 35.5 % (42-52); Hemoglobin 11.4 g/dL (14.0-18.0); Mean Corpuscular Hemoglobin 31.1 pg (25-34); Mean Corpuscular Hgb Conc 32.1 g/dL (32-36); Mean Corpuscular Volume 96.7 fL (80-100); Mean Platelet Volume 12.5 fL (7.4-10.4); Platelet Count 111 K/uL (130-400); RDW Coefficient of Variation 15.2 % (11.5-14.5); Red Blood Count 3.67 M/uL (4.7-6.1); White Blood Count 8.81 K/uL (4.8-10.8)
[2020-11-21 06:06] LABS: BUN Creatinine Ratio 25.2 (10-20); Calcium 8.2 mg/dl (8.5-10.1); Creatinine Clr Calc Pharmacy 51.5 ml/min; Est GFR (African American) 66.9 ml/min; Est GFR (Non-African American) 57.7 ml/min; Magnesium 2.1 mg/dl (1.8-2.4); Potassium 3.5 mmol/L (3.5-5.1)
[2020-11-21 06:13] LABS: Acanthocytes 1+; Basophils # (auto) 0.12 K/uL (0-0.2); Basophils % (auto) 1.4 %; Echinocytes 1+; Eosinophils # (auto) 0.07 K/uL (0-0.5); Eosinophils % (auto) 0.8 %; Immature Granulocytes # (auto) 0.02 K/uL (0.00-0.02); Immature Granulocytes % (auto) 0.2 %; Lymphocytes # (auto) 3.27 K/uL (1.2-3.4); Lymphocytes % (auto) 37.1 %; Monocytes # (auto) 0.87 K/uL (0.11-0.59); Monocytes % (auto) 9.9 %; Neutrophils # (auto) 4.46 K/uL (1.4-6.5); Neutrophils % (auto) 50.6 %; Platelet Estimate Decreased (Normal)
[2020-11-21 06:16] LABS: Phosphorus 1.7 mg/dl (2.5-4.9)
[2020-11-21] MEDS ORDERED: HEPARIN SOD (PORCINE) 1000 UNIT/ML IV ONE (06:27)
[2020-11-21] MEDS ORDERED: HEPARIN IV BOLUS 4,000 UNITS in SYRINGE 0 ML IV ONE (06:45)
[2020-11-21] MEDS: lisinopril 20 MG TAB PO SCH (08:45)
[2020-11-21] MEDS: ATORVASTATIN 40 MG TAB PO SCH (08:46)
[2020-11-21] MEDS: METOPROLOL TARTRATE 50 MG TAB PO SCH ×2 (08:46→21:06)
[2020-11-21] MEDS: ASPIRIN 81 MG ECTAB PO SCH (08:46)
[2020-11-21] MEDS: CHOLECALCIFEROL 1,000 UNITS 25 MCG TAB PO SCH (08:46)
[2020-11-21] MEDS ORDERED: hydroCHLOROthiazide 25 MG TAB PO SCH (09:00)
--- NOTE | 2020-11-21 09:10 | Hospitalist Progress Note ---
Date of Service November 21, 2020 Assessment & Plan (1) Acute metabolic encephalopathy: Plan: Resolved, was related to acute respiratory decline. (2) Acute respiratory failure with hypoxia: Plan: Improved, now extubated and doing well on low amount of supplemental oxygen. Possibly related to aspiration pneumonia, however, CXR also revealed congestion wtih elevated BNP. EF 45% on echo. No consistent diuretic therapy at this time. Cont with Levaquin and wean oxygen as tolerated. (3) Aspiration pneumonia: Plan: Plan as above. Speech evaluation pending. (4) New onset a-fib: Plan: New onset afib with RVR on arrival with presyncope possibly related to new rhy thm. He has converted to sinus rhythm. Cont Lopressor, when able plan to convert IV heparin to Eliquis for CHADS 4. Cardiology following. Eliquis 2.5mg BID if able. (5) NSTEMI (non-ST elevated myocardial infarction): Plan: Likely related to demand ischemia as patient had been in atrial fibrillation with rapid ventricular response. (6) CKD (chronic kidney disease), stage III: Plan: around baseline creatinine of 1.3 per outpatient [facility] records. Trend BMP. (7) Shock: Plan: Related to sepsis vs sedation with a smaller probability of cardiogenic shock considered. Off pressors and now hypertensive again. (8) Hypertensive urgency: Plan: BP 225/133 on arrival to the ER on 11/16. Improved with home lisinopril and was placed on diltiazem drip for afib with RVR. Subsequent code purple on 11/17 around 1800 (the following day) and BP was low. He was intubated, sedated and placed on Levophed. Levophed stopped and he is hypertensive now. Lisinopril restarted. Cont holding HCTZ for now. 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 (10) DVT prophylaxis: Plan: heparin/Protonix Full Code Dispo-PT/OT ordered, to home when medically stable. PCU status. Labs Checked Plan: ROS-No Headache, No Visual Changes, No Nausea, No Vomiting, No Fever, No Chills, No Neck Pain or Stiffness, No Chest Pain, No Palpitations, No SOB, No CONLEY, No Cough, No Sputum, No Wheezing, No Abdominal Pain, No Diarrhea, No Hematemesis, No Hemoptysis, No Unexpected Weight Loss, No Flank pain, No Melena, No Hematochezia, No Frequency, No Urgency, No Burning, No Hematuria, No Rashes, No Diaphoresis. Appetite is Normal Physical Exam Gen-AAO x 3, NAD, Afebrile Head-NCAT, EOMI, PERRLA, Anicteric Sclera, No Posterior Pharyngeal Erythema Neck-Supple, No JVD, No Thyromegaly, No Masses, No LAD, No Bruits Lungs-Clear to Auscultation Bilaterally, No Rales, No Rhonchi, No Wheezing, No Crepitus Chest-Irreg/Irreg, No S4, +S1, +S2, No S3, No Murmurs, No Rubs, No Gallops, No Ectopy Abdomen-Soft, Bowel Sounds Present, Non Tender, Non Distended, No Hepatomegaly, No Splenomegaly, No Palpable Masses, No Rebound, No Rigidity, No Guarding Musculoskeletal-Full Range of Motion Bilaterally, No CVAT Extremities-No Cyanosis, No Clubbing, No Edema Nuero-Chronic R Facial from tumor resection, Motor WNL, DTRs WNL, Strength WNL Psych-Normal Mood Admission and Anticipated Discharge Date Admission Date: November 16, 2020 Results & Data Results & Data ([facility]) Vital Signs (Past 12 Hours) Vital Signs Pulse Resp BP Pulse Ox 11/21/20 05:59 67 25 H 164/101 H 97 11/21/20 04:59 71 28 H 153/74 H 94 11/21/20 03:59 71 25 H 166/90 H 96 11/21/20 02:59 62 24 161/83 H 96 11/21/20 01:59 71 28 H 149/90 H 97 11/21/20 00:59 96 H 24 161/93 H 93 11/21/20 00:00 63 27 H 144/84 H 96 11/20/20 23:13 66 11/20/20 22:59 66 35 H 102/88 96 11/20/20 21:59 72 27 H 140/80 96
--- NOTE | 2020-11-21 12:27 | Cardiology Progress Note ---
Date of Service November 21, 2020 Assessment & Plan (1) NSTEMI (non-ST elevated myocardial infarction): (2) PAF (paroxysmal atrial fibrillation): Plan: Respiratory insufficiency due to aspiration pneumonia, suspected supply/demand mismatch related type II non-STEMI. Patient had also been in atrial fibrillation with rapid ventricular response, and has converted to sinus rhythm.Troponin peaked at 5.1 ng/ml on 11/18/20, trending down to 2.5 ng/ml after. EKG on 11/18/20 revealed SR at 66 bpm with first degree AVB , no significant repolarization changes. Continue IV heparin for now, likely transitioning to Eliquis anticoagulation noting the elevated [id number] Score of 4-5 points.Appropriate dose of Eliquis likely 5 mg BID as creatinine is improved, and although he is > 80 years old he weights > 60 kg. Will look in to cost. Continue ASA, metoprolol, atorvastatin.Received potassium replacement IV earlier today. Agree with increasing metoprolol as BP has trended up to 170/94. Resume home treatment with lisinopril and HCTZ. Admission and Anticipated Discharge Date Admission Date: November 16, 2020 Subjective Patient seen in cardiology follow up. He notes no cardiac complaints. Sinus rhythm in the 70s noted on telemetry Physical Exam Physical Exam: Temp Pulse Resp BP Pulse Ox 36.8 C 69 19 156/85 H 91 11/20/20 20:56 11/21/20 12:01 11/21/20 12:01 11/21/20 12:01 11/21/20 12:01 Constitutional: WD/WN, vitals as above Respiratory: normal respiratory effort, lungs clear to auscultation Cardiovascular: RRR, no murmur, no edema Neurologic: PERRL, EOMI, accommodation nl, no face palsy, no dysarthria Results & Data ([facility]) Vital Signs (Past 12 Hours) Vital Signs Pulse Resp BP Pulse Ox 11/21/20 12:01 69 19 156/85 H 91 11/21/20 11:00 63 28 H 161/90 H 98 11/21/20 10:00 62 30 H 97 11/21/20 08:59 72 30 H 164/97 H 91 11/21/20 08:00 81 25 H 175/103 H 96 11/21/20 06:59 62 23 150/95 H 97 11/21/20 05:59 67 25 H 164/101 H 97 11/21/20 04:59 71 28 H 153/74 H 94 11/21/20 03:59 71 25 H 166/90 H 96 11/21/20 02:59 62 24 161/83 H 96 11/21/20 01:59 71 28 H 149/90 H 97 11/21/20 00:59 96 H 24 161/93 H 93
--- NOTE | 2020-11-21 12:59 | Communication Note ---
Date of Service: November 21, 2020 Patient has central line. Will stop heparin gtt. DC central line 2 hours later. Start Eliquis at 2100.
[2020-11-21] MEDS: HEPARIN SODIUM/DEXTROSE 25,000 UNITS/500 ML BAG IV SCH (16:04)
[2020-11-21] MEDS: APIXABAN 5 MG TABLET PO SCH (21:06)
[2020-11-21] MEDS: levoFLOXacin/D5W 750 MG/150 ML BAG IV SCH (22:30)
[2020-11-22 04:46] LABS: Hematocrit (blood only) 32.5 % (42-52); Mean Corpuscular Hemoglobin 32.1 pg (25-34); Mean Corpuscular Hgb Conc 33.8 g/dL (32-36); Mean Corpuscular Volume 94.8 fL (80-100); Platelet Count 114 K/uL (130-400); RDW Coefficient of Variation 15.2 % (11.5-14.5); RDW Standard Deviation 52.6 fL (36.4-46.3); Red Blood Count 3.43 M/uL (4.7-6.1); White Blood Count 11.45 K/uL (4.8-10.8)
[2020-11-22 05:04] LABS: Albumin Level 2.3 gm/dl (3.4-5.0); BUN Creatinine Ratio 30.1 (10-20); Calcium 7.8 mg/dl (8.5-10.1); Creatinine Clr Calc Pharmacy 59.9 ml/min; Est GFR (African American) 80.2 ml/min; Est GFR (Non-African American) 69.2 ml/min; Magnesium 1.9 mg/dl (1.8-2.4); Potassium 3.4 mmol/L (3.5-5.1)
[2020-11-22 05:08] LABS: Albumin Globulin Ratio 0.7 (0.9-2); Bilirubin,Total 0.7 mg/dl (0.2-1); Globulin 3.2 gm/dl (2.5-4.0); Phosphorus 2.2 mg/dl (2.5-4.9); Total Protein 5.5 gm/dl (6.4-8.2)
[2020-11-22 06:41] LABS: ALC (manual) 4.91 K/uL (1.2-3.4); ANC (manual) 5.61 K/uL (1.4-6.5); Acanthocytes 1+; Basophils % (manual) 0.9 %; Eosinophils # (manual) 0.31 K/uL (0-0.5); Eosinophils % (manual) 2.7 %; Lymphocytes # (manual) 1.95 K/uL (1.2-3.4); Monocytes # (manual) 0.52 K/uL (0.11-0.59); Monocytes % (manual) 4.5 %; Neutrophils # (manual) 5.61 K/uL (1.4-6.5); Reactive Lymphocytes # (manual) 2.97 K/uL; Reactive Lymphocytes % (manual) 25.9 %
--- NOTE | 2020-11-22 08:43 | Hospitalist Progress Note ---
Date of Service November 22, 2020 Assessment & Plan (1) Acute metabolic encephalopathy: Plan: Resolved, was related to acute respiratory decline. (2) Acute respiratory failure with hypoxia: Plan: Improved, now extubated and doing well on low amount of supplemental oxygen. Possibly related to aspiration pneumonia, however, CXR also revealed congestion wtih elevated BNP. EF 45% on echo. No consistent diuretic therapy at this time. Cont with Levaquin and wean oxygen as tolerated. 11/22 Low grade fever c Leukocytosis, panculture, hold dc today, 2 step today, change Abx to Vanco and Zosyn, MRSA Swab (3) Aspiration pneumonia: Plan: Plan as above. Speech evaluation noted. (4) New onset a-fib: Plan: New onset afib with RVR on arrival with presyncope possibly related to new rhythm. He has converted to sinus rhythm. Cont Lopressor, when able plan to convert IV heparin to Eliquis for CHADS 4. Cardiology following. Eliquis 2.5mg BID if able. (5) NSTEMI (non-ST elevated myocardial infarction): Plan: Likely related to demand ischemia as patient had been in atrial fibrillation with rapid ventricular response. (6) CKD (chronic kidney disease), stage III: Plan: around baseline creatinine of 1.3 per outpatient [facility] records. Trend BMP. (7) Shock: Plan: Related to sepsis vs sedation with a smaller probability of cardiogenic shock considered. Off pressors. (8) Hypertensive urgency: Plan: BP 225/133 on arrival to the ER on 11/16. Improved with home lisinopril and was placed on diltiazem drip for afib with RVR. Subsequent code purple on 11/17 around 1800 (the following day) and BP was low. He was intubated, sedated and placed on Levophed. Off Levophed. Lisinopril, Metoprolol. Cont holding HCTZ for now. 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 (10) DVT prophylaxis: Plan: heparin/Protonix Replete K and Phos today, Ca, Mg, Phos, ionized Ca in AM, CXR today Full Code Dispo-PT/OT ordered, to home when medically stable. PCU status. Labs Checked Plan: ROS-No Headache, No Visual Changes, No Nausea, No Vomiting, No Fever, No Chills, No Neck Pain or Stiffness, No Chest Pain, No Palpitations, No SOB, No CONLEY, No Cough, No Sputum, No Wheezing, No Abdominal Pain, No Diarrhea, No Hematemesis, No Hemoptysis, No Unexpected Weight Loss, No Flank pain, No Melena, No Hematochezia, No Frequency, No Urgency, No Burning, No Hematuria, No Rashes, No Diaphoresis. Appetite is Normal Physical Exam Gen-AAO x 3, NAD, Afebrile Head-NCAT, EOMI, PERRLA, Anicteric Sclera, No Posterior Pharyngeal Erythema Neck-Supple, No JVD, No Thyromegaly, No Masses, No LAD, No Bruits Lungs-Clear to Auscultation Bilaterally, No Rales, No Rhonchi, No Wheezing, No Crepitus Chest-Irreg/Irreg, No S4, +S1, +S2, No S3, No Murmurs, No Rubs, No Gallops, No Ectopy Abdomen-Soft, Bowel Sounds Present, Non Tender, Non Distended, No Hepatomegaly, No Splenomegaly, No Palpable Masses, No Rebound, No Rigidity, No Guarding Musculoskeletal-Full Range of Motion Bilaterally, No CVAT Extremities-No Cyanosis, No Clubbing, No Edema Nuero-Chronic R Facial from tumor resection, Motor WNL, DTRs WNL, Strength WNL Psych-Normal Mood Admission and Anticipated Discharge Date Admission Date: November 16, 2020 Results & Data Results & Data ([facility]) Vital Signs (Past 12 Hours) Vital Signs Temp Pulse Resp BP Pulse Ox 11/22/20 01:15 37.9 C H 11/22/20 00:59 60 24 146/82 H 96 11/21/20 23:59 61 28 H 153/71 H 95 11/21/20 22:59 60 21 153/79 H 88 L 11/21/20 21:59 65 17 168/96 H 97 11/21/20 21:00 66 30 H 169/95 H 98
[2020-11-22] MEDS: ASPIRIN 81 MG ECTAB PO SCH (08:47)
[2020-11-22] MEDS: METOPROLOL TARTRATE 50 MG TAB PO SCH ×2 (08:47→21:10)
[2020-11-22] MEDS: lisinopril 20 MG TAB PO SCH (08:47)
[2020-11-22] MEDS: ATORVASTATIN 40 MG TAB PO SCH (08:47)
[2020-11-22] MEDS: APIXABAN 5 MG TABLET PO SCH ×2 (08:48→21:09)
[2020-11-22] MEDS: CHOLECALCIFEROL 1,000 UNITS 25 MCG TAB PO SCH (08:48)
--- NOTE | 2020-11-22 09:00 | XRay Report ---
XR chest 1V portable CLINICAL HISTORY: leukocytosis, fever COMPARISON STUDY: Chest CT November 17, 2020. Chest radiograph November 19, 2020. FINDINGS: Lines and tubes have been removed since exam of November 19, 2020. There is no pneumothorax. Th ere may be trace bilateral pleural effusions. Interstitial thickening and right lung opacities have i mproved. Cardiomediastinal silhouette is stable. IMPRESSION: 1. Interval improvement in interstitial thickening and right lung airspace opacities since radiograph s of November 19, 2020. The findings favor improving right lung pneumonia. 2. Trace bilateral pleural effusions. ACT 112: Negative or not required by law. Electronically signed by: Neal Ochoa M.D. 11/22/2020 8:58 AM
[2020-11-22] MEDS ORDERED: PIPERACILL/TAZOBAC CONSULT ACTIVE PRN (11:09)
--- NOTE | 2020-11-22 11:53 | Cardiology Progress Note ---
Date of Service November 22, 2020 Assessment & Plan (1) NSTEMI (non-ST elevated myocardial infarction): (2) PAF (paroxysmal atrial fibrillation): Plan: Respiratory insufficiency due to aspiration pneumonia, suspected supply/demand mismatch related type II non-STEMI. Patient had also been in atrial fibrillation with rapid ventricular response, and has converted to sinus rhythm.Troponin peaked at 5.1 ng/ml on 11/18/20, trending down to 2.5 ng/ml after. EKG on 11/18/20 revealed SR at 66 bpm with first degree AVB , no significant repolarization changes. [id number] Score of 4-5 points. Transitioned to Eliquis 5 mg BID, out of pocket cost $33/month. R IJ Central line removed 11/21/20-no hematoma. Continue ASA, metoprolol, atorvastatin.Received potassium replacement. Continue metoprolol and lisinopril for HTN. HCTZ on hold due to low potassium. Will add dose dose spironolactone for HTN and potassium support. Agree with Zosyn given WBC count has trended up. May need PRN furosemide to keep I/ O even. Admission and Anticipated Discharge Date Admission Date: November 16, 2020 Subjective Patient seen in follow up. Denies cardiac complaints. Out of bed in bedside chair. SR in the 60s with occasional PVCs noted on telemetry. Physical Exam Physical Exam: Temp Pulse Resp BP Pulse Ox 37.9 C H 72 16 146/82 H 93 11/22/20 01:15 11/22/20 09:47 11/22/20 09:47 11/22/20 00:59 11/22/20 09:47 Constitutional: no acute distress Respiratory: normal respiratory effort, lungs clear to auscultation Cardiovascular: RRR, no murmur, no edema Neurologic: PERRL, EOMI, accommodation nl, no face palsy, no dysarthria Results & Data ([facility]) Vital Signs (Past 12 Hours) Vital Signs Temp Pulse Pulse Pulse Pulse Pulse Resp 11/22/20 09:47 78 82 76 72 11/22/20 01:15 37.9 C H 11/22/20 00:59 60 24 11/21/20 23:59 61 28 H Resp Resp Resp Resp BP Pulse Ox Pulse Ox 11/22/20 09:47 18 18 16 16 93 11/22/20 01:15 11/22/20 00:59 146/82 H 96 11/21/20 23:59 153/71 H 95 Pulse Ox Pulse Ox Pulse Ox 11/22/20 09:47 86 L 92 93 11/22/20 01:15 11/22/20 00:59 11/21/20 23:59 Laboratory Results Cardiac Enzymes 11/22/20 Range/Units 04:33 AST 131 H (15-37) U/L CBC 11/22/20 Range/Units 04:33 WBC 11.45 H (4.8-10.8) K/uL RBC 3.43 L (4.7-6.1) M/uL Hgb 11.0 L (14.0-18.0) g/dL Hct 32.5 L (42-52) % Plt Count 114 L (130-400) K/uL Comprehensive Metabolic Panel 11/22/20 Range/Units 04:33 Sodium 144 (136-145) mmol/L Potassium 3.4 L (3.5-5.1) mmol/L Chloride 109 H (98-107) mmol/L Carbon Dioxide 32 (21-32) mmol/L BUN 30 H (7-18) mg/dl Creatinine 0.99 (0.6-1.4) mg/dl Glucose 108 H (70-99) mg/dl Calcium 7.8 L (8.5-10.1) mg/dl AST 131 H (15-37) U/L ALT 82 H (12-78) U/L Alkaline Phosphatase 61 (45-117) U/L Total Protein 5.5 L (6.4-8.2) gm/dl Albumin 2.3 L (3.4-5.0) gm/dl Intake and Output 11/21/20 11/22/20 11/22/20 22:59 06:59 14:59 Intake Total 240 / 1496.333 150 / 1496.333 300 / 300 Output Total 500 / 2150 650 / 2150 Balance -260 / -653.667 -500 / -653.667 300 / 300 Intake: IV 150 / 216.333 levoFLOXacin/D5W 750 mg In 150 150 / 150 ml @ 100 mls/hr IV Q48H [facility] Rx# :[id number] Oral 240 / 1280 300 / 300 Output: Urine 500 / 2150 650 / 2150 Other: Weight 89.5 kg Weight Measurement Method Built in [facility]
--- NOTE | 2020-11-22 12:07 | Fluoroscopy Report ---
FL video swallow HISTORY: r/o aspiration TECHNIQUE: Video fluoroscopic evaluation of swallowing was performed in the AP and lateral projection s by the speech pathology staff. The patient is fed nectar-thick and thin liquid barium, a barium coa carmen wafer, and barium pudding. FLUOROSCOPY TIME: 2.3 minutes. NUMBER OF FLUOROSCOPY IMAGES: [id number] COMPARISON STUDY: None. FINDINGS: There is normal hyoid excursion and epiglottic deflection. No significant penetration or as piration identified. Swallowing function is within normal limits. IMPRESSION: 1. No aspiration identified. 2. Please see the speech pathologist report for detailed findings and recommendations. ACT 112: Negative or not required by law. The above report was generated using voice recognition software. It may contain grammatical, syntax o r spelling errors. Electronically signed by: Eulalia Banegas DO 11/22/2020 12:06 PM
[2020-11-22] MEDS ORDERED: PIPERACILLIN/TAZOBACTAM 3.375 GM in DEXTROSE 5% 100 ML IV ONE (12:30)
[2020-11-22 12:31] LABS: Appearance Urine Clear (Clear); Bilirubin Urine Negative (Negative); Blood Urine 3+ (Negative); Color Urine Yellow; Glucose Urine UA Negative (Negative); Ketones Urine Negative (Negative); Leukocyte Esterase Urine Negative (Negative); Nitrite Urine Negative (Negative); Protein Urine 1+ (Negative); Urobilinogen Urine Negative (Negative)
[2020-11-22] MEDS: POT PHOSPHATE MONOBASIC W/ SOD TAB PO SCH ×4 (12:37→21:08)
[2020-11-22] MEDS: SPIRONOLACTONE 12.5 MG TAB PO SCH (12:38)
[2020-11-22] MEDS: POTASSIUM CHLORIDE CRTAB 20 MEQ TABCR PO SCH ×3 (12:38→21:08)
[2020-11-22 12:54] LABS: Mucus Urine Present (None Prsent)
[2020-11-22 12:55] LABS: Bacteria Urine Automated 1+ (Negative)
[2020-11-22] MEDS: PIPERACILLIN/TAZOBACTAM 3.375 GM in DEXTROSE 5% 100 ML IV SCH (17:29)
[2020-11-23] MEDS: PIPERACILLIN/TAZOBACTAM 3.375 GM in DEXTROSE 5% 100 ML IV SCH ×3 (02:22→16:51)
[2020-11-23 05:16] LABS: Hematocrit (blood only) 35.2 % (42-52); Hemoglobin 11.8 g/dL (14.0-18.0); Mean Corpuscular Hemoglobin 32.1 pg (25-34); Mean Corpuscular Hgb Conc 33.5 g/dL (32-36); Mean Corpuscular Volume 95.7 fL (80-100); Platelet Count 171 K/uL (130-400); RDW Coefficient of Variation 15.2 % (11.5-14.5); RDW Standard Deviation 53.7 fL (36.4-46.3); Red Blood Count 3.68 M/uL (4.7-6.1); White Blood Count 12.97 K/uL (4.8-10.8)
[2020-11-23 05:38] LABS: ALC (manual) 5.86 K/uL (1.2-3.4); ANC (manual) 5.53 K/uL (1.4-6.5); Acanthocytes 1+; Eosinophils # (manual) 0.45 K/uL (0-0.5); Eosinophils % (manual) 3.5 %; Lymphocytes # (manual) 3.72 K/uL (1.2-3.4); Lymphocytes % (manual) 28.7 %; Monocytes # (manual) 1.13 K/uL (0.11-0.59); Monocytes % (manual) 8.7 %; Neutrophils # (manual) 5.53 K/uL (1.4-6.5); Neutrophils % (manual) 42.6 %; Reactive Lymphocytes # (manual) 2.14 K/uL; Reactive Lymphocytes % (manual) 16.5 %
[2020-11-23 05:46] LABS: Albumin Level 2.5 gm/dl (3.4-5.0); BUN Creatinine Ratio 23.3 (10-20); Est GFR (African American) 67.6 ml/min; Est GFR (Non-African American) 58.3 ml/min; Potassium 3.7 mmol/L (3.5-5.1)
[2020-11-23 05:54] LABS: Albumin Globulin Ratio 0.8 (0.9-2); Globulin 3.3 gm/dl (2.5-4.0); Phosphorus 3.6 mg/dl (2.5-4.9); Total Protein 5.8 gm/dl (6.4-8.2)
[2020-11-23] MEDS: POTASSIUM CHLORIDE CRTAB 20 MEQ TABCR PO SCH ×3 (08:59→20:27)
[2020-11-23] MEDS: ATORVASTATIN 40 MG TAB PO SCH (08:59)
[2020-11-23] MEDS: APIXABAN 5 MG TABLET PO SCH (08:59)
[2020-11-23] MEDS: METOPROLOL TARTRATE 50 MG TAB PO SCH ×2 (08:59→20:28)
[2020-11-23] MEDS: CHOLECALCIFEROL 1,000 UNITS 25 MCG TAB PO SCH (08:59)
[2020-11-23] MEDS: ASPIRIN 81 MG ECTAB PO SCH (08:59)
[2020-11-23] MEDS: SPIRONOLACTONE 12.5 MG TAB PO SCH (09:00)
[2020-11-23] MEDS: POT PHOSPHATE MONOBASIC W/ SOD TAB PO SCH ×4 (09:00→20:28)
[2020-11-23] MEDS: lisinopril 20 MG TAB PO SCH (09:00)
--- NOTE | 2020-11-23 09:19 | Cardiology Progress Note ---
Date of Service November 23, 2020 Assessment & Plan (1) NSTEMI (non-ST elevated myocardial infarction): (2) PAF (paroxysmal atrial fibrillation): Plan: Respiratory insufficiency due to aspiration pneumonia, suspected supply/demand mismatch related type II non-STEMI. Patient had also been in atrial fibrillation with rapid ventricular response, and has converted to sinus rhythm.Troponin peaked at 5.1 ng/ml on 11/18/20, trending down to 2.5 ng/ml after. EKG on 11/18/20 revealed SR at 66 bpm with first degree AVB , no significant repolarization changes. [id number] Score of 4-5 points. Transitioned to Eliquis 5 mg BID, out of pocket cost $33/month. R IJ Central line removed 11/21/20-no hematoma. Continue ASA, metoprolol, atorvastatin. CXR 11/22/20 , improving pneumonia, trace bilateral pleural effusions. Continue metoprolol ,lisinopril, spironolactone for HTN. Furosemide 20 mg IV x 1 today given IV intake from IV antiobiotics to keep I/Os even. DVT prophylaxis: on Eliquis for PAF. Admission and Anticipated Discharge Date Admission Date: November 16, 2020 Subjective Patient seen in follow up. Denies cardiac complaints. Eager for discharge , however, he is aware of the concerns of his white blood cell count having trended up. Out of bed in bedside chair. SR in the 70s with occasional PVCs noted on telemetry. Physical Exam Physical Exam: Temp Pulse Resp BP Pulse Ox 37.9 C H 72 16 146/82 H 93 11/22/20 01:15 11/22/20 09:47 11/22/20 09:47 11/22/20 00:59 11/22/20 09:47 Constitutional: WD/WN, vitals as above no acute distress Respiratory: normal respiratory effort, lungs clear to auscultation Cardiovascular: RRR, no murmur, no edema Gastrointestinal (Abdomen): normal bowel sounds, soft, nontender, no hepatosplenomegaly Neurologic: PERRL, EOMI, accommodation nl, no face palsy, no dysarthria Results & Data ([facility]) Vital Signs (Past 12 Hours) Vital Signs Temp Pulse Resp BP BP Pulse Ox 11/23/20 06:28 78 17 179/97 H 91 11/23/20 06:11 68 29 H 190/96 H 89 L 11/23/20 05:38 36.9 C 11/23/20 05:30 69 27 H 195/93 H 91 11/23/20 05:29 73 25 H 190/98 H 92 11/23/20 02:31 37.2 C 11/23/20 00:25 18 145/76 H 91 11/22/20 23:52 60 Laboratory Results Cardiac Enzymes 11/23/20 Range/Units 05:03 AST 137 H (15-37) U/L CBC 11/23/20 Range/Units 05:03 WBC 12.97 H (4.8-10.8) K/uL RBC 3.68 L (4.7-6.1) M/uL Hgb 11.8 L (14.0-18.0) g/dL Hct 35.2 L (42-52) % Plt Count 171 (130-400) K/uL Comprehensive Metabolic Panel 11/23/20 Range/Units 05:03 Sodium 144 (136-145) mmol/L Potassium 3.7 (3.5-5.1) mmol/L Chloride 110 H (98-107) mmol/L Carbon Dioxide 32 (21-32) mmol/L BUN 27 H (7-18) mg/dl Creatinine 1.14 (0.6-1.4) mg/dl Glucose 103 H (70-99) mg/dl Calcium 8.0 L (8.5-10.1) mg/dl AST 137 H (15-37) U/L ALT 109 H (12-78) U/L Alkaline Phosphatase 67 (45-117) U/L Total Protein 5.8 L (6.4-8.2) gm/dl Albumin 2.5 L (3.4-5.0) gm/dl Intake and Output 11/22/20 11/23/20 11/23/20 22:59 06:59 14:59 Intake Total 595 / 1010 115 / 115 Output Total 600 / 1900 1300 / 1900 Balance -5 / -890 -1300 / -890 115 / 115 Intake: IV 115 / 230 115 / 115 Piperacillin/Tazobactam 3.375 115 / 115 115 / 115 gm In Dextrose 5% 100 ml @ 28. 75 mls/hr IV Q8H [facility] Rx#: [id number] Oral 480 / 780 Output: Urine 600 / 1900 1300 / 1900 Other: # Unmeasured Voids 1 Weight 89.5 kg 89.6 kg Weight Measurement Method Built in [facility]
[2020-11-23] MEDS ORDERED: FUROSEMIDE 20 MG in SYRINGE 0 ML IV ONE (09:30)
--- NOTE | 2020-11-23 15:02 | Ultrasound Report ---
US liver CLINICAL HISTORY: 85 years-old Male presenting with concern for acute cholecystitis. TECHNIQUE: Real-time grayscale ultrasound imaging of the upper abdomen was performed for a focused ev aluation at the site of clinical concern. COMPARISON: None. FINDINGS: Visualized portion of pancreas shows no evidence of focal lesions. Dilation of liver parenchyma shows mild diffuse increase in echogenicity without evidence of focal le sions or intrahepatic biliary dilatation. Gallbladder is fluid-filled with small amount of sludge within its dependent portion. Mild fat thicke anna of gallbladder wall is seen measuring 3 mm. Common bile duct is nondilated measuring 3 mm in diameter. Limited evaluation of the right kidney shows no evidence of hydronephrosis and 4.6 x 3.1 cm anechoic lesion within the superior pole most likely representing simple cyst. IMPRESSION: 1. Mild hepatic steatosis 2. Gallbladder sludge. No evidence of acute cholecystitis is seen at this time. 3. Right renal cyst. ACT 112: Negative or not required by law. Electronically signed by: Eulalia Banegas DO 11/23/2020 3:01 PM
--- NOTE | 2020-11-23 15:49 | Hospitalist Progress Note ---
Date of Service November 23, 2020 Assessment & Plan (1) Acute metabolic encephalopathy: Plan: Resolved, was related to acute respiratory decline. (2) Acute respiratory failure with hypoxia: Plan: resolved. (3) Elevated LFTs: Plan: 137/109 today risen from normal on admission. No abdominal pain and he is eating. With rising white count, LFT elevation and fever two nights ago there was concern for intra-abdominal process. RUQ us did not show evidence of acute cholecystitis. He continues on Zosyn for now. Trend CMP and CBC w diff in am. Consult GI. (4) Leukocytosis: Plan: Uncertain cause. Cont Zosyn and trend in am. (5) Aspiration pneumonia: Plan: treated with antibiotics and hypoxia has resolved. (6) New onset a-fib: Plan: New onset afib with RVR on arrival with presyncope possibly related to new rhythm. He has converted to sinus rhythm. Cont Lopressor, Eliquis (7) NSTEMI (non-ST elevated myocardial infarction): Plan: Likely related to demand ischemia as patient had been in atrial fibrillation with rapid ventricular response. (8) CKD (chronic kidney disease), stage III: Plan: at baseline. (9) Shock: Plan: Related to sepsis vs sedation with a smaller probability of cardiogenic shock considered. Off pressors. (10) Hypertensive urgency: Plan: BP 225/133 on arrival to the ER on 11/16. Improved with home lisinopril and was placed on diltiazem drip for afib with RVR. Subsequent code purple on 11/17 around 1800 (the following day) and BP was low. He was intubated, sedated and placed on Levophed. Now extubated and off Levophed. Lisinopril, Metoprolol. Restart HCTZ per home regimen. 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 (12) DVT prophylaxis: Plan: Eliquis Full Code Dispo-to home when medically stable. Family is supportive of caring for him at home. 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 A subsequent code purple resulted secondary to abdominal pain and he was found to be in acute hypoxemic, hypercapnic respiratory failure with new right-sided lung opacities on chest imaging and hypertensive emergency. He was subsequently intubated and sedated with management for the past 2 days in the ICU. He was extubated on 11/19. Some fever was present, thought to be related to pneumonia and resolved shortly after extubation. Antibiotics were de-escalated to Levaquin monotherapy and he again spiked a fever in addition to elevated LFTs and a rising WBC count. He was placed on Zosyn with resolution of his fever, and remains on this now. Although he denied any abdominal pain and has been eating there was concern for acute cholecystitis. A RUQ us was performed today and was positive for GB sludge and fatty liver. He feels well and is eager for discharge. Mentating at baseline. Family at bedside. Although he is slightly weak, family wants to care fo him at home. Review of Systems Review of Systems: All systems were reviewed and negative except as indicated in HPI above. Physical Exam Physical Exam: CONSTITUTIONAL: WNWD, vitals as above, NAD EYES: normal conjunctivae, nonicteric sclerae, significant right sided facial droop that is known ENT: MMM, speech normal, normal work of breathing. Multiple missing teeth and poor dentition. NECK: trachea midline RESPIRATORY: CTA throughout, no rales or wheezes, normal increased respiratory effort CARDIOVASCULAR: regular rate and rhythm, S1 and 2 heard without murmurs, gallops or rubs, no JVD, no peripheral edema GASTROINTESTINAL: soft, nondistended. MUSCULOSKELETAL: moves arms and legs symmetrically SKIN: warm and dry NEUROLOGIC: chronic right facial droop as noted, oriented to person, place and time, speech normal, no tremor, no sensation deficit. Results & Data Results & Data ([facility]) Vital Signs (Past 12 Hours) Vital Signs Temp Pulse Resp BP Pulse Ox 11/23/20 12:00 61 23 11/23/20 11:32 61 23 11/23/20 10:28 65 20 117/90 11/23/20 09:29 70 20 138/77 11/23/20 08:00 74 24 11/23/20 06:28 78 17 179/97 H 91 11/23/20 06:11 68 29 H 190/96 H 89 L 11/23/20 05:38 36.9 C 11/23/20 05:30 69 27 H 195/93 H 91 11/23/20 05:29 73 25 H 190/98 H 92 Laboratory Results Short CBC 11/23/20 Range/Units 05:03 WBC 12.97 H (4.8-10.8) K/uL Hgb 11.8 L (14.0-18.0) g/dL Hct 35.2 L (42-52) % Plt Count 171 (130-400) K/uL BMP 11/23/20 05:03 Sodium 144 Potassium 3.7 Chloride 110 H Carbon Dioxide 32 BUN 27 H Creatinine 1.14 Glucose 103 H Calcium 8.0 L Liver Function 11/23/20 Range/Units 05:03 Total Bilirubin 1.0 (0.2-1) mg/dl AST 137 H (15-37) U/L ALT 109 H (12-78) U/L Alkaline Phosphatase 67 (45-117) U/L Albumin 2.5 L (3.4-5.0) gm/dl Diagnostic Findings US liver CLINICAL HISTORY: 85 years-old Male presenting with concern for acute ch olecystitis. TECHNIQUE: Real-time grayscale ultrasound imaging of the upper abdomen was performed for a focused evaluation at the site of clinical concern. COMPARISON: None. FINDINGS: Visualized portion of pancreas shows no evidence of focal lesions. Dilation of liver parenchyma shows mild diffuse increase in echogenicity without evidence of focal lesions or intrahepatic biliary dilatation. Gallbladder is fluid-filled with small amount of sludge within its dependent portion. Mild fat thickening of gallbladder wall is seen measuring 3 mm. Common bile duct is nondilated measuring 3 mm in diameter. Limited evaluation of the right kidney shows no evidence of hydronephrosis and 4.6 x 3.1 cm anechoic lesion within the superior pole most likely representing simple cyst. IMPRESSION: 1. Mild hepatic steatosis 2. Gallbladder sludge. No evidence of acute cholecystitis is seen at this time. 3. Right renal cyst. ACT 112: Negative or not required by law. Electronically signed by: Eulalia Banegas DO 11/23/2020 3:01 PM
[2020-11-24] MEDS ORDERED: CIPROFLOXACIN 500 MG TAB PO SCH
[2020-11-24] MEDS ORDERED: metroNIDAZOLE 500 MG TAB PO SCH
[2020-11-24] MEDS: PIPERACILLIN/TAZOBACTAM 3.375 GM in DEXTROSE 5% 100 ML IV SCH ×3 (01:48→18:15)
[2020-11-24 03:43] VITALS: O2SAT 93
[2020-11-24 05:22] LABS: Hematocrit (blood only) 34.4 % (42-52); Hemoglobin 11.4 g/dL (14.0-18.0); Mean Corpuscular Hemoglobin 31.8 pg (25-34); Mean Corpuscular Hgb Conc 33.1 g/dL (32-36); Mean Corpuscular Volume 95.8 fL (80-100); Mean Platelet Volume 11.7 fL (7.4-10.4); Platelet Count 221 K/uL (130-400); RDW Coefficient of Variation 15.2 % (11.5-14.5); RDW Standard Deviation 53.5 fL (36.4-46.3); Red Blood Count 3.59 M/uL (4.7-6.1); White Blood Count 12.65 K/uL (4.8-10.8)
[2020-11-24 05:52] LABS: Albumin Level 2.5 gm/dl (3.4-5.0); BUN Creatinine Ratio 22.8 (10-20); Calcium 7.7 mg/dl (8.5-10.1); Creatinine Clr Calc Pharmacy 51.1 ml/min; Est GFR (African American) 66.2 ml/min; Est GFR (Non-African American) 57.1 ml/min; Potassium 3.5 mmol/L (3.5-5.1)
[2020-11-24 05:54] LABS: Albumin Globulin Ratio 0.8 (0.9-2); Bilirubin,Total 1.1 mg/dl (0.2-1); Globulin 3.2 gm/dl (2.5-4.0); Phosphorus 3.8 mg/dl (2.5-4.9); Total Protein 5.7 gm/dl (6.4-8.2)
[2020-11-24 06:25] LABS: ALC (manual) 6.21 K/uL (1.2-3.4); ANC (manual) 4.39 K/uL (1.4-6.5); Acanthocytes 1+; Basophils # (manual) 0.23 K/uL (0-0.2); Basophils % (manual) 1.8 %; Echinocytes 1+; Eosinophils # (manual) 0.68 K/uL (0-0.5); Eosinophils % (manual) 5.4 %; Lymphocytes # (manual) 3.16 K/uL (1.2-3.4); Metamyelocytes # (manual) 0.11 K/uL (0-0); Metamyelocytes % (manual) 0.9 %; Monocytes % (manual) 6.3 %; Myelocytes # (manual) 0.23 K/uL (0-0); Myelocytes % (manual) 1.8 %; Neutrophils # (manual) 4.39 K/uL (1.4-6.5); Neutrophils % (manual) 34.7 %; Reactive Lymphocytes # (manual) 3.05 K/uL; Reactive Lymphocytes % (manual) 24.1 %
[2020-11-24] MEDS: METOPROLOL TARTRATE 50 MG TAB PO SCH (08:09)
[2020-11-24] MEDS: ASPIRIN 81 MG ECTAB PO SCH (08:10)
[2020-11-24] MEDS: SPIRONOLACTONE 12.5 MG TAB PO SCH (08:10)
[2020-11-24] MEDS: ATORVASTATIN 40 MG TAB PO SCH (08:10)
[2020-11-24] MEDS: CHOLECALCIFEROL 1,000 UNITS 25 MCG TAB PO SCH (08:10)
[2020-11-24] MEDS: APIXABAN 5 MG TABLET PO SCH (08:10)
[2020-11-24] MEDS: lisinopril 20 MG TAB PO SCH (08:10)
--- NOTE | 2020-11-24 10:43 | Gastrointestinal Consultation ---
Date of Consultation November 24, 2020 Assessment & Plan (1) Elevated LFTs: (2) Leukocytosis: (3) Fever: Pt is a 85 y/o male admitted for new onset Afib w RVR, respiratory failure requiring intubation (extubated 11/19), aspiration pneumonia; seen for elevated LFTs and fevers, possible intra-abdominal infection. ? cholecystitis given gallbladder wall thickening previously. + gallbladder sludge and fatty liver. Abd exam benign. DDX: biliary obstruction, RIVERA, DILI. - Continue antibx coverage - Will obtain MRCP to r/o biliary obstruction - Trend LFTs - Avoid hepatotoxic meds - If MRCP negative, and LFTs continue to be up, would obtain AIH serologies, acute hepatitis panel, viral panel and perhaps consider OP liver bx evaluation Supervising Physician Co-Signing Physician Notes I saw and evaluated the patient. We were consulted on this fairly complicated patient for evaluation of mild elevation of his liver enzymes and a suspected infection. The patient was admitted with respiratory failure and pneumonia. He does have a history of new onset atrial fibrillation as well. Physical examination Elderly male, no obvious distress, right-sided facial paralysis noted Impression: Patient with mild elevation of liver associated enzymes, likely related to antibiotics or perhaps one of his other medications. At the present time there does not appear to be evidence of a biliary infection especially in light of his recent MRCP. Given his comorbidities and lack of symptoms referable to biliary infection would hold on any invasive evaluation such as endoscopic ultrasound or ERCP at the present time. Recommendations Stop atorvastatin as this could be contributing to his liver test elevation Outpatient follow-up for liver enzymes in 6 to 8 weeks Please call with any questions or concerns GI to sign off History of Present Illness Reason for Consultation: Elevated LFTs, febrile, ? intaabdominal infection Requesting Physician: Dr. Sowmya Leiva Attending Physician: Dr. Sary Brownlee History of Present Illness Pt is a 85 y/o male currently being evaluated for elevated LFT and possible intra-abdominal infection. 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 He was suspected to have aspiration pneumonia after extubation and when his antibx therapy is narrowed from Zosyn to Levaquin IV, he continues to spike fevers w rising WBC count. It is noted that his LFTs are up as well (transaminases AST/ALT 111/109) ? cholecystitis though most recent galbladder u/s suggest no evidence of this. He does have evidence of fatty liver and gallbladder sludge. Blood and urine cultures negative. Pt reports no fevers overnight and denies CP, SOB, abd pain, n/v. Bowels move well, last BM this AM, no signs of rectal bleeding. He has been tolerating solid meals well. Desires to go home. Denies ETOH. No tobacco x 60 yrs Denies herbal supplements, new meds or dose changes in the last 3 months prior to admission Takes APAP sparingly. Denies family hx of liver diseases, AIH Allergies Allergy/AdvReac Type Severity Reaction Status Date / Time No Known Allergies Allergy Verified 11/16/20 22:04 Home Medications Medication Instructions Recorded Confirmed Type aspirin 81 mg tablet,delayed 81 mg PO DAILY 11/16/20 11/16/20 History release atorvastatin 80 mg tablet 80 mg PO DAILY 11/16/20 11/16/20 History cholecalciferol (vitamin D3) 25 25 mcg PO DAILY 11/16/20 11/16/20 History mcg (1,000 unit) tablet (Vitamin D3) hydrochlorothiazide 25 mg tablet 12.5 mg PO DAILY 11/16/20 11/16/20 History lisinopril 20 mg tablet 20 mg PO DAILY 11/16/20 11/16/20 History amoxicillin 875 mg-potassium 1 tab PO Q12H #14 tab 11/22/20 Rx clavulanate 125 mg tablet (Augmentin) apixaban 5 mg tablet (Eliquis) 5 mg PO BID #70 tab 11/22/20 Rx doxycycline monohydrate 100 mg 100 mg PO BID 10 Days #14 cap 11/22/20 Rx capsule metoprolol tartrate 50 mg tablet 50 mg PO BID #60 tab 11/22/20 Rx spironolactone 25 mg tablet 12.5 mg PO DAILY #30 tab 11/22/20 Rx Patient History Medical History (Updated 11/23/20 @ 15:49 by Sowmya Leiva DO) Dyslipidemia, goal LDL below 70 HTN (hypertension) NSTEMI (non-ST elevated myocardial infarction) PAF (paroxysmal atrial fibrillation) Social History Smoking Status: Former smoker Hx Alcohol Use: No Hx Substance Use: No Preferred Language: German Communication Ability: Unable Beliefs That Will Affect Care: None Current Living Situation: Spouse Feels Safe at Home: Yes Assistive Devices: Walker Review of Systems Review of Systems: All systems reviewed & are unremarkable except as noted in HPI & below Physical Exam Constitutional: WD/WN, vitals as above well groomed, cooperative and comfortable Eyes: PERRL, conjunctivae normal, anicteric sclerae ENMT: external ear and nose normal, oropharynx normal Respiratory: normal respiratory effort, lungs clear to auscultation Cardiovascular: RRR, no murmur, no edema Gastrointestinal (Abdomen): normal bowel sounds, soft, nontender, no hepatosplenomegaly Skin: no rashes, warm and dry no jaundice Neurologic: R facial droop Psychiatric: A+Ox3, euthymic affect Lymphatic: no lymphedema Results & Data ([facility]) Vital Signs (Past 12 Hours) Vital Signs Temp Pulse Pulse Resp BP BP BP 11/24/20 09:19 36.8 C 66 20 161/89 H 11/24/20 08:00 62 11/24/20 03:43 36.7 C 65 18 151/87 H 11/24/20 00:51 162/82 H 11/24/20 00:17 65 22 169/88 H 11/24/20 00:00 36.6 C 11/23/20 23:00 62 Pulse Ox 11/24/20 09:19 11/24/20 08:00 11/24/20 03:43 93 11/24/20 00:51 11/24/20 00:17 95 11/24/20 00:00 11/23/20 23:00 Diagnostic Findings MRCP CLINICAL HISTORY: r/o biliary obstruction TECHNIQUE: Utilizing a 1.5 Monae magnet and dedicated coil, multiplanar, multiecho imaging of the upper abdomen was performed utilizing heavily T2 weighted pulsing sequences without IV contrast. COMPARISON STUDY: No previous studies for comparison. FINDINGS: Liver is normal in size and signal characteristics on provided sequences. No focal liver lesions or intrahepatic biliary dilatation seen. Gallbladder is fluid-filled and dilated measuring 11.5 cm in length. No definite intraluminal filling defects are seen to suggest cholelithiasis. No definite pericholecystic edema is seen. Spleen is not visualized, could be surgically absent. Pancreas and bilateral adrenal glands are unremarkable. Evaluation of the kidneys shows no evidence of hydronephrosis. Bilateral renal cysts are seen. Visualized loops of bowel are nondilated. Visualized portion of vascular structures are unremarkable. MRCP: Evaluation is slightly limited due to motion artifact. Nondilated intrahepatic, extrahepatic biliary and pancreatic ducts are seen. Common bile duct is measuring 3 mm in diameter. IMPRESSION: Significantly dilated gallbladder without evidence of gallstones or pericholecystic inflammatory changes. Normal size of intra and extrahepatic biliary ducts as well as pancreatic duct without evidence of obstruction. Bilateral renal cysts.
[2020-11-24 15:46] VITALS: TEMP 97.7
--- NOTE | 2020-11-24 15:47 | Magnetic Resonance Report ---
MRCP CLINICAL HISTORY: r/o biliary obstruction TECHNIQUE: Utilizing a 1.5 Monae magnet and dedicated coil, multiplanar, multiecho imaging of the [facility] abdomen was performed utilizing heavily T2 weighted pulsing sequences without IV contrast. COMPARISON STUDY: No previous studies for comparison. FINDINGS: Liver is normal in size and signal characteristics on provided sequences. No focal liver lesions or i ntrahepatic biliary dilatation seen. Gallbladder is fluid-filled and dilated measuring 11.5 cm in length. No definite intraluminal filling defects are seen to suggest cholelithiasis. No definite pericholecystic edema is seen. Spleen is not visualized, could be surgically absent. Pancreas and bilateral adrenal glands are unrem arkable. Evaluation of the kidneys shows no evidence of hydronephrosis. Bilateral renal cysts are seen. Visualized loops of bowel are nondilated. Visualized portion of vascular structures are unremarkable. MRCP: Evaluation is slightly limited due to motion artifact. Nondilated intrahepatic, extrahepatic biliary and pancreatic ducts are seen. Common bile duct is measuring 3 mm in diameter. IMPRESSION: Significantly dilated gallbladder without evidence of gallstones or pericholecystic inflammatory warren ges. Normal size of intra and extrahepatic biliary ducts as well as pancreatic duct without evidence of ob struction. Bilateral renal cysts. ACT 112: Negative or not required by law. The above report was generated using voice recognition software. It may contain grammatical, syntax o r spelling errors. Electronically signed by: Eulalia Banegas DO 11/24/2020 3:46 PM
--- NOTE | 2020-11-24 17:56 | Surgery Consultation ---
Date of Consultation November 24, 2020 Assessment & Plan (1) Elevated LFTs: pt was admitted to hospital for respiratory failure, pneumonia, LFT up, pt denies abdominal pain, Plan, elevated LFTs possible relate to gallbladder sludge, now pt has no symptoms with gallbladder, pt can be D/C home with po cipro + flagyl for 5 days, F/U me 2 robin, , sign off today, Thanks, please call with questions, Supervising Physician Co-Signing Physician Notes I saw and evaluated the patient. We were consulted on this fairly complicated patient for evaluation of mild elevation of his liver enzymes and a suspected infection. The patient was admitted with respiratory failure and pneumonia. He does have a history of new onset atrial fibrillation as well. Physical examination Elderly male, no obvious distress, right-sided facial paralysis noted Impression: Patient with mild elevation of liver associated enzymes, likely related to antibiotics or perhaps one of his other medications. At the present time there does not appear to be evidence of a biliary infection especially in light of his recent MRCP. Given his comorbidities and lack of symptoms referable to biliary infection would hold on any invasive evaluation such as endoscopic ultrasound or ERCP at the present time. Recommendations Stop atorvastatin as this could be contributing to his liver test elevation Outpatient follow-up for liver enzymes in 6 to 8 weeks Please call with any questions or concerns GI to sign off History of Present Illness Reason for Consultation: LFTs elevated Requesting Physician: Sowmya Leiva DO Attending Physician: Sowmya Leiva DO History of Present Illness History of Present Illness Pt is a 85 y/o male currently being evaluated for elevated LFT and possible intra-abdominal infection. 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 He was suspected to have aspiration pneumonia after extubation and when his antibx therapy is narrowed from Zosyn to Levaquin IV, he continues to spike fevers w rising WBC count. It is noted that his LFTs are up as well (transaminases AST/ALT 111/109) ? cholecystitis though most recent galbladder u/s suggest no evidence of this. He does have evidence of fatty liver and gallbladder sludge. Blood and urine cultures negative. Pt reports no fevers overnight and denies CP, SOB, abd pain, n/v. Bowels move well, last BM this AM, no signs of rectal bleeding. He has been tolerating solid meals well. Desires to go home. Denies ETOH. No tobacco x 60 yrs Denies herbal supplements, new meds or dose changes in the last 3 months prior to admission Takes APAP sparingly. Denies family hx of liver diseases, AIH I ( Skyla Georges mD ) got a call for consult elevated LFTs, I reviewed pt's H/P, labs MRCP, U/S study with pt and his son at bedside, pt denies abdominal pain, no nausea, no vomiting, Allergies Allergy/AdvReac Type Severity Reaction Status Date / Time No Known Allergies Allergy Verified 11/16/20 22:04 Home Medications Medication Instructions Recorded Confirmed Type aspirin 81 mg tablet,delayed 81 mg PO DAILY 11/16/20 11/16/20 History release atorvastatin 80 mg tablet 80 mg PO DAILY 11/16/20 11/16/20 History cholecalciferol (vitamin D3) 25 25 mcg PO DAILY 11/16/20 11/16/20 History mcg (1,000 unit) tablet (Vitamin D3) hydrochlorothiazide 25 mg tablet 12.5 mg PO DAILY 11/16/20 11/16/20 History lisinopril 20 mg tablet 20 mg PO DAILY 11/16/20 11/16/20 History amoxicillin 875 mg-potassium 1 tab PO Q12H #14 tab 11/22/20 Rx clavulanate 125 mg tablet (Augmentin) apixaban 5 mg tablet (Eliquis) 5 mg PO BID #70 tab 11/22/20 Rx doxycycline monohydrate 100 mg 100 mg PO BID 10 Days #14 cap 11/22/20 Rx capsule metoprolol tartrate 50 mg tablet 50 mg PO BID #60 tab 11/22/20 Rx spironolactone 25 mg tablet 12.5 mg PO DAILY #30 tab 11/22/20 Rx Patient History Medical History (Updated 11/23/20 @ 15:49 by Sowmya Leiva DO) Dyslipidemia, goal LDL below 70 HTN (hypertension) NSTEMI (non-ST elevated myocardial infarction) PAF (paroxysmal atrial fibrillation) Social History Smoking Status: Former smoker Hx Alcohol Use: No Hx Substance Use: No Preferred Language: Khmer Communication Ability: Unable Beliefs That Will Affect Care: None Current Living Situation: Spouse Feels Safe at Home: Yes Assistive Devices: Walker Review of Systems Review of Systems: All systems reviewed & are unremarkable except as noted in HPI & below Allergies Allergy/AdvReac Type Severity Reaction Status Date / Time No Known Allergies Allergy Verified 11/16/20 22:04 Home Medications Medication Instructions Recorded Confirmed Type aspirin 81 mg tablet,delayed 81 mg PO DAILY 11/16/20 11/16/20 History release atorvastatin 80 mg tablet 80 mg PO DAILY 11/16/20 11/16/20 History cholecalciferol (vitamin D3) 25 25 mcg PO DAILY 11/16/20 11/16/20 History mcg (1,000 unit) tablet (Vitamin D3) hydrochlorothiazide 25 mg tablet 12.5 mg PO DAILY 11/16/20 11/16/20 History lisinopril 20 mg tablet 20 mg PO DAILY 11/16/20 11/16/20 History amoxicillin 875 mg-potassium 1 tab PO Q12H #14 tab 11/22/20 Rx clavulanate 125 mg tablet (Augmentin) apixaban 5 mg tablet (Eliquis) 5 mg PO BID #70 tab 11/22/20 Rx doxycycline monohydrate 100 mg 100 mg PO BID 10 Days #14 cap 11/22/20 Rx capsule metoprolol tartrate 50 mg tablet 50 mg PO BID #60 tab 11/22/20 Rx spironolactone 25 mg tablet 12.5 mg PO DAILY #30 tab 11/22/20 Rx Patient History Medical History (Updated 11/23/20 @ 15:49 by Sowmya Leiva DO) Dyslipidemia, goal LDL below 70 HTN (hypertension) NSTEMI (non-ST elevated myocardial infarction) PAF (paroxysmal atrial fibrillation) Social History Smoking Status: Former smoker Hx Alcohol Use: No Hx Substance Use: No Preferred Language: Khmer Communication Ability: Unable Beliefs That Will Affect Care: None Current Living Situation: Spouse Feels Safe at Home: Yes Assistive Devices: Walker Review of Systems Constitutional: as per Subjective / HPI Eyes: as per Subjective / HPI Ear, Nose, Mouth, Throat: as per Subjective / HPI and + problem reported (squamous cell carcinoma of parotid, ) Respiratory: acute respiratory failure Cardiovascular: Additional Comments: HTN, NSTEMI, A-fib Gastrointestinal: elevated LFTs Genitourinary: + as per Subjective / HPI Musculoskeletal: as per Subjective / HPI Neurologic: as per Subjective / HPI Psychiatric: as per Subjective / HPI Physical Exam Constitutional: WD/WN, vitals as above Eyes: PERRL, conjunctivae normal, anicteric sclerae Neck: trachea midline, no thyromegaly Respiratory: normal respiratory effort, lungs clear to auscultation Cardiovascular: RRR, no murmur, no edema Gastrointestinal (Abdomen): soft, NT, ND Neurologic: patellar DTR's 2+ bilat, sensation intact Psychiatric: A+Ox3, euthymic affect Results & Data ([facility]) Vital Signs (Past 12 Hours) Vital Signs Temp Pulse Pulse Resp BP Pulse Ox 11/24/20 15:44 36.5 C 63 18 155/85 H 93 11/24/20 11:43 37.0 C 57 L 19 134/77 93 11/24/20 09:19 36.8 C 66 20 161/89 H 11/24/20 08:00 62 Laboratory Results Abnormal lab results 11/24/20 11/24/20 Range/Units 04:44 04:44 WBC 12.65 H (4.8-10.8) K/uL RBC 3.59 L (4.7-6.1) M/uL Hgb 11.4 L (14.0-18.0) g/dL Hct 34.4 L (42-52) % RDW Std Deviation 53.5 H (36.4-46.3) fL RDW Coeff of Derrek 15.2 H (11.5-14.5) % MPV 11.7 H (7.4-10.4) fL Total Abs Lymphocytes 6.21 H (1.2-3.4) K/uL Monocytes # (Manual) 0.80 H (0.11-0.59) K/uL Eosinophils # (Manual) 0.68 H (0-0.5) K/uL Basophils # (Manual) 0.23 H (0-0.2) K/uL Metamyelocytes # (Man) 0.11 H (0-0) K/uL Myelocytes # (Manual) 0.23 H (0-0) K/uL Chloride 110 H (98-107) mmol/L Anion Gap 2.0 L (3-11) BUN 26 H (7-18) mg/dl BUN/Creatinine Ratio 22.8 H (10-20) Calcium 7.7 L (8.5-10.1) mg/dl Total Bilirubin 1.1 H (0.2-1) mg/dl AST 111 H (15-37) U/L ALT 109 H (12-78) U/L Total Protein 5.7 L (6.4-8.2) gm/dl Albumin 2.5 L (3.4-5.0) gm/dl Albumin/Globulin Ratio 0.8 L (0.9-2) Diagnostic Findings MRCP CLINICAL HISTORY: r/o biliary obstruction TECHNIQUE: Utilizing a 1.5 Monae magnet and dedicated coil, multiplanar, multiecho imaging of the upper abdomen was performed utilizing heavily T2 weighted pulsing sequences without IV contrast. COMPARISON STUDY: No previous studies for comparison. FINDINGS: Liver is normal in size and signal characteristics on provided sequences. No focal liver lesions or intrahepatic biliary dilatation seen. Gallbladder is fluid-filled and dilated measuring 11.5 cm in length. No definite intraluminal filling defects are seen to suggest cholelithiasis. No definite pericholecystic edema is seen. Spleen is not visualized, could be surgically absent. Pancreas and bilateral adrenal glands are unremarkable. Evaluation of the kidneys shows no evidence of hydronephrosis. Bilateral renal cysts are seen. Visualized loops of bowel are nondilated. Visualized portion of vascular structures are unremarkable. MRCP: Evaluation is slightly limited due to motion artifact. Nondilated intrahepatic, extrahepatic biliary and pancreatic ducts are seen. Common bile duct is measuring 3 mm in diameter. IMPRESSION: Significantly dilated gallbladder without evidence of gallstones or pericholecystic inflammatory changes. Normal size of intra and extrahepatic biliary ducts as well as pancreatic duct without evidence of obstruction. Bilateral renal cysts. US liver CLINICAL HISTORY: 85 years-old Male presenting with concern for acute cholecystitis. TECHNIQUE: Real-time grayscale ultrasound imaging of the upper abdomen was performed for a focused evaluation at the site of clinical concern. COMPARISON: None. FINDINGS: Visualized portion of pancreas shows no evidence of focal lesions. Dilation of liver parenchyma shows mild diffuse increase in echogenicity without evidence of focal lesions or intrahepatic biliary dilatation. Gallbladder is fluid-filled with small amount of sludge within its dependent portion. Mild fat thickening of gallbladder wall is seen measuring 3 mm. Common bile duct is nondilated measuring 3 mm in diameter. Limited evaluation of the right kidney shows no evidence of hydronephrosis and 4.6 x 3.1 cm anechoic lesion within the superior pole most likely representing simple cyst. IMPRESSION: 1. Mild hepatic steatosis 2. Gallbladder sludge. No evidence of acute cholecystitis is seen at this time. 3. Right renal cyst.
--- NOTE | 2020-11-24 18:53 | Hospitalist Progress Note ---
Date of Service November 24, 2020 Assessment & Plan (1) Acute metabolic encephalopathy: Plan: Resolved, was related to acute respiratory decline. (2) Acute respiratory failure with hypoxia: Plan: resolved. (3) Elevated LFTs: Plan: 137/109 today risen from normal on admission. No abdominal pain and he is eating. With rising white count, LFT elevation and fever two nights ago there was concern for intra-abdominal process. RUQ us did not show evidence of acute cholecystitis. He continues on Zosyn for now. Trend CMP and CBC w diff in am. Consult GI. (4) Leukocytosis: Plan: Uncertain cause. Cont Zosyn and trend in am. (5) Aspiration pneumonia: Plan: treated with antibiotics and hypoxia has resolved. (6) New onset a-fib: Plan: New onset afib with RVR on arrival with presyncope possibly related to new rhythm. He has converted to sinus rhythm. Cont Lopressor, Eliquis (7) NSTEMI (non-ST elevated myocardial infarction): Plan: Likely related to demand ischemia as patient had been in atrial fibrillation with rapid ventricular response. (8) CKD (chronic kidney disease), stage III: Plan: at baseline. (9) Shock: Plan: Related to sepsis vs sedation with a smaller probability of cardiogenic shock considered. Off pressors. (10) Hypertensive urgency: Plan: BP 225/133 on arrival to the ER on 11/16. Improved with home lisinopril and was placed on diltiazem drip for afib with RVR. Subsequent code purple on 11/17 around 1800 (the following day) and BP was low. He was intubated, sedated and placed on Levophed. Now extubated and off Levophed. Lisinopril, Metoprolol. Restart HCTZ per home regimen. 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 (12) DVT prophylaxis: Plan: Eliquis Full Code Dispo-to home when medically stable. Family is supportive of caring for him at home. 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 A subsequent code purple resulted secondary to abdominal pain and he was found to be in acute hypoxemic, hypercapnic respiratory failure with new right-sided lung opacities on chest imaging and hypertensive emergency. He was subsequently intubated and sedated with management for the past 2 days in the ICU. He was extubated on 11/19. Some fever was present, thought to be related to pneumonia and resolved shortly after extubation. Antibiotics were de-escalated to Levaquin monotherapy and he again spiked a fever in addition to elevated LFTs and a rising WBC count. He was placed on Zosyn with resolution of his fever, and remains on this now. Although he denied any abdominal pain and has been eating there was concern for acute cholecystitis. A RUQ us was performed today and was positive for GB sludge and fatty liver. He feels well and is eager for discharge. Mentating at baseline. Family at bedside. Although he is slightly weak, family wants to care fo him at home. Physical Exam Physical Exam: CONSTITUTIONAL: WNWD, vitals as above, NAD EYES: normal conjunctivae, nonicteric sclerae, significant right sided facial droop that is known ENT: MMM, speech normal, normal work of breathing. Multiple missing teeth and poor dentition. NECK: trachea midline RESPIRATORY: CTA throughout, no rales or wheezes, normal increased respiratory effort CARDIOVASCULAR: regular rate and rhythm, S1 and 2 heard without murmurs, gallops or rubs, no JVD, no peripheral edema GASTROINTESTINAL: soft, nondistended. MUSCULOSKELETAL: moves arms and legs symmetrically SKIN: warm and dry NEUROLOGIC: chronic right facial droop as noted, oriented to person, place and time, speech normal, no tremor, no sensation deficit. Results & Data Results & Data ([facility]) Vital Signs (Past 12 Hours) Vital Signs Temp Pulse Pulse Resp BP Pulse Ox 11/24/20 15:44 36.5 C 63 18 155/85 H 93 11/24/20 11:43 37.0 C 57 L 19 134/77 93 11/24/20 09:19 36.8 C 66 20 161/89 H 11/24/20 08:00 62 Laboratory Results Short CBC 11/24/20 Range/Units 04:44 WBC 12.65 H (4.8-10.8) K/uL Hgb 11.4 L (14.0-18.0) g/dL Hct 34.4 L (42-52) % Plt Count 221 (130-400) K/uL BMP 11/24/20 04:44 Sodium 144 Potassium 3.5 Chloride 110 H Carbon Dioxide 32 BUN 26 H Creatinine 1.16 Glucose 99 Calcium 7.7 L Liver Function 11/24/20 Range/Units 04:44 Total Bilirubin 1.1 H (0.2-1) mg/dl AST 111 H (15-37) U/L ALT 109 H (12-78) U/L Alkaline Phosphatase 65 (45-117) U/L Albumin 2.5 L (3.4-5.0) gm/dl Medications Administered Current Inpatient Medications Acetaminophen (Acetaminophen 325 Mg Tab) 650 mg PO Q4H PRN PRN Reason: pain/fever Stop: 12/20/20 15:55 Apixaban (Apixaban 5 Mg Tablet) 5 mg PO BID REPLACED BY [facility] Stop: 12/21/20 20:59 Last Admin: 11/24/20 08:10 Dose: 5 mg Documented by: Aspirin (Aspirin 81 Mg Ectab) 81 mg PO DAILY JORDAN Stop: 12/17/20 08:59 Last Admin: 11/24/20 08:10 Dose: 81 mg Documented by: Atorvastatin Calcium (Atorvastatin 40 Mg Tab) 80 mg PO DAILY REPLACED BY [facility] Stop: 12/17/20 08:59 Last Admin: 11/24/20 08:10 Dose: 80 mg Documented by: Hydrochlorothiazide (Hydrochlorothiazide 25 Mg Tab) 12.5 mg PO QAM REPLACED BY [facility] Stop: 12/21/20 08:59 Last Admin: 11/24/20 08:20 Dose: 12.5 mg Documented by: Piperacillin Sod/Tazobactam (Sod 3.375 gm/ Dextrose) 115 mls @ 28.75 mls/hr IV Q8H REPLACED BY [facility]; Protocol Stop: 11/29/20 17:59 Last Admin: 11/24/20 18:15 Dose: 28.8 mls/hr Documented by: Levalbuterol HCl (Levalbuterol 1.25mg/0.5ml Neb) 1.25 mg NEB Q4H PRN PRN Reason: Shortness Of Breath Or Wheezing Stop: 12/16/20 23:00 Last Admin: 11/16/20 23:25 Dose: 1.25 mg Documented by: Lisinopril (Lisinopril 20 Mg Tab) 20 mg PO QAM REPLACED BY [facility] Stop: 12/20/20 13:44 Last Admin: 11/24/20 08:10 Dose: 20 mg Documented by: Metoprolol Tartrate (Metoprolol Tartrate 50 Mg Tab) 50 mg PO BID JORDAN Stop: 12/20/20 08:59 Last Admin: 11/24/20 08:09 Dose: 50 mg Documented by: Miscellaneous Information (Piperacill/Tazobac Consult Active) 1 ea N/A UD PRN PRN Reason: Consult Stop: 12/22/20 11:08 Spironolactone (Spironolactone 12.5 Mg Tab) 12.5 mg PO DAILY JODRAN Stop: 12/22/20 11:59 Last Admin: 11/24/20 08:10 Dose: 12.5 mg Documented by: Vitamin D (Cholecalciferol 1,000 Units 25 Mcg Tab) 1,000 units PO DAILY JORDAN Stop: 12/17/20 08:59 Last Admin: 11/24/20 08:10 Dose: 1,000 units Documented by:
--- NOTE | 2020-11-24 19:03 | Discharge Summary ---
Date of Service November 24, 2020 Principal Diagnosis (1) Acute metabolic encephalopathy: (2) Acute respiratory failure with hypoxia: (3) Aspiration pneumonia: (4) New onset a-fib: (5) NSTEMI (non-ST elevated myocardial infarction): (6) CKD (chronic kidney disease), stage III: (7) Shock: (8) Hypertensive urgency: (9) Squamous cell carcinoma of parotid: (10) Elevated LFTs Discharge Data Allergies Allergy/AdvReac Type Severity Reaction Status Date / Time No Known Allergies Allergy Verified 11/16/20 22:04 Consultations 11/16/20 21:49 ED Decision to Admit Stat 11/17/20 08:00 Consult Cardiology Routine 11/17/20 18:36 Consult Assistant Branch Manager Routine 11/24/20 07:00 Consult Gastroenterology Routine 11/24/20 17:16 Consult General Surgery Routine Ordered Studies 11/16/20 20:03 CT abd pelvis wo con Stat CT head/brain wo con Stat 11/17/20 18:14 CT head/brain wo con Stat 11/17/20 18:31 CT abd pelvis IV con only Stat 11/17/20 18:41 CT angio chest PE protocol Stat 11/17/20 19:54 US point of care ultrasound Stat 11/22/20 10:00 Fluoro video [FL video swallow] Routine 11/23/20 09:25 US liver Urgent 11/24/20 08:22 MR MRCP Routine Hospital Course (1) Acute metabolic encephalopathy: Resolved, was related to acute respiratory decline. (2) Acute respiratory failure with hypoxia: resolved. (3) Elevated LFTs: 137/109 today risen from normal on admission. No abdominal pain and he is eating. With rising white count, LFT elevation and fever two nights ago there was concern for intra-abdominal process. RUQ us did not show evidence of acute cholecystitis. He continues on Zosyn for now. Trend CMP and CBC w diff in am. Consult GI. (4) Leukocytosis: Uncertain cause. Cont Zosyn and trend in am. (5) Aspiration pneumonia: treated with antibiotics and hypoxia has resolved. (6) New onset a-fib: New onset afib with RVR on arrival with presyncope possibly related to new rhythm. He has converted to sinus rhythm. Cont Lopressor, Eliquis (7) NSTEMI (non-ST elevated myocardial infarction): Likely related to demand ischemia as patient had been in atrial fibrillation with rapid ventricular response. (8) CKD (chronic kidney disease), stage III: at baseline. (9) Shock: Related to sepsis vs sedation with a smaller probability of cardiogenic shock considered. Off pressors. (10) Hypertensive urgency: BP 225/133 on arrival to the ER on 11/16. Improved with home lisinopril and was placed on diltiazem drip for afib with RVR. Subsequent code purple on 11/17 around 1800 (the following day) and BP was low. He was intubated, sedated and placed on Levophed. Now extubated and off Levophed. Lisinopril, Metopro lol. Restart HCTZ per home regimen. 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 A subsequent code purple resulted secondary to abdominal pain and he was found to be in acute hypoxemic, hypercapnic respiratory failure with new right-sided lung opacities on chest imaging and hypertensive emergency. He was subsequently intubated and sedated with management for the past 2 days in the ICU. He was extubated on 11/19. Some fever was present, thought to be related to pneumonia and resolved shortly after extubation. Antibiotics were de-escalated to Levaquin monotherapy and he again spiked a fever in addition to elevated LFTs and a rising WBC count. He was placed on Zosyn with resolution of his fever, and remains on this now. Although he denied any abdominal pain and has been eating there was concern for acute cholecystitis. A RUQ us was performed and was positive for GB sludge and fatty liver. Gastroenterology was consulted and recommended an MRCP to rule out biliary obstruction. MRCP revealed a significantly dilated gallbladder without evidence of gallstones or pericolic cystic inflammatory changes. There was no evidence of obstruction and ducts were of normal size. LFTs were trending down and patient reported feeling well and wanting to go home. General surgery was consulted based on MRCP results, LFT elevation and need for antibiotics. Surgeon felt the transaminase elevation was possibly related to the sludge in the gallbladder and that he could be DC home with Cipro and Flagyl for 5 days a nd a follow-up with him in 2 weeks time. At time of discharge he was ambulating around the room and feeling very well. He was mentating at baseline and tolerating p.o. His family was expressing the desire to care for him at home, and he was discharged in stable condition with recommendations for outpatient lab work to ensure transaminase resolution. He was discharged in stable condition with close primary care follow-up recommended. Total Time Total Time Spent Total Time Spent (In Minutes): 60 Discharge Plan Discharge Items Patient Disposition: Home - Self-Care Reason For Visit: DIZZINESS Discharge Diagnosis: (1) Acute metabolic encephalopathy: (2) Acute respiratory failure with hypoxia: (3) Aspiration pneumonia: (4) New onset a-fib: (5) NSTEMI (non-ST elevated myocardial infarction): (6) CKD (chronic kidney disease), stage III: (7) Shock: (8) Hypertensive urgency: (9) Squamous cell carcinoma of parotid: (10) Elevated LFTs Condition on Discharge: Good Health Concerns: Pneumonia +- AFIB Activity: Per Instructions section Activity Comment: Relax a few days, increase activity as tolerated, Use spirometer Lifting: Gradually increase as tolerated Bathing: No limitations Exercise/Sports: Gradually increase as tolerated Driving/Machine Use: No limitations Weightbearing: Full weightbearing Non-emergency contact: Primary Care Provider and Operating Room Rn Call non-emergency contact if: you have any medication questions and your temperature is above 101 Follow-up/Referrals: Luis Tyson DO [Operating Room Rn] - (3-4 weeks) Sergio Lenz MD [Primary Care Provider] - (Date & Time 11/29/2020 11:20 AM Provider Sergio Lenz MD Department [facility] ) Diet: Heart Healthy Addtl Attending Provider Instructions: Please take all medications as instructed on discharge list below. You were seen by Dr. aNno Georges in the hospital related to your elevated liver enzymes. He has placed you on 5 days of antibiotics and would like you to follow-up in his office in two weeks time. Please call [phone] for an appointment. It is recommended that you follow-up with your primary care provider within one week of discharge to review all new medications and to recheck your bloodwork as some of these new medications can affect your renal function or electrolytes. It was a pleasure taking care of you! Please call if you have any questions or problems. You can reach a [facility] hospitalist on duty at [facility] 24 hours a day by calling [phone]. Take care of yourself. Sowmya Leiva, [facility] Pending Studies at Discharge: No Stand-Alone Forms: My [facility] Medications and DC Order Prescriptions: New spironolactone 25 mg Tablet 12.5 mg PO DAILY Qty: 30 RF: 0 metoprolol tartrate 50 mg Tablet 50 mg PO BID Qty: 60 RF: 0 Eliquis 5 mg Tablet 5 mg PO BID Qty: 70 RF: 0 ciprofloxacin HCl 500 mg tablet 500 mg PO Q12H Qty: 10 RF: 0 metronidazole [Flagyl] 500 mg tablet 500 mg PO Q8H Qty: 15 RF: 0 Continued atorvastatin 80 mg tablet 80 mg PO DAILY RF: 0 lisinopril 20 mg tablet 20 mg PO DAILY RF: 0 aspirin 81 mg Tablet,Delayed Release (Dr/Ec) 81 mg PO DAILY RF: 0 hydrochlorothiazide 25 mg tablet 12.5 mg PO DAILY RF: 0 cholecalciferol (vitamin D3) [Vitamin D3] 25 mcg (1,000 unit) Tablet 25 mcg PO DAILY RF: 0 Discharge Orders: Discharge Order (Routine); Ordered 11/24/20 Ordered By: Sowmya Leiva Admission Data Admit Date/Time: 11/16/20 22:37 Attending Provider: Sowmya Leiva Admit Provider: Richard Velazco Primary Care Provider: Sergio Lenz Other Providers: Richard Velazco ; Kodi Morse ; Luis Tyson ; Juliocesar Gonzalez ; Sebastien Cummins ; Tariq Ha ; Sergio Kumar ; Mercedes Roberts ; Fang Barth ; Melany Hicks ; Ramon Zaman ; Garcia Segal ; Sary Brownlee ; Skyla Georges Other Interventions: Discharge Summary Assessment (RN) Last Done: 11/24/20 19:14
[2020-11-24 19:15] VITALS: BP 162/82; PULSE 66
[2020-11-24] MEDS ORDERED: METOPROLOL TARTRATE 50 MG TAB PO SCH (19:15)
[2020-11-24] MEDS ORDERED: APIXABAN 5 MG TABLET PO SCH (19:15)
[2020-11-24] MEDS ORDERED: SPIRONOLACTONE 12.5 MG TAB PO SCH (19:15)
== END 2020-11-24 20:10 | disposition home or self-care (01) | DRG 280 ==
LOC: ED 17:37 → SUATTDRO 22:37 → 2S 11-17 → 1E 11-17 18:02 → 2S 11-24 07:13

== ENCOUNTER 2021-05-28 07:06 | Observation (INO) ==
--- NOTE | 2021-05-28 07:20 | Emergency Department Note ---
History of Present Illness General Chief complaint: Shortness of Breath/Dyspnea Stated complaint: SOB, NAUSEA Time Seen by Provider: 05/28/21 07:12 Source: patient, EMS, RN notes reviewed and old records reviewed Mode of arrival: EMS Limitations: no limitations History of Present Illness This patient is an 86-year-old male who was brought in by EMS after having shortness of breath and nausea. He was in his usual usual state of health and around 530 woke up he was short of breath and diaphoretic and nauseated. He has had a little bit of a cough as well. No fever or chills no trauma. No chest pain. No abdominal pain. He has no history of pulmonary issues with exception pneumonia in the past. He does not have a history of COPD or inhaler use. He does have a history of cardiac disease. The paramedics did give him aspirin 324 mg as well as nitro x1 as his blood pressure initially was 190 this dropped to 150. The patient was placed on oxygen for comfort although was not hypoxemic. He says he feels significantly better now but still appears a little bit tachypneic. Home Medications Medication Instructions Recorded Confirmed Type aspirin 81 mg tablet,delayed 81 mg PO DAILY 11/16/20 05/28/21 History release atorvastatin 80 mg tablet 80 mg PO HS 11/16/20 05/28/21 History cholecalciferol (vitamin D3) 25 25 mcg PO DAILY 11/16/20 05/28/21 History mcg (1,000 unit) tablet (Vitamin D3) hydrochlorothiazide 25 mg tablet 12.5 mg PO DAILY 11/16/20 05/28/21 History apixaban 5 mg tablet (Eliquis) 5 mg PO BID #70 tab 11/22/20 05/28/21 Rx Allergies Allergy/AdvReac Type Severity Reaction Status Date / Time No Known Allergies Allergy Verified 11/16/20 22:04 Past Med/Surg History Medical History (Updated 05/28/21 @ 15:05 by Garcia Snyder MD) Dyslipidemia, goal LDL below 70 HTN (hypertension) NSTEMI (non-ST elevated myocardial infarction) PAF (paroxysmal atrial fibrillation) Social History Smoking Status: Never smoker Hx Alcohol Use: No Hx Substance Use: No Preferred Language: Georgian Communication Ability: Effective Collection Systems Worker Required: No Beliefs That Will Affect Care: None Current Living Situation: Spouse Other Information That Helps Us Care for You: No Feels Safe at Home: Yes Safety Concerns: Feels Safe At This Time Assistive Devices: Glasses and Hearing Aid - Bilateral Review of Systems A total of 10 systems reviewed and were otherwise negative Physical Exam Vital Signs Vital Signs - 24 hr 05/28/21 07:43 05/28/21 08:22 05/28/21 09:11 Temperature 36.4 C L Temperature Source Oral Pulse Rate 77 Pulse Rate [Right Apical] 68 63 Respiratory Rate 20 18 Respiratory Effort / Characteristics Spontaneous Respiratory Pattern Regular Blood Pressure 181/101 H Blood Pressure [Right Arm] 159/99 H 184/103 H Blood Pressure Mean 127 Blood Pressure Mean [Right Arm] 119 130 Blood Pressure Position [Right Arm] Lying Pulse Oximetry 95 95 96 Oxygen Delivery Method Room Air Room Air Sepsis Recent Fever Within 48 Hours No Sepsis New/Unexplained Change in Mental Status N/A Sepsis Action Taken by Nursing No Action Required General: Well developed well nourished older male who is mildly tachypneic but appears otherwise in no acute distress, breathing comfortably on room air. Normal speech HEENT: Normal cephalic atraumatic. Pupils are equal round and reactive to light. Extraocular movements are intact. Oropharynx is pink with moist mucous membranes. No swelling of the mouth lips or tongue. Neck: Supple with a midline trachea. No meningeal signs or stiffness, no JVD or bruits. No Stridor. Chest: Clear to auscultation bilaterally. No wheezes or rhonchi. Mild incre ased work of breathing. Heart: Regular rate and rhythm without murmurs or gallops. Abdomen: Soft nontender, nondistended without rebound guarding or rigidity. Extremities: No cyanosis clubbing or edema. No calf tenderness or assymetry Spine/Back. Non tender to palpation. No CVA tenderness Skin: Good turgor without rashes. Neurologic exam: Cranial nerves two through 12 are intact. Motor and sensation are intact and symmetrical throughout. Course Administered Medications Apixaban (Apixaban 5 Mg Tablet) 5 mg PO BID [facility] Stop: 06/27/21 11:44 Last Admin: 05/28/21 12:43 Dose: 5 mg Documented by: [id number] Lisinopril (Lisinopril 20 Mg Tab) 20 mg PO QAM [facility] Stop: 06/27/21 11:44 Last Admin: 05/28/21 12:43 Dose: 20 mg Documented by: [id number] Metoprolol Tartrate (Metoprolol Tartrate 50 Mg Tab) 50 mg PO BID [facility] Stop: 06/27/21 11:44 Last Admin: 05/28/21 12:43 Dose: 50 mg Documented by: [id number] Discontinued Medications Furosemide (Furosemide 40 Mg/4 Ml Vial) 40 mg IV ONE ONE Stop: 05/28/21 10:16 Last Admin: 05/28/21 10:56 Dose: 40 mg Documented by: [id number] Ioversol (Optiray 320 125ml) 120 ml IV ONCE ONE Stop: 05/28/21 08:43 Last Admin: 05/28/21 08:42 Dose: 120 ml Documented by: [id number] Metoprolol Tartrate (Metoprolol Tartrate 1 Mg/Ml Vial) 5 mg IV NOW STA Stop: 05/28/21 10:15 Last Admin: 05/28/21 10:56 Dose: 5 mg Documented by: [id number] Nitroglycerin (Nitroglycerin 2% Ointment 30gm Tube) 1 inch EXT NOW ONE Stop: 05/28/21 10:16 Last Admin: 05/28/21 10:56 Dose: 1 inch Documented by: [id number] Medical Decision Making Differential Diagnosis CHF, COPD, reactive airway disease, pneumonia, acute coronary syndrome, arrh ythmia, anemia, infection, COVID, electrolyte or metabolic abnormality, PE, aortic pathology, hypertension Medical Records Attestation: I reviewed the patient's medical records. Home Medications Current Medication List: was personally reviewed by me Laboratory Data Attestation: I reviewed the patient's lab results. Result diagrams: 05/28/21 07:25 05/28/21 09:51 Lab Results 05/28/21 05/28/21 05/28/21 Range/Units 07:25 07:25 07:25 WBC 9.28 (4.8-10.8) K/uL RBC 3.75 L (4.7-6.1) M/uL Hgb 12.3 L (14.0-18.0) g/dL Hct 37.6 L (42-52) % MCV 100.3 H (80-100) fL MCH 32.8 (25-34) pg MCHC 32.7 (32-36) g/dL RDW Std Deviation 57.3 H (36.4-46.3) fL RDW Coeff of Derrek 15.6 H (11.5-14.5) % Plt Count 227 (130-400) K/uL MPV 10.5 H (7.4-10.4) fL Immature Gran % (Auto) 0.1 % Neut % (Auto) 59.8 % Lymph % (Auto) 28.2 % Craven % (Auto) 9.4 % Eos % (Auto) 2.2 % Baso % (Auto) 0.3 % Neut # (Auto) 5.55 (1.4-6.5) K/uL Lymph # (Auto) 2.62 (1.2-3.4) K/uL Craven # (Auto) 0.87 H (0.11-0.59) K/uL Eos # (Auto) 0.20 (0-0.5) K/uL Baso # (Auto) 0.03 (0-0.2) K/uL Immature Gran # (Auto) 0.01 (0.00-0.02) K/uL PT 10.7 (9.0-12.0) Seconds INR 1.1 (0.9-1.1) APTT 24.8 (21.0-31.0) Seconds PTT Ratio 0.9 D-Dimer 1340 H* (0-500) ug/L FEU Sodium 140 (136-145) mmol/L Potassium (3.5-5.1) mmol/L Chloride 108 H (98-107) mmol/L Carbon Dioxide 26 (21-32) mmol/L Anion Gap 6 (3-11) BUN 22 (6-23) mg/dl Creatinine 1.08 (0.6-1.4) mg/dl Est Cr Clr Drug Dosing 53.9 ml/min Est GFR ( Amer) 71.6 ml/min Est GFR (Non-Af Amer) 61.8 ml/min BUN/Creatinine Ratio 20.4 H (10-20) Glucose 108 H (70-99(Fasting)) mg/dl Lactate (0.4-2.0) mmol/L Calcium 8.2 L (8.5-10.1) mg/dl Total Bilirubin 0.9 (0.2-1.0) mg/dl AST (13-39) U/L ALT 14 (7-52) U/L Alkaline Phosphatase 68 (34-104) U/L Troponin I 0.05 H* (0-0.04) ng/ml B-Natriuretic Peptide (0-100) pg/ml Total Protein 6.9 (6.0-8.3) gm/dl Albumin 3.6 (3.4-5.0) gm/dl Globulin 3.3 (2.5-4.0) gm/dl Albumin/Globulin Ratio 1.1 (0.9-2) Lipase 45 (11-82) U/L 05/28/21 05/28/21 05/28/21 Range/Units 07:25 07:30 09:51 WBC (4.8-10.8) K/uL RBC (4.7-6.1) M/uL Hgb (14.0-18.0) g/dL Hct (42-52) % MCV (80-100) fL MCH (25-34) pg MCHC (32-36) g/dL RDW Std Deviation (36.4-46.3) fL RDW Coeff of Derrek (11.5-14.5) % Plt Count (130-400) K/uL MPV (7.4-10.4) fL Immature Gran % (Auto) % Neut % (Auto) % Lymph % (Auto) % Craven % (Auto) % Eos % (Auto) % Baso % (Auto) % Neut # (Auto) (1.4-6.5) K/uL Lymph # (Auto) (1.2-3.4) K/uL Craven # (Auto) (0.11-0.59) K/uL Eos # (Auto) (0-0.5) K/uL Baso # (Auto) (0-0.2) K/uL Immature Gran # (Auto) (0.00-0.02) K/uL PT (9.0-12.0) Seconds INR (0.9-1.1) APTT (21.0-31.0) Seconds PTT Ratio D-Dimer (0-500) ug/L FEU Sodium (136-145) mmol/L Potassium 4.0 (3.5-5.1) mmol/L Chloride (98-107) mmol/L Carbon Dioxide (21-32) mmol/L Anion Gap (3-11) BUN (6-23) mg/dl Creatinine (0.6-1.4) mg/dl Est Cr Clr Drug Dosing ml/min Est GFR ( Amer) ml/min Est GFR (Non-Af Amer) ml/min BUN/Creatinine Ratio (10-20) Glucose (70-99(Fasting)) mg/dl Lactate 1.2 (0.4-2.0) mmol/L Calcium (8.5-10.1) mg/dl Total Bilirubin (0.2-1.0) mg/dl AST 20 (13-39) U/L ALT (7-52) U/L Alkaline Phosphatase (34-104) U/L Troponin I (0-0.04) ng/ml B-Natriuretic Peptide 345 H (0-100) pg/ml Total Protein (6.0-8.3) gm/dl Albumin (3.4-5.0) gm/dl Globulin (2.5-4.0) gm/dl Albumin/Globulin Ratio (0.9-2) Lipase (11-82) U/L Imaging Data Attestation: I personally reviewed and interpreted this imaging study as follows: My Impression: Chest x-raymild increased interstitial markings and there may be a CHF comp onent. There is also some increased markings in the right base Radiologist's Impression: Chest X-Ray 05/28/21 07:12 XR chest 1V portable CLINICAL HISTORY: Atypical chest pain TECHNIQUE: Single frontal radiograph of the chest was obtained. Comparison: Comparison is made to chest one view 11/22/2020 FINDINGS: No lines and tubes are seen. Calcified aortic knob is seen. Prominence and cephalization of the vasculature is seen. Faint bibasilar airspace opacities are seen. No evidence of pleural effusion or pneumothorax. IMPRESSION: Faint bibasilar airspace opacities which may represent atelectasis, pneumonia, and/or aspiration. Mild pulmonary edema. ACT 112: Negative or not required by law. Electronically signed by: Brandon Caldwell M.D. 05/28/2021 8:46 AM Chest CTA 05/28/21 08:25 CT angio chest PE protocol CLINICAL HISTORY: PE TECHNIQUE: Multidetector row helical CT of the chest was performed. Coronal and sagittal reformations were obtained. Coronal and sagittal MIPS were obtained from the axial data set and were submitted for review. Automated dose lowering techniques and/or adjustment according to patient size were utilized for this exam. Comparison: Comparison is made to CT thorax 11/17/2020 FINDINGS: Exam is limited by patient motion. Lungs and pleura: Small bilateral pleural effusions are seen. Mild atelectatic changes are seen in the left lung base. Partially visualized, there is a 6 mm n odule in the right upper lobe (series 4 image 156). 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 Emphysematous changes are seen throughout the lungs. Heart and pericardium: Cardiomegaly is seen with biatrial enlargement. Vessels: No evidence of pulmonary embolism. Moderate atherosclerotic disease is seen. Mediastinum and radha: Subcentimeter lymph nodes are seen. Chest wall and lower neck: Unremarkable. Abdomen: Unremarkable. Bones: Degenerative changes in the thoracic spine. IMPRESSION: 1. No evidence of pulmonary embolism. 2. Bilateral tiny pleural effusions with associated atelectasis. 3. Partially visualized nodular density in the right upper lobe, not seen on highly limited prior exams. According to Fleischner criteria, CT chest should be performed at 6-12 months. In high-risk patients, a 18-24 month follow-up is recommended, in low-risk patients, this 18-24 month follow-up CT is optional. 4. Additional findings as above. ACT 112: Negative or not required by law. Electronically signed by: Brandon Caldwell M.D. 05/28/2021 8:53 AM ECG Data Attestation: I personally reviewed and interpreted this ECG as follows: Indication: + SOB/dyspnea Rate (beats per minute): 81 Rhythm: + sinus with SA and + other (Poor baseline) ECG Intervals/blocks: + Normal QRS and + Normal QT ECG Odin: + Normal ECG ST segments: + Normal ST segments ECG Findings: no PACs or no PVCs Comparison ECG Date: from (11/18/20) Change: no significant change MDM Narrative This patient comes in as described above. He was placed in room C6 I did see him when he arrived with EMS and talked to the EMS crew. He had abrupt onset of shortness of breath and diaphoresis no chest pain he did receive aspirin and nitro he is feeling better but still has some tachypnea. No underlying pulmonary disease with exception of pneumonia. I reviewed the EKG from EMS there is no ischemic changes. We did do another EKG here and placed him on a school lunch monitor and multiple blood testing was obtained as well. He was reassessed frequently. Chest x-ray was obtained. EKG here shows no ischemic changes there is a poor baseline but appears to be normal sinus and unchanged from old. He has no white count or fever to suggest infection. His chest x-ray shows some increased interstitial markings throughout and there may be a CHF component there possibly could be an infiltrate in the base on the right as well. His troponin is mildly elevated but he has no ischemic changes on EKG thus far. His D-dimer was also elevated in light of this I did do a CT of the chest there is no evidence of PE or other acute pathology which would explain his symptoms. Given his episode of diaphoresis and shortness of breath and elevated troponin I do think he needs to be admitted/observe for cardiac monitoring of consulted Dr. Christopher to see him in ER for these measures. Continuous cardiac monitoringan order was placed in EMR for continuous school lunch monitor. Upon my interpretation, the patient was noted to be in normal sinus rhythm with a rate of 75 Impression & Plan SOB (shortness of breath), Nausea, Elevated troponin, Diaphoresis Discharge Plan Visit Data Chief Complaint: Shortness of Breath/Dyspnea Stated Complaint: SOB, NAUSEA ED Provider: Garcia Snyder Discharge Problem: SOB (shortness of breath), Nausea, Elevated troponin, Diaphoresis Patient Disposition: Admitted As Inpatient Discharge Instructions Interventions: ED Discharge Assessment Last Done: 05/28/21 11:51
[2021-05-28 07:37] LABS: Basophils # (auto) 0.03 K/uL (0-0.2); Basophils % (auto) 0.3 %; Eosinophils % (auto) 2.2 %; Hematocrit (blood only) 37.6 % (42-52); Hemoglobin 12.3 g/dL (14.0-18.0); Immature Granulocytes # (auto) 0.01 K/uL (0.00-0.02); Immature Granulocytes % (auto) 0.1 %; Lymphocytes # (auto) 2.62 K/uL (1.2-3.4); Lymphocytes % (auto) 28.2 %; Mean Corpuscular Hemoglobin 32.8 pg (25-34); Mean Corpuscular Hgb Conc 32.7 g/dL (32-36); Mean Corpuscular Volume 100.3 fL (80-100); Mean Platelet Volume 10.5 fL (7.4-10.4); Monocytes # (auto) 0.87 K/uL (0.11-0.59); Monocytes % (auto) 9.4 %; Neutrophils # (auto) 5.55 K/uL (1.4-6.5); Neutrophils % (auto) 59.8 %; Platelet Count 227 K/uL (130-400); RDW Coefficient of Variation 15.6 % (11.5-14.5); RDW Standard Deviation 57.3 fL (36.4-46.3); Red Blood Count 3.75 M/uL (4.7-6.1); White Blood Count 9.28 K/uL (4.8-10.8)
[2021-05-28 07:49] LABS: INR 1.1 (0.9-1.1); Partial Thromboplastin Ratio 0.9; Partial Thromboplastin Time 24.8 Seconds (21.0-31.0); Prothrombin Time 10.7 Seconds (9.0-12.0)
[2021-05-28 08:02] LABS: D Dimer 1340 ug/L FEU (0-500); Troponin I 0.05 ng/ml (0-0.04)
[2021-05-28 08:24] LABS: Albumin Globulin Ratio 1.1 (0.9-2); Albumin Level 3.6 gm/dl (3.4-5.0); BUN Creatinine Ratio 20.4 (10-20); Bilirubin,Total 0.9 mg/dl (0.2-1.0); Calcium 8.2 mg/dl (8.5-10.1); Creatinine Clr Calc Pharmacy 53.9 ml/min; Est GFR (African American) 71.6 ml/min; Est GFR (Non-African American) 61.8 ml/min; Globulin 3.3 gm/dl (2.5-4.0); Total Protein 6.9 gm/dl (6.0-8.3)
[2021-05-28] MEDS ORDERED: OPTIRAY 320 125ml IV ONE (08:42)
--- NOTE | 2021-05-28 08:48 | XRay Report ---
XR chest 1V portable CLINICAL HISTORY: Atypical chest pain TECHNIQUE: Single frontal radiograph of the chest was obtained. Comparison: Comparison is made to chest one view 11/22/2020 FINDINGS: No lines and tubes are seen. Calcified aortic knob is seen. Prominence and cephalization of the vascu lature is seen. Faint bibasilar airspace opacities are seen. No evidence of pleural effusion or pneum othorax. IMPRESSION: Faint bibasilar airspace opacities which may represent atelectasis, pneumonia, and/or aspiration. Mil d pulmonary edema. ACT 112: Negative or not required by law. Electronically signed by: Brandon Caldwell M.D. 05/28/2021 8:46 AM
--- NOTE | 2021-05-28 08:55 | CT Scan Report ---
CT angio chest PE protocol CLINICAL HISTORY: PE TECHNIQUE: Multidetector row helical CT of the chest was performed. Coronal and sagittal reformations were obtained. Coronal and sagittal MIPS were obtained from the axial data set and were submitted fo r review. Automated dose lowering techniques and/or adjustment according to patient size were utiliz ed for this exam. Comparison: Comparison is made to CT thorax 11/17/2020 FINDINGS: Exam is limited by patient motion. Lungs and pleura: Small bilateral pleural effusions are seen. Mild atelectatic changes are seen in th e left lung base. Partially visualized, there is a 6 mm nodule in the right upper lobe (series 4 imag e [id number]). 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 Emphysematous changes are seen throughout the adin gs. Heart and pericardium: Cardiomegaly is seen with biatrial enlargement. Vessels: No evidence of pulmonary embolism. Moderate atherosclerotic disease is seen. Mediastinum and radha: Subcentimeter lymph nodes are seen. Chest wall and lower neck: Unremarkable. Abdomen: Unremarkable. Bones: Degenerative changes in the thoracic spine. IMPRESSION: 1. No evidence of pulmonary embolism. 2. Bilateral tiny pleural effusions with associated atelectasis. 3. Partially visualized nodular density in the right upper lobe, not seen on highly limited prior ex ams. According to Fleischner criteria, CT chest should be performed at 6-12 months. In high-risk dee ents, a 18-24 month follow-up is recommended, in low-risk patients, this 18-24 month follow-up CT is optional. 4. Additional findings as above. ACT 112: Negative or not required by law. Electronically signed by: Brandon Caldwell M.D. 05/28/2021 8:53 AM
--- NOTE | 2021-05-28 09:51 | Electrocardiogram Report ---
Test Reason : Blood Pressure : / mmHG Vent. Rate : 081 BPM Atrial Rate : 081 BPM P-R Int : 194 ms QRS Dur : 096 ms QT Int : 406 ms P-R-T Axes : 108 011 032 degrees QTc Int : 471 ms Poor data quality, interpretation may be adversely affected Normal sinus rhythm Normal ECG When compared with ECG of 18-NOV-2020 06:08, No significant change was found Confirmed by José Mcginnis ([id number]) on 05/28/2021 9:51:08 AM Referred By: REFERRED SELF Confirmed By:Melvin Mcginnis
--- NOTE | 2021-05-28 10:13 | History & Physical Report ---
Date of Service May 28, 2021 Assessment & Plan (1) Hypertensive urgency: Plan: Has history of hypertension Blood pressure initially was noted to be very high at 184/103 Did not take his morning medications and will be given Additional intravenous medicine to control the blood pressure (2) SOB (shortness of breath): Plan: Sudden onset of shortness of breath since this morning Prior similar episode in November of last year Has been feeling a lot better and does not require any oxygen The cause could be cardiac with mild congestion in the chest x-ray Doubt any pneumonia and/or aspiration Will check BNP and give a small dose of Lasix (3) Elevated troponin: Plan: Noted to be elevated at 0.05 Likely secondary to stress-induced and well cycle 2 more sets History of non-ST elevation (4) PAF (paroxysmal atrial fibrillation): Plan: History of PAF Now in sinus rhythm Has been on Eliquis and will continue (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: (6) CKD (chronic kidney disease), stage III: Plan: No increase in BUN and creatinine (7) Dyslipidemia, goal LDL below 70: Plan: Continue statin DVT prophylaxis On Eliquis CODE STATUS Full History of Present Illness Chief Complaint: Sudden onset of shortness of breath at around 5 AM this morning Primary Care Provider: Sergio Lenz MD He is an 86 years old male significant past medical medical history of mitral valve regurgitation, hypertension, hyperlipidemia, chronic kidney disease stage III and also history of parotid cancer apparently woke up at around 5 AM with shortness of breath. He did not have any chest pain and/or palpitation associated with it. His shortness of breath lasted till he was brought into the emergency room. He did not have any dizziness, any fever and or chills, any nausea and or vomiting and his symptoms improved a lot in the emergency room. He denies any headache, blurred vision, any numbness and or tingling involving any of the extremities, any weakness involving any side of the body. He denies any leg swelling or any recent weight gain. He was noted to have very high blood pressure of 184/103 in the emergency room and chest x-ray did show possible atelectasis and mild pulmonary edema. His CT scan of the chest was negative for for any pulmonary embolism. He was admitted to telemetry unit for continuation of care. Apparently he was admitted in November of last year with a similar situation and during that time he had a non-ST elevation SD and also noted to have atrial fibrillation. The shortness of breath was initially thought to be aspiration pneumonia and since then he has been on current medication except lisinopril which I think was added later on. Allergies Allergy/AdvReac Type Severity Reaction Status Date / Time No Known Allergies Allergy Verified 11/16/20 22:04 Home Medications Medication Instructions Recorded Confirmed Type aspirin 81 mg tablet,delayed 81 mg PO DAILY 11/16/20 05/28/21 History release atorvastatin 80 mg tablet 80 mg PO HS 11/16/20 05/28/21 History cholecalciferol (vitamin D3) 25 25 mcg PO DAILY 11/16/20 05/28/21 History mcg (1,000 unit) tablet (Vitamin D3) hydrochlorothiazide 25 mg tablet 12.5 mg PO DAILY 11/16/20 05/28/21 History apixaban 5 mg tablet (Eliquis) 5 mg PO BID #70 tab 11/22/20 05/28/21 Rx Past Med/Surg History Medical History (Updated 05/28/21 @ 10:11 by Zacarias Christopher MD) Dyslipidemia, goal LDL below 70 HTN (hypertension) NSTEMI (non-ST elevated myocardial infarction) PAF (paroxysmal atrial fibrillation) Social History Smoking Status: Never smoker Hx Alcohol Use: No Hx Substance Use: No Preferred Language: Faroese Communication Ability: Unable Beliefs That Will Affect Care: None Current Living Situation: Spouse Feels Safe at Home: Yes Assistive Devices: Walker Review of Systems Review of Systems: All systems reviewed & are unremarkable except as noted in HPI & below Physical Exam Physical Exam: Lying in bed comfortably Constitutional: well developed, well nourished and + obese; not ill appearing Eyes: Some redness involving the right conjunctiva ENMT: external ear and nose normal, oropharynx normal Respiratory: no respiratory distress Auscultation: + diminished lung sounds and + crackles (Bibasilar crackles); no wheezes Cardiovascular: Rate/Rhythm: regular rate and regular rhythm; not tachycardic Heart Sounds: normal S1, normal S2 and + murmur (2/6 ESM over precordium and apex) Gastrointestinal (Abdomen): Inspection/Auscultation: normal bowel sounds; abdomen not distended Percussion/Palpation: abdomen soft; abdomen nontender Musculoskeletal: No acute arthritis in any joint Neurologic: Alert, awake and oriented x3. No focal sensory or motor deficit appreciated Results & Data Results & Data ([facility]) Vital Signs (Past 12 Hours) Vital Signs Temp Pulse Pulse Resp BP BP Pulse Ox 05/28/21 09:11 63 18 184/103 H 96 05/28/21 08:22 68 20 159/99 H 95 05/28/21 07:43 36.4 C L 77 181/101 H 95 Laboratory Results Short CBC 05/28/21 Range/Units 07:25 WBC 9.28 (4.8-10.8) K/uL Hgb 12.3 L (14.0-18.0) g/dL Hct 37.6 L (42-52) % Plt Count 227 (130-400) K/uL BMP 05/28/21 07:25 Sodium 140 Potassium Chloride 108 H Carbon Dioxide 26 BUN 22 Creatinine 1.08 Glucose 108 H Calcium 8.2 L Cardiac Enzymes 05/28/21 Range/Units 07:25 Troponin I 0.05 H* (0-0.04) ng/ml Liver Function 05/28/21 Range/Units 07:25 Total Bilirubin 0.9 (0.2-1.0) mg/dl AST (13-39) U/L ALT 14 (7-52) U/L Alkaline Phosphatase 68 (34-104) U/L Albumin 3.6 (3.4-5.0) gm/dl Code Status & VTE Plan VTE Prophylaxis Plan VTE Prophylaxis will be ordered: Yes
[2021-05-28] MEDS ORDERED: METOPROLOL TARTRATE 1 MG/ML VIAL IV STA (10:14)
[2021-05-28] MEDS ORDERED: NITROGLYCERIN 2% OINTMENT 30GM TUBE EXT ONE (10:15)
[2021-05-28] MEDS ORDERED: FUROSEMIDE 40 MG/4 ML VIAL IV ONE (10:15)
[2021-05-28] MEDS: METOPROLOL TARTRATE 50 MG TAB PO SCH ×2 (12:43→21:10)
[2021-05-28] MEDS: APIXABAN 5 MG TABLET PO SCH ×2 (12:43→21:10)
[2021-05-28] MEDS: lisinopril 20 MG TAB PO SCH (12:43)
[2021-05-28] MEDS ORDERED: ATORVASTATIN 40 MG TAB PO SCH (21:00)
[2021-05-29] MEDS ORDERED: hydroCHLOROthiazide 25 MG TAB PO SCH (09:00)
[2021-05-29] MEDS ORDERED: ASPIRIN 81 MG ECTAB PO SCH (09:00)
[2021-05-29] MEDS ORDERED: CHOLECALCIFEROL 1,000 UNITS 25 MCG TAB PO SCH (09:00)
[2021-05-29] MEDS: METOPROLOL TARTRATE 50 MG TAB PO SCH (09:13)
[2021-05-29] MEDS: lisinopril 20 MG TAB PO SCH (09:14)
[2021-05-29] MEDS: APIXABAN 5 MG TABLET PO SCH (09:15)
--- NOTE | 2021-05-29 10:32 | Hospitalist Progress Note ---
Date of Service May 29, 2021 Assessment & Plan (1) Hypertensive urgency: Plan: Has history of hypertension Blood pressure initially was noted to be very high at 184/103 Did not take his morning medications and will be given Additional intravenous medicine to control the blood pressure Blood pressure seems to be improving He will be discharged home this afternoon (2) SOB (shortness of breath): Plan: Sudden onset of shortness of breath since this morning Prior similar episode in November of last year Has been feeling a lot better and does not require any oxygen The cause could be cardiac with mild congestion in the chest x-ray Doubt any pneumonia and/or aspiration Will check BNP and give a small dose of Lasix BNP was not elevated but following a dose of Lasix shortness of breath improved a lot (3) Elevated troponin: Plan: Noted to be elevated at 0.05 Likely secondary to stress-induced and well cycle 2 more sets-serial troponins remain History of non-ST elevation Echo of the heart showed: LV side with mild concentric hypertrophy, mild hypokinesis of the inferior and posterior gomez at the base and mid level with all the wall segments che, EF 50 to 55%, grade 2 diastolic dysfunction, LA is moderately dilated, aortic valve leaflets are moderately calcified with mild restriction in mobility, no significant aortic stenosis and there is mild MR (4) PAF (paroxysmal atrial fibrillation): Plan: History of PAF Now in sinus rhythm Has been on Eliquis and will continue (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: (6) CKD (chronic kidney disease), stage III: Plan: No increase in BUN and creatinine (7) Dyslipidemia, goal LDL below 70: Plan: Continue statin DVT prophylaxis On Eliquis CODE STATUS Full We will get PT and OT evaluation and discharge him this afternoon Admission and Anticipated Discharge Date Admission Date: May 28, 2021 Subjective 05/29/2021 The patient was seen and examined in telemetry unit He has been feeling much better since admission Denies any chest pain, shortness of breath or palpitation His blood pressure seems to be improving Review of Systems Review of Systems: All systems reviewed and are unremarkable except as noted below Ear, Nose, Mouth, Throat: 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 Physical Exam Physical Exam: Lying in bed comfortably Constitutional: well developed, well nourished and + obese; not ill appearing ENMT: external ear and nose normal, oropharynx normal Respiratory: no respiratory distress Auscultation: + diminished lung sounds; no crackles (Bibasilar crackles) and no wheezes Cardiovascular: Rate/Rhythm: regular rate and regular rhythm; not tachycardic Heart Sounds: normal S1, normal S2 and + murmur (2/6 ESM over precordium and apex) Gastrointestinal (Abdomen): Inspection/Auscultation: normal bowel sounds; abdomen not distended Percussion/Palpation: abdomen soft; abdomen nontender Musculoskeletal: No acute arthritis in any joint Neurologic: Alert, awake and oriented x3. No focal sensory and motor deficit appreciated Results & Data Results & Data ([facility]) Vital Signs (Past 12 Hours) Vital Signs Temp Pulse Pulse Resp BP BP Pulse Ox 05/29/21 07:57 36.4 C L 63 19 158/80 H 92 05/29/21 07:29 61 05/29/21 04:26 36.8 C 75 18 163/86 H 94 05/29/21 00:00 60 05/28/21 22:59 36.7 C 62 16 152/71 H 95 Laboratory Results BMP 05/28/21 09:51 Potassium 4.0 Cardiac Enzymes 05/28/21 05/28/21 Range/Units 13:01 18:44 Troponin I 0.06 H* 0.06 H* (0-0.04) ng/ml Liver Function 05/28/21 Range/Units 09:51 AST 20 (13-39) U/L Medications Administered Current Inpatient Medications Apixaban (Apixaban 5 Mg Tablet) 5 mg PO BID JORDAN Stop: 06/27/21 11:44 Last Admin: 05/29/21 09:15 Dose: 5 mg Documented by: Aspirin (Aspirin 81 Mg Ectab) 81 mg PO DAILY JORDAN Stop: 06/28/21 08:59 Last Admin: 05/29/21 09:14 Dose: 81 mg Documented by: Atorvastatin Calcium (Atorvastatin 40 Mg Tab) 80 mg PO HS JORDAN Stop: 06/27/21 20:59 Last Admin: 05/28/21 21:10 Dose: 80 mg Documented by: Hydrochlorothiazide (Hydrochlorothiazide 25 Mg Tab) 12.5 mg PO DAILY JORDAN Stop: 06/28/21 08:59 Last Admin: 05/29/21 09:14 Dose: 12.5 mg Documented by: Lisinopril (Lisinopril 20 Mg Tab) 20 mg PO [facility] Stop: 06/27/21 11:44 Last Admin: 05/29/21 09:14 Dose: 20 mg Documented by: Metoprolol Tartrate (Metoprolol Tartrate 50 Mg Tab) 50 mg PO BID [facility] Stop: 06/27/21 11:44 Last Admin: 05/29/21 09:13 Dose: 50 mg Documented by: Vitamin D (Cholecalciferol 1,000 Units 25 Mcg Tab) 1,000 units PO DAILY [facility] Stop: 06/28/21 08:59 Last Admin: 05/29/21 09:14 Dose: 1,000 units Documented by:
[2021-05-29] MEDS ORDERED: hydrALAZINE HCL 20 MG/ML VIAL IV ONE (12:21)
[2021-05-29] MEDS ORDERED: amLODIPine BESYLATE 5 MG TAB PO SCH (12:45)
--- NOTE | 2021-06-01 11:01 | Discharge Summary ---
Date of Service June 01, 2021 Admission HPI Per Admitting Provider He is an 86 years old male significant past medical medical history of mitral valve regurgitation, hypertension, hyperlipidemia, chronic kidney disease stage III and also history of parotid cancer apparently woke up at around 5 AM with shortness of breath. He did not have any chest pain and/or palpitation associated with it. His shortness of breath lasted till he was brought into the emergency room. He did not have any dizziness, any fever and or chills, any nausea and or vomiting and his symptoms improved a lot in the emergency room. He denies any headache, blurred vision, any numbness and or tingling involving any of the extremities, any weakness involving any side of the body. He denies any leg swelling or any recent weight gain. He was noted to have very high blood pressure of 184/103 in the emergency room and chest x-ray did show possible atelectasis and mild pulmonary edema. His CT scan of the chest was negative for for any pulmonary embolism. He was admitted to telemetry unit for continuation of care. Apparently he was admitted in November of last year with a similar situation and during that time he had a non-ST elevation [place] and also noted to have atrial fibrillation. The shortness of breath was initially thought to be aspiration pneumonia and since then he has been on current medication except lisinopril which I think was added later on. Admission Exam Per Admitting Provider Physical Exam: Lying in bed comfortably Constitutional: well developed, well nourished and + obese; not ill appearing Eyes: Some redness involving the right conjunctiva ENMT: external ear and nose normal, oropharynx normal Respiratory: no respiratory distress Auscultation: + diminished lung sounds and + crackles (Bibasilar crackles); no wheezes Cardiovascular: Rate/Rhythm: regular rate and regular rhythm; not tachycardic Heart Sounds: normal S1, normal S2 and + murmur (2/6 ESM over precordium and apex) Gastrointestinal (Abdomen): Inspection/Auscultation: normal bowel sounds; abdomen not distended Percussion/Palpation: abdomen soft; abdomen nontender Musculoskeletal: No acute arthritis in any joint Neurologic: Alert, awake and oriented x3. No focal sensory or motor deficit appreciated Principal Diagnosis Hypertensive urgency, shortness of breath, PAF Discharge Exam Lying in bed comfortably Constitutional well developed, well nourished and + obese; not ill appearing ENMT external ear and nose normal, oropharynx normal Respiratory no respiratory distress Auscultation: + diminished lung sounds; no crackles (Bibasilar crackles) and no wheezes Cardiovascular Rate/Rhythm: regular rate and regular rhythm; not tachycardic Heart Sounds: normal S1, normal S2 and + murmur (2/6 ESM over precordium and apex) Gastrointestinal (Abdomen) Inspection/Auscultation: normal bowel sounds; abdomen not distended Percussion/Palpation: abdomen soft; abdomen nontender Discharge Data Allergies Allergy/AdvReac Type Severity Reaction Status Date / Time No Known Allergies Allergy Verified 11/16/20 22:04 Consultations 05/28/21 09:29 ED Decision to Admit Stat Ordered Studies 05/28/21 08:25 CT angio chest PE protocol Stat Hospital Course (1) Hypertensive urgency: Has history of hypertension Blood pressure initially was noted to be very high at 184/103 Did not take his morning medications and will be given Additional intravenous medicine to control the blood pressure Blood pressure seems to be improving He will be discharged home this afternoon (2) SOB (shortness of breath): Sudden onset of shortness of breath since this morning Prior similar episode in November of last year Has been feeling a lot better and does not require any oxygen The cause could be cardiac with mild congestion in the chest x-ray Doubt any pneumonia and/or aspiration Will check BNP and give a small dose of Lasix BNP was not elevated but following a dose of Lasix shortness of breath improved a lot (3) Elevated troponin: Noted to be elevated at 0.05 Likely secondary to stress-induced and well cycle 2 more sets-serial troponins remain History of non-ST elevation Echo of the heart showed: LV side with mild concentric hypertrophy, mild hypokinesis of the inferior and posterior gomez at the base and mid level with all the wall segments che, EF 50 to 55%, grade 2 diastolic dysfunction, LA is moderately dilated, aortic valve leaflets are moderately calcified with mild restriction in mobility, no significant aortic stenosis and there is mild MR (4) PAF (paroxysmal atrial fibrillation): History of PAF Now in sinus rhythm Has been on Eliquis and will continue (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: (6) CKD (chronic kidney disease), stage III: No increase in BUN and creatinine (7) Dyslipidemia, goal LDL below 70: Continue statin DVT prophylaxis On Eliquis CODE STATUS Full We will get PT and OT evaluation and discharge him this afternoon Total Time Total Time Spent Total Time Spent (In Minutes): 35 minutes Discharge Plan Discharge Items Patient Disposition: Home - Self-Care Reason For Visit: SOB, HYPERTENSIVE URGENCY Discharge Diagnosis: Hypertensive urgency, shortness of breath, PAF Condition on Discharge: Good Activity: Resume your previous activity Non-emergency contact: Primary Care Provider Call non-emergency contact if: you have any medication questions and your symptoms worsen Follow-up/Referrals: Sergio Lenz MD [Primary Care Provider] - (Date & Time 06/05/2021 11:20 AM Provider Sergio Lenz MD [facility] ) Diet: Heart Healthy and Low Sodium (2gm) Addtl Attending Provider Instructions: Please take precautions to avoid fall Take your medications as advised We have added new medicine for the blood pressure control which is amlodipine 5 mg once a day Please keep appointment with your healthcare provider Pending Studies at Discharge: No Stand-Alone Forms: My [facility] [place] Coatings, Smoking Cessation Medications and DC Order Prescriptions: New lisinopril 20 mg Tablet 20 mg PO QAM 30 Days Qty: 30 RF: 0 amlodipine [Norvasc] 5 mg Tablet 5 mg PO QAM 30 Days Qty: 30 RF: 0 metoprolol tartrate 50 mg Tablet 50 mg PO BID 30 Days Qty: 60 RF: 0 Continued atorvastatin 80 mg tablet 80 mg PO HS RF: 0 aspirin 81 mg Tablet,Delayed Release (Dr/Ec) 81 mg PO DAILY RF: 0 hydrochlorothiazide 25 mg tablet 12.5 mg PO DAILY RF: 0 cholecalciferol (vitamin D3) [Vitamin D3] 25 mcg (1,000 unit) Tablet 25 mcg PO DAILY RF: 0 Eliquis 5 mg Tablet 5 mg PO BID Qty: 70 RF: 0 Discharge Orders: Discharge Order (Routine); Ordered 05/29/21 Ordered By: Zacarias Christopher Admission Data Admit Date/Time: 05/28/21 09:56 Attending Provider: Zacarias Christopher Admit Provider: Zacarias Christopher Primary Care Provider: Sergio Lenz Other Providers: Zacarias Christopher Other Interventions: Discharge Summary Assessment (RN) Last Done: 05/29/21 15:39
== END 2021-05-29 16:01 | disposition home or self-care (01) ==
LOC: ED 07:06 → INTOOBSV 09:56 → 2S 09:56

== ENCOUNTER 2022-07-02 17:20 | Observation (INO) ==
[2022-07-02] MEDS ORDERED: MoRPHine SULFATE 4 MG/ML 1 ML CARP\\VIAL IV PRN (17:28)
[2022-07-02] MEDS ORDERED: SODIUM CHLORIDE 0.9% 500 ML IV STA (17:28)
[2022-07-02] MEDS ORDERED: ONDANSETRON INJ 2 MG/ML 2 ML VIAL IV STA (17:28)
--- NOTE | 2022-07-02 17:35 | Emergency Department Note ---
Impression & Plan Abdominal pain, acute, right upper quadrant, Elevated troponin I level ED Provider Note NAME: MICHAEL JOHNSTON JR AGE: 87 SEX: M : 1935 ARRIVES VIA: Ambulance INFORMANT: Patient, EMS ED PROVIDER(S): Thomas Elam DO CHIEF COMPLAINT: Abdominal pain HPI: The patient is an 87-year-old male who presented to the emergency department for an evaluation of abdominal pain. The patient describes epigastric and right upper quadrant abdominal pain. The patient states this pain began over the weekend. He was told many years ago that he may need to have his gallbladder out at one time but he never had follow-up for this. The patient denies having any chest pain or difficulty breathing. The patient denies having any fever. He denies having any hemoptysis. He has had no black or bloody bowel movements. The patient states the pain is moderate at this time and worsens with ambulation as well as palpation over his upper abdomen. ROS: See above HPI for pertinent positives & negatives. A total of 10 systems reviewed and were otherwise negative. PAST MEDICAL HISTORY: See Below PAST SURGICAL HISTORY: See Below FAMILY HISTORY: See Below SOCIAL HISTORY: See Below HOME MEDICATIONS: See Below ALLERGIES: See Below VITALS: See Below PHYSICAL EXAMINATION: GENERAL: Patient is awake alert in no acute distress patient is resting comfortably and showing no signs of anxiety EYES: The conjunctivae are clear. The pupils are round and reactive. EARS, NOSE, MOUTH AND THROAT: The nose is without any evidence of any deformity. Mucous membranes are moist. Tongue is midline. NECK: The neck is nontender and supple. RESPIRATORY: Normal respiratory effort is noted there is no evidence of wheezing rhonchi or rales CARDIOVASCULAR: Regular rate and rhythm noted there no murmurs rubs or gallops normal S1 normal S2. GASTROINTESTINAL: The abdomen is soft and nondistended. There is epigastric and right upper quadrant tenderness to palpation which is moderate. MUSCULOSKELETAL/EXTREMITIES: There is no evidence of gross deformity full range of motion is noted in the hips and shoulders. SKIN: Skin is warm and dry. Trace pedal edema was noted bilaterally. NEUROLOGIC: Patient is awake alert and oriented x3. MEDICAL DECISION MAKING: The patient is an 87-year-old male who presented to the emergency department for an evaluation of abdominal pain. The patient had right upper quadrant abdominal pain and epigastric pain which was reproducible. I discussed the patient's laboratory and radiographic studies with him. He was treated with IV fluids and IV pain medication in the emergency department. He was reevaluated multiple times. On reevaluation the patient does appear to have an elevation in his troponin. Given the patient's age and comorbidities certainly is difficult to ascertain if his presentation today is an anginal equivalent or true intra-abdominal pain. The source is not definitely found at this time. I discussed patient's condition with the on-call [facility] hospitalist. They have agreed to evaluate the patient in the emergency department for further management and disposition. Patient currently does take Eliquis. He has been compliant with his outpatient medications. I will defer further work-up to the inpatient team. Triage Nursing notes reviewed. Prior medical records reviewed Vital Signs: reviewed and remarkable for no significant abnormalities Differential diagnosis: Etiologies such as appendicitis, diverticulitis, obstruction, inflammatory bowel disease, renal colic, PUD, biliary pathology, pancreatitis, mesenteric ischemia, aortic pathology, infections, genitourinary, UTI, perforated viscus, as well as others were entertained. ER treatment provided: See below Diagnostics interpreted by me: ECG: EKG was obtained in the emergency department. My interpretation is sinus rhythm at 65 bpm. There was no ectopy. There were no PVCs. There was no acute ST segment abnormalities noted. This was compared to a tracing from May 28, 2021. No changes were noted. Cardiac Monitoring: An order was placed for continuous cardiac monitoring. The monitor shows a rate of 61 bpm with sinus rhythm. Laboratory studies: As stated above and show below. Imaging studies: See below. Radiographic imaging was reviewed by myself Consultation(s): I discussed this case with Dr. Hart [facility] Past Med/Surg History Medical History Dyslipidemia, goal LDL below 70 HTN (hypertension) NSTEMI (non-ST elevated myocardial infarction) PAF (paroxysmal atrial fibrillation) Social History Smoking Status: Never smoker Hx Alcohol Use: No Hx Substance Use: No Preferred Language: Chadian Communication Ability: Effective Employee Benefits Attorney Required: No Beliefs That Will Affect Care: None marital status: Current Living Situation: Spouse How many Children do You have: 2 Feels Safe at Home: Yes Assistive Devices: Walker Allergies Allergies Allergy/AdvReac Type Severity Reaction Status Date / Time No Known Allergies Allergy Verified 07/02/22 18:07 Home Meds Home Medications Medication Instructions Recorded Confirmed aspirin 81 mg tablet,delayed 81 mg PO DAILY 11/16/20 07/02/22 release atorvastatin 80 mg tablet 80 mg PO HS 11/16/20 07/02/22 cholecalciferol (vitamin D3) 25 25 mcg PO DAILY 11/16/20 07/02/22 mcg (1,000 unit) tablet (Vitamin D3) hydrochlorothiazide 25 mg tablet 12.5 mg PO DAILY 11/16/20 07/02/22 amlodipine 5 mg tablet 5 mg PO QAM 07/02/22 07/02/22 apixaban 5 mg tablet (Eliquis) 2.5 mg PO BID 07/02/22 07/02/22 lisinopril 20 mg tablet 20 mg PO QAM 07/02/22 07/02/22 metoprolol tartrate 50 mg tablet 50 mg PO BID 07/02/22 07/02/22 Results & Data (ED) Vital Signs Vital Signs - 24 hr 07/02/22 17:29 07/02/22 17:32 07/02/22 17:30 Temperature 36.8 C Temperature Source Oral Pulse Rate 70 65 62 Pulse Rate [Bilateral Apical] Pulse Rate from SpO2 Sensor 62 Pulse Rhythm Regular Pulse Strength Normal Respiratory Rate 20 20 Respiratory Effort / Characteristics Non-Labored Spontaneous Respiratory Depth Normal Respiratory Pattern Regular Blood Pressure 142/77 H Blood Pressure [Left Arm] Blood Pressure Mean 98 Blood Pressure Mean [Left Arm] Blood Pressure Position Lying Pulse Oximetry 94 92 Oxygen Delivery Method Room Air Sepsis Recent Fever Within 48 Hours No Sepsis New/Unexplained Change in Mental Status No Sepsis Action Taken by Nursing No Action Required 07/02/22 17:40 07/02/22 17:50 07/02/22 19:14 Temperature Temperature Source Pulse Rate 61 59 L Pulse Rate [Bilateral Apical] 61 Pulse Rate from SpO2 Sensor 59 L Pulse Rhythm Pulse Strength Respiratory Rate 21 29 H 20 Respiratory Effort / Characteristics Non-Labored Respiratory Depth Normal Respiratory Pattern Blood Pressure 142/77 H Blood Pressure [Left Arm] 134/68 Blood Pressure Mean 98 Blood Pressure Mean [Left Arm] 90 Blood Pressure Position Pulse Oximetry 98 96 Oxygen Delivery Method Room Air Room Air Sepsis Recent Fever Within 48 Hours Sepsis New/Unexplained Change in Mental Status Sepsis Action Taken by Nursing 07/02/22 19:14 Temperature Temperature Source Pulse Rate Pulse Rate [Bilateral Apical] Pulse Rate from SpO2 Sensor Pulse Rhythm Pulse Strength Respiratory Rate Respiratory Effort / Characteristics Respiratory Depth Respiratory Pattern Blood Pressure Blood Pressure [Left Arm] Blood Pressure Mean Blood Pressure Mean [Left Arm] Blood Pressure Position Pulse Oximetry 95 Oxygen Delivery Method Room Air Sepsis Recent Fever Within 48 Hours Sepsis New/Unexplained Change in Mental Status Sepsis Action Taken by Residential Medications Current Medication List: was personally reviewed by me Laboratory Data Attestation: I reviewed the patient's lab results. 07/02/22 17:50 07/02/22 17:50 Lab Results 07/02/22 07/02/22 07/02/22 Range/Units 17:42 17:50 17:50 WBC 4.29 L (4.8-10.8) K/ul RBC 4.14 L (4.70-6.10) M/uL Hgb 13.3 L (14.0-18.0) g/dl POC Hgb (14.0-18.0) g/dl Hct 39.6 L (42.0-52.0) % POC Hct (42-52) % MCV 95.7 (80.0-100.0) fL MCH 32.1 (25.0-34.0) pg MCHC 33.6 (32.0-36.0) g/dL RDW Std Deviation 52.6 H (36.4-46.3) fL RDW Coeff of Derrek 14.8 H (11.5-14.5) % Plt Count 186 (130-400) K/uL MPV 10.8 (9.4-12.4) fL Immature Gran % (Auto) 0.2 % Neut % (Auto) 74.3 % Lymph % (Auto) 16.6 % [place] % (Auto) 8.2 % Eos % (Auto) 0.0 % Baso % (Auto) 0.7 % Neut # (Auto) 3.19 (1.40-6.50) K/uL Lymph # (Auto) 0.71 L (1.2-3.4) K/uL [place] # (Auto) 0.35 (0.11-0.59) K/uL Eos # (Auto) 0.00 (0-0.50) K/uL Baso # (Auto) 0.03 (0-0.2) K/uL Immature Gran # (Auto) 0.01 (0.01-0.20) K/uL PT 12.2 H (9.0-12.0) Seconds INR 1.2 H (0.9-1.1) APTT 28.8 (21.0-31.0) Seconds PTT Ratio 1.0 POC Sodium (135-144) mmol/L Sodium (136-145) mmol/L POC Potassium (3.3-5.0) mmol/L Potassium (3.5-5.1) mmol/L POC Chloride (101-112) mmol/L Chloride (98-107) mmol/L Carbon Dioxide (21-32) mmol/L POC Total CO2 (24-31) mmol/L Anion Gap (3-11) POC Anion Gap (16-25) mmol/L POC BUN (7-18) mg/dl BUN (6-23) mg/dl Creatinine (0.6-1.4) mg/dl POC Creatinine (0.6-1.3) mg/dl Est Cr Clr Drug Dosing ml/min Est GFR ( Amer) ml/min Est GFR (Non-Af Amer) ml/min BUN/Creatinine Ratio (10-20) Glucose (70-99(Fasting)) mg/dl POC Glucose (other) (70-99) mg/dl Calcium (8.5-10.1) mg/dl POC Ioniz Calcium Graham (1.12-1.32) mmol/l Total Bilirubin (0.2-1.0) mg/dl AST (13-39) U/L ALT (7-52) U/L Alkaline Phosphatase (34-104) U/L Troponin I High Sens (0-20) pg/ml Total Protein (6.0-8.3) gm/dl Albumin (3.4-5.0) gm/dl Globulin (2.5-4.0) gm/dl Albumin/Globulin Ratio (0.9-2) Lipase (11-82) U/L SARS-CoV-2, RNA, NAAT NEGATIVE (NEGATIVE) 07/02/22 07/02/22 Range/Units 17:50 17:55 WBC (4.8-10.8) K/ul RBC (4.70-6.10) M/uL Hgb (14.0-18.0) g/dl POC Hgb 13.9 L (14.0-18.0) g/dl Hct (42.0-52.0) % POC Hct 41 L (42-52) % MCV (80.0-100.0) fL MCH (25.0-34.0) pg MCHC (32.0-36.0) g/dL RDW Std Deviation (36.4-46.3) fL RDW Coeff of Derrek (11.5-14.5) % Plt Count (130-400) K/uL MPV (9.4-12.4) fL Immature Gran % (Auto) % Neut % (Auto) % Lymph % (Auto) % [place] % (Auto) % Eos % (Auto) % Baso % (Auto) % Neut # (Auto) (1.40-6.50) K/uL Lymph # (Auto) (1.2-3.4) K/uL [place] # (Auto) (0.11-0.59) K/uL Eos # (Auto) (0-0.50) K/uL Baso # (Auto) (0-0.2) K/uL Immature Gran # (Auto) (0.01-0.20) K/uL PT (9.0-12.0) Seconds INR (0.9-1.1) APTT (21.0-31.0) Seconds PTT Ratio POC Sodium 137 (135-144) mmol/L Sodium 136 (136-145) mmol/L POC Potassium 4.1 (3.3-5.0) mmol/L Potassium 4.1 (3.5-5.1) mmol/L POC Chloride 99 L (101-112) mmol/L Chloride 101 (98-107) mmol/L Carbon Dioxide 28 (21-32) mmol/L POC Total CO2 27 (24-31) mmol/L Anion Gap 7 (3-11) POC Anion Gap 16.0 (16-25) mmol/L POC BUN 32 H (7-18) mg/dl BUN 32 H (6-23) mg/dl Creatinine 1.74 H (0.6-1.4) mg/dl POC Creatinine 1.8 H (0.6-1.3) mg/dl Est Cr Clr Drug Dosing 32.8 ml/min Est GFR ( Amer) 40.0 ml/min Est GFR (Non-Af Amer) 34.5 ml/min BUN/Creatinine Ratio 18.4 (10-20) Glucose 116 H (70-99(Fasting)) mg/dl POC Glucose (other) 119 H (70-99) mg/dl Calcium 8.7 (8.5-10.1) mg/dl POC Ioniz Calcium Graham 1.09 L (1.12-1.32) mmol/l Total Bilirubin 0.5 (0.2-1.0) mg/dl AST 30 (13-39) U/L ALT 23 (7-52) U/L Alkaline Phosphatase 66 (34-104) U/L Troponin I High Sens 39.3 H (0-20) pg/ml Total Protein 7.2 (6.0-8.3) gm/dl Albumin 3.8 (3.4-5.0) gm/dl Globulin 3.4 (2.5-4.0) gm/dl Albumin/Globulin Ratio 1.1 (0.9-2) Lipase 60 (11-82) U/L SARS-CoV-2, RNA, NAAT (NEGATIVE) Administered Medications Morphine Sulfate (Morphine Sulfate 4 Mg/Ml 1 Ml Carp\Vial) 4 mg IV Q15M PRN PRN Reason: Pain Stop: 07/16/22 17:27 Last Admin: 07/02/22 17:55 Dose: 4 mg Documented By: JAKE Discontinued Medications Sodium Chloride (Nss) 500 mls @ 999 mls/hr IV .Q31M STA Stop: 07/02/22 17:58 Last Infusion: 07/02/22 18:51 Dose: 0 mls/hr Documented By: Admin: 07/02/22 17:56 Dose: 999 mls/hr Documented By: JAKE Ioversol (Optiray 350 100ml) 88 ml IV ONCE ONE Stop: 07/02/22 19:02 Last Admin: 07/02/22 19:01 Dose: 88 ml Documented By: SARA Ondansetron HCl (Ondansetron Inj 2 Mg/Ml 2 Ml Vial) 4 mg IV NOW STA Stop: 07/02/22 17:29 Last Admin: 07/02/22 17:55 Dose: 4 mg Documented By: [facility] Imaging Data Attestation: I personally reviewed and interpreted this imaging study as follows: My Impression: CT of the abdomen and pelvis was obtained in the emergency department. My initial interpretation is no definite obstruction. Radiologist's Impression: Abdomen/Pelvis CT 07/02/22 17:[address] WITH IV CONTRAST CT DOSE: 543.24 mGy.cm HISTORY: Acute right upper quadrant abdominal pain ruq pain TECHNIQUE: Multiaxial CT images of the abdomen and pelvis were performed following the IV administration of 88 cc of Optiray, A dose lowering technique was utilized adhering to the principles of ALARA. COMPARISON STUDY: Chest radiograph of same day, CT abdomen pelvis 11/17/2020 FINDINGS: Cardiomegaly. No pericardial effusion. Coronary artery calcifications. Bibasilar bronchial wall thickening. Mild subsegmental atelectasis versus scarring. No pneumatosis or pneumoperitoneum. Unchanged pleural thickening with calcifications of the right hemidiaphragm. Left upper quadrant splenosis redemonstrated. Mild generalized pancreatic atrophy. Unremarkable adrenal glands. Distended gallbladder. Prominent periportal/portocaval hepatic lymph nodes are similar to prior. Unremarkable liver. Patency of the hepatic and portal veins. Bilateral renal cysts measure up to 5.2 cm on the right 1.9 cm on the left. 1.5 cm nonobstructing calculus of the inferior pole left kidney. No ureteral calculi or hydronephrosis. Mild urinary bladder wall thickening with partial distention. Prostamegaly. Right greater than left fat filled inguinal hernias. 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 No bowel obstruction or bowel wall thickening. Colonic diverticulosis. Mild to moderate fecal retention. Normal appendix. Unremarkable soft tissues. Degenerative changes of the spine, pelvis and left hip with right hip arthroplasty. Sagittally changes of the right hemipelvis redemonstrated. IMPRESSION: 1. No acute intra-abdominal or intrapelvic abnormality. 2. No bowel obstruction or bowel wall thickening. 3. Colonic diverticulosis. 4. Left nephrolithiasis. 5. Additional findings as above. ACT 112: Negative or not required by law. The above report was generated using voice recognition software. It may contain grammatical, syntax or spelling errors. Electronically signed by: Jake Colon M.D. 07/02/2022 7:42 PM Chest X-Ray 07/02/22 17:29 XR chest 1V portable HISTORY: 87 years-old Male abdominal pain acute chest and abdominal pain COMPARISON: CTA chest 05/28/2021 TECHNIQUE: AP view of the chest FINDINGS: 1.2 cm right upper lobe pulmonary hamartoma redemonstrated. Cardiac silhouette is mildly enlarged. Pulmonary vascular congestion. Trace pleural effusions. No pneumothorax. Mild pulmonary emphysema. Degenerative changes of the shoulders and spine. IMPRESSION: 1. Cardiomegaly with pulmonary vascular congestion. 2. Trace pleural effusions. 3. Emphysema. ACT 112: Negative or not required by law. The above report was generated using voice recognition software. It may contain grammatical, syntax or spelling errors. Electronically signed by: Jake Colon M.D. 07/02/2022 5:55 PM Discharge Plan Visit Data Chief Complaint: Abdominal Pain Stated Complaint: ABDOMINAL PAIN ED Provider: Thomas Elam Discharge Problem: Abdominal pain, acute, right upper quadrant, Elevated troponin I level Patient Disposition: Being Evaluated by Hospitalist Forms Stand Alone Forms: [facility] Prescriptions Prescriptions: No Action lisinopril 20 mg tablet 20 mg PO QAM metoprolol tartrate 50 mg tablet 50 mg PO BID amlodipine 5 mg tablet 5 mg PO QAM Eliquis 5 mg tablet 2.5 mg PO BID atorvastatin 80 mg tablet 80 mg PO HS aspirin 81 mg Tablet,Delayed Release (Dr/Ec) 81 mg PO DAILY hydrochlorothiazide 25 mg tablet 12.5 mg PO DAILY cholecalciferol (vitamin D3) [Vitamin D3] 25 mcg (1,000 unit) Tablet 25 mcg PO DAILY Referrals Referrals: Sergio Lenz MD [Primary Care Provider] -
--- NOTE | 2022-07-02 17:56 | XRay Report ---
XR chest 1V portable HISTORY: 87 years-old Male abdominal pain acute chest and abdominal pain COMPARISON: CTA chest 05/28/2021 TECHNIQUE: AP view of the chest FINDINGS: 1.2 cm right upper lobe pulmonary hamartoma redemonstrated. Cardiac silhouette is mildly enlarged. Pu lmonary vascular congestion. Trace pleural effusions. No pneumothorax. Mild pulmonary emphysema. Dege nerative changes of the shoulders and spine. IMPRESSION: 1. Cardiomegaly with pulmonary vascular congestion. 2. Trace pleural effusions. 3. Emphysema. ACT 112: Negative or not required by law. The above report was generated using voice recognition software. It may contain grammatical, syntax o r spelling errors. Electronically signed by: Jake Colon M.D. 07/02/2022 5:55 PM
[2022-07-02 18:26] LABS: Basophils # (auto) 0.03 K/uL (0-0.2); Basophils % (auto) 0.7 %; Hematocrit (blood only) 39.6 % (42.0-52.0); Hemoglobin 13.3 g/dl (14.0-18.0); Immature Granulocytes # (auto) 0.01 K/uL (0.01-0.20); Immature Granulocytes % (auto) 0.2 %; Lymphocytes # (auto) 0.71 K/uL (1.2-3.4); Lymphocytes % (auto) 16.6 %; Mean Corpuscular Hemoglobin 32.1 pg (25.0-34.0); Mean Corpuscular Hgb Conc 33.6 g/dL (32.0-36.0); Mean Corpuscular Volume 95.7 fL (80.0-100.0); Mean Platelet Volume 10.8 fL (9.4-12.4); Monocytes # (auto) 0.35 K/uL (0.11-0.59); Monocytes % (auto) 8.2 %; Neutrophils # (auto) 3.19 K/uL (1.40-6.50); Neutrophils % (auto) 74.3 %; Platelet Count 186 K/uL (130-400); RDW Coefficient of Variation 14.8 % (11.5-14.5); RDW Standard Deviation 52.6 fL (36.4-46.3); Red Blood Count 4.14 M/uL (4.70-6.10); White Blood Count 4.29 K/ul (4.8-10.8)
[2022-07-02 18:27] LABS: iSTAT Creatinine 1.8 mg/dl (0.6-1.3); iSTAT Hemoglobin 13.9 g/dl (14.0-18.0); iSTAT Ionized Calcium 1.09 mmol/l (1.12-1.32); iSTAT Potassium 4.1 mmol/L (3.3-5.0)
[2022-07-02 18:32] LABS: Albumin Globulin Ratio 1.1 (0.9-2); Albumin Level 3.8 gm/dl (3.4-5.0); BUN Creatinine Ratio 18.4 (10-20); Bilirubin,Total 0.5 mg/dl (0.2-1.0); Calcium 8.7 mg/dl (8.5-10.1); Creatinine Clr Calc Pharmacy 32.8 ml/min; Est GFR (Non-African American) 34.5 ml/min; Globulin 3.4 gm/dl (2.5-4.0); Potassium 4.1 mmol/L (3.5-5.1); Total Protein 7.2 gm/dl (6.0-8.3)
[2022-07-02 18:39] LABS: Troponin I High Sensitivity 39.3 pg/ml (0-20)
[2022-07-02 18:45] LABS: INR 1.2 (0.9-1.1); Partial Thromboplastin Time 28.8 Seconds (21.0-31.0); Prothrombin Time 12.2 Seconds (9.0-12.0)
[2022-07-02] MEDS ORDERED: OPTIRAY 350 100ml IV ONE (19:01)
--- NOTE | 2022-07-02 19:45 | CT Scan Report ---
ABDOMEN AND PELVIS CT WITH IV CONTRAST CT DOSE: 543.24 mGy.cm HISTORY: Acute right upper quadrant abdominal pain ruq pain TECHNIQUE: Multiaxial CT images of the abdomen and pelvis were performed following the IV administrat ion of 88 cc of Optiray, A dose lowering technique was utilized adhering to the principles of ALARA. COMPARISON STUDY: Chest radiograph of same day, CT abdomen pelvis 11/17/2020 FINDINGS: Cardiomegaly. No pericardial effusion. Coronary artery calcifications. Bibasilar bronchial wall thickening. Mild subsegmental atelectasis versus scarring. No pneumatosis or pneumoperitoneum. U nchanged pleural thickening with calcifications of the right hemidiaphragm. Left upper quadrant splenosis redemonstrated. Mild generalized pancreatic atrophy. Unremarkable adren al glands. Distended gallbladder. Prominent periportal/portocaval hepatic lymph nodes are similar to prior. Unremarkable liver. Patency of the hepatic and portal veins. Bilateral renal cysts measure up to 5.2 cm on the right 1.9 cm on the left. 1.5 cm nonobstructing nilam culus of the inferior pole left kidney. No ureteral calculi or hydronephrosis. Mild urinary bladder w all thickening with partial distention. Prostamegaly. Right greater than left fat filled inguinal her nias. 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 No bowel obstruction or bowel wall thickening. Colonic diverticulosis. M ild to moderate fecal retention. Normal appendix. Unremarkable soft tissues. Degenerative changes of the spine, pelvis and left hip with right hip arthroplasty. Sagittally changes of the right hemipelvi s redemonstrated. IMPRESSION: 1. No acute intra-abdominal or intrapelvic abnormality. 2. No bowel obstruction or bowel wall thickening. 3. Colonic diverticulosis. 4. Left nephrolithiasis. 5. Additional findings as above. ACT 112: Negative or not required by law. The above report was generated using voice recognition software. It may contain grammatical, syntax o r spelling errors. Electronically signed by: Jake Colon M.D. 07/02/2022 7:42 PM
[2022-07-02 20:50] LABS: Appearance Urine Cloudy (Clear); Bacteria Urine Automated Negative (Negative); Bilirubin Urine Negative (Negative); Blood Urine 3+ (Negative); Color Urine Yellow; Glucose Urine UA Negative (Negative); Ketones Urine Negative (Negative); Leukocyte Esterase Urine Negative (Negative); Nitrite Urine Negative (Negative); Protein Urine Trace (Negative); RBC Urine Automated >30 /hpf (0-4); Specific Gravity Urine > 1.045 (1.000-1.030); Urobilinogen Urine Negative (Negative)
--- NOTE | 2022-07-02 21:22 | History & Physical Report ---
Date of Service July 02, 2022 Assessment & Plan (1) Abdominal pain, acute, right upper quadrant: Plan: Secondary to acute GI upset, GERD versus viral illness Troponin elevation in the setting of ARF on CKD Patient without chest pain/SOB symptoms hx CAD PAF on Eliquis hypertension, slight elevated hyperlipidemia on statin Rx prediabetes, hemoglobin A1c of 6.03 February 2022 chronic anemia, hemoglobin at baseline right parotid cancer status post surgery past tobacco abuse OBS Medical telemetry given troponin elevation Pepcid trial Follow troponin TTE for progression Monitor creatinine response to IV albumin (preferred over crystalloid given congestion on CXR) Hold patient home diuretic until creatinine back to baseline DVT prophylaxis Eliquis Full code Text document was generated using XING voice recognition software. It may contain grammatical or spelling errors. Kindly contact undersigned for clarification of any documentation item in question. History of Present Illness Chief Complaint: Right-sided/epigastric pain Primary Care Provider: Sergio Lenz MD History obtained from patient, family, and records. Medical history significant for CAD, PAF on Eliquis, mild mitral regurgitation, hypertension, hyperlipidemia, prediabetes, CRI (baseline creatinine 1.4), ch ronic anemia (baseline hemoglobin 12), right parotid cancer status post surgery, past tobacco abuse. Last confinement last month for hypertensive urgency. 2 days history of achy epigastric and right upper quadrant pain with nausea, vomiting. No diarrhea. No chest pain, no SOB. Not sure about sick contacts. Poor appetite, denies dysuria. Patient brought by family to the ER for evaluation. 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 Allergies Allergy/AdvReac Type Severity Reaction Status Date / Time No Known Allergies Allergy Verified 07/02/22 18:07 Home Medications Medication Instructions Recorded Confirmed Type aspirin 81 mg tablet,delayed 81 mg PO DAILY 11/16/20 07/02/22 History release atorvastatin 80 mg tablet 80 mg PO HS 11/16/20 07/02/22 History cholecalciferol (vitamin D3) 25 25 mcg PO DAILY 11/16/20 07/02/22 History mcg (1,000 unit) tablet (Vitamin D3) hydrochlorothiazide 25 mg tablet 12.5 mg PO DAILY 11/16/20 07/02/22 History amlodipine 5 mg tablet 5 mg PO QAM 07/02/22 07/02/22 History apixaban 5 mg tablet (Eliquis) 2.5 mg PO BID 07/02/22 07/02/22 History lisinopril 20 mg tablet 20 mg PO QAM 07/02/22 07/02/22 History metoprolol tartrate 50 mg tablet 50 mg PO BID 07/02/22 07/02/22 History Past Med/Surg History Medical History Dyslipidemia, goal LDL below 70 HTN (hypertension) NSTEMI (non-ST elevated myocardial infarction) PAF (paroxysmal atrial fibrillation) Social History Smoking Status: Never smoker Hx Alcohol Use: No Hx Substance Use: No Preferred Language: Albanian Communication Ability: Effective Chrome Plater Required: No Beliefs That Will Affect Care: None marital status: Current Living Situation: Spouse How many Children do You have: 2 Feels Safe at Home: Yes Safety Concerns: Feels Safe At This Time Assistive Devices: None Review of Systems Review of Systems: As per HPI, all other systems reviewed and negative Physical Exam Physical Exam: GENERAL: Comfortable, pleasant, no respiratory distress SKIN: Normal color, warm HEENT: Bespectacled, pink palpebral conjunctivae, chronic right ptosis, chronic right facial asymmetry, dry buccal mucosa NECK : Supple, no tenderness CHEST : CTA, no tenderness HEART : RRR, systolic murmur heard over left sternal border ABDOMEN: Some distention, nontender EXTREMITIES : No LE swelling/tenderness, no other conspicuous deformities noted NEUROLOGIC : Coherent, chronic facial asymmetry, no other gross focality Results & Data Results & Data ([facility]) Vital Signs (Past 12 Hours) Vital Signs Temp Pulse Pulse Resp BP BP Pulse Ox 07/02/22 21:16 70 20 152/80 H 93 07/02/22 20:37 67 20 159/75 H 94 07/02/22 19:14 95 07/02/22 19:14 61 20 134/68 96 07/02/22 17:50 59 L 29 H 142/77 H 98 07/02/22 17:40 61 21 07/02/22 17:30 62 20 92 07/02/22 17:32 65 07/02/22 17:29 36.8 C 70 20 142/77 H 94 O2 Del Method 07/02/22 21:16 Room Air 07/02/22 20:37 Room Air 07/02/22 19:14 Room Air 07/02/22 19:14 Room Air 07/02/22 17:50 Room Air 07/02/22 17:40 07/02/22 17:30 07/02/22 17:32 07/02/22 17:29 Room Air Laboratory Results Laboratory Results WBC 4.29 K/ul (4.8-10.8) L 07/02/22 17:50 RBC 4.14 M/uL (4.70-6.10) L 07/02/22 17:50 Hgb 13.3 g/dl (14.0-18.0) L 07/02/22 17:50 POC Hgb 13.9 g/dl (14.0-18.0) L 07/02/22 17:55 Hct 39.6 % (42.0-52.0) L 07/02/22 17:50 POC Hct 41 % (42-52) L 07/02/22 17:55 MCV 95.7 fL (80.0-100.0) 07/02/22 17:50 MCH 32.1 pg (25.0-34.0) 07/02/22 17:50 MCHC 33.6 g/dL (32.0-36.0) 07/02/22 17:50 RDW Std Deviation 52.6 fL (36.4-46.3) H 07/02/22 17:50 RDW Coeff of Derrek 14.8 % (11.5-14.5) H 07/02/22 17:50 Plt Count 186 K/uL (130-400) 07/02/22 17:50 MPV 10.8 fL (9.4-12.4) 07/02/22 17:50 Immature Gran % (Auto) 0.2 % 07/02/22 17:50 Neut % (Auto) 74.3 % 07/02/22 17:50 Lymph % (Auto) 16.6 % 07/02/22 17:50 [place] % (Auto) 8.2 % 07/02/22 17:50 Eos % (Auto) 0.0 % 07/02/22 17:50 Baso % (Auto) 0.7 % 07/02/22 17:50 Neut # (Auto) 3.19 K/uL (1.40-6.50) 07/02/22 17:50 Lymph # (Auto) 0.71 K/uL (1.2-3.4) L 07/02/22 17:50 [place] # (Auto) 0.35 K/uL (0.11-0.59) 07/02/22 17:50 Eos # (Auto) 0.00 K/uL (0-0.50) 07/02/22 17:50 Baso # (Auto) 0.03 K/uL (0-0.2) 07/02/22 17:50 Immature Gran # (Auto) 0.01 K/uL (0.01-0.20) 07/02/22 17:50 PT 12.2 Seconds (9.0-12.0) H 07/02/22 17:50 INR 1.2 (0.9-1.1) H 07/02/22 17:50 APTT 28.8 Seconds (21.0-31.0) 07/02/22 17:50 PTT Ratio 1.0 07/02/22 17:50 POC Sodium 137 mmol/L (135-144) 07/02/22 17:55 Sodium 136 mmol/L (136-145) 07/02/22 17:50 POC Potassium 4.1 mmol/L (3.3-5.0) 07/02/22 17:55 Potassium 4.1 mmol/L (3.5-5.1) 07/02/22 17:50 POC Chloride 99 mmol/L (101-112) L 07/02/22 17:55 Chloride 101 mmol/L (98-107) 07/02/22 17:50 Carbon Dioxide 28 mmol/L (21-32) 07/02/22 17:50 POC Total CO2 27 mmol/L (24-31) 07/02/22 17:55 Anion Gap 7 (3-11) 07/02/22 17:50 POC Anion Gap 16.0 mmol/L (16-25) 07/02/22 17:55 POC BUN 32 mg/dl (7-18) H 07/02/22 17:55 BUN 32 mg/dl (6-23) H 07/02/22 17:50 Creatinine 1.74 mg/dl (0.6-1.4) H 07/02/22 17:50 POC Creatinine 1.8 mg/dl (0.6-1.3) H 07/02/22 17:55 Est Cr Clr Drug Dosing 32.8 ml/min 07/02/22 17:50 Est GFR ( Amer) 40.0 ml/min 07/02/22 17:50 Est GFR (Non-Af Amer) 34.5 ml/min 07/02/22 17:50 BUN/Creatinine Ratio 18.4 (10-20) 07/02/22 17:50 Glucose 116 mg/dl (70-99(Fasting)) H 07/02/22 17:50 POC Glucose (other) 119 mg/dl (70-99) H 07/02/22 17:55 Calcium 8.7 mg/dl (8.5-10.1) 07/02/22 17:50 POC Ioniz Calcium Graham 1.09 mmol/l (1.12-1.32) L 07/02/22 17:55 Total Bilirubin 0.5 mg/dl (0.2-1.0) 07/02/22 17:50 AST 30 U/L (13-39) 07/02/22 17:50 ALT 23 U/L (7-52) 07/02/22 17:50 Alkaline Phosphatase 66 U/L (34-104) 07/02/22 17:50 Troponin I High Sens 39.3 pg/ml (0-20) H 07/02/22 17:50 Total Protein 7.2 gm/dl (6.0-8.3) 07/02/22 17:50 Albumin 3.8 gm/dl (3.4-5.0) 07/02/22 17:50 Globulin 3.4 gm/dl (2.5-4.0) 07/02/22 17:50 Albumin/Globulin Ratio 1.1 (0.9-2) 07/02/22 17:50 Lipase 60 U/L (11-82) 07/02/22 17:50 Urine Color Yellow 07/02/22 20:31 Urine Appearance Cloudy (Clear) A 07/02/22 20:31 Urine pH 5.0 (4.5-7.5) 07/02/22 20:31 Ur Specific [place] > 1.045 (1.000-1.030) H 07/02/22 20:31 Urine Protein Trace (Negative) H 07/02/22 20:31 Urine Glucose (UA) Negative (Negative) 07/02/22 20:31 Urine Ketones Negative (Negative) 07/02/22 20:31 Urine Blood 3+ (Negative) H 07/02/22 20:31 Urine Nitrite Negative (Negative) 07/02/22 20:31 Urine Bilirubin Negative (Negative) 07/02/22 20:31 Urine Urobilinogen Negative (Negative) 07/02/22 20:31 Ur Leukocyte Esterase Negative (Negative) 07/02/22 20:31 Urine WBC (Auto) 1-5 /hpf (0-5) 07/02/22 20:31 Urine RBC (Auto) >30 /hpf (0-4) H 07/02/22 20:31 U Hyaline Cast (Auto) 5-10 /lpf (0-5) H 07/02/22 20:31 U Epithel Cells (Auto) 5-10 /lpf (0-5) H 07/02/22 20:31 Urine Bacteria (Auto) Negative (Negative) 07/02/22 20:31 SARS-CoV-2, RNA, NAAT NEGATIVE (NEGATIVE) 07/02/22 17:42 Impressions Abdomen/Pelvis CT 07/02/22 17:[address] WITH IV CONTRAST CT DOSE: 543.24 mGy.cm HISTORY: Acute right upper quadrant abdominal pain ruq pain TECHNIQUE: Multiaxial CT images of the abdomen and pelvis were performed following the IV administration of 88 cc of Optiray, A dose lowering technique was utilized adhering to the principles of ALARA. COMPARISON STUDY: Chest radiograph of same day, CT abdomen pelvis 11/17/2020 FINDINGS: Cardiomegaly. No pericardial effusion. Coronary artery calcifications. Bibasilar bronchial wall thickening. Mild subsegmental atelectasis versus scarring. No pneumatosis or pneumoperitoneum. Unchanged pleural thickening with calcifications of the right hemidiaphragm. Left upper quadrant splenosis redemonstrated. Mild generalized pancreatic atrophy. Unremarkable adrenal glands. Distended gallbladder. Prominent periportal/portocaval hepatic lymph nodes are similar to prior. Unremarkable liver. Patency of the hepatic and portal veins. Bilateral renal cysts measure up to 5.2 cm on the right 1.9 cm on the left. 1.5 cm nonobstructing calculus of the inferior pole left kidney. No ureteral calculi or hydronephrosis. Mild urinary bladder wall thickening with partial distention. Prostamegaly. Right greater than left fat filled inguinal hernias. 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 No bowel obstruction or bowel wall thickening. Colonic diverticulosis. Mild to moderate fecal retention. Normal appendix. Unremarkable soft tissues. Degenerative changes of the spine, pelvis and left hip with right hip arthroplasty. Sagittally changes of the right hemipelvis redemonstrated. IMPRESSION: 1. No acute intra-abdominal or intrapelvic abnormality. 2. No bowel obstruction or bowel wall thickening. 3. Colonic diverticulosis. 4. Left nephrolithiasis. 5. Additional findings as above. ACT 112: Negative or not required by law. The above report was generated using voice recognition software. It may contain grammatical, syntax or spelling errors. Electronically signed by: Jake Colon M.D. 07/02/2022 7:42 PM Chest X-Ray 07/02/22 17:29 XR chest 1V portable HISTORY: 87 years-old Male abdominal pain acute chest and abdominal pain COMPARISON: CTA chest 05/28/2021 TECHNIQUE: AP view of the chest FINDINGS: 1.2 cm right upper lobe pulmonary hamartoma redemonstrated. Cardiac silhouette is mildly enlarged. Pulmonary vascular congestion. Trace pleural effusions. No pneumothorax. Mild pulmonary emphysema. Degenerative changes of the shoulders and spine. IMPRESSION: 1. Cardiomegaly with pulmonary vascular congestion. 2. Trace pleural effusions. 3. Emphysema. ACT 112: Negative or not required by law. The above report was generated using voice recognition software. It may contain grammatical, syntax or spelling errors. Electronically signed by: Jake Colon M.D. 07/02/2022 5:55 PM Diagnostic Findings EKG as per my interpretation :Rate 65, NSR, normal axis, 1 AVB, inferior infarct, T wave abnormalities inferior leads
[2022-07-02] MEDS ORDERED: ACETAMINOPHEN 325 MG TAB PO PRN ×2 (21:25→22:52)
[2022-07-02] MEDS ORDERED: PROMETHAZINE HCL 12.5 MG in SODIUM CHLORIDE 0.9% 50 ML IV PRN (21:25)
[2022-07-02] MEDS ORDERED: HYDROmorphone INJ 0.5 MG/0.5 ML SYR IV PRN (21:25)
[2022-07-02 21:36] LABS: Magnesium 1.9 mg/dl (1.7-2.4)
[2022-07-02 21:44] LABS: Troponin I High Sensitivity 33.4 pg/ml (0-20)
[2022-07-02] MEDS ORDERED: FAMOTIDINE 20 MG in SYRINGE 3 ML IV ONE (23:30)
[2022-07-02] MEDS: oxyCODONE HCL IR 5 MG TAB (IMMEDIATE RELEASE) PO PRN (23:59)
[2022-07-03] MEDS ORDERED: ALBUMIN HUMAN IV ONE (00:26)
[2022-07-03] MEDS: APIXABAN 2.5 MG TAB PO SCH ×2 (00:31→08:38)
[2022-07-03] MEDS: ALBUMIN 25% 100 mL 25 GM/100 ML VIAL IV SCH ×2 (00:34→06:03)
[2022-07-03] MEDS: oxyCODONE HCL IR 5 MG TAB (IMMEDIATE RELEASE) PO PRN (04:01)
[2022-07-03 06:50] LABS: Basophils # (auto) 0.03 K/uL (0-0.2); Basophils % (auto) 0.7 %; Eosinophils # (auto) 0.01 K/uL (0-0.50); Eosinophils % (auto) 0.2 %; Hemoglobin 12.1 g/dl (14.0-18.0); Immature Granulocytes # (auto) 0.02 K/uL (0.01-0.20); Immature Granulocytes % (auto) 0.5 %; Lymphocytes # (auto) 0.84 K/uL (1.2-3.4); Mean Corpuscular Hemoglobin 31.8 pg (25.0-34.0); Mean Corpuscular Hgb Conc 33.6 g/dL (32.0-36.0); Mean Corpuscular Volume 94.5 fL (80.0-100.0); Mean Platelet Volume 10.5 fL (9.4-12.4); Monocytes # (auto) 0.44 K/uL (0.11-0.59); Monocytes % (auto) 10.5 %; Neutrophils # (auto) 2.86 K/uL (1.40-6.50); Neutrophils % (auto) 68.1 %; Platelet Count 162 K/uL (130-400); RDW Coefficient of Variation 14.7 % (11.5-14.5); Red Blood Count 3.81 M/uL (4.70-6.10)
[2022-07-03 07:23] LABS: BUN Creatinine Ratio 20.6 (10-20); Calcium 8.5 mg/dl (8.5-10.1); Est GFR (African American) 53.8 ml/min; Est GFR (Non-African American) 46.5 ml/min; Potassium 3.8 mmol/L (3.5-5.1)
[2022-07-03] MEDS: METOPROLOL TARTRATE 50 MG TAB PO SCH ×2 (07:45)
[2022-07-03] MEDS ORDERED: ASPIRIN 81 MG ECTAB PO SCH (09:00)
[2022-07-03] MEDS ORDERED: FAMOTIDINE 20 MG TAB PO SCH (09:00)
[2022-07-03] MEDS ORDERED: amLODIPine BESYLATE 5 MG TAB PO SCH (09:00)
--- NOTE | 2022-07-03 10:10 | Electrocardiogram Report ---
Test Reason : Blood Pressure : / mmHG Vent. Rate : 065 BPM Atrial Rate : 065 BPM P-R Int : 246 ms QRS Dur : 088 ms QT Int : 412 ms P-R-T Axes : 071 008 036 degrees QTc Int : 428 ms Poor data quality, interpretation may be adversely affected Sinus rhythm with 1st degree A-V block Cannot rule out Inferior infarct , age undetermined Abnormal ECG When compared with ECG of 28-MAY-2021 07:16, NC interval has increased QT has shortened Confirmed by Thomas Mcguire ([id number]) on 07/03/2022 10:10:14 AM Referred By: REFERRED SELF Confirmed By:Thomas Mcguire
--- NOTE | 2022-07-03 15:22 | Discharge Summary ---
Discharge Summary Date of Service July 03, 2022 Admission HPI Per Admitting Provider History obtained from patient, family, and records. Medical history significant for CAD, PAF on Eliquis, mild mitral regurgitation, hypertension, hyperlipidemia, prediabetes, CRI (baseline creatinine 1.4), chronic anemia (baseline hemoglobin 12), right parotid cancer status post surgery, past tobacco abuse. Last confinement last month for hypertensive urgency. 2 days history of achy epigastric and right upper quadrant pain with nausea, vomiting. No diarrhea. No chest pain, no SOB. Not sure about sick contacts. Poor appetite, denies dysuria. Patient brought by family to the ER for evaluation. 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 #1 = Principal Diagnosis (1) Abdominal pain, acute, right upper quadrant: Secondary to acute GI upset, GERD versus viral illness Troponin elevation in the setting of ARF on CKD Patient without chest pain/SOB symptoms hx CAD PAF on Eliquis hypertension, slight elevated hyperlipidemia on statin Rx prediabetes, hemoglobin A1c of 6.03 February 2022 chronic anemia, hemoglobin at baseline right parotid cancer status post surgery past tobacco abuse OBS Medical telemetry given troponin elevation Pepcid trial Follow troponin TTE for progression Monitor creatinine response to IV albumin (preferred over crystalloid given congestion on CXR) Hold patient home diuretic until creatinine back to baseline DVT prophylaxis Eliquis Full code Text document was generated using Workface voice recognition software. It may contain grammatical or spelling errors. Kindly contact undersigned for clarification of any documentation item in question. (2) Acute gastroenteritis: Plan By CMS guidelines, a determination that the admission or continued stay is not medically necessary has been made by a member of the Utilization Review committee and a physician for this hospital stay. Therefore, a Code 44 will be completed and the inpatient admission will be changed to outpatient. Updated Medication List Medication Instructions Recorded Confirmed Type aspirin 81 mg tablet,delayed 81 mg PO DAILY 11/16/20 07/02/22 History release atorvastatin 80 mg tablet 80 mg PO HS 11/16/20 07/02/22 History cholecalciferol (vitamin D3) 25 25 mcg PO DAILY 11/16/20 07/02/22 History mcg (1,000 unit) tablet (Vitamin D3) hydrochlorothiazide 25 mg tablet 12.5 mg PO DAILY 11/16/20 07/02/22 History amlodipine 5 mg tablet 5 mg PO QAM 07/02/22 07/02/22 History apixaban 5 mg tablet (Eliquis) 2.5 mg PO BID 07/02/22 07/02/22 History lisinopril 20 mg tablet 20 mg PO QAM 07/02/22 07/02/22 History metoprolol tartrate 50 mg tablet 50 mg PO BID 07/02/22 07/02/22 History oxycodone 5 mg tablet 5 mg PO Q4H PRN severe pain #10 07/03/22 Rx tabs promethazine 25 mg tablet 25 mg PO Q6H PRN nausea and 07/03/22 Rx vomiting #10 tabs Hospital Stay Data Consultations 07/02/22 20:28 ED Decision to Admit Stat Diagnostic Imagining Performed 07/02/22 17:28 CT abd pelvis IV con only Stat Pending Results Patient Have Any Pending Studies at Discharge: No Discharge Instructions Given to Patient (Per Discharging Provider) Please take all medications as instructed on discharge list below. Please HOLD off taking HCTZ (hydrochlorothiazide) until your followup with primary care next week. You are being given oxycodone to use only if your severe pain returns. Also, you are being given Phenergan if you have sever nausea or vomiting. Please followup with your primary care provider in 1 week to ensure you are still feeling well since returning home. Would consider repeating labs at that time, also (kidney function). You abdominal scan showed that you do have cysts in your kidneys, which your primary care physician can monitor for you. You also were seen to have evidence of kidney stones that are not obstructing any pathways. It was a pleasure taking care of you! Please call if you have any questions or problems. You can reach a [facility] hospitalist on duty at [facility] 24 hours a day by calling [phone]. Take care of yourself. Sowmya Leiva, DO [facility]
--- NOTE | 2022-07-03 15:25 | Communication Note ---
Date of Service: July 03, 2022 By CMS guidelines, a determination that the admission or continued stay is not medically necessary has been made by a member of the UR committee and a physician for this hospital stay, therefore a Code 44 will be completed and the Inpatient admission will be changed to outpatient. Yazmin Stevenson M.D.
[2022-07-03] MEDS ORDERED: ATORVASTATIN 40 MG TAB PO SCH (21:00)
[2022-07-04] MEDS ORDERED: FAMOTIDINE 20 MG TAB PO SCH (09:00)
== END 2022-07-03 16:10 | disposition home or self-care (01) | DRG 392 ==
LOC: ED 17:20 → 2W 21:24 → SUATTDRO 21:24 → INTOOBSV 21:24 → 2W 22:05

== ENCOUNTER 2022-07-12 17:37 | Inpatient (IN) ==
[2022-07-12 18:13] LABS: Basophils # (auto) 0.04 K/uL (0-0.2); Basophils % (auto) 0.3 %; Eosinophils # (auto) 0.01 K/uL (0-0.50); Eosinophils % (auto) 0.1 %; Hemoglobin 11.7 g/dl (14.0-18.0); Immature Granulocytes # (auto) 0.09 K/uL (0.01-0.20); Immature Granulocytes % (auto) 0.7 %; Lymphocytes % (auto) 20.7 %; Mean Corpuscular Hemoglobin 31.8 pg (25.0-34.0); Mean Corpuscular Hgb Conc 32.5 g/dL (32.0-36.0); Mean Corpuscular Volume 97.8 fL (80.0-100.0); Mean Platelet Volume 10.2 fL (9.4-12.4); Monocytes # (auto) 0.93 K/uL (0.11-0.59); Monocytes % (auto) 7.1 %; Neutrophils # (auto) 9.26 K/uL (1.40-6.50); Neutrophils % (auto) 71.1 %; Platelet Count 299 K/uL (130-400); RDW Coefficient of Variation 15.3 % (11.5-14.5); RDW Standard Deviation 55.7 fL (36.4-46.3); Red Blood Count 3.68 M/uL (4.70-6.10); White Blood Count 13.03 K/ul (4.8-10.8)
[2022-07-12 18:23] LABS: INR 1.1 (0.9-1.1); Partial Thromboplastin Time 27.5 Seconds (21.0-31.0); Prothrombin Time 11.6 Seconds (9.0-12.0)
--- NOTE | 2022-07-12 18:46 | XRay Report ---
XR chest 1V portable CLINICAL HISTORY: Dyspnea TECHNIQUE: Single frontal radiograph of the chest was obtained. Comparison: Comparison is made to chest radiograph 07/02/2022 FINDINGS: No lines and tubes are seen. Cardiomegaly is noted. The aortic arch is calcified. Faint bibasilar air space opacities are seen. Emphysema is noted. No evidence of pleural effusion or pneumothorax. IMPRESSION: Faint bibasilar airspace opacities which may represent atelectasis, pneumonia, and/or aspiration. ACT 112: Negative or not required by law. Electronically signed by: Brandon Caldwell M.D. 07/12/2022 6:45 PM
[2022-07-12 18:49] LABS: Albumin Globulin Ratio 1.1 (0.9-2); Albumin Level 3.6 gm/dl (3.4-5.0); BUN Creatinine Ratio 20.2 (10-20); Bilirubin,Total 0.7 mg/dl (0.2-1.0); Creatinine Clr Calc Pharmacy 50.1 ml/min; Est GFR (African American) 66.6 ml/min; Est GFR (Non-African American) 57.5 ml/min; Globulin 3.3 gm/dl (2.5-4.0); Magnesium 1.9 mg/dl (1.7-2.4); Total Protein 6.9 gm/dl (6.0-8.3)
[2022-07-12 18:55] LABS: Troponin I High Sensitivity 33.4 pg/ml (0-20)
[2022-07-12 18:59] LABS: Influenza A virus by PCR Negative (Neg); Influenza B virus by PCR Negative (Neg); RSV by PCR Negative (Neg); SARS CoV2 RNA(COVID-19) Ceph NEGATIVE (Negative)
[2022-07-12] MEDS ORDERED: PIPERACILLIN/TAZOBACTAM 4.5 GM/120 ML BAG IV ONE (19:18)
[2022-07-12] MEDS ORDERED: ACETAMINOPHEN 500 MG TAB PO STA (19:18)
[2022-07-12] MEDS ORDERED: METOPROLOL TARTRATE 50 MG TAB PO STA (19:25)
--- NOTE | 2022-07-12 19:25 | Emergency Department Note ---
Impression & Plan Pneumonia, Breathlessness, Anticoagulant long-term use, Sepsis ED Provider Note Provider: Pancho Finch MD DATE OF SERVICE: 07/12/2022 CHIEF COMPLAINT: Shortness of breath, fever HISTORY OF PRESENT ILLNESS: Patient is a 87-year-old gentleman history of parotid tumor, CKD, paroxysmal atrial fibrillation on Eliquis and hypertension presenting here today reporting developing some shortness of breath intermittently last day or 2 with fever developing this afternoon. Denies any falls or trauma. Denies abdominal symptoms currently. Recently hospitalized for abdominal issues. Denies choking. Did not take anything for fever prior to arrival. Denies chest pain today. Appetite and intake has been okay but he has not family report. PAST MEDICAL HISTORY: As noted above MEDICATIONS: Reviewed home medications SOCIAL HISTORY: Non-smoker, lives at home with PHYSICAL EXAM: GENERAL: alert and oriented in no acute distress on stretcher Head: Atraumatic with healed right cheek resection. Significant right facial droop. EYES: No injection, discharge or icterus. NECK: Trachea midline. Supple. ENT: Mucous membranes pink and moist. LUNGS: Airway patent. No retractions. Breath sounds diminished at the bases HEART: Regular tachycardia rate and rhythm. No chest wall tenderness ABDOMEN: Soft and non-tender, without guarding or rebound. SKIN: Acyanotic, warm, dry, without rashes EXTREMITIES: Without tenderness with trace bilateral pedal edema. NEUROLOGICAL: No aphasia. Right facial droop chronic. Moving extremities to command without issue. EK bpm appears to be sinus tachycardia without PVC. No acute ST segment elevation but inferior T wave inversions and some significant lateral ST depression/T wave inversions noted. QTc 428. EKG 2: 81 bpm with first-degree AV block with sinus arrhythmia. No acute ST segment elevation with improved lateral ST depressions compared to earlier CONTINUOUS CARDIAC MONITORING: was ordered and showed a heart rate of 100s-110s bpm in sinus tachycardia and later 70s to 90s beats per minute first-degree heart block Patient's laboratory studies and imaging reviewed. Differential includes Reactive airway disease, pneumonia, pneumothorax, COPD, CHF, infections, cardiac ischemia, pulmonary embolism, musculoskeletal, gas trointestinal, as well as other pathologies. IMPRESSION/MEDICAL DECISION MAKING: Patient with some intermittent shortness of breath last several days developed a fever this afternoon. Elevated white blood cell count today. Denies any active chest pain. Negative COVID and flu. X-ray questions some lower lobe atelectasis versus pneumonia. Denies choking. We will give Zosyn given recent hospitalization to cover for pneumonia and any aspiration. Is anticoagulated and doubt PE with this. EKG does show some lateral ST change but he denies any chest pain. Could be related to his fever and borderline sepsis. He was recently diuresed in May and received 500 mL of fluid for EMS. At this time want to avoid aggressive fluid resuscitation that could precipitate heart failure or pulmonary edema situation. He is been having good oral intake. He is not hypotensive and has a normal lactate at this point. Repeat EKG will be obtained. Troponin is stable at this point and again doubt an acute coronary syndrome/STEMI. Discussed with the patient his family at bedside. Discussed with the hospitalist and will admit. Repeat EKG is improved. Hospitalist did order the patient's metoprolol and the decreased heart rate seems to improved his ST segments laterally. DIAGNOSIS: Pneumonia, shortness of breath, long-term anticoagulation, EKG changes/tachycardia, sepsis DISPOSITION: Hospitalist will evaluate Patient was agreeable with this plan. 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 HTN (hypertension) NSTEMI (non-ST elevated myocardial infarction) PAF (paroxysmal atrial fibrillation) Surgical History (Updated 07/12/22 @ 19:40 by Kalli Riley PA-C) H/O splenectomy Hx of cataract surgery Hx of tonsillectomy Family History (Updated 07/12/22 @ 19:38 by Kalli Riley PA-C) Other Heart disease Hypertension Social History (Updated 07/12/22 @ 19:38 by Kalli Riley PA-C) Smoking Status: Former smoker Tobacco Type: Cigarettes Hx Alcohol Use: No Hx Substance Use: No Preferred Language: Chinese Communication Ability: Effective [employer] Required: No Beliefs That Will Affect Care: None marital status: Current Living Situation: Spouse How many Children do You have: 2 Feels Safe at Home: Yes Assistive Devices: None Allergies Allergies Allergy/AdvReac Type Severity Reaction Status Date / Time No Known Allergies Allergy Verified 07/12/22 19:39 Home Meds Home Medications Medication Instructions Recorded Confirmed aspirin 81 mg tablet,delayed 81 mg PO DAILY 11/16/20 07/12/22 release atorvastatin 80 mg tablet 80 mg PO HS 11/16/20 07/12/22 cholecalciferol (vitamin D3) 25 25 mcg PO DAILY 11/16/20 07/12/22 mcg (1,000 unit) tablet (Vitamin D3) amlodipine 5 mg tablet 5 mg PO QAM 07/02/22 07/12/22 apixaban 5 mg tablet (Eliquis) 2.5 mg PO BID 07/02/22 07/12/22 lisinopril 20 mg tablet 20 mg PO QAM 07/02/22 07/12/22 metoprolol tartrate 50 mg tablet 50 mg PO BID 07/02/22 07/12/22 hydrochlorothiazide 25 mg tablet 12.5 mg PO DAILY 07/12/22 07/12/22 Previous Rx's Medication Instructions Recorded oxycodone 5 mg tablet 5 mg PO Q4H PRN severe pain #10 07/03/22 tabs Results & Data (ED) Vital Signs Vital Signs - 24 hr 07/12/22 17:48 07/12/22 17:48 07/12/22 17:54 Temperature 37.1 C Temperature Source Oral Pulse Rate 104 H Pulse Rate [Apical] 108 H Pulse Rhythm [Apical] Pulse Strength [Apical] Respiratory Rate 16 16 Respiratory Effort / Characteristics Respiratory Depth Normal Respiratory Pattern Blood Pressure 167/94 H Blood Pressure [Left Arm] Blood Pressure Mean 118 Blood Pressure Mean [Left Arm] Pulse Oximetry 96 93 Oxygen Delivery Method Room Air Room Air Room Air Sepsis Recent Fever Within 48 Hours Yes Sepsis New/Unexplained Change in Mental Status N/A Sepsis Action Taken by Nursing No Action Required 07/12/22 17:54 07/12/22 18:11 07/12/22 18:30 Temperature Temperature Source Pulse Rate 108 H Pulse Rate [Apical] Pulse Rhythm [Apical] Pulse Strength [Apical] Respiratory Rate Respiratory Effort / Characteristics Respiratory Depth Respiratory Pattern Blood Pressure Blood Pressure [Left Arm] Blood Pressure Mean Blood Pressure Mean [Left Arm] Pulse Oximetry 93 Oxygen Delivery Method Room Air Room Air Sepsis Recent Fever Within 48 Hours Sepsis New/Unexplained Change in Mental Status Sepsis Action Taken by Nursing 07/12/22 21:38 07/12/22 21:54 07/12/22 21:59 Temperature 37.6 C H Temperature Source Oral Pulse Rate Pulse Rate [Apical] 65 62 Pulse Rhythm [Apical] Regular Regular Pulse Strength [Apical] Normal Normal Respiratory Rate 15 16 Respiratory Effort / Characteristics Non-Labored Spontaneous Non-Labored Respiratory Depth Normal Normal Respiratory Pattern Regular Regular Blood Pressure Blood Pressure [Left Arm] 128/64 109/61 Blood Pressure Mean Blood Pressure Mean [Left Arm] 85 77 Pulse Oximetry 94 94 Oxygen Delivery Method Room Air Room Air Sepsis Recent Fever Within 48 Hours Sepsis New/Unexplained Change in Mental Status Sepsis Action Taken by Nursing Laboratory Data 07/12/22 17:45 07/12/22 17:45 Lab Results 07/12/22 07/12/22 07/12/22 Range/Units 17:45 17:45 17:45 WBC 13.03 H (4.8-10.8) K/ul RBC 3.68 L (4.70-6.10) M/uL Hgb 11.7 L (14.0-18.0) g/dl Hct 36.0 L (42.0-52.0) % MCV 97.8 (80.0-100.0) fL MCH 31.8 (25.0-34.0) pg MCHC 32.5 (32.0-36.0) g/dL RDW Std Deviation 55.7 H (36.4-46.3) fL RDW Coeff of Derrek 15.3 H (11.5-14.5) % Plt Count 299 (130-400) K/uL MPV 10.2 (9.4-12.4) fL Immature Gran % (Auto) 0.7 % Neut % (Auto) 71.1 % Lymph % (Auto) 20.7 % Schleicher % (Auto) 7.1 % Eos % (Auto) 0.1 % Baso % (Auto) 0.3 % Neut # (Auto) 9.26 H (1.40-6.50) K/uL Lymph # (Auto) 2.70 (1.2-3.4) K/uL Schleicher # (Auto) 0.93 H (0.11-0.59) K/uL Eos # (Auto) 0.01 (0-0.50) K/uL Baso # (Auto) 0.04 (0-0.2) K/uL Immature Gran # (Auto) 0.09 (0.01-0.20) K/uL PT 11.6 (9.0-12.0) Seconds INR 1.1 (0.9-1.1) APTT 27.5 (21.0-31.0) Seconds PTT Ratio 1.0 Sodium 139 (136-145) mmol/L Potassium 4.0 (3.5-5.1) mmol/L Chloride 105 (98-107) mmol/L Carbon Dioxide 30 (21-32) mmol/L Anion Gap 4 (3-11) BUN 23 (6-23) mg/dl Creatinine 1.14 (0.6-1.4) mg/dl Est Cr Clr Drug Dosing 50.1 ml/min Est GFR ( Amer) 66.6 ml/min Est GFR (Non-Af Amer) 57.5 ml/min BUN/Creatinine Ratio 20.2 H (10-20) Glucose 112 H (70-99(Fasting)) mg/dl Lactate (0.4-2.0) mmol/L Calcium 8.0 L (8.5-10.1) mg/dl Magnesium 1.9 (1.7-2.4) mg/dl Total Bilirubin 0.7 (0.2-1.0) mg/dl AST 29 (13-39) U/L ALT 29 (7-52) U/L Alkaline Phosphatase 66 (34-104) U/L Troponin I High Sens 33.4 H (0-20) pg/ml B-Natriuretic Peptide (0-100) pg/ml Total Protein 6.9 (6.0-8.3) gm/dl Albumin 3.6 (3.4-5.0) gm/dl Globulin 3.3 (2.5-4.0) gm/dl Albumin/Globulin Ratio 1.1 (0.9-2) SARS-CoV-2 (PCR) (Negative) Influenza Type A (PCR) (Neg) Influenza Type B (PCR) (Neg) RSV (RT-PCR) (Neg) 07/12/22 07/12/22 07/12/22 Range/Units 17:45 18:07 18:07 WBC (4.8-10.8) K/ul RBC (4.70-6.10) M/uL Hgb (14.0-18.0) g/dl Hct (42.0-52.0) % MCV (80.0-100.0) fL MCH (25.0-34.0) pg MCHC (32.0-36.0) g/dL RDW Std Deviation (36.4-46.3) fL RDW Coeff of Derrek (11.5-14.5) % Plt Count (130-400) K/uL MPV (9.4-12.4) fL Immature Gran % (Auto) % Neut % (Auto) % Lymph % (Auto) % Schleicher % (Auto) % Eos % (Auto) % Baso % (Auto) % Neut # (Auto) (1.40-6.50) K/uL Lymph # (Auto) (1.2-3.4) K/uL Schleicher # (Auto) (0.11-0.59) K/uL Eos # (Auto) (0-0.50) K/uL Baso # (Auto) (0-0.2) K/uL Immature Gran # (Auto) (0.01-0.20) K/uL PT (9.0-12.0) Seconds INR (0.9-1.1) APTT (21.0-31.0) Seconds PTT Ratio Sodium (136-145) mmol/L Potassium (3.5-5.1) mmol/L Chloride (98-107) mmol/L Carbon Dioxide (21-32) mmol/L Anion Gap (3-11) BUN (6-23) mg/dl Creatinine (0.6-1.4) mg/dl Est Cr Clr Drug Dosing ml/min Est GFR ( Amer) ml/min Est GFR (Non-Af Amer) ml/min BUN/Creatinine Ratio (10-20) Glucose (70-99(Fasting)) mg/dl Lactate 1.6 (0.4-2.0) mmol/L Calcium (8.5-10.1) mg/dl Magnesium (1.7-2.4) mg/dl Total Bilirubin (0.2-1.0) mg/dl AST (13-39) U/L ALT (7-52) U/L Alkaline Phosphatase (34-104) U/L Troponin I High Sens (0-20) pg/ml B-Natriuretic Peptide 372 H (0-100) pg/ml Total Protein (6.0-8.3) gm/dl Albumin (3.4-5.0) gm/dl Globulin (2.5-4.0) gm/dl Albumin/Globulin Ratio (0.9-2) SARS-CoV-2 (PCR) NEGATIVE (Negative) Influenza Type A (PCR) Negative (Neg) Influenza Type B (PCR) Negative (Neg) RSV (RT-PCR) Negative (Neg) Administered Medications Discontinued Medications Acetaminophen (Acetaminophen 500 Mg Tab) 1,000 mg PO NOW STA Stop: 07/12/22 19:19 Last Admin: 07/12/22 19:46 Dose: 1,000 mg Documented By: TIMOTHY Doxycycline Hyclate (Doxycycline Hyclate 100 Mg Cap) 100 mg PO NOW STA Stop: 07/12/22 21:08 Last Admin: 07/12/22 21:27 Dose: 100 mg Documented By: TIMOTHY Furosemide (Furosemide Inj 20 Mg/2 Ml Vial) 20 mg IV ONE ONE Stop: 07/12/22 21:06 Last Admin: 07/12/22 21:27 Dose: 20 mg Documented By: TIMOTHY Piperacillin Sod/Tazobactam Sod (Zosyn) 4.5 gm in 120 mls @ 240 mls/hr IV NOW ONE Stop: 07/12/22 19:47 Last Infusion: 07/12/22 20:55 Dose: 240 mls/hr Documented By: Admin: 07/12/22 19:46 Dose: 240 mls/hr Documented By: TIMOTHY Magnesium Sulfate/Dextrose (Magnesium Sulfate / D5w) 1 gm in 100 mls @ 50 mls/hr IV ONE ONE Stop: 07/12/22 21:25 Last Admin: 07/12/22 21:28 Dose: 50 mls/hr Documented By: TIMOTHY Metoprolol Tartrate (Metoprolol Tartrate 50 Mg Tab) 50 mg PO NOW STA Stop: 07/12/22 19:26 Last Admin: 07/12/22 19:46 Dose: 50 mg Documented By: TIMOTHY Imaging Data Radiologist's Impression: Chest X-Ray 07/12/22 17:59 XR chest 1V portable CLINICAL HISTORY: Dyspnea TECHNIQUE: Single frontal radiograph of the chest was obtained. Comparison: Comparison is made to chest radiograph 07/02/2022 FINDINGS: No lines and tubes are seen. Cardiomegaly is noted. The aortic arch is calcified. Faint bibasilar airspace opacities are seen. Emphysema is noted. No evidence of pleural effusion or pneumothorax. IMPRESSION: Faint bibasilar airspace opacities which may represent atelectasis, pneumonia, and/or aspiration. ACT 112: Negative or not required by law. Electronically signed by: Brandon Caldwell M.D. 07/12/2022 6:45 PM Discharge Plan Visit Data Chief Complaint: Shortness of Breath/Dyspnea ED Provider: Pancho Finch Discharge Problem: Pneumonia, Breathlessness, Anticoagulant long-term use, Sepsis Patient Disposition: Being Evaluated by Hospitalist Forms Stand Alone Forms: My [email or web address] Prescriptions Prescriptions: No Action lisinopril 20 mg tablet 20 mg PO QAM metoprolol tartrate 50 mg tablet 50 mg PO BID amlodipine 5 mg tablet 5 mg PO QAM Eliquis 5 mg tablet 2.5 mg PO BID oxycodone 5 mg Tablet 5 mg PO Q4H PRN (Reason: severe pain) Qty: 10 0RF atorvastatin 80 mg tablet 80 mg PO HS aspirin 81 mg Tablet,Delayed Release (Dr/Ec) 81 mg PO DAILY cholecalciferol (vitamin D3) [Vitamin D3] 25 mcg (1,000 unit) Tablet 25 mcg PO DAILY hydrochlorothiazide 25 mg tablet 12.5 mg PO DAILY Referrals Referrals: Sergio Lenz MD [Primary Care Provider] - Pneumonia Qualifiers: Pneumonia type: due to unspecified organism Laterality: bilateral Lung location: lower lobe of lung Qualified Code(s): J18.9 - Pneumonia, unspecified organism
[2022-07-12] MEDS ORDERED: MAGNESIUM SULFATE / D5W 1 GM/100 ML BAG IV ONE (19:26)
--- NOTE | 2022-07-12 19:46 | History & Physical Report ---
Date of Service July 12, 2022 Assessment & Plan (1) Pneumonitis: (2) SOB (shortness of breath): (3) PAF (paroxysmal atrial fibrillation): (4) CKD (chronic kidney disease), stage III: (5) HTN (hypertension): (6) Dyslipidemia, goal LDL below 70: Plan: - Admit to [facility] tele - CXR reviewed showing- Faint bibasilar airspace opacities which may represent atelectasis, pneumonia, and/or aspiration. History of gastritis on 07/02 07/03 he was seen in the hospital, possible aspiration with vomiting. Acute onsent of fever, 103.1 at home today. Patient took Tylenol at home. - Pt was started on zosyn IV in the ER, can continue for now - Mag is 1.9, given IV in the ER to help with shortness of breath sensation - BNP is slightly elevated at 372 - Likely secondary to holding HCTZ from 07/03 and not yet restarting the medication - suspect some slight volume congestion in lungs which is contributing today- resume HCTZ vs trial of small dose of lasix iv - Cr. improved at 1.14, BUN 23 as it was 1.74/32 - Continue Eliquis 2.5 mg daily - Continue atorvastatin - Home regimen includes-Amlodipine 5 mg, baby aspirin, lisinopril 20 mg daily, metoprolol 50 twice daily, HCTZ 12.5 mg QAM. Would continue BB to avoid rebound tachycardia. Bp is slightly elevated at 167/54 on admission DVT ppx: teds, scds, eliquis CODE: Full code Dispo: From home, likely to remain in the hospital x 1-2 days Please refer to attending addendum for additional information and complete plan. A total of 75 minutes were spent with greater than 50% of that time face to face with the patient, personally reviewing all current laboratories, imaging studies, past medication reconciliation, outpatient chart review, and discussion with specialists to collaborate care for the patient with attending. Please see attending documentation for corrections and/or additions. 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 He was recently seen here in the hospital for an acute gastritis and right upper quadrant pain at the end of June. At that time he was found to be in [place] and when his diuretic, HCTZ, was held at time of discharge and has not yet resumed. He was scheduled to follow-up with his PCP within 1 week and to get repeat BMP to monitor kidney function. Today a case liner called the patient for follow-up, and he was complaining of mild dyspnea on exertion which was relieved with resting. This afternoon the patient spiked a fever of 103.1, had chills, and felt worse with shortness of breath. He was using his 's albuterol inhaler for an audible wheeze, which did seem to improve his symptoms. He was scheduled to see his PCP tomorrow, 07/13/2022. Pt states has had an upper respiratory type symptoms with cough, runny nose for approximately the last month. He reports that he previously weighed 209 pounds in May 2022 when he saw his PCP at the office, and today weighed 191. He reports poor p.o. intake due to gastritis, but that his appetite is slowly improving. He has no difficulty with fluid intake. He does not weigh himself daily. Patient denies any swelling in his legs, feet or fingers. Allergies Allergy/AdvReac Type Severity Reaction Status Date / Time No Known Allergies Allergy Verified 07/12/22 19:39 Home Medications Medication Instructions Recorded Confirmed Type aspirin 81 mg tablet,delayed 81 mg PO DAILY 11/16/20 07/12/22 History release atorvastatin 80 mg tablet 80 mg PO HS 11/16/20 07/12/22 History cholecalciferol (vitamin D3) 25 25 mcg PO DAILY 11/16/20 07/12/22 History mcg (1,000 unit) tablet (Vitamin D3) amlodipine 5 mg tablet 5 mg PO QAM 07/02/22 07/12/22 History apixaban 5 mg tablet (Eliquis) 2.5 mg PO BID 07/02/22 07/12/22 History lisinopril 20 mg tablet 20 mg PO QAM 07/02/22 07/12/22 History metoprolol tartrate 50 mg tablet 50 mg PO BID 07/02/22 07/12/22 History oxycodone 5 mg tablet 5 mg PO Q4H PRN severe pain #10 07/03/22 07/12/22 Rx tabs hydrochlorothiazide 25 mg tablet 12.5 mg PO DAILY 07/12/22 07/12/22 History 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 HTN (hypertension) NSTEMI (non-ST elevated myocardial infarction) PAF (paroxysmal atrial fibrillation) Surgical History (Updated 07/12/22 @ 19:40 by Kalli Riley PA-C) H/O splenectomy Hx of cataract surgery Hx of tonsillectomy Family History (Updated 07/12/22 @ 19:38 by Kalli Riley PA-C) Other Heart disease Hypertension Social History (Updated 07/12/22 @ 19:38 by Kalli Riley PA-C) Smoking Status: Former smoker Tobacco Type: Cigarettes Hx Alcohol Use: No Hx Substance Use: No Preferred Language: Khmer Communication Ability: Effective Computer Project Manager Required: No Beliefs That Will Affect Care: None marital status: Current Living Situation: Spouse How many Children do You have: 2 Feels Safe at Home: Yes Assistive Devices: None Review of Systems Review of Systems: Constitutional: No fever, sweats or chills Eyes: No diplopia, no worsening or blurred vision, right-sided ectropion, no soreness, chronic watering right eye ENT: normal hearing, no trouble swallowing, chronic right-sided facial droop after having right parotid tumor removal in 2010 Respiratory: + Cough, + occasional white sputum production, + CONLEY, none at rest, does not wear any supplemental O2 at baseline Cardiovascular: No chest pain, tightness or palpitations Abdomen: No pain, nausea, vomiting, diarrhea or constipation Musculoskeletal: No joint pain, calf pain, swelling Neurologic: No weakness, numbness/tingling, or balance problems Psychiatric: No anxiety or depression Skin: No rash or itch Physical Exam Physical Exam: General: awake, alert, no apparent distress Head: Normocephalic, right-sided facial droop status post parotid tumor removal. right-sided ectropion ENT: PERRL, EOMI, no pharyngeal exudate, mucous membranes moist Chest: Clear to auscultation, on room air, diminished breath sounds throughout, short shallow breaths throughout exam, no accessory muscle use. Cardiac: Regular rate and rhythm, no murmur, no JVD, normal peripheral pulses, good capillary refill Abdominal: NABS x 4 quadrants, soft, nondistended, nontender to palpation, no rebound or guarding Extremities: Normal inspection, no peripheral edema or erythema, calfs nontender to palpation Psych: Normal mood and affect Neuro: AAO x 3, strength intact bilaterally and rated 5/5, no motor deficits, speech is clear, no peripheral sensory deficits Results & Data Results & Data ([facility]) Vital Signs (Past 12 Hours) Vital Signs Temp Pulse Pulse Resp BP Pulse Ox O2 Del Method 07/12/22 18:30 108 H 07/12/22 18:11 93 Room Air 07/12/22 17:54 Room Air 07/12/22 17:54 108 H 16 93 Room Air 07/12/22 17:48 Room Air 07/12/22 17:48 37.1 C 104 H 16 167/94 H 96 Room Air Laboratory Results 07/12/22 18:10 Aerobic Blood Culture - Pending Blood Anaerobic Blood Culture - Pending 07/12/22 18:07 Aerobic Blood Culture - Pending Blood Anaerobic Blood Culture - Pending 07/12/22 07/12/22 07/12/22 18:07 18:07 17:45 WBC RBC Hgb Hct MCV MCH MCHC RDW Std Deviation RDW Coeff of Derrek Plt Count MPV Immature Gran % (Auto) Neut % (Auto) Lymph % (Auto) Griggs % (Auto) Eos % (Auto) Baso % (Auto) Neut # (Auto) Lymph # (Auto) Griggs # (Auto) Eos # (Auto) Baso # (Auto) Immature Gran # (Auto) PT INR APTT PTT Ratio Sodium Potassium Chloride Carbon Dioxide Anion Gap BUN Creatinine Est Cr Clr Drug Dosing Est GFR ( Amer) Est GFR (Non-Af Amer) BUN/Creatinine Ratio Glucose Lactate 1.6 Calcium Magnesium Total Bilirubin AST ALT Alkaline Phosphatase Troponin I High Sens B-Natriuretic Peptide 372 H Total Protein Albumin Globulin Albumin/Globulin Ratio SARS-CoV-2 (PCR) NEGATIVE Influenza Type A (PCR) Negative Influenza Type B (PCR) Negative RSV (RT-PCR) Negative 07/12/22 07/12/22 07/12/22 17:45 17:45 17:45 WBC 13.03 H RBC 3.68 L Hgb 11.7 L Hct 36.0 L MCV 97.8 MCH 31.8 MCHC 32.5 RDW Std Deviation 55.7 H RDW Coeff of Derrek 15.3 H Plt Count 299 MPV 10.2 Immature Gran % (Auto) 0.7 Neut % (Auto) 71.1 Lymph % (Auto) 20.7 Griggs % (Auto) 7.1 Eos % (Auto) 0.1 Baso % (Auto) 0.3 Neut # (Auto) 9.26 H Lymph # (Auto) 2.70 Griggs # (Auto) 0.93 H Eos # (Auto) 0.01 Baso # (Auto) 0.04 Immature Gran # (Auto) 0.09 PT 11.6 INR 1.1 APTT 27.5 PTT Ratio 1.0 Sodium 139 Potassium 4.0 Chloride 105 Carbon Dioxide 30 Anion Gap 4 BUN 23 Creatinine 1.14 Est Cr Clr Drug Dosing 50.1 Est GFR ( Amer) 66.6 Est GFR (Non-Af Amer) 57.5 BUN/Creatinine Ratio 20.2 H Glucose 112 H Lactate Calcium 8.0 L Magnesium 1.9 Total Bilirubin 0.7 AST 29 ALT 29 Alkaline Phosphatase 66 Troponin I High Sens 33.4 H B-Natriuretic Peptide Total Protein 6.9 Albumin 3.6 Globulin 3.3 Albumin/Globulin Ratio 1.1 SARS-CoV-2 (PCR) Influenza Type A (PCR) Influenza Type B (PCR) RSV (RT-PCR) Diagnostic Findings Chest X-Ray 07/12/22 17:59 XR chest 1V portable CLINICAL HISTORY: Dyspnea TECHNIQUE: Single frontal radiograph of the chest was obtained. Comparison: Comparison is made to chest radiograph 07/02/2022 FINDINGS: No lines and tubes are seen. Cardiomegaly is noted. The aortic arch is calcified. Faint bibasilar airspace opacities are seen. Emphysema is noted. No evidence of pleural effusion or pneumothorax. IMPRESSION: Faint bibasilar airspace opacities which may represent atelectasis, pneumonia, and/or aspiration. ACT 112: Negative or not required by law. Electronically signed by: Brandon Caldwell M.D. 07/12/2022 6:45 PM Code Status & VTE Plan Code Status -Full code discussed with the patient at bedside Supervising Physician Co-Signing Physician Notes IM ATTENDING : Patient seen and examined. History obtained from patient, family, and records. Preceding documentation by Ms.Gwendolyn Ronel Riley PA-C reviewed. In addition, patient gives history of few days history of nasal congestion followed by dry cough symptoms and shortness of breath. Patient denies aspiration. Orthopnea symptoms without weight gain/fluid retention as per patient. Patient denies black/bloody stools, hematuria. FOBT done at the ER was negative. FINAL ASSESSMENT AND PLAN as follows : Sepsis secondary to bronchitis/atypical pneumonia Orthopnea symptoms secondary to above Fluid retention from missed HCTZ doses possibly contributory hx CAD PAF, patient NSR on Eliquis hypertension, slight elevated hyperlipidemia on statin Rx prediabetes, hemoglobin A1c of 6.03 February 2022 Acute on chronic anemia, hemoglobin slightly lower than baseline, no signs of overt bleeding right parotid cancer status post surgery past tobacco abuse Medical telemetry CS. Doxycycline Nebs RTC Lasix 1 dose now Resume home diuretic Rx in a.m. Anemia work-up DVT prophylaxis Eliquis Full code Text document was generated using [employer] voice recognition software. It may contain grammatical or spelling errors. Kindly contact undersigned for clarification of any documentation item in question.
[2022-07-12] MEDS ORDERED: FUROSEMIDE INJ 20 MG/2 ML VIAL IV ONE (21:05)
[2022-07-12] MEDS ORDERED: DOXYCYCLINE HYCLATE 100 MG CAP PO STA (21:07)
[2022-07-12] MEDS ORDERED: ACETAMINOPHEN 325 MG TAB PO PRN (22:23)
[2022-07-12] MEDS ORDERED: oxyCODONE HCL IR 5 MG TAB (IMMEDIATE RELEASE) PO PRN (22:23)
[2022-07-12] MEDS ORDERED: ALBUMIN 25% 100 mL 25 GM/100 ML VIAL IV ONE (22:34)
[2022-07-12] MEDS: APIXABAN 2.5 MG TAB PO SCH (23:03)
[2022-07-12] MEDS: guaiFENesin 600 MG TABCR PO SCH (23:03)
[2022-07-13] MEDS: LEVALBUTEROL 1.25MG/0.5ML NEB INH SCH ×4 (00:41→19:13)
[2022-07-13] MEDS: IPRATROPIUM BROMIDE NEB SOLN 0.02% 2.5 ML VIAL INH SCH ×4 (00:41→19:13)
[2022-07-13] MEDS ORDERED: XOPENEX/ATROVENT 1.25mg/0.5MG NEB COMBO NEB SCH (01:00)
[2022-07-13 06:43] LABS: Basophils # (auto) 0.04 K/uL (0-0.2); Basophils % (auto) 0.4 %; Eosinophils # (auto) 0.05 K/uL (0-0.50); Eosinophils % (auto) 0.5 %; Hemoglobin 10.3 g/dl (14.0-18.0); Immature Granulocytes # (auto) 0.05 K/uL (0.01-0.20); Immature Granulocytes % (auto) 0.5 %; Lymphocytes # (auto) 3.83 K/uL (1.2-3.4); Lymphocytes % (auto) 35.7 %; Mean Corpuscular Hemoglobin 31.8 pg (25.0-34.0); Mean Corpuscular Hgb Conc 33.2 g/dL (32.0-36.0); Mean Corpuscular Volume 95.7 fL (80.0-100.0); Mean Platelet Volume 10.3 fL (9.4-12.4); Monocytes # (auto) 1.05 K/uL (0.11-0.59); Monocytes % (auto) 9.8 %; Neutrophils # (auto) 5.71 K/uL (1.40-6.50); Neutrophils % (auto) 53.1 %; Platelet Count 266 K/uL (130-400); RDW Coefficient of Variation 15.3 % (11.5-14.5); RDW Standard Deviation 53.9 fL (36.4-46.3); Red Blood Count 3.24 M/uL (4.70-6.10); Reticulocyte % 2.1 % (0.5-2.0); Reticulocytes # 0.07 10^6/uL (0.02-0.10); White Blood Count 10.73 K/ul (4.8-10.8)
[2022-07-13 06:59] LABS: BUN Creatinine Ratio 17.5 (10-20); Calcium 7.8 mg/dl (8.5-10.1); Creatinine Clr Calc Pharmacy 47.6 ml/min; Est GFR (African American) 62.6 ml/min; Potassium 3.7 mmol/L (3.5-5.1)
[2022-07-13 07:19] LABS: Ferritin 316.5 ng/ml (8-388)
[2022-07-13] MEDS: hydroCHLOROthiazide 25 MG TAB PO SCH (08:11)
[2022-07-13] MEDS: amLODIPine BESYLATE 5 MG TAB PO SCH (08:12)
[2022-07-13] MEDS: ASPIRIN 81 MG ECTAB PO SCH (08:13)
[2022-07-13] MEDS: guaiFENesin 600 MG TABCR PO SCH ×2 (08:13→20:56)
[2022-07-13] MEDS: DOXYCYCLINE HYCLATE 100 MG CAP PO SCH ×2 (08:13→20:55)
[2022-07-13] MEDS: METOPROLOL TARTRATE 50 MG TAB PO SCH ×2 (08:13→20:55)
[2022-07-13] MEDS: APIXABAN 2.5 MG TAB PO SCH ×2 (08:14→20:56)
[2022-07-13] MEDS: lisinopril 20 MG TAB PO SCH (08:14)
[2022-07-13] MEDS: FERROUS SULFATE 325 MG TAB PO SCH (10:00)
--- NOTE | 2022-07-13 14:21 | Hospitalist Progress Note ---
Date of Service July 13, 2022 Assessment & Plan (1) Pneumonitis: (2) SOB (shortness of breath): (3) PAF (paroxysmal atrial fibrillation): (4) CKD (chronic kidney disease), stage III: (5) HTN (hypertension): (6) Dyslipidemia, goal LDL below 70: Plan: Sepsis Secondary to bronchitis/atypical pneumonia -CXR:Faint bibasilar airspace opacities which may represent atelectasis, pneumonia, and/or aspiration. Blood cultures pending Procalcitonin pending Continue doxycycline Leukocytosis improved Monitor Possible acute on chronic diastolic heart failure-POA H/O Diastolic dysfunction -ECHO from 05/28/21:mild concentric LVH, EF 50 to 55%. Grade 2 diastolic dysfunction. Mild hypokinesis of the inferior posterior gomez at the base to mid level with all wall segments che -Symptomatically improved after a dose of IV Lasix -Patient states his diuretics were discontinued (for unknown duration) Resume HCTZ -Monitor volume status, I's and O's Saturating well on room air We will recommend to follow-up with cardiology upon discharge CAD Paroxysmal atrial fibrillation Continue aspirin, Lipitor, metoprolol On Eliquis for anticoagulation Chronic troponin elevation Possible type II [place] Hypertension Continue amlodipine, lisinopril, metoprolol, HCTZ Monitor BP Hyperlipidemia on statin Prediabetes HbA1C 6.03 February 2022 Iron deficiency anemia Started on iron supplements H/O Right parotid cancer S/P surgery, chemotherapy and radiation Past tobacco abuse DVT Px: Eliquis CODE STATUS: Full code Disposition: PT/OT prior to discharge Admission and Anticipated Discharge Date Admission Date: July 12, 2022 Subjective Patient is seen and examined at bedside States feeling better today Less dyspnea, cough today Denies any chest pain, dizziness, nausea, abdominal pain No other complaints Review of Systems Review of Systems: All systems reviewed & are unremarkable except as noted in Subjective Physical Exam Physical Exam: Physical Exam: Vitals signs as noted above General Appearance:Moderately built and nourished, no apparent distress Head: normocephalic, Atraumatic, +Right facial deformity S/P surgery Eyes: normal inspection, EOMI Neck: supple, Trachea midline Respiratory/Chest: Normal breath sounds, CTA, No accessory muscle use Cardiovascular: S1, S2,+ murmur Abdomen/GI:Soft, Non tender, Bowel sounds present Extremities/Musculoskeletal:normal inspection, no edema Neurologic/Psych:AAOX3, grossly no focal neurological deficits, R facial droop- chronic Skin: normal color, warm Results & Data Results & Data ([facility]) Vital Signs (Past 12 Hours) Vital Signs Temp Pulse Pulse Pulse Resp BP Pulse Ox 07/13/22 13:21 87 16 96 07/13/22 11:53 36.5 C 58 L 16 137/69 94 07/13/22 08:00 07/13/22 07:27 59 L 07/13/22 07:24 36.9 C 80 16 163/73 H 90 07/13/22 06:57 77 18 96 07/13/22 04:10 36.8 C 67 18 135/75 92 O2 Del Method 07/13/22 13:21 Room Air 07/13/22 11:53 Room Air 07/13/22 08:00 Room Air 07/13/22 07:27 07/13/22 07:24 Room Air 07/13/22 06:57 Room Air 07/13/22 04:10 Room Air Laboratory Results Short CBC 07/12/22 07/13/22 Range/Units 17:45 05:46 WBC 13.03 H 10.73 (4.8-10.8) K/ul Hgb 11.7 L 10.3 L (14.0-18.0) g/dl Hct 36.0 L 31.0 L (42.0-52.0) % Plt Count 299 266 (130-400) K/uL BMP 07/12/22 07/13/22 17:45 05:46 Sodium 139 141 Potassium 4.0 3.7 Chloride 105 106 Carbon Dioxide 30 31 BUN 23 21 Creatinine 1.14 1.20 Glucose 112 H 108 H Calcium 8.0 L 7.8 L Liver Function 07/12/22 Range/Units 17:45 Total Bilirubin 0.7 (0.2-1.0) mg/dl AST 29 (13-39) U/L ALT 29 (7-52) U/L Alkaline Phosphatase 66 (34-104) U/L Albumin 3.6 (3.4-5.0) gm/dl
[2022-07-13] MEDS: ATORVASTATIN 40 MG TAB PO SCH (20:54)
[2022-07-13] MEDS ORDERED: ALBUT/IPRATROP 3MG/0.5MG NEB 3 ML VIAL NEB PRN (21:08)
[2022-07-14 05:54] LABS: Hematocrit (blood only) 33.4 % (42.0-52.0); Hemoglobin 11.4 g/dl (14.0-18.0); Mean Corpuscular Hemoglobin 32.5 pg (25.0-34.0); Mean Corpuscular Hgb Conc 34.1 g/dL (32.0-36.0); Mean Corpuscular Volume 95.2 fL (80.0-100.0); Mean Platelet Volume 10.1 fL (9.4-12.4); Platelet Count 291 K/uL (130-400); RDW Coefficient of Variation 15.2 % (11.5-14.5); RDW Standard Deviation 53.2 fL (36.4-46.3); Red Blood Count 3.51 M/uL (4.70-6.10); White Blood Count 10.33 K/ul (4.8-10.8)
[2022-07-14 06:13] LABS: BUN Creatinine Ratio 20.7 (10-20); Calcium 8.4 mg/dl (8.5-10.1); Creatinine Clr Calc Pharmacy 47.2 ml/min; Est GFR (Non-African American) 53.5 ml/min; Potassium 3.6 mmol/L (3.5-5.1)
[2022-07-14] MEDS: APIXABAN 2.5 MG TAB PO SCH ×2 (08:23→20:01)
[2022-07-14] MEDS: guaiFENesin 600 MG TABCR PO SCH ×2 (08:23→20:02)
[2022-07-14] MEDS: hydroCHLOROthiazide 25 MG TAB PO SCH (08:24)
[2022-07-14] MEDS: DOXYCYCLINE HYCLATE 100 MG CAP PO SCH ×2 (08:24→20:02)
[2022-07-14] MEDS: METOPROLOL TARTRATE 50 MG TAB PO SCH ×2 (08:24→20:02)
[2022-07-14] MEDS: amLODIPine BESYLATE 5 MG TAB PO SCH (08:24)
[2022-07-14] MEDS: lisinopril 20 MG TAB PO SCH (08:24)
[2022-07-14] MEDS: ASPIRIN 81 MG ECTAB PO SCH (08:26)
--- NOTE | 2022-07-14 09:11 | Electrocardiogram Report ---
Test Reason : Blood Pressure : / mmHG Vent. Rate : 115 BPM Atrial Rate : 115 BPM P-R Int : 000 ms QRS Dur : 100 ms QT Int : 310 ms P-R-T Axes : 000 017 164 degrees QTc Int : 428 ms Poor data quality, interpretation may be adversely affected Sinus rhythm with 1st degree A-V block Marked ST abnormality, possible lateral subendocardial injury Abnormal ECG When compared with ECG of 02-JUL-2022 17:24, Lateral ST-T abnormalities are new Confirmed by Bernardo Avelar ([id number]) on 07/14/2022 9:11:20 AM Referred By: REFERRED SELF Confirmed By:Bernardo Avelar
--- NOTE | 2022-07-14 09:14 | Electrocardiogram Report ---
Test Reason : Blood Pressure : / mmHG Vent. Rate : 081 BPM Atrial Rate : 081 BPM P-R Int : 212 ms QRS Dur : 104 ms QT Int : 388 ms P-R-T Axes : 070 019 039 degrees QTc Int : 450 ms Sinus rhythm with marked sinus arrhythmia with 1st degree A-V block Otherwise normal ECG When compared with ECG of 12-JUL-2022 17:43, (unconfirmed) ST no longer depressed in Anterolateral leads T wave inversion no longer evident in Lateral leads Confirmed by Bernardo Avelar ([id number]) on 07/14/2022 9:14:10 AM Referred By: REFERRED SELF Confirmed By:Bernardo Avelar
[2022-07-14] MEDS: FERROUS SULFATE 325 MG TAB PO SCH (12:26)
--- NOTE | 2022-07-14 16:58 | Hospitalist Progress Note ---
Date of Service July 14, 2022 Assessment & Plan (1) Pneumonitis: (2) SOB (shortness of breath): (3) PAF (paroxysmal atrial fibrillation): (4) CKD (chronic kidney disease), stage III: (5) HTN (hypertension): (6) Dyslipidemia, goal LDL below 70: Plan: Sepsis Secondary to bronchitis/atypical pneumonia -CXR:Faint bibasilar airspace opacities which may represent atelectasis, pneumonia, and/or aspiration. Blood cultures No growth Procalcitonin normal Continue doxycycline Leukocytosis normalized Monitor Possible acute on chronic diastolic heart failure-POA H/O Diastolic dysfunction -ECHO from 05/28/21:mild concentric LVH, EF 50 to 55%. Grade 2 diastolic dysfunction. 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 II [place] Hypertension Continue amlodipine, lisinopril, metoprolol, HCTZ Monitor BP BP elevated--asymptomatic Hyperlipidemia on statin Prediabetes HbA1C 6.03 February 2022 Iron deficiency anemia Started on iron supplements H/O Right parotid cancer S/P surgery, chemotherapy and radiation Past tobacco abuse DVT Px: Eliquis CODE STATUS: Full code Disposition: PT/OT prior to discharge Admission and Anticipated Discharge Date Admission Date: July 12, 2022 Subjective Patient is seen and examined at bedside No new complaints Cough much improved Denies any chest pain, dyspnea, dizziness, nausea, abdominal pain Review of Systems Review of Systems: All systems reviewed & are unremarkable except as noted in Subjective Physical Exam Physical Exam: Physical Exam: Vitals signs as noted above General Appearance:Moderately built and nourished, no apparent distress Head: normocephalic, Atraumatic, +Right facial deformity S/P surgery Eyes: normal inspection, EOMI Neck: supple, Trachea midline Respiratory/Chest: Normal breath sounds, CTA, No accessory muscle use Cardiovascular: S1, S2,+ murmur Abdomen/GI:Soft, Non tender, Bowel sounds present Extremities/Musculoskeletal:normal inspection, no edema Neurologic/Psych:AAOX3, grossly no focal neurological deficits, R facial droop- chronic Skin: normal color, warm Results & Data Results & Data ([facility]) Vital Signs (Past 12 Hours) Vital Signs Temp Pulse Pulse Resp BP Pulse Ox O2 Del Method 07/14/22 15:54 65 07/14/22 15:44 36.8 C 68 18 165/85 H 94 Room Air 07/14/22 11:28 35.9 C L 65 18 165/83 H 96 Room Air 07/14/22 07:27 72 07/14/22 07:26 36.5 C 81 18 175/89 H 93 Room Air Laboratory Results Short CBC 07/14/22 Range/Units 05:15 WBC 10.33 (4.8-10.8) K/ul Hgb 11.4 L (14.0-18.0) g/dl Hct 33.4 L (42.0-52.0) % Plt Count 291 (130-400) K/uL BMP 07/14/22 05:15 Sodium 138 Potassium 3.6 Chloride 104 Carbon Dioxide 29 BUN 25 H Creatinine 1.21 Glucose 113 H Calcium 8.4 L
[2022-07-14] MEDS: ATORVASTATIN 40 MG TAB PO SCH (20:01)
[2022-07-15] MEDS: amLODIPine BESYLATE 5 MG TAB PO SCH (08:44)
[2022-07-15] MEDS: lisinopril 20 MG TAB PO SCH (08:45)
[2022-07-15] MEDS: hydroCHLOROthiazide 25 MG TAB PO SCH (08:45)
[2022-07-15] MEDS: METOPROLOL TARTRATE 50 MG TAB PO SCH (08:46)
[2022-07-15] MEDS: APIXABAN 2.5 MG TAB PO SCH (08:46)
[2022-07-15] MEDS: ASPIRIN 81 MG ECTAB PO SCH (08:46)
[2022-07-15] MEDS: guaiFENesin 600 MG TABCR PO SCH (08:46)
[2022-07-15] MEDS: DOXYCYCLINE HYCLATE 100 MG CAP PO SCH (08:46)
[2022-07-15 08:48] LABS: BUN Creatinine Ratio 23.8 (10-20); Calcium 8.6 mg/dl (8.5-10.1); Creatinine Clr Calc Pharmacy 54.4 ml/min; Est GFR (African American) 73.6 ml/min; Est GFR (Non-African American) 63.5 ml/min; Potassium 3.7 mmol/L (3.5-5.1)
[2022-07-15] MEDS: FERROUS SULFATE 325 MG TAB PO SCH (11:32)
--- NOTE | 2022-07-15 14:13 | Hospitalist Progress Note ---
Date of Service July 15, 2022 Assessment & Plan (1) Pneumonitis: (2) SOB (shortness of breath): (3) PAF (paroxysmal atrial fibrillation): (4) CKD (chronic kidney disease), stage III: (5) HTN (hypertension): (6) Dyslipidemia, goal LDL below 70: Plan: Sepsis Secondary to bronchitis/atypical pneumonia -CXR:Faint bibasilar airspace opacities which may represent atelectasis, pneumonia, and/or aspiration. Blood cultures No growth Procalcitonin normal Continue doxycycline Leukocytosis normalized Plan to discharge home today Possible acute on chronic diastolic heart failure-POA H/O Diastolic dysfunction -ECHO from 05/28/21:mild concentric LVH, EF 50 to 55%. Grade 2 diastolic dysfunction. 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 II [place] Hypertension Continue amlodipine, lisinopril, metoprolol, HCTZ Monitor BP BP improved Hyperlipidemia on statin Prediabetes HbA1C 6.03 February 2022 Iron deficiency anemia Started on iron supplements H/O Right parotid cancer S/P surgery, chemotherapy and radiation Past tobacco abuse DVT Px: Eliquis CODE STATUS: Full code Disposition: Home Admission and Anticipated Discharge Date Admission Date: July 12, 2022 Subjective Patient is seen and examined at bedside Feels well today Cough resolved Denies any chest pain, dyspnea, dizziness, nausea, abdominal pain Plan to discharge home today Review of Systems Review of Systems: All systems reviewed & are unremarkable except as noted in Subjective Physical Exam Physical Exam: Physical Exam: Vitals signs as noted above General Appearance:Moderately built and nourished, no apparent distress Head: normocephalic, Atraumatic, +Right facial deformity S/P surgery Eyes: normal inspection, EOMI Neck: supple, Trachea midline Respiratory/Chest: Normal breath sounds, CTA, No accessory muscle use Cardiovascular: S1, S2,+ murmur Abdomen/GI:Soft, Non tender, Bowel sounds present Extremities/Musculoskeletal:normal inspection, no edema Neurologic/Psych:AAOX3, grossly no focal neurological deficits, R facial droop- chronic Skin: normal color, warm Results & Data Results & Data ([facility]) Vital Signs (Past 12 Hours) Vital Signs Temp Pulse Pulse Resp BP Pulse Ox O2 Del Method 07/15/22 11:44 36.4 C L 71 18 148/84 H 94 Room Air 07/15/22 07:26 36.7 C 67 18 156/78 H 94 Room Air 07/15/22 07:16 84 07/15/22 03:12 36.4 C L 74 18 164/80 H 90 Room Air Laboratory Results [facility] 07/15/22 06:46 Sodium 139 Potassium 3.7 Chloride 104 Carbon Dioxide 30 BUN 25 H Creatinine 1.05 Glucose 96 Calcium 8.6
--- NOTE | 2022-07-15 14:23 | Discharge Summary ---
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 He was recently seen here in the hospital for an acute gastritis and right upper quadrant pain at the end of June. At that time he was found to be in [place] and when his diuretic, HCTZ, was held at time of discharge and has not yet resumed. He was scheduled to follow-up with his PCP within 1 week and to get repeat BMP to monitor kidney function. Today a window caser called the patient for follow-up, and he was complaining of mild dyspnea on exertion which was relieved with resting. This afternoon the patient spiked a fever of 103.1, had chills, and felt worse with shortness of breath. He was using his 's albuterol inhaler for an audible wheeze, which did seem to improve his symptoms. He was scheduled to see his PCP tomorrow, 07/13/2022. Pt states has had an upper respiratory type symptoms with cough, runny nose for approximately the last month. He reports that he previously weighed 209 pounds in May 2022 when he saw his PCP at the office, and today weighed 191. He reports poor p.o. intake due to gastritis, but that his appetite is slowly improving. He has no difficulty with fluid intake. He does not weigh himself daily. Patient denies any swelling in his legs, feet or fingers. Admission Exam Per Admitting Provider Physical Exam Physical Exam: General: awake, alert, no apparent distress Head: Normocephalic, right-sided facial droop status post parotid tumor removal. right-sided ectropion ENT: PERRL, EOMI, no pharyngeal exudate, mucous membranes moist Chest: Clear to auscultation, on room air, diminished breath sounds throughout, short shallow breaths throughout exam, no accessory muscle use. Cardiac: Regular rate and rhythm, no murmur, no JVD, normal peripheral pulses, good capillary refill Abdominal: NABS x 4 quadrants, soft, nondistended, nontender to palpation, no rebound or guarding Extremities: Normal inspection, no peripheral edema or erythema, calfs nontender to palpation Psych: Normal mood and affect Neuro: AAO x 3, strength intact bilaterally and rated 5/5, no motor deficits, speech is clear, no peripheral sensory deficits Principal Diagnosis Sepsis Acute bronchitis/atypical pneumonia Acute on chronic diastolic heart failure Hypertension Iron deficiency anemia Discharge Data Allergies Allergy/AdvReac Type Severity Reaction Status Date / Time No Known Allergies Allergy Verified 07/12/22 19:39 Consultations 07/12/22 19:26 ED Decision to Admit Stat Procedures Performed Laboratory Results WBC 10.33 K/ul (4.8-10.8) 07/14/22 05:15 RBC 3.51 M/uL (4.70-6.10) L 07/14/22 05:15 Hgb 11.4 g/dl (14.0-18.0) L 07/14/22 05:15 Hct 33.4 % (42.0-52.0) L 07/14/22 05:15 MCV 95.2 fL (80.0-100.0) 07/14/22 05:15 MCH 32.5 pg (25.0-34.0) 07/14/22 05:15 MCHC 34.1 g/dL (32.0-36.0) 07/14/22 05:15 RDW Std Deviation 53.2 fL (36.4-46.3) H 07/14/22 05:15 RDW Coeff of Derrek 15.2 % (11.5-14.5) H 07/14/22 05:15 Plt Count 291 K/uL (130-400) 07/14/22 05:15 MPV 10.1 fL (9.4-12.4) 07/14/22 05:15 Immature Gran % (Auto) 0.5 % 07/13/22 05:46 Neut % (Auto) 53.1 % 07/13/22 05:46 Lymph % (Auto) 35.7 % 07/13/22 05:46 Carver % (Auto) 9.8 % 07/13/22 05:46 Eos % (Auto) 0.5 % 07/13/22 05:46 Baso % (Auto) 0.4 % 07/13/22 05:46 Reticulocyte % (Auto) 2.1 % (0.5-2.0) H 07/13/22 05:46 Neut # (Auto) 5.71 K/uL (1.40-6.50) 07/13/22 05:46 Lymph # (Auto) 3.83 K/uL (1.2-3.4) H 07/13/22 05:46 Carver # (Auto) 1.05 K/uL (0.11-0.59) H 07/13/22 05:46 Eos # (Auto) 0.05 K/uL (0-0.50) 07/13/22 05:46 Baso # (Auto) 0.04 K/uL (0-0.2) 07/13/22 05:46 Reticulocyte # 0.07 10^6/uL (0.02-0.10) 07/13/22 05:46 Immature Gran # (Auto) 0.05 K/uL (0.01-0.20) 07/13/22 05:46 PT 11.6 Seconds (9.0-12.0) 07/12/22 17:45 INR 1.1 (0.9-1.1) 07/12/22 17:45 APTT 27.5 Seconds (21.0-31.0) 07/12/22 17:45 PTT Ratio 1.0 07/12/22 17:45 Sodium 139 mmol/L (136-145) 07/15/22 06:46 Potassium 3.7 mmol/L (3.5-5.1) 07/15/22 06:46 Chloride 104 mmol/L (98-107) 07/15/22 06:46 Carbon Dioxide 30 mmol/L (21-32) 07/15/22 06:46 Anion Gap 5 (3-11) 07/15/22 06:46 BUN 25 mg/dl (6-23) H 07/15/22 06:46 Creatinine 1.05 mg/dl (0.6-1.4) 07/15/22 06:46 Est Cr Clr Drug Dosing 54.4 ml/min 07/15/22 06:46 Est GFR ( Amer) 73.6 ml/min 07/15/22 06:46 Est GFR (Non-Af Amer) 63.5 ml/min 07/15/22 06:46 BUN/Creatinine Ratio 23.8 (10-20) H 07/15/22 06:46 Glucose 96 mg/dl (70-99(Fasting)) 07/15/22 06:46 Lactate 1.6 mmol/L (0.4-2.0) 07/12/22 18:07 Calcium 8.6 mg/dl (8.5-10.1) 07/15/22 06:46 Magnesium 2.0 mg/dl (1.7-2.4) 07/14/22 05:15 Iron 20 mcg/dl (35-175) L 07/13/22 05:46 Transferrin 164 mg/dl (200-360) L 07/13/22 05:46 Ferritin 316.5 ng/ml (8-388) 07/13/22 05:46 Total Bilirubin 0.7 mg/dl (0.2-1.0) 07/12/22 17:45 AST 29 U/L (13-39) 07/12/22 17:45 ALT 29 U/L (7-52) 07/12/22 17:45 Alkaline Phosphatase 66 U/L (34-104) 07/12/22 17:45 Troponin I High Sens 33.4 pg/ml (0-20) H 07/12/22 17:45 B-Natriuretic Peptide 372 pg/ml (0-100) H 07/12/22 17:45 Total Protein 6.9 gm/dl (6.0-8.3) 07/12/22 17:45 Albumin 3.6 gm/dl (3.4-5.0) 07/12/22 17:45 Globulin 3.3 gm/dl (2.5-4.0) 07/12/22 17:45 Albumin/Globulin Ratio 1.1 (0.9-2) 07/12/22 17:45 Vitamin B12 281 pg/ml (180-914) 07/13/22 05:46 Folate 8.85 ng/ml (>5.38) 07/13/22 05:46 Procalcitonin 0.34 ng/ml (0-0.5) 07/14/22 05:15 SARS-CoV-2 (PCR) NEGATIVE (Negative) 07/12/22 18:07 Influenza Type A (PCR) Negative (Neg) 07/12/22 18:07 Influenza Type B (PCR) Negative (Neg) 07/12/22 18:07 RSV (RT-PCR) Negative (Neg) 07/12/22 18:07 Impressions Chest X-Ray 07/12/22 17:59 XR chest 1V portable CLINICAL HISTORY: Dyspnea TECHNIQUE: Single frontal radiograph of the chest was obtained. Comparison: Comparison is made to chest radiograph 07/02/2022 FINDINGS: No lines and tubes are seen. Cardiomegaly is noted. The aortic arch is calcified. Faint bibasilar airspace opacities are seen. Emphysema is noted. No evidence of pleural effusion or pneumothorax. IMPRESSION: Faint bibasilar airspace opacities which may represent atelectasis, pneumonia, and/or aspiration. ACT 112: Negative or not required by law. Electronically signed by: Brandon Caldwell M.D. 07/12/2022 6:45 PM Hospital Course (1) Pneumonitis: (2) SOB (shortness of breath): (3) PAF (paroxysmal atrial fibrillation): (4) CKD (chronic kidney disease), stage III: (5) HTN (hypertension): (6) Dyslipidemia, goal LDL below 70: Sepsis Secondary to bronchitis/atypical pneumonia -CXR:Faint bibasilar airspace opacities which may represent atelectasis, pneumonia, and/or aspiration. Blood cultures No growth Procalcitonin normal Continue doxycycline Leukocytosis normalized Plan to discharge home today Possible acute on chronic diastolic heart failure-POA H/O Diastolic dysfunction -ECHO from 05/28/21:mild concentric LVH, EF 50 to 55%. Grade 2 diastolic dysfunction. 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 II MD Hypertension Continue amlodipine, lisinopril, metoprolol, HCTZ Monitor BP BP improved Hyperlipidemia on statin Prediabetes HbA1C 6.03 February 2022 Iron deficiency anemia Started on iron supplements H/O Right parotid cancer S/P surgery, chemotherapy and radiation Past tobacco abuse DVT Px: Eliquis CODE STATUS: Full code Disposition: Home Total Time Total Time Spent Total Time Spent (In Minutes): 54 minutes Discharge Plan Discharge Items Patient Disposition: Home - Self-Care Reason For Visit: SEPSIS Discharge Diagnosis: Sepsis Acute bronchitis/atypical pneumonia Acute on chronic diastolic heart failure Hypertension Iron deficiency anemia Activity: Per Instructions section Exercise/Sports: Gradually increase as tolerated Non-emergency contact: Primary Care Provider and Software Test And Validation Engineer Call non-emergency contact if: you have any medication questions, your symptoms worsen, your pain is concerning for you and you have a fever Follow-up/Referrals: Sergio Lenz MD [Primary Care Provider] - (Date & Time 07/18/2022 3:00 PM Provider Sergio Lenz MD [facility] ) Diet: Heart Healthy Addtl Attending Provider Instructions: Follow up with your PCP on 07/18/2022 3:00 PM as scheduled Follow-up with your geodetic computator in 2 to 4 weeks for further evaluation of diastolic heart failure Medication changes: --- Complete antibiotic with doxycycline as prescribed. --Start taking hydrochlorothiazide 12.5 mg daily as advised. -- Start taking iron supplements to help with anemia --- Your Blood cultures are pending at the time of discharge. Follow-up with your physician for results. --Monitor your blood pressure regularly at home. Discuss with your primary care physician for further adjustment of blood pressure medications. Seek immediate medical attention if your symptoms reoccur or worsen Please take all medications as instructed on discharge list below. Please call if you have any questions or problems. You can reach a [facility] hospitalist on duty at [facility] 24 hours a day by calling [phone] Call your Primary Care doctor if any of the following symptoms or problems start or get worse: * Shortness of breath or difficulty breathing * Wake up at night short of breath * Chest pain * Cough * Swelling of your hands, feet, or legs * More fatigued or tired with your normal activity * Palpitations - sudden fast heart beats WEIGHT * Weigh yourself every morning after using the bathroom. * Use the same scale. * Wear the same amount of clothing. * Write your weight down on a chart. * Call your Primary Care doctor if you gain more than 2-3 pounds in 1-2 days. MEDICATIONS * Use this discharge instruction sheet for medication instructions. * Take your medications at the time your doctor ordered. * Do not skip a dose of your medicines. * If you miss a dose of medicine, take it as soon as possible, but DO NOT DOUBLE A DOSE. * Read your medicine information when you get home. * Know all of the side effects of your medicine. If in doubt, ask your pharmacist * Call your Primary Care doctor's office if you have any side effects. * Be sure all of your doctors know what medicine and herbs you take (including cold, flu, and herbal medicine). Take the following with you to your follow-up doctor appointments: * Weight Chart * Medication List * List of questions Do not drink excessive alcohol, beer or wine. Pending Studies at Discharge: Yes Studies:: Blood Cultures Stand-Alone Forms: My [facility] Electron Database, Smoking Cessation Medications and DC Order Prescriptions: New doxycycline hyclate 100 mg Capsule 100 mg PO BID Qty: 8 0RF ferrous sulfate 325 mg (65 mg iron) Tablet,Delayed Release (Dr/Ec) 325 mg PO DAILY@1100 Qty: 30 1RF Continued lisinopril 20 mg tablet 20 mg PO QAM metoprolol tartrate 50 mg tablet 50 mg PO BID amlodipine 5 mg tablet 5 mg PO QAM Eliquis 5 mg tablet 2.5 mg PO BID oxycodone 5 mg Tablet 5 mg PO Q4H PRN (Reason: severe pain) Qty: 10 0RF atorvastatin 80 mg tablet 80 mg PO HS aspirin 81 mg Tablet,Delayed Release (Dr/Ec) 81 mg PO DAILY cholecalciferol (vitamin D3) [Vitamin D3] 25 mcg (1,000 unit) Tablet 25 mcg PO DAILY hydrochlorothiazide 25 mg tablet 12.5 mg PO DAILY Qty: 30 0RF Discharge Orders: Discharge Order (Routine); Ordered 07/15/22 Ordered By: Jamie Cratf Admission Data Admit Date/Time: 07/12/22 21:09 Attending Provider: Jamie Craft Admit Provider: Chase Shah Primary Care Provider: Sergio Lenz Other Providers: Chase Shah
== END 2022-07-15 16:34 | disposition home or self-care (01) | DRG 871 ==
LOC: ED 17:37 → 2N 21:09

== ENCOUNTER 2023-03-20 05:37 | Inpatient (IN) ==
[2023-03-20] MEDS ORDERED: ASPIRIN CHEW 324 MG PO STA ×2 (06:03→06:16)
[2023-03-20] MEDS ORDERED: SODIUM CHLORIDE 0.9% 1,000 ML IV ONE (06:04)
[2023-03-20] MEDS ORDERED: FUROSEMIDE 40 MG/4 ML VIAL IV ONE (06:16)
[2023-03-20] MEDS ORDERED: NITROGLYCERIN SL 0.4 MG/TAB TAB SL STA (06:18)
--- NOTE | 2023-03-20 06:20 | Emergency Department Note ---
History of Present Illness General Chief complaint: Shortness of Breath/Dyspnea Time Seen by Provider: 03/20/23 06:12 History of Present Illness 88-year-old male presents emergency department via EMS reportedly has a history of CHF pneumonia A-fib is on Eliquis and hydrochlorothiazide. He states to me that approximately 1 AM this morning he woke up with severe shortness of breath. Patient denies any cough cold congestion. Patient denies chest pain jaw pain arm pain back pain. Patient states he was in his usual state of health until 1 AM this morning in which she woke up short of breath. Patient otherwise a very poor historian as to his presentation today Home Medications Medication Instructions Recorded Confirmed Type aspirin 81 mg tablet,delayed 81 mg PO DAILY 11/16/20 03/05/23 History release atorvastatin 80 mg tablet 80 mg PO HS 11/16/20 03/05/23 History cholecalciferol (vitamin D3) 25 25 mcg PO DAILY 11/16/20 03/05/23 History mcg (1,000 unit) tablet (Vitamin D3) amlodipine 5 mg tablet 5 mg PO QAM 07/02/22 03/05/23 History apixaban 5 mg tablet (Eliquis) 2.5 mg PO BID 07/02/22 03/05/23 History lisinopril 20 mg tablet 20 mg PO QAM 07/02/22 03/05/23 History metoprolol tartrate 50 mg tablet 50 mg PO BID 07/02/22 03/05/23 History oxycodone 5 mg tablet 5 mg PO Q4H PRN severe pain #10 07/03/22 03/05/23 Rx tabs ferrous sulfate 325 mg (65 mg 325 mg PO DAILY@1100 #30 tabs 07/15/22 03/05/23 Rx iron) tablet,delayed release tamsulosin 0.4 mg capsule 0.4 mg PO QAM #30 caps 01/15/23 03/05/23 Rx hydrochlorothiazide 25 mg tablet 12.5 mg PO QAM 01/30/23 03/05/23 History Allergies Allergy/AdvReac Type Severity Reaction Status Date / Time No Known Allergies Allergy Verified 03/05/23 07:23 Past Med/Surg History Medical History Prediabetes Aortic stenosis Moderate per 01/09/23 SHARAN 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 Sepsis Admitted to [facility] 01/08/23-01/16/23 - sepsis and bacteremia- treated with abx x 2 weeks/ pt feeling better. Kidney stone reason for upcoming procedure. Fever Acute renal disease Noted during 01/2023 admission- has since improved to baseline per records (HFpEF) heart failure with preserved ejection fraction EF 55-60% per 01/09/23 SHARAN CAD (coronary artery disease) Nonobstructive per records CKD (chronic kidney disease), stage III Dyslipidemia, goal LDL below 70 HTN (hypertension) NSTEMI (non-ST elevated myocardial infarction) denies hx heart attack "supply/demand NSTEMI in 11/2020" per records NSTEMI Type II per 01/16/23 discharge summary from [facility] PAF (paroxysmal atrial fibrillation) no hx cardioversion on Eliquis Surgical History S/P cystoscopy with ureteral stent placement w/laser lithotripsy History of surgery right eye , trouble closing eyelid after parotid sx - they put a weight in so i can close my eye at night. History of colonoscopy History of parotidectomy History of transesophageal echocardiography (SHARAN) 01/09/23, [facility] w/dr. patel Hx of tonsillectomy H/O splenectomy Hx of cataract surgery both Family History Other Heart disease Hypertension Social History Smoking Status: Former smoker Tobacco Type: Cigarettes Second Hand Exposure: No; Do You Dip or Chew Tobacco: No; Hx Alcohol Use: No Hx Substance Use: No Preferred Language: Moroccan Communication Ability: Effective [employer] Specialist Required: No Beliefs That Will Affect Care: None marital status: Current Living Situation: Spouse Current Living Situation Comment: Lives at home ith How many Children do You have: 2 Feels Safe at Home: Yes Assistive Devices: Glasses and Hearing Aid - Bilateral Review of Systems A total of 10 systems reviewed and were otherwise negative Respiratory: + dyspnea Physical Exam Vital Signs Vital Signs - 24 hr 03/20/23 05:48 03/20/23 05:48 03/20/23 05:48 Temperature 35.6 C L Temperature Source Oral Pulse Rate 114 H Respiratory Rate 34 H Respiratory Effort / Characteristics Spontaneous Respiratory Depth Respiratory Pattern Tachypnea Tachypnea Blood Pressure 160/111 H Blood Pressure Mean 127 Pulse Oximetry 94 Oxygen Delivery Method Room Air Room Air Room Air Fraction of Inspired Oxygen Sepsis Recent Fever Within 48 Hours No Sepsis New/Unexplained Change in Mental Status No Sepsis Action Taken by Nursing Physician Notified 03/20/23 06:11 03/20/23 06:25 03/20/23 06:57 Temperature Temperature Source Pulse Rate 112 H 109 H 117 H Respiratory Rate 34 H 22 Respiratory Effort / Characteristics Spontaneous Short of Breath Spontaneous SOB on Exertion Respiratory Depth Normal Respiratory Pattern Tachypnea Regular Blood Pressure Blood Pressure Mean Pulse Oximetry 98 93 Oxygen Delivery Method Fraction of Inspired Oxygen 30 30 Sepsis Recent Fever Within 48 Hours Sepsis New/Unexplained Change in Mental Status Sepsis Action Taken by Nursing 03/20/23 09:13 Temperature Temperature Source Pulse Rate Respiratory Rate Respiratory Effort / Characteristics Respiratory Depth Respiratory Pattern Blood Pressure Blood Pressure Mean Pulse Oximetry 99 Oxygen Delivery Method BiPAP Fraction of Inspired Oxygen Sepsis Recent Fever Within 48 Hours Sepsis New/Unexplained Change in Mental Status Sepsis Action Taken by Nursing GENERAL: Patient is awake alert in no mild respiratory distress EYES: The conjunctivae are clear. The pupils are round and reactive. EARS, NOSE, MOUTH AND THROAT: The nose is without any evidence of any deformity. Mucous membranes are moist. Tongue is midline. Patient has a right facial droop which is at baseline according to the patient NECK: The neck is nontender and supple. RESPIRATORY: Increased respiratory effort is noted; crackles bilaterally CARDIOVASCULAR: Regular rate and rhythm noted there no murmurs rubs or gallops normal S1 normal S2. GASTROINTESTINAL: The abdomen is soft. Abdomen is nontender. BACK: No midline tenderness or or step-off noted range of motion in flexion extension as well as rotation no signs of muscle spasm noted MUSCULOSKELETAL/EXTREMITIES: There is no evidence of gross deformity full range of motion is noted in the hips and shoulders. SKIN: There is no obvious evidence of any rash. There are no petechiae, pallor or cyanosis noted. NEUROLOGIC: Patient is awake alert and oriented x2; Course Reevaluation(s) Reevaluation #1: Patient is much improved on BiPAP. Patient has no chest pain no shortness of breath his pulse ox is greater than 94%. I discussed evaluation with the patient the patient's family at bedside Time: 08:15 Consultations Consultation #1: Case was discussed with the [facility]ist for admission Time: 08:45 Administered Medications Discontinued Medications Aspirin (Aspirin Chew 324 Mg) 324 mg PO NOW STA Stop: 03/20/23 06:04 Last Admin: 03/20/23 06:16 Dose: 324 mg Documented By: DEWEY Aspirin (Aspirin Chew 324 Mg) 324 mg PO NOW STA Stop: 03/20/23 06:17 Last Admin: 03/20/23 06:29 Dose: Not Given Documented By: DEWEY Furosemide (Furosemide 40 Mg/4 Ml Vial) 40 mg IV ONE ONE Stop: 03/20/23 06:17 Last Admin: 03/20/23 06:29 Dose: 40 mg Documented By: DEWEY Sodium Chloride (Nss) 1,000 mls @ 999 mls/hr IV .Q1H1M ONE Stop: 03/20/23 07:04 Last Admin: 03/20/23 06:29 Dose: Not Given Documented By: DEWEY Piperacillin Sod/Tazobactam (Sod 4.5 gm/ Dextrose) 100 mls @ 200 mls/hr IV NOW ONE; Protocol Stop: 03/20/23 07:20 Last Infusion: 03/20/23 08:14 Dose: Infused Documented By: Admin: 03/20/23 07:33 Dose: 200 mls/hr Documented By: LUIS Nitroglycerin (Nitroglycerin Sl 0.4 Mg/Tab Tab) 0.4 mg SL NOW STA Stop: 03/20/23 06:19 Last Admin: 03/20/23 06:29 Dose: 0.4 mg Documented By: DEWEY Critical Care Time Critical Care Time: Yes Total Critical Care Time: 40 I have personally spent greater than 40 minutes of critical care time in the direct management of this patient. This includes bedside care, interpretation of diagnostic studies, and testing, discussion with consultants, patient, and family members, and other required patient management activities. These minutes are in excess of all separately billable procedures. Medical Decision Making Medical Records Attestation: I reviewed the patient's medical records. Home Medications Current Medication List: was personally reviewed by me Laboratory Data Attestation: I reviewed the patient's lab results. Labs interpreted by me patient has an elevated BNP, elevated troponin, elevated white blood cell count 03/20/23 06:31 03/20/23 06:31 Lab Results 03/20/23 03/20/23 03/20/23 Range/Units 06:31 07:13 07:25 WBC 17.51 H (4.8-10.8) K/ul RBC 3.35 L (4.70-6.10) M/uL Hgb 10.4 L (14.0-18.0) g/dl Hct 33.0 L (42.0-52.0) % MCV 98.5 (80.0-100.0) fL MCH 31.0 (25.0-34.0) pg MCHC 31.5 L (32.0-36.0) g/dL RDW Std Deviation 55.6 H (36.4-46.3) fL RDW Coeff of Derrek 15.7 H (11.5-14.5) % Plt Count 507 H (130-400) K/uL MPV 9.5 (9.4-12.4) fL Immature Gran % (Auto) 0.5 % Neut % (Auto) 68.8 % Lymph % (Auto) 23.2 % Lucas % (Auto) 6.1 % Eos % (Auto) 0.9 % Baso % (Auto) 0.5 % Neut # (Auto) 12.06 H (1.40-6.50) K/uL Lymph # (Auto) 4.07 H (1.20-3.40) K/uL Lucas # (Auto) 1.06 H (0.11-0.59) K/uL Eos # (Auto) 0.15 (0.00-0.50) K/uL Baso # (Auto) 0.09 (0.00-0.20) K/uL Immature Gran # (Auto) 0.08 (0.01-0.20) K/uL VBG pH 7.41 (7.36-7.41) VBG pCO2 51 H (38-50) mmHg VBG pO2 32 mmHg VBG HCO3 32 mmol/L VBG O2 Saturation < 60.0 % VBG Base Excess 6.6 mEq/L Sodium 142 (136-145) mmol/L Potassium 3.5 (3.5-5.1) mmol/L Chloride 104 (98-107) mmol/L Carbon Dioxide 29 (21-32) mmol/L Anion Gap 9 (3-11) BUN 23 (6-23) mg/dl Creatinine 1.09 (0.6-1.4) mg/dl Est Cr Clr Drug Dosing 51.4 ml/min Est GFR ( Amer) 69.9 ml/min Est GFR (Non-Af Amer) 60.3 ml/min BUN/Creatinine Ratio 21.1 H (10-20) Glucose 120 H (70-99(Fasting)) mg/dl Lactate 1.5 (0.4-2.0) mmol/L Calcium 8.7 (8.6-10.3) mg/dl Total Bilirubin 0.8 (0.2-1.0) mg/dl AST 15 (13-39) U/L ALT 17 (7-52) U/L Alkaline Phosphatase 82 (34-104) U/L Troponin I High Sens 50.3 H* (0-20) pg/ml B-Natriuretic Peptide 755 H (0-100) pg/ml Total Protein 7.5 (6.0-8.3) gm/dl Albumin 3.4 (3.4-5.0) gm/dl Globulin 4.1 H (2.5-4.0) gm/dl Albumin/Globulin Ratio 0.8 L (0.9-2) Lipase 57 (11-82) U/L 03/20/23 03/20/23 Range/Units 08:17 08:17 WBC (4.8-10.8) K/ul RBC (4.70-6.10) M/uL Hgb (14.0-18.0) g/dl Hct (42.0-52.0) % MCV (80.0-100.0) fL MCH (25.0-34.0) pg MCHC (32.0-36.0) g/dL RDW Std Deviation (36.4-46.3) fL RDW Coeff of Derrek (11.5-14.5) % Plt Count (130-400) K/uL MPV (9.4-12.4) fL Immature Gran % (Auto) % Neut % (Auto) % Lymph % (Auto) % Lucas % (Auto) % Eos % (Auto) % Baso % (Auto) % Neut # (Auto) (1.40-6.50) K/uL Lymph # (Auto) (1.20-3.40) K/uL Lucas # (Auto) (0.11-0.59) K/uL Eos # (Auto) (0.00-0.50) K/uL Baso # (Auto) (0.00-0.20) K/uL Immature Gran # (Auto) (0.01-0.20) K/uL VBG pH (7.36-7.41) VBG pCO2 (38-50) mmHg VBG pO2 mmHg VBG HCO3 mmol/L VBG O2 Saturation % VBG Base Excess mEq/L Sodium (136-145) mmol/L Potassium (3.5-5.1) mmol/L Chloride (98-107) mmol/L Carbon Dioxide (21-32) mmol/L Anion Gap (3-11) BUN (6-23) mg/dl Creatinine (0.6-1.4) mg/dl Est Cr Clr Drug Dosing ml/min Est GFR ( Amer) ml/min Est GFR (Non-Af Amer) ml/min BUN/Creatinine Ratio (10-20) Glucose (70-99(Fasting)) mg/dl Lactate (0.4-2.0) mmol/L Calcium (8.6-10.3) mg/dl Total Bilirubin (0.2-1.0) mg/dl AST (13-39) U/L ALT (7-52) U/L Alkaline Phosphatase (34-104) U/L Troponin I High Sens 351.2 H* D Cancelled (0-20) pg/ml B-Natriuretic Peptide (0-100) pg/ml Total Protein (6.0-8.3) gm/dl Albumin (3.4-5.0) gm/dl Globulin (2.5-4.0) gm/dl Albumin/Globulin Ratio (0.9-2) Lipase (11-82) U/L Imaging Data Attestation: I personally reviewed and interpreted this imaging study as follows: My Impression: Chest x-ray interpreted by me CHF Radiologist's Impression: Chest X-Ray 03/20/23 05:50 XR chest 1V portable HISTORY: 88 years-old Male Chest pain, nonspecific COMPARISON: 01/10/2023 TECHNIQUE: AP view of the chest FINDINGS: Cardiac silhouette is enlarged. Right greater than left multifocal mixed interstitial and alveolar opacities. Trace pleural effusions. No pneumothorax. Bones appear grossly intact. IMPRESSION: 1. Cardiomegaly with right greater than left mixed interstitial and alveolar opacities suggestive of multifocal pneumonia versus asymmetric pulmonary edema. 2. Trace pleural effusions. ACT 112: Negative or not required by law. The above report was generated using voice recognition software. It may contain grammatical, syntax or spelling errors. Electronically signed by: Jake Colon M.D. 03/20/2023 6:40 AM ECG Data Attestation: I personally reviewed and interpreted this ECG as follows: Additional Comments: EKG interpreted by me sinus tachycardia rate 114diffuse ST segment depression more specific in V4 through V6 rate of 114 poor R wave progression the precordium no obvious ST segment elevation this was compared to an EKG of January 09, 2023 and is changed from that prior EKG EKG #2 after aspirin and nitro as interpreted by me the patient has resolution of the ST segment depression in the lateral leads V4 through V6, patient has sinus tachycardia at 113, poor R wave progression the precordium, no obvious ST segment elevation or depression Telemetry was ordered by me interpreted as sinus tachycardia rate of 114 MDM Narrative Medical decision making differential diagnosis CHF, pneumonia, respiratory failure, metabolic derangement, sepsis, acute coronary syndrome, NSTEMI Plan is to check sepsis, CHF labs, EKG, treat with Lasix, Zosyn, BiPAP, aspirin, nitro Patient's echo report was reviewed by me dated January 2023 and the patient had a preserved ejection fraction of 55 to 60% Patient was given aspirin, nitro, Lasix, Zosyn Patient has improved has an elevated troponin and a clinical presentation of CHF with potential overlying pneumonia. Patient is greatly improved on BiPAP Case was discussed with the [facility] hospitalist for admission Impression & Plan CHF (congestive heart failure), Pneumonia, Acute non-ST elevation myocardial infarction (NSTEMI) Discharge Plan Visit Data Chief Complaint: Shortness of Breath/Dyspnea ED Provider: Kodi Wharton Discharge Problem: CHF (congestive heart failure), Pneumonia, Acute non-ST elevation myocardial infarction (NSTEMI) Patient Disposition: Admitted As Inpatient Forms Stand Alone Forms: My [facility] Prescriptions Prescriptions: No Action lisinopril 20 mg tablet 20 mg PO QAM metoprolol tartrate 50 mg tablet 50 mg PO BID amlodipine 5 mg tablet 5 mg PO QAM Hold Instructions: Resume on 01/18/23. Eliquis 5 mg tablet 2.5 mg PO BID oxycodone 5 mg Tablet 5 mg PO Q4H PRN (Reason: severe pain) Qty: 10 0RF tamsulosin 0.4 mg Capsule 0.4 mg PO QAM Qty: 30 0RF hydrochlorothiazide 25 mg tablet 12.5 mg PO QAM atorvastatin 80 mg tablet 80 mg PO HS aspirin 81 mg Tablet,Delayed Release (Dr/Ec) 81 mg PO DAILY cholecalciferol (vitamin D3) [Vitamin D3] 25 mcg (1,000 unit) Tablet 25 mcg PO DAILY ferrous sulfate 325 mg (65 mg iron) Tablet,Delayed Release (Dr/Ec) 325 mg PO DAILY@1100 Qty: 30 1RF Referrals Referrals: Sergio Lenz MD [Primary Care Provider] -
--- NOTE | 2023-03-20 06:41 | XRay Report ---
XR chest 1V portable HISTORY: 88 years-old Male Chest pain, nonspecific COMPARISON: 01/10/2023 TECHNIQUE: AP view of the chest FINDINGS: Cardiac silhouette is enlarged. Right greater than left multifocal mixed interstitial and alveolar op acities. Trace pleural effusions. No pneumothorax. Bones appear grossly intact. IMPRESSION: 1. Cardiomegaly with right greater than left mixed interstitial and alveolar opacities suggestive of multifocal pneumonia versus asymmetric pulmonary edema. 2. Trace pleural effusions. ACT 112: Negative or not required by law. The above report was generated using voice recognition software. It may contain grammatical, syntax o r spelling errors. Electronically signed by: Jake Colon M.D. 03/20/2023 6:40 AM
[2023-03-20 06:51] LABS: Basophils # (auto) 0.09 K/uL (0.00-0.20); Basophils % (auto) 0.5 %; Eosinophils # (auto) 0.15 K/uL (0.00-0.50); Eosinophils % (auto) 0.9 %; Hemoglobin 10.4 g/dl (14.0-18.0); Immature Granulocytes # (auto) 0.08 K/uL (0.01-0.20); Immature Granulocytes % (auto) 0.5 %; Lymphocytes # (auto) 4.07 K/uL (1.20-3.40); Lymphocytes % (auto) 23.2 %; Mean Corpuscular Hgb Conc 31.5 g/dL (32.0-36.0); Mean Corpuscular Volume 98.5 fL (80.0-100.0); Mean Platelet Volume 9.5 fL (9.4-12.4); Monocytes # (auto) 1.06 K/uL (0.11-0.59); Monocytes % (auto) 6.1 %; Neutrophils # (auto) 12.06 K/uL (1.40-6.50); Neutrophils % (auto) 68.8 %; Platelet Count 507 K/uL (130-400); RDW Coefficient of Variation 15.7 % (11.5-14.5); RDW Standard Deviation 55.6 fL (36.4-46.3); Red Blood Count 3.35 M/uL (4.70-6.10); White Blood Count 17.51 K/ul (4.8-10.8)
[2023-03-20] MEDS ORDERED: PIPERACILLIN/TAZOBACTAM 4.5 GM in DEXTROSE 5% MINI-B 100 ML IV ONE (06:51)
[2023-03-20 07:12] LABS: Albumin Level 3.4 gm/dl (3.4-5.0); Bilirubin,Total 0.8 mg/dl (0.2-1.0); Calcium 8.7 mg/dl (8.6-10.3); Potassium 3.5 mmol/L (3.5-5.1)
[2023-03-20 07:19] LABS: Albumin Globulin Ratio 0.8 (0.9-2); BUN Creatinine Ratio 21.1 (10-20); Creatinine Clr Calc Pharmacy 51.4 ml/min; Est GFR (African American) 69.9 ml/min; Est GFR (Non-African American) 60.3 ml/min; Globulin 4.1 gm/dl (2.5-4.0); Total Protein 7.5 gm/dl (6.0-8.3)
[2023-03-20 07:31] LABS: Base Excess VBG 6.6 mEq/L; HCO3 VBG 32 mmol/L; Oxygen Saturation VBG < 60.0 %; PCO2 VBG 51 mmHg (38-50); PO2 VBG 32 mmHg; pH VBG 7.41 (7.36-7.41)
[2023-03-20 07:40] LABS: Troponin I High Sensitivity 50.3 pg/ml (0-20)
--- NOTE | 2023-03-20 08:39 | Electrocardiogram Report ---
Test Reason : Blood Pressure : / mmHG Vent. Rate : 114 BPM Atrial Rate : 114 BPM P-R Int : 150 ms QRS Dur : 110 ms QT Int : 336 ms P-R-T Axes : 000 040 218 degrees QTc Int : 463 ms Sinus tachycardia Possible Anterior infarct , age undetermined Marked ST abnormality, possible inferolateral subendocardial injury Abnormal ECG When compared with ECG of 09-JAN-2023 11:56, HR has increased by [address] depression in Anterolateral leads now present ST depression in Inferior leads now present Confirmed by Mehdi Deshpande ([id number]) on 03/20/2023 8:39:34 AM Referred By: Confirmed By:Mehdi Deshpande
--- NOTE | 2023-03-20 09:54 | Electrocardiogram Report ---
Test Reason : Blood Pressure : / mmHG Vent. Rate : 113 BPM Atrial Rate : 113 BPM P-R Int : 154 ms QRS Dur : 102 ms QT Int : 354 ms P-R-T Axes : 000 026 056 degrees QTc Int : 485 ms Sinus tachycardia Possible Anterior infarct , age undetermined (cited on or before 20-MAR-2023) Minor ST depression in Anterolateral leads Abnormal ECG When compared with ECG of 20-MAR-2023 05:48, ST depression in Inferior leads no longer present ST depression in Anterolateral leads much less pronounced Confirmed by Mehdi Deshpande ([id number]) on 03/20/2023 9:54:02 AM Referred By: REFERRED SELF Confirmed By:Mehdi Deshpande
[2023-03-20] MEDS: DOXYCYCLINE HYCLATE 100 MG in DEXTROSE 5% MINI-B 100 ML IV SCH ×2 (10:05→20:36)
--- NOTE | 2023-03-20 10:34 | History & Physical Report ---
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 Pt meets sepsis criteria 2/2 leukocytosis, tachycardia. blood cultures obtained, received broad spectrum antibiotics with IV zosyn. Initially he did receive IVF; however this since d/c in setting of possible CHF will also obtain urine specimen Acute respiratory failure with hypoxia Multifocal pneumonia Sepsis Admit to PCU Broad-spectrum antibiotics with IV Zosyn and doxycycline Consult pulmonology obtain CT Chest Continue BiPAP therapy and wean down to nasal cannula as able received 40mg IV lasix in ED aspiration precautions respiratory Biofire, MRSA screen no further fluids at this time due to concern for CHF CAD NSTEMI ACUTE HFpEF likey in setting of underlying illness cycle trops, consult cardiology received 40mg IV lasix in ED daily weights, Strict I and O last echo 01/2023 EF 55%, moderate will repeat echo to r/o regional wall motion abnormality known fixed CAD, on statin, metoprolol and asa as outpatient PAF continue apixaban, metoprolol chronic, stable HTN pt with recent changes to BP meds, amlodipine/hctz stopped in January, Lisinopril recently d/c on 03/13 currently only on metoprolol tartrate 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 CKD-3 baseline cr 1-1.2 bun/cr stable, continue to monitor Anemia, likely of chronic disease h/h 02/06 and 33.0 stable, no s/sx of bleeding Dispo: admit to PCU, pt/ot when appropriate FULL CODE PCP: Dr. Lenz Pt was seen and examined in collaboration with Dr. Funez, please see addendum History of Present Illness Chief Complaint: Acute onset SOB at 1 a.m. 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 Of significance patient recently hospitalized 01/09 to 01/16/2023 secondary to group C beta strep bacteremia. During this hospitalization SHARAN was negative for endocarditis. MRI did reveal trace fluid in intravertebral space between L5 and S1 which was nonspecific and felt likely degenerative in etiology. Initially he was started on Vanco and Zosyn and transition to IV Rocephin. He was seen and evaluated by infectious disease who recommended a 2-week course of antibiotic therapy. At time of discharge there is no clear source of bacteremia however, repeat blood cultures from 01/09 have remained negative prior to discharge. He completed antibiotics. He did develop urinary retention during hospital stay and a Whitfield catheter had to be placed. He had a failed voiding trial for which required him to follow-up with urology as an outpatient. He did follow-up with urology approximately 1 week from discharge and had Whitfield catheter removed. At that time patient was noted to have significant kidney stones on CT and he eventually underwent a ureteral cystoscopic with laser lithotripsy of stones and stent placement. A few weeks later he underwent repeat ureteral cystoscopically and additional laser treatment and temporary ureteral stent was placed. Since then the ureteral stent had since been removed. Urology feels that the kidney stones have been adequately treated. He has also since followed up with his primary care provider. He continued to be generally weak and overall poor appetite. He has had approximately 15 pound weight loss over the last 6 months as well as intermittent falls. During this evaluation his blood pressure was noted to be low. In January amlodipine and hydrochlorothiazide was discontinued. Due to low blood pressure at this visit his lisinopril was decreased to 10 mg daily and his metoprolol was cut in half to 25 mg twice daily. Home health agency then reach back out to primary care provider and further adjustments were made to blood pressure medications in which his lisinopril was completely stopped and metoprolol tartrate was increased back to 50 mg twice daily. Patient shortness of breath started acutely this morning at 1 AM. He alerted that he was more short of breath. then called the daughter who lives next door. EMS was summoned. Daughter felt patient's color was overall decreased. Family at bedside report patient has had recent increased cough. He typically does not wear oxygen at baseline. He does have prior history of aspiration pneumonia but family denies any signs of aspiration while eating. At home he was in his normal state of health yesterday. Patient denies any lower extremity swelling. Prior to this morning's episode he further denies any fever, chills, sweats, lightheadedness, dizziness, chest pain, orthopnea, hemoptysis, nausea, vomiting or abdominal pain. He has been urinating without difficulty. He denies any hematuria or melena. He is moving bowels appropriately. Allergies Allergy/AdvReac Type Severity Reaction Status Date / Time No Known Allergies Allergy Verified 03/05/23 07:23 Home Medications Medication Instructions Recorded Confirmed Type aspirin 81 mg tablet,delayed 81 mg PO DAILY 11/16/20 03/20/23 History release atorvastatin 80 mg tablet 80 mg PO HS 11/16/20 03/20/23 History cholecalciferol (vitamin D3) 25 25 mcg PO DAILY 11/16/20 03/20/23 History mcg (1,000 unit) tablet (Vitamin D3) apixaban 5 mg tablet (Eliquis) 2.5 mg PO BID 07/02/22 03/20/23 History oxycodone 5 mg tablet 5 mg PO Q4H PRN severe pain #10 07/03/22 03/20/23 Rx tabs ferrous sulfate 325 mg (65 mg 325 mg PO DAILY@1100 #30 tabs 07/15/22 03/20/23 Rx iron) tablet,delayed release tamsulosin 0.4 mg capsule 0.4 mg PO QAM #30 caps 01/15/23 03/20/23 Rx isosorbide mononitrate 30 mg 30 mg PO QAM 30 days #30 tabs 03/24/23 Rx tablet,extended release 24 hr metoprolol succinate 25 mg 75 mg (3 x 25 mg) PO BID 30 days 03/24/23 Rx tablet,extended release 24 hr #180 tabs Past Med/Surg History Medical History Prediabetes Aortic stenosis Moderate per 01/09/23 SHARAN 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 Sepsis Admitted to [facility] 01/08/23-01/16/23 - sepsis and bacteremia- treated with abx x 2 weeks/ pt feeling better. Kidney stone reason for upcoming procedure. Fever Acute renal disease Noted during 01/2023 admission- has since improved to baseline per records (HFpEF) heart failure with preserved ejection fraction EF 55-60% per 01/09/23 SHARAN CAD (coronary artery disease) Nonobstructive per records CKD (chronic kidney disease), stage III Dyslipidemia, goal LDL below 70 HTN (hypertension) NSTEMI (non-ST elevated myocardial infarction) denies hx heart attack "supply/demand NSTEMI in 11/2020" per records NSTEMI Type II per 01/16/23 discharge summary from [facility] PAF (paroxysmal atrial fibrillation) no hx cardioversion on Eliquis Surgical History S/P cystoscopy with ureteral stent placement w/laser lithotripsy History of surgery right eye , trouble closing eyelid after parotid sx - they put a weight in so i can close my eye at night. History of colonoscopy History of parotidectomy History of transesophageal echocardiography (SHARAN) 01/09/23, [facility] w/dr. patel Hx of tonsillectomy H/O splenectomy Hx of cataract surgery both Family History Other Heart disease Hypertension Social History Smoking Status: Never smoker Tobacco Type: Cigarettes Second Hand Exposure: No; Hx Alcohol Use: No Hx Substance Use: No Preferred Language: Romansh Communication Ability: Effective Religious Ritual Slaughterer Required: No Beliefs That Will Affect Care: None marital status: Current Living Situation: Spouse Current Living Situation Comment: Lives at home ith How many Children do You have: 2 Feels Safe at Home: Yes Assistive Devices: Cane and Walker Review of Systems Review of Systems: All systems reviewed & are unremarkable except as noted in HPI & below Physical Exam Physical Exam: Constitutional: Chronically ill-appearing, elderly, male, currently on BiPAP, appears in no distress, vitals as above, able to answer yes/no questions, sitting up in bed Head: Normocephalic, Atraumatic Eyes: PERRL, conjunctivae normal, anicteric sclerae ENMT: external ear and nose normal, oropharynx normal, + bipap mask, R parotid surgical changes noted Neck: trachea midline, no thyromegaly normal visual inspection Respiratory: +bipap, normal respiratory effort, lungs clear to auscultation with decrease breath sounds at bases, no wheeze, rales, rhonchi. Normal insp/exp effort, no accessory muscle use Cardiovascular: tachycardic rate, regular rhythm, no murmur, no edema Vessels: no JVD or carotid bruit Chest: normal inspection of chest Abdomen: normal bowel sounds, soft, nontender, no hepatosplenomegaly Musculoskeletal: no cyanosis or clubbing,AROM x4 Skin: no rashes, warm and dry normal turgor Neurologic: chronic R facial droop, no dysarthria CN's II-XI intact bilaterally and moves all extremities Psychiatric: A+Ox3, euthymic affect Lymphatic: no cervical or axillary lymphadenopathy : deferred Results & Data Results & Data Vital Signs (Past 12 Hours) Vital Signs Temp Pulse Resp BP Pulse Ox O2 Del Method FiO2 03/20/23 10:18 105 H 03/20/23 09:13 99 BiPAP 03/20/23 06:57 117 H 22 93 30 03/20/23 06:25 109 H 34 H 98 30 03/20/23 06:11 112 H 03/20/23 05:48 Room Air 03/20/23 05:48 35.6 C L 114 H 34 H 160/111 H 94 Room Air 03/20/23 05:48 Room Air Diagnostic Findings Chest X-Ray 03/20/23 05:50 XR chest 1V portable HISTORY: 88 years-old Male Chest pain, nonspecific COMPARISON: 01/10/2023 TECHNIQUE: AP view of the chest FINDINGS: Cardiac silhouette is enlarged. Right greater than left multifocal mixed interstitial and alveolar opacities. Trace pleural effusions. No pneumothorax. Bones appear grossly intact. IMPRESSION: 1. Cardiomegaly with right greater than left mixed interstitial and alveolar opacities suggestive of multifocal pneumonia versus asymmetric pulmonary edema. 2. Trace pleural effusions. ACT 112: Negative or not required by law. The above report was generated using voice recognition software. It may contain grammatical, syntax or spelling errors. Electronically signed by: Jake Colon M.D. 03/20/2023 6:40 AM Medications Administered Medication List Doxycycline Hyclate 100 mg/ (Dextrose) 100 mls @ 50 mls/hr IV Q12H JORDAN Stop: 03/27/23 08:29 Last Admin: 03/20/23 10:05 Dose: 50 mls/hr Documented By: LUIS Discontinued Medications Aspirin (Aspirin Chew 324 Mg) 324 mg PO NOW STA Stop: 03/20/23 06:04 Last Admin: 03/20/23 06:16 Dose: 324 mg Documented By: DEWEY Aspirin (Aspirin Chew 324 Mg) 324 mg PO NOW STA Stop: 03/20/23 06:17 Last Admin: 03/20/23 06:29 Dose: Not Given Documented By: DEWEY Furosemide (Furosemide 40 Mg/4 Ml Vial) 40 mg IV ONE ONE Stop: 03/20/23 06:17 Last Admin: 03/20/23 06:29 Dose: 40 mg Documented By: DEWEY Sodium Chloride (Nss) 1,000 mls @ 999 mls/hr IV .Q1H1M ONE Stop: 03/20/23 07:04 Last Admin: 03/20/23 06:29 Dose: Not Given Documented By: DEWEY Piperacillin Sod/Tazobactam (Sod 4.5 gm/ Dextrose) 100 mls @ 200 mls/hr IV NOW ONE; Protocol Stop: 03/20/23 07:20 Last Infusion: 03/20/23 08:14 Dose: Infused Documented By: Admin: 03/20/23 07:33 Dose: 200 mls/hr Documented By: LUIS Nitroglycerin (Nitroglycerin Sl 0.4 Mg/Tab Tab) 0.4 mg SL NOW STA Stop: 03/20/23 06:19 Last Admin: 03/20/23 06:29 Dose: 0.4 mg Documented By: DEWEY ECG Additional Comments: Sinus tachycardia, moderate ST depression in anterior lateral leads, possible anterior infarct Compared to EKG from 03/20/2023 at 5:[address] depression in inferior leads no longer present, ST depression in anterior lateral leads much less pronounced COVID-19 Results Results COVID-19 Adm Lab Results: RBC 3.09 M/uL (4.70-6.10) L 03/24/23 WBC 9.81 K/ul (4.8-10.8) 03/24/23 Hgb 9.7 g/dl (14.0-18.0) L 03/24/23 Hct 30.1 % (42.0-52.0) L 03/24/23 Plt Count 404 K/uL (130-400) H 03/24/23 Neutrophils (%) (Auto) 56.9 % 03/24/23 Lymphocytes (%) (Auto) 32.0 % 03/24/23 Monocytes # (Auto) 0.69 K/uL (0.11-0.59) H 03/24/23 Eosinophils # (Auto) 0.31 K/uL (0.00-0.50) 03/24/23 Immature Granulocyte % (Auto) 0.3 % 03/24/23 Neutrophils # (Auto) 5.58 K/uL (1.40-6.50) 03/24/23 Lymphocytes # (Auto) 3.14 K/uL (1.20-3.40) 03/24/23 Monocytes # (Auto) 0.69 K/uL (0.11-0.59) H 03/24/23 Eosinophils # (Auto) 0.31 K/uL (0.00-0.50) 03/24/23 Basophils # (Auto) 0.06 K/uL (0.00-0.20) 03/24/23 Immature Granulocyte # (Auto) 0.03 K/uL (0.01-0.20) 3 Na 142 mmol/L (136-145) 03/24/23 K 3.9 mmol/L (3.5-5.1) 03/24/23 Cl 107 mmol/L (98-107) 03/24/23 CO2 28 mmol/L (21-32) 03/24/23 Anion Gap 7 (3-11) 03/24/23 BUN 24 mg/dl (6-23) H 03/24/23 Creatinine 1.20 mg/dl (0.6-1.4) 03/24/23 BUN/Creatinine Ratio 20.0 (10-20) 03/24/23 Glucose Level 101 mg/dl (70-99(Fasting)) H 03/24/23 Ca 8.5 mg/dl (8.6-10.3) L 03/24/23 Total Bilirubin 0.8 mg/dl (0.2-1.0) 03/20/23 AST/SGOT 15 U/L (13-39) 03/20/23 ALT/SGPT 17 U/L (7-52) 03/20/23 Alkaline Phosphatase 82 U/L (34-104) 03/20/23 Total Protein 7.5 gm/dl (6.0-8.3) 03/20/23 Albumin 3.4 gm/dl (3.4-5.0) 03/20/23 Globulin 4.1 gm/dl (2.5-4.0) H 03/20/23 Albumin/Globulin Ratio 0.8 (0.9-2) L 03/20/23 Procalcitonin < 0.05 ng/ml (0-0.5) 03/20/23 PTT 26.5 Seconds (21.0-31.0) 03/22/23 Adenovirus (PCR) Not Detected (NotDetected) 03/20/23 B. parapertussis DNA (PCR) Not Detected (NotDetected) 03/06 09/25 B. pertussis DNA (PCR) Not Detected (NotDetected) 03/20/23 C. pneumoniae DNA (PCR) Not Detected (NotDetected) 3 Coronavirus Type OC43 (PCR) Not Detected (NotDetected) Coronavirus Type HKU1 (PCR) Not Detected (NotDetected) Coronavirus Type 229E (PCR) Not Detected (NotDetected) COVID-19 PCR Not Detected (NotDetected) 03/20/23 Coronavirus Type NL63 (PCR) Not Detected (NotDetected) Human Metapneumovirus (PCR) Not Detected (NotDetected) Influenza Virus Type A (PCR) Not Detected (NotDetected) Influenza Virus Type B (PCR) Not Detected (NotDetected) M. pneumoniae (PCR) Not Detected (NotDetected) 03/20/23 Parainfluenza Type 1 (PCR) Not Detected (NotDetected) 03/06 09/25 Parainfluenza Type 2 (PCR) Not Detected (NotDetected) 03/06 09/25 Parainfluenza Type 3 (PCR) Not Detected (NotDetected) 03/06 09/25 Parainfluenza Type 4 (PCR) Not Detected (NotDetected) 03/06 09/25 RSV (PCR) Not Detected (NotDetected) 03/20/23 Enterovirus/Rhinovirus (PCR) Not Detected (NotDetected) Micro Respiratory Specimen 03/22/[address] 03/20/23 Chest X-Ray 03/20/23 Code Status & VTE Plan Code Status FULL CODE VTE Prophylaxis Plan VTE Prophylaxis will be ordered: Yes Supervising Physician Co-Signing Physician Notes delayed entry date of service noted above Attending Addendum: care coordinated with SHANNON Blake please refer to her notes for full details, I agree with her notes patient seen and examined, records reviewed by myself as well diagnoses and plan of care as per SHANNON Blake's notes Geovani Funez MD
[2023-03-20] MEDS ORDERED: oxyCODONE HCL IR 5 MG TAB (IMMEDIATE RELEASE) PO PRN (11:02)
[2023-03-20] MEDS ORDERED: POLYETHYLENE (MIRALAX) 17 GM PACK PO PRN (11:02)
[2023-03-20] MEDS ORDERED: ONDANSETRON INJ 2 MG/ML 2 ML VIAL IV PRN (11:02)
[2023-03-20] MEDS ORDERED: ALUMINUM/MAGNESIUM SUSP 30 ML UDC PO PRN (11:02)
[2023-03-20] MEDS ORDERED: MAGNESIUM HYDROXIDE SUSP 30 ML UDC PO PRN (11:02)
[2023-03-20] MEDS ORDERED: ACETAMINOPHEN 325 MG TAB PO PRN (11:02)
[2023-03-20] MEDS ORDERED: APIXABAN 2.5 MG TAB PO SCH (11:02)
[2023-03-20 11:08] LABS: Adenovirus PCR Not Detected (NotDetected); Bordetella parapertussis PCR Not Detected (NotDetected); Bordetella pertussis PCR Not Detected (NotDetected); Chlamydia pneumoniae PCR Not Detected (NotDetected); Coronavirus 229E PCR Not Detected (NotDetected); Coronavirus CoV-2 (COVID19)PCR Not Detected (NotDetected); Coronavirus HKU1 PCR Not Detected (NotDetected); Coronavirus NL63 PCR Not Detected (NotDetected); Coronavirus OC43PCR Not Detected (NotDetected); Human Metapneumovirus PCR Not Detected (NotDetected); Influenza A PCR Not Detected (NotDetected); Influenza B PCR Not Detected (NotDetected); Mycoplasma pneumoniae PCR Not Detected (NotDetected); Parainfluenza Virus 1 PCR Not Detected (NotDetected); Parainfluenza Virus 2 PCR Not Detected (NotDetected); Parainfluenza Virus 3 PCR Not Detected (NotDetected); Parainfluenza Virus 4 PCR Not Detected (NotDetected); Respiratory Syncytial VirusPCR Not Detected (NotDetected); Rhinovirus/Enterovirus PCR Not Detected (NotDetected)
--- NOTE | 2023-03-20 11:28 | CT Scan Report ---
CT chest diagnostic wo con CT DOSE: 592.46 mGy.cm CLINICAL HISTORY: 88 years-old Male with pneumonia vs chf. Acute shortness of breath TECHNIQUE: Multiaxial CT images of the chest were performed without contrast. A dose lowering techni que was utilized adhering to the principles of ALARA. COMPARISON: Chest radiograph of same day, CT chest 05/28/2021, CT abdomen and pelvis 02/20/2023 FINDINGS: Heterogeneous thyroid. Unchanged mediastinal and hilar lymphadenopathy. Stable 10 mm subcar inal lymph node. Partially calcified lymph nodes measuring up to 11 mm in the precarinal tissues are also unchanged. No new or progressive adenopathy. Small right greater than left pleural effusions. No pneumothorax. Emphysema with bronchitis redemonst rated. Unchanged 1.2 cm right upper lobe pulmonary hamartoma on image 52. Right-sided calcified pleur al plaques. Patchy groundglass and irregular nodular consolidative opacities are noted bilaterally. T his includes a subpleural nodular density within the left upper lobe measuring 11 mm on image 73. The re is an additional irregular 2.3 cm subpleural nodular density of the right middle lobe on image 173 . Mild intralobular septal thickening. Several new pulmonary nodules which are mostly subcentimeter n oted within all lobes bilaterally. Central airways are patent. Unchanged appearance of the upper abdomen. Distended gallbladder. Left upper quadrant splenules. Unre markable soft tissue tissues. Degenerative changes of the shoulders and spine. Healed chronic mid [place]ia [place] rnal body fracture. There is progressive superior endplate compression involving the T1-T2 3 segments without retropulsion. IMPRESSION: 1. Cardiomegaly with mild pulmonary edema and small pleural effusions. 2. Interval development of patchy groundglass and irregular nodular consolidative opacities within th e lungs suggestive of a multifocal infectious or inflammatory pneumonitis. One-month follow-up chest CT recommended. 3. Unchanged thoracic lymphadenopathy. 4. Emphysema with bronchitis. 5. Mild T1-T3 superior endplate compression deformities without retropulsion are new/progressed magdy red to the 05/28/2021 exam. ACT 112: Negative or not required by law. Electronically signed by: Jake Colon M.D. 03/20/2023 11:26 AM
--- NOTE | 2023-03-20 11:33 | Cardiology Consultation ---
Date of Consultation March 20, 2023 Assessment & Plan (1) Multifocal pneumonia: (2) Acute non-ST elevation myocardial infarction (NSTEMI): (3) Pneumonia: (4) CHF (congestive heart failure): (5) CKD (chronic kidney disease), stage III: (6) Hypertensive urgency: (7) Elevated troponin: Supervising Physician Co-Signing Physician Notes Attending Staff: Pt seen and examined with [facility] staff Concur with observations and plans 88 yo man presenting with dyspnea * Acute dyspnea * Awoken from sleep * Brought in by EMS * 94% sat on presentation * WBC 17.5K * CXR - multifocal PNA vs pulmonary edema * CT - small bilateral pleural effusions, multivessel coronary calcifications, Aortic Calcifications, multilobar ground glass opacities * Deep downsloping ST depressions * Troponin - rapid rise - now at 1836 * ECHO - LVEF 45-50% - Moderate Dx: Acute Coronary Syndrome/ NSTEMI Med Hx: * Parotid Tumor s/p multiple resections * Strep Bacteremia - no clear source - 01/2023- 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 He is going to consider his options. Plans to discuss cath in AM on 03/21/2023 Riaz Willingham History of Present Illness Reason for Consultation: Acute CHF exacerbation Requesting Physician: Dr. Funez Attending Physician: Dr. 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 Patel as an outpatient, paroxysmal atrial fibrillation, CAD without angina pectoris (supply/demand NSTEMI in 11/2020), hypertension, and dyslipidemia Admitted in January 2023 following a ground-level fall with acute back pain, intermittent fevers, group C beta strep bacteremia. - High-sensitivity troponin elevated without associated symptoms, without acute EKG changes. - Resting echo with moderate aortic stenosis, normal wall motion, normal systolic function. - SHARAN findings were felt to be equivocal, clinical concern for endocarditis. - Completed 2 weeks of antibiotic therapy with ceftriaxone ending January 22, 2023 as per ID Status post February 07, 2023 laser lithotripsy of a large left-sided stone, March 05, 2023 stent catheter exchange Presented to the ER early this AM via EMS, with acute shortness of breath starting at 1 AM - WBC 17.5. H&H 10.4 and 33.0. - Blood cultures obtained - CXR with cardiomegaly with right greater than left mixed interstitial and al veolar opacities suggestive of multifocal pneumonia versus asymmetric pulmonary edema, trace pleural effusions - Chest CT: Cardiomegaly. Mild pulmonary edema. Small pleural effusions. Patchy ground glass and irregular nodular consolidative opacities within the lungs suggestive of multifocal infectious or inflammatory pneumonitis. Emphysema with bronchitis. Unchanged thoracic lymphadenopathy. New mild T1-T3 superior endplate compression deformities without retropulsion. - EKG: Suspected sinus tachycardia at 114 bpm with marked lateral and inferior ST changes suggestive of ischemia - Troponin: 50.3 -> 351.2 pg/mL - BNP 755 pg/mL - March 20, 2023 TTE: EF mildly reduced, 45 to 50%. Mild concentric LVH. No wall motion abnormalities reported. Moderate aortic valve stenosis. Normal RV function. Mild mitral and tricuspid regurgitation. Allergies Allergy/AdvReac Type Severity Reaction Status Date / Time No Known Allergies Allergy Verified 03/05/23 07:23 Home Medications Medication Instructions Recorded Confirmed Type aspirin 81 mg tablet,delayed 81 mg PO DAILY 11/16/20 03/20/23 History release atorvastatin 80 mg tablet 80 mg PO HS 11/16/20 03/20/23 History cholecalciferol (vitamin D3) 25 25 mcg PO DAILY 11/16/20 03/20/23 History mcg (1,000 unit) tablet (Vitamin D3) apixaban 5 mg tablet (Eliquis) 2.5 mg PO BID 07/02/22 03/20/23 History metoprolol tartrate 50 mg tablet 50 mg PO BID 07/02/22 03/20/23 History oxycodone 5 mg tablet 5 mg PO Q4H PRN severe pain #10 07/03/22 03/20/23 Rx tabs ferrous sulfate 325 mg (65 mg 325 mg PO DAILY@1100 #30 tabs 03/12/23 11/15/23 Rx iron) tablet,delayed release tamsulosin 0.4 mg capsule 0.4 mg PO QAM #30 caps 01/15/23 03/20/23 Rx Patient History Medical History Prediabetes Aortic stenosis Moderate per 01/09/23 SHARAN 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 Sepsis Admitted to [facility] 01/08/23-01/16/23 - sepsis and bacteremia- treated with abx x 2 weeks/ pt feeling better. Kidney stone reason for upcoming procedure. Fever Acute renal disease Noted during 01/2023 admission- has since improved to baseline per records (HFpEF) heart failure with preserved ejection fraction EF 55-60% per 01/09/23 SHARAN CAD (coronary artery disease) Nonobstructive per records CKD (chronic kidney disease), stage III Dyslipidemia, goal LDL below 70 HTN (hypertension) NSTEMI (non-ST elevated myocardial infarction) denies hx heart attack "supply/demand NSTEMI in 11/2020" per records NSTEMI Type II per 01/16/23 discharge summary from [facility] PAF (paroxysmal atrial fibrillation) no hx cardioversion on Eliquis Surgical History S/P cystoscopy with ureteral stent placement w/laser lithotripsy History of surgery right eye , trouble closing eyelid after parotid sx - they put a weight in so i can close my eye at night. History of colonoscopy History of parotidectomy History of transesophageal echocardiography (SHARAN) 01/09/23, [facility] w/dr. 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 Physical Exam Physical Exam: Thin man in NAD JVP 14 cmH20 S1S2 2/6 Systolic Murmur Mild Crackles + BS No C/C/E Results & Data Vital Signs (Past 12 Hours) Vital Signs Temp Pulse Pulse Resp BP BP Pulse Ox 03/20/23 11:25 03/20/23 11:25 36.6 C 101 H 16 129/88 99 03/20/23 10:18 105 H 03/20/23 09:13 99 03/20/23 06:57 117 H 22 93 03/20/23 06:25 109 H 34 H 98 03/20/23 06:11 112 H 03/20/23 05:48 03/20/23 05:48 35.6 C L 114 H 34 H 160/111 H 94 03/20/23 05:48 Pulse Ox O2 Del Method O2 Del Method O2 Flow Rate O2 Flow Rate FiO2 03/20/23 11:25 99 Nasal Cannula 2 03/20/23 11:25 Nasal Cannula 2 03/20/23 10:18 03/20/23 09:13 BiPAP 03/20/23 06:57 30 03/20/23 06:25 30 03/20/23 06:11 03/20/23 05:48 Room Air 03/20/23 05:48 Room Air 03/20/23 05:48 Room Air Laboratory Results Cardiac Enzymes 03/20/23 03/20/23 03/20/23 Range/Units 06:31 08:17 08:17 AST 15 (13-39) U/L Troponin I High Sens 50.3 H* 351.2 H* D Cancelled (0-20) pg/ml B-Natriuretic Peptide 755 H (0-100) pg/ml Coagulation 03/20/23 Range/Units 06:31 B-Natriuretic Peptide 755 H (0-100) pg/ml CBC 03/20/23 Range/Units 06:31 WBC 17.51 H (4.8-10.8) K/ul RBC 3.35 L (4.70-6.10) M/uL Hgb 10.4 L (14.0-18.0) g/dl Hct 33.0 L (42.0-52.0) % Plt Count 507 H (130-400) K/uL Neut # (Auto) 12.06 H (1.40-6.50) K/uL Lymph # (Auto) 4.07 H (1.20-3.40) K/uL [place] # (Auto) 1.06 H (0.11-0.59) K/uL Eos # (Auto) 0.15 (0.00-0.50) K/uL Baso # (Auto) 0.09 (0.00-0.20) K/uL Comprehensive Metabolic Panel 03/20/23 Range/Units 06:31 Sodium 142 (136-145) mmol/L Potassium 3.5 (3.5-5.1) mmol/L Chloride 104 (98-107) mmol/L Carbon Dioxide 29 (21-32) mmol/L BUN 23 (6-23) mg/dl Creatinine 1.09 (0.6-1.4) mg/dl Glucose 120 H (70-99(Fasting)) mg/dl Calcium 8.7 (8.6-10.3) mg/dl AST 15 (13-39) U/L ALT 17 (7-52) U/L Alkaline Phosphatase 82 (34-104) U/L Total Protein 7.5 (6.0-8.3) gm/dl Albumin 3.4 (3.4-5.0) gm/dl Intake and Output 03/19/23 03/20/23 03/20/23 22:59 06:59 14:59 Intake Total 100 / 100 Balance 100 / 100 Intake: IV 100 / 100 Piperacillin/Tazobactam 4.5 gm 100 / 100 In Dextrose 5% Mini-B 100 ml @ 200 mls/hr IV NOW ONE Rx#: [id number] Other: Weight 86.2 kg Weight Measurement Method Built in [facility] Diagnostic Findings January 09, 2023 TTE Interpretation Summary ([facility], Dr. Patel): Mild concentric LVH. Normal LV wall motion. Normal LV systolic function. EF 55-60%. Moderately calcified aortic valve. Moderate valvular aortic stenosis. Grade II diastolic dysfunction. No evidence of valvular vegetation. January 09, 2023 SHARAN Interpretation Summary ([facility], Dr. Patel): EF 55-60%. Trileaflet AV, moderately calcified, no significant aortic regurgitation, moderate valvular aortic stenosis. No definite valvular vegetation present however given presentation, clinical suspicion for underlying endocarditis still remains high. Medications Administered Current Inpatient Medications Acetaminophen (Acetaminophen 325 Mg Tab) 650 mg PO Q4H PRN PRN Reason: Pain or Fever Stop: 04/19/23 11:01 Al Hydrox/Mg Hydrox/Simethicone (Aluminum/Magnesium Susp 30 Ml Udc) 15 ml PO Q4H PRN PRN Reason: Dyspepsia Stop: 04/19/23 11:01 Apixaban (Apixaban 2.5 Mg Tab) 2.5 mg PO BID [facility] Stop: 04/19/23 11:01 Last Admin: 03/20/23 12:12 Dose: 2.5 mg Aspirin (Aspirin 81 Mg Ectab) 81 mg PO DAILY [facility] Stop: 04/20/23 08:59 Atorvastatin Calcium (Atorvastatin 40 Mg Tab) 80 mg PO HS [facility] Stop: 04/19/23 20:59 Ferrous Sulfate (Ferrous Sulfate 325 Mg Tab) 325 mg PO DAILY@1100 [facility] Stop: 04/19/23 11:01 Last Admin: 03/20/23 12:12 Dose: 325 mg Piperacillin Sod/Tazobactam (Sod 4.5 gm/ Dextrose) 100 mls @ 25 mls/hr IV Q8H [facility]; Protocol Stop: 03/27/23 12:29 Last Admin: 03/20/23 12:12 Dose: 25 mls/hr Doxycycline Hyclate 100 mg/ (Dextrose) 100 mls @ 50 mls/hr IV Q12H [facility] Stop: 03/27/23 08:29 Last Infusion: 03/20/23 12:06 Dose: Infused Magnesium Hydroxide (Magnesium Hydroxide Susp 30 Ml Udc) 30 ml PO Q12H PRN PRN Reason: Constipation Stop: 04/19/23 11:01 Metoprolol Tartrate (Metoprolol Tartrate 50 Mg Tab) 50 mg PO BID [facility] Stop: 04/19/23 20:59 Ondansetron HCl (Ondansetron Inj 2 Mg/Ml 2 Ml Vial) 4 mg IV Q6H PRN PRN Reason: Nausea Stop: 04/19/23 11:01 Oxycodone HCl (Oxycodone Hcl Ir 5 Mg Tab (Immediate Release)) 5 mg PO Q4H PRN PRN Reason: severe pain Stop: 04/03/23 11:01 Polyethylene Glycol (Polyethylene (Miralax) 17 Gm Pack) 17 gm PO DAILY PRN PRN Reason: Constipation Stop: 04/19/23 11:01 Tamsulosin HCl (Tamsulosin Hcl 0.4 Mg Cap) 0.4 mg PO QAM [facility] Stop: 04/20/23 08:59 Vitamin D (Cholecalciferol 1,000 Units 25 Mcg Tab) 1,000 units PO DAILY JORDAN Stop: 04/20/23 08:59
[2023-03-20] MEDS: PIPERACILLIN/TAZOBACTAM 4.5 GM in DEXTROSE 5% MINI-B 100 ML IV SCH ×2 (12:12→20:36)
[2023-03-20] MEDS: FERROUS SULFATE 325 MG TAB PO SCH (12:12)
[2023-03-20] MEDS ORDERED: Heparin IV Adult Wt-Based Standard *NO* Bolus Protocol IV STA (16:02)
[2023-03-20] MEDS ORDERED: POTASSIUM CHLORIDE 20 MEQ/15 ML UDC PO STA (16:25)
[2023-03-20] MEDS: METOPROLOL TARTRATE 50 MG TAB PO SCH ×2 (16:34→20:38)
[2023-03-20] MEDS: HEPARIN SODIUM/DEXTROSE 25,000 UNITS/500 ML BAG IV SCH (16:34)
[2023-03-20 17:43] LABS: Partial Thromboplastin Ratio 1.1; Partial Thromboplastin Time 30.2 Seconds (21.0-31.0)
[2023-03-20 18:00] LABS: Appearance Urine Clear (Clear); Bilirubin Urine Negative (Negative); Blood Urine Negative (Negative); Color Urine Yellow; Glucose Urine UA Negative (Negative); Ketones Urine Negative (Negative); Leukocyte Esterase Urine Negative (Negative); Nitrite Urine Negative (Negative); Protein Urine Negative (Negative); Specific Gravity Urine 1.011 (1.000-1.030); Urobilinogen Urine Negative (Negative)
--- NOTE | 2023-03-20 18:47 | Pulmonary Consultation ---
Date of Consultation March 20, 2023 Assessment & Plan (1) Multifocal pneumonia: (2) Acute non-ST elevation myocardial infarction (NSTEMI): (3) CHF (congestive heart failure): Heart failure type: combined systolic and diastolic Heart failure chronicity: acute on chronic Qualified Code(s): I50.43 - Acute on chronic combined systolic (congestive) and diastolic (congestive) heart failure (4) CKD (chronic kidney disease), stage III: Chronic kidney disease stage 3 subtype: unspecified whether 3a or 3b Qualified Code(s): N18.30 - Chronic kidney disease, stage 3 unspecified (5) Leukocytosis: Leukocytosis type: unspecified Qualified Code(s): D72.829 - Elevated white blood cell count, unspecified Plan 88 year old male with paroxysmal afib, CAD, HTN, right facial droop from prior H&N surgery who presents with sudden onset dyspnea. CHF exacerbation in setting of NSTEMI suspected and he is going for cath in AM. Chest CT reviewed multiple scattered irregular nodular interstitial infiltrates in a peripheral and peribronchovascular distribution most prominent in the bases are suspicious for mucus plugging. Family has noted aspiration episodes. Patient also admits to difficulty chewing and swallowing due to his facial palsy and edentulous status. Agree with empiric antibiotics. Check procalcitonin. Check sputum culture. Speech and swallow evaluation. Monitor WBC. Acute hypoxic respiratory failure much improved since admission. BIPAP as needed. spoke with and daughter at the bedside. History of Present Illness Attending Physician: Geovani Funez MD History of Present Illness 88-year-old male with CHF, afib presents emergency department via EMS. He woke up at 1 AM on day of admission with severe shortness of breath. Patient denies cough, chest pain. Patient states he was in his usual state of health up until this morning however in general his overall condition has been gradually deteriorating over the past few months and he has been sedentary. He sustained a fall in 01/2023 with acute backpain and strep bacteremia. There was concern for endocarditis and he was treated with 2 weeks of antibiotics. In february he had lithotripsy x 2. In the ED lab significant for leukocytosis, CXR showed pneumonia vs pulmonary edema. Echo showed EF mildly reduced, 45 to 50%. Mild concentric LVH. No wall motion abnormalities reported. Moderate aortic valve stenosis. Normal RV function. Mild mitral and tricuspid regurgitation. He was initially placed on BIPAP due to respiratory distress but was able to come off before leaving the ED to the floor. Cardiology has high clinical suspicion for ACS/NSTEMI and is plan on possible cath in AM. Allergies Allergy/AdvReac Type Severity Reaction Status Date / Time No Known Allergies Allergy Verified 03/05/23 07:23 Home Medications Medication Instructions Recorded Confirmed Type aspirin 81 mg tablet,delayed 81 mg PO DAILY 11/16/20 03/20/23 History release atorvastatin 80 mg tablet 80 mg PO HS 11/16/20 03/20/23 History cholecalciferol (vitamin D3) 25 25 mcg PO DAILY 11/16/20 03/20/23 History mcg (1,000 unit) tablet (Vitamin D3) apixaban 5 mg tablet (Eliquis) 2.5 mg PO BID 07/02/22 03/20/23 History metoprolol tartrate 50 mg tablet 50 mg PO BID 07/02/22 03/20/23 History oxycodone 5 mg tablet 5 mg PO Q4H PRN severe pain #10 07/03/22 03/20/23 Rx tabs ferrous sulfate 325 mg (65 mg 325 mg PO DAILY@1100 #30 tabs 07/15/22 03/20/23 Rx iron) tablet,delayed release tamsulosin 0.4 mg capsule 0.4 mg PO QAM #30 caps 01/15/23 03/20/23 Rx Patient History Medical History Prediabetes Aortic stenosis Moderate per 01/09/23 SHARAN 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 Sepsis Admitted to [facility] 01/08/23-01/16/23 - sepsis and bacteremia- treated with abx x 2 weeks/ pt feeling better. Kidney stone reason for upcoming procedure. Fever Acute renal disease Noted during 01/2023 admission- has since improved to baseline per records (HFpEF) heart failure with preserved ejection fraction EF 55-60% per 01/09/23 SHARAN CAD (coronary artery disease) Nonobstructive per records CKD (chronic kidney disease), stage III Dyslipidemia, goal LDL below 70 HTN (hypertension) NSTEMI (non-ST elevated myocardial infarction) denies hx heart attack "supply/demand NSTEMI in 11/2020" per records NSTEMI Type II per 01/16/23 discharge summary from [facility] PAF (paroxysmal atrial fibrillation) no hx cardioversion on Eliquis Surgical History S/P cystoscopy with ureteral stent placement w/laser lithotripsy History of surgery right eye , trouble closing eyelid after parotid sx - they put a weight in so i can close my eye at night. History of colonoscopy History of parotidectomy History of transesophageal echocardiography (SHARAN) 01/09/23, [facility] w/dr. patel Hx of tonsillectomy H/O splenectomy Hx of cataract surgery both Family History Other Heart disease Hypertension Social History Smoking Status: Never smoker Tobacco Type: Cigarettes Second Hand Exposure: No; Hx Alcohol Use: No Hx Substance Use: No Preferred Language: Panamanian Communication Ability: Effective Tactical Deception Plans Officer Required: No Beliefs That Will Affect Care: None marital status: Current Living Situation: Spouse Current Living Situation Comment: Lives at home ith How many Children do You have: 2 Other Information That Helps Us Care for You: No Feels Safe at Home: Yes Safety Concerns: Feels Safe At This Time Assistive Devices: Glasses and Hearing Aid - Bilateral Review of Systems Review of Systems: All systems reviewed & are unremarkable except as noted in Subjective Physical Exam Constitutional: + thin and comfortable Respiratory: normal respiratory effort, lungs clear to auscultation normal respiratory effort Cardiovascular: Rate/Rhythm: regular rate and regular rhythm Extremities: no edema Gastrointestinal (Abdomen): Inspection/Auscultation: abdomen normal to inspection Skin: no rashes, warm and dry Neurologic: right sided facial droop. Results & Data Results & Data Vital Signs (Past 12 Hours) Vital Signs Temp Pulse Pulse Resp BP Pulse Ox Pulse Ox 03/20/23 18:39 106 H 03/20/23 14:56 100 03/20/23 14:43 03/20/23 14:43 36.6 C 104 H 17 157/95 H 100 03/20/23 11:25 99 03/20/23 11:25 36.6 C 101 H 16 129/88 99 03/20/23 10:18 105 H 03/20/23 09:13 99 03/20/23 06:57 117 H 22 93 O2 Del Method O2 Del Method O2 Flow Rate O2 Flow Rate FiO2 03/20/23 18:39 03/20/23 14:56 Nasal Cannula 2 03/20/23 14:43 Room Air 03/20/23 14:43 Nasal Cannula 2 03/20/23 11:25 Nasal Cannula 2 03/20/23 11:25 Nasal Cannula 2 03/20/23 10:18 03/20/23 09:13 BiPAP 03/20/23 06:57 30 PG Care Time/CCT Total # of Minutes Spent Total Time Spent with Patient: Total time spent is greater than 50% in coordination of care (as documented) at patient's floor/unit and/or counseling patient: Coding Level of Care Code 60812 INT INP/OBS CARE MIN Diagnoses Multifocal pneumonia J18.9 Acute non-ST elevation myocardial infarction (NSTEMI) I21.4 Acute on chronic combined systolic and diastolic congestive heart failure I50 .43 Heart failure type: combined systolic and diastolic Heart failure chronicity: acute on chronic Stage 3 chronic kidney disease, unspecified whether stage 3a or 3b CKD N18.30 Chronic kidney disease stage 3 subtype: unspecified whether 3a or 3b Leukocytosis, unspecified type D72.829 Leukocytosis type: unspecified
[2023-03-20] MEDS: ATORVASTATIN 40 MG TAB PO SCH (20:37)
[2023-03-20] MEDS ORDERED: METOPROLOL TARTRATE 50 MG TAB PO SCH (21:00)
[2023-03-21 01:37] LABS: Partial Thromboplastin Time 55.7 Seconds (21.0-31.0)
[2023-03-21] MEDS: PIPERACILLIN/TAZOBACTAM 4.5 GM in DEXTROSE 5% MINI-B 100 ML IV SCH ×3 (04:37→20:12)
[2023-03-21] MEDS: DOXYCYCLINE HYCLATE 100 MG in DEXTROSE 5% MINI-B 100 ML IV SCH ×2 (07:34→20:12)
--- NOTE | 2023-03-21 07:45 | Electrocardiogram Report ---
Test Reason : Blood Pressure : / mmHG Vent. Rate : 111 BPM Atrial Rate : 111 BPM P-R Int : 098 ms QRS Dur : 102 ms QT Int : 366 ms P-R-T Axes : 000 027 028 degrees QTc Int : 497 ms Sinus tachycardia with short AR Diffuse Minor Nonspecific ST and T wave abnormality Abnormal ECG When compared with ECG of 20-MAR-2023 07:45, No significant change Confirmed by Mehdi Deshpande ([id number]) on 03/21/2023 7:45:10 AM Referred By: REFERRED SELF Confirmed By:Mehdi Deshpande
[2023-03-21 07:46] LABS: Partial Thromboplastin Ratio 2.3; Partial Thromboplastin Time 66.1 Seconds (21.0-31.0)
[2023-03-21] MEDS: METOPROLOL TARTRATE 50 MG TAB PO SCH ×2 (08:40→13:58)
[2023-03-21] MEDS: CHOLECALCIFEROL 1,000 UNITS 25 MCG TAB PO SCH (08:41)
[2023-03-21] MEDS: ASPIRIN 81 MG ECTAB PO SCH (08:41)
[2023-03-21] MEDS: TAMSULOSIN HCL 0.4 MG CAP PO SCH (08:41)
--- NOTE | 2023-03-21 09:49 | Cardiology Progress Note ---
Date of Service March 21, 2023 Assessment & Plan Admission and Anticipated Discharge Date Admission Date: March 20, 2023 Supervising Physician Co-Signing Physician Notes Attending Staff: Pt seen and examined with [facility] staff Concur with observations and plans 88 yo man presenting with dyspnea * Acute dyspnea * Awoken from sleep * Brought in by EMS * 94% sat on presentation * WBC 17.5K * CXR - multifocal PNA vs pulmonary edema * CT - small bilateral pleural effusions, multivessel coronary calcifications, Aortic Calcifications, multilobar ground glass opacities * Deep downsloping ST depressions * Troponin - rapid rise - now at 1836 * ECHO - LVEF 45-50% - Moderate Dx: Acute Coronary Syndrome/ NSTEMI Med Hx: * Parotid Tumor s/p multiple resections * Strep Bacteremia - no clear source - 01/2023- [facility] (equivocal endocarditis) - Rx with Ceftriaxone * Nephrolithiasis Plans: * Presentation c/w ACS/NSTEMI * Suspect Dyspnea + CXR/CT findings c/w Acute CHF secondary to ischemia * EKG concerning for significant ischemic burden * Discussed pro's and con's on invasive approach * Pt is in favor of coronary angiogram * Suspect patient may have surgical grade CAD * Given afib/flutter - suspect that patient may have developed afib/flutter leading to increase in myocardial demands in the setting of multivessel CAD- leading to NSTEMI/CHF * Hold DOAC * Start Heparin * Pt is very functional and would like to preserve his functionality * Continue ASA 81 mg po per day * Continue Lipitor 80 mg po per day * Continue Lopressor to 50 mg PO TID * Pt currently NPO - potential cath in AM on 03/21/2023 Riaz Willingham Subjective Events overnight: * Pt in afib/flutter * NSVT * No chest pain overnight Subjective: * No complaints Review of Systems Review of Systems: All systems reviewed & are unremarkable except as noted in HPI & below Physical Exam Physical Exam: Thin man in NAD Right facial droop s/p parotid surgery JVP @ base of neck cmH20 S1S2 2/6 Systolic Murmur CTA B + BS No C/C/E 2/2 radial pulse on right 2/2 femoral pulse on right - no bruit Results & Data Vital Signs (Past 12 Hours) Vital Signs Temp Pulse Pulse Resp BP Pulse Ox O2 Del Method 03/21/23 07:51 74 03/21/23 07:51 Room Air 03/21/23 07:37 36.9 C 80 20 128/77 97 Nasal Cannula 03/21/23 04:30 36.1 C L 03/21/23 03:02 35.8 C L 57 L 18 117/68 97 Nasal Cannula 03/20/23 23:19 60 123/79 03/20/23 23:00 36.4 C L 108 H 18 150/98 H 99 Nasal Cannula O2 Flow Rate 03/21/23 07:51 03/21/23 07:51 03/21/23 07:37 1 03/21/23 04:30 03/21/23 03:02 1 03/20/23 23:19 03/20/23 23:00 1 Laboratory Results Cardiac Enzymes 03/20/23 03/20/23 Range/Units 12:51 17:19 Troponin I High Sens 1836.7 H* D 2472.4 H* D (0-20) pg/ml Coagulation 03/20/23 03/21/23 03/21/23 Range/Units 17:19 00:11 06:09 APTT 30.2 55.7 H* 66.1 H* (21.0-31.0) Seconds Intake and Output 03/20/23 03/21/23 03/21/23 22:59 06:59 14:59 Intake Total 439.633 / 934.416 294.783 / 934.416 259.5 / 259.5 Output Total 200 / 450 250 / 450 Balance 239.633 / 484.416 44.783 / 484.416 259.5 / 259.5 Intake: IV 239.633 / 734.416 294.783 / 734.416 259.5 / 259.5 Doxycycline Hyclate 100 mg In 100 / 200 Dextrose 5% Mini-B 100 ml @ 50 mls/hr IV Q12H [facility] Rx#:[id number] Heparin Sodium/Dextrose 25,000 39.633 / 234.416 194.783 / 234.416 159.5 / 159.5 units In 500 ml @ 1,450 UNITS/ HR 29 mls/hr IV .[id number] [facility] Rx #:[id number] Piperacillin/Tazobactam 4.5 gm 100 / 200 100 / 200 100 / 100 In Dextrose 5% Mini-B 100 ml @ 25 mls/hr IV Q8H [facility] Rx#: [id number] Oral 200 / 200 0 / 200 Output: Urine 200 / 450 250 / 450 # Bowel Movements 0 / 0 0 / 0 Other: # Unmeasured Voids 1 1 Weight 78.7 kg Weight Measurement Method [facility] Medications Administered Current Inpatient Medications Acetaminophen (Acetaminophen 325 Mg Tab) 650 mg PO Q4H PRN PRN Reason: Pain or Fever Stop: 04/19/23 11:01 Al Hydrox/Mg Hydrox/Simethicone (Aluminum/Magnesium Susp 30 Ml Udc) 15 ml PO Q4H PRN PRN Reason: Dyspepsia Stop: 04/19/23 11:01 Apixaban (Apixaban 2.5 Mg Tab) 2.5 mg PO BID [facility] Stop: 04/19/23 11:01 Last Admin: 03/20/23 12:12 Dose: 2.5 mg Aspirin (Aspirin 81 Mg Ectab) 81 mg PO DAILY [facility] Stop: 04/20/23 08:59 Last Admin: 03/21/23 08:41 Dose: 81 mg Atorvastatin Calcium (Atorvastatin 40 Mg Tab) 80 mg PO HS [facility] Stop: 04/19/23 20:59 Last Admin: 03/20/23 20:37 Dose: 80 mg Ferrous Sulfate (Ferrous Sulfate 325 Mg Tab) 325 mg PO DAILY@1100 [facility] Stop: 04/19/23 11:01 Last Admin: 03/20/23 12:12 Dose: 325 mg Piperacillin Sod/Tazobactam (Sod 4.5 gm/ Dextrose) 100 mls @ 25 mls/hr IV Q8H [facility]; Protocol Stop: 03/27/23 12:29 Last Infusion: 03/21/23 08:32 Dose: Infused Doxycycline Hyclate 100 mg/ (Dextrose) 100 mls @ 50 mls/hr IV Q12H [facility] Stop: 03/27/23 08:29 Last Admin: 03/21/23 07:34 Dose: 50 mls/hr Heparin Sodium/Dextrose (Heparin Sodium/Dextrose) 25,000 units in 500 mls @ 29 mls/hr IV .[id number] [facility]; Protocol Stop: 04/19/23 16:29 Last Titration: 03/21/23 07:14 Dose: 1,450 units/hr, 29 mls/hr Magnesium Hydroxide (Magnesium Hydroxide Susp 30 Ml Udc) 30 ml PO Q12H PRN PRN Reason: Constipation Stop: 04/19/23 11:01 Metoprolol Tartrate (Metoprolol Tartrate 50 Mg Tab) 50 mg PO TID [facility] Stop: 04/19/23 16:14 Last Admin: 03/21/23 08:40 Dose: 50 mg Ondansetron HCl (Ondansetron Inj 2 Mg/Ml 2 Ml Vial) 4 mg IV Q6H PRN PRN Reason: Nausea Stop: 04/19/23 11:01 Oxycodone HCl (Oxycodone Hcl Ir 5 Mg Tab (Immediate Release)) 5 mg PO Q4H PRN PRN Reason: severe pain Stop: 04/03/23 11:01 Polyethylene Glycol (Polyethylene (Miralax) 17 Gm Pack) 17 gm PO DAILY PRN PRN Reason: Constipation Stop: 04/19/23 11:01 Tamsulosin HCl (Tamsulosin Hcl 0.4 Mg Cap) 0.4 mg PO QAM [facility] Stop: 04/20/23 08:59 Last Admin: 03/21/23 08:41 Dose: 0.4 mg Vitamin D (Cholecalciferol 1,000 Units 25 Mcg Tab) 1,000 units PO DAILY [facility] Stop: 04/20/23 08:59 Last Admin: 03/21/23 08:41 Dose: 1,000 units
[2023-03-21] MEDS: HEPARIN SODIUM/DEXTROSE 25,000 UNITS/500 ML BAG IV SCH (09:57)
[2023-03-21] MEDS: FERROUS SULFATE 325 MG TAB PO SCH (11:09)
[2023-03-21] MEDS ORDERED: HEPARIN (PORCINE) 1000 UNIT/ML 10 ML (CATH LAB USE ONLY) ONE (11:31)
[2023-03-21] MEDS ORDERED: MIDAZOLAM HCL 1 MG/ML 2ML VIAL ONE (11:31)
[2023-03-21] MEDS ORDERED: NITROGLYCERIN/D5W 100MCG/ML 20ML SYR ONE (11:32)
[2023-03-21] MEDS ORDERED: fentaNYL citrate PF 100 MCG/2 ML VIAL ONE (11:32)
[2023-03-21] MEDS ORDERED: niCARdipine HCL INJ 2.5 MG/ML 10 ML AMP ONE (11:32)
[2023-03-21] MEDS ORDERED: OPTIRAY 350 ONE (11:33)
[2023-03-21] MEDS ORDERED: LIDOCAINE 1% LOCAL 20 ML VIAL ONE (11:37)
--- NOTE | 2023-03-21 12:20 | Post Anesthesia Assessment ---
Date of Service March 21, 2023 Post Sedation Assessment Vital Signs Temp Pulse Pulse Resp BP Pulse Ox O2 Del Method 03/21/23 11:26 36.7 C 66 20 134/81 96 Room Air 03/21/23 07:51 74 03/21/23 07:51 Room Air 03/21/23 07:37 36.9 C 80 20 128/77 97 Nasal Cannula 03/21/23 04:30 36.1 C L 03/21/23 03:02 35.8 C L 57 L 18 117/68 97 Nasal Cannula 03/20/23 23:19 60 123/79 03/20/23 23:00 36.4 C L 108 H 18 150/98 H 99 Nasal Cannula 03/20/23 19:34 36.7 C 110 H 16 134/91 96 Nasal Cannula 03/20/23 18:39 106 H 03/20/23 14:56 100 Nasal Cannula 03/20/23 14:43 Room Air 03/20/23 14:43 36.6 C 104 H 17 157/95 H 100 Nasal Cannula O2 Flow Rate 03/21/23 11:26 03/21/23 07:51 03/21/23 07:51 03/21/23 07:37 1 03/21/23 04:30 03/21/23 03:02 1 03/20/23 23:19 03/20/23 23:00 1 03/20/23 19:34 2 03/20/23 18:39 03/20/23 14:56 2 03/20/23 14:43 03/20/23 14:43 2 Recovery Score Activity: Moves 4 extremities Respiration: Deep Breath/Cough Circulation: +/-20% PreAnes Value Consciousness: Fully Awake Oxygen Saturation: > 92% On Room Air Discharge Sedation Level of Care: Fast Track Phase II Post Sedation Plan On clinical assessment, the patient appears to have tolerated the sedation without complications. Patient is recovering as anticipated. Patient will continue to be monitored by nursing and may be discharged when sedation discharge criteria are met per below protocol. Upon Completions of procedure up to 15 minutes continue every 5 minute vital signs and the P.A.R. score; then discharge to a Phase I or Fast Track to Phase II per the following guidelines: * Discharge Patient to appropriate Phase II area if PAR is 8 or greater or return to pre- procedure baseline. The post - procedure orders will be as directed. * If PAR score is less than 8 or not return to pre-procedure baseline then patient will follow Phase I monitoring till PAR is reached for Phase II. The Phase I may be done in procedure room or may call to secure a Phase I area. * If naloxone or flumazenil are used for reversal, hold in Phase I for continued monitoring from when last reversal dose was given for a minimum of 60 minutes or longer pending the nurse and/or physician discretion of patient condition before discharge to Phase II. Please call the Sedation Physician to re-evaluate and complete post-note for discharge to Phase II area. Do NOT discharge from procedure sedation or Phase 1 until post- sedation evaluation note is complete by procedure /sedation MD Sedation Discharge Instructions to be given to the patient at discharge to home. [facility] [place] Procedure Codes (Charges) Indication for Procedure Indication for procedure: NSTEMI Sedation/Anesthesia Procedure 1: Sedation/Anesthesia: 19522 Mod Sedation by the same physician;Init15 Min Child Age 5 & Up (START 1154, END 1209)
--- NOTE | 2023-03-21 12:55 | Cardiac Catheterization ---
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 Clinical evaluation leading to the procedure CAD Presenation: Non STEMI Anginal Classification: CCS IV (SOB) Heart Failure: NYHA Class: CCS IV Cardiogenic Shock within 24 Hours: No Cardiac Arrest within 24 Hours: No Imaging Studies Past 6 Months: Yes (Echo) Stress Studies Past 6 Months: No Coronary Anatomy Dominant: Right Left Main (% Stenosis): Distal (70%) LAD (% Stenosis): Ostial (Probably 70 to 80%), Proximal (Aneurysmal), Mid (50 to 70%) and Distal (Diffuse mild) D1 (% Stenosis): Ostial (Aneurysmal) D2 (% Stenosis): Normal D3 (% Stenosis): Normal Circumflex (% Stenosis): Ostial (70 to 80% then aneurysmal) OM1 (% Stenosis): Normal (Mild diffuse) OM2 (% Stenosis): Normal RCA (% Stenosis): 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) R PDA (% Stenosis): Normal (Fills via left to right) R PL1 (% Stenosis): Normal (Fills via left to right) Diagnostic Physicians Name: Luis Azul MD, PhD Closure Device Percutaneous Entry Location: Radial Closure Device: Radial Band Recommendations: Medical Therapy and/or Counseling Cardiac Cath Procedure Full Procedure Date March 21, 2023 Pre-Procedure Diagnosis Pre-Procedure Diagnosis: Non STEMI AUC Score AUC Score: 07 Post-Procedure Diagnosis Post-Procedure Diagnosis: Severe CAD Procedure(s) Performed Procedure(s) Performed: Coronary Angiography Coding And Reimbursement Specialist Luis Azul MD, PhD Estimated Blood Loss Estimated Blood Loss: 5 ML Medication(s) Medication(s): Fentanyl, Lidocaine 1%, Nicardipine, Nitroglycerin and Versed Summary of Findings Brief description: Patient was brought to the cardiac catheterization suite where he was shaved and prepped in a sterile fashion. Sedated using IV Versed and fentanyl. Soft tissues of the right wrist were anesthetized using 2 mL of 1% Xylocaine. The right radial artery was accessed using a modified Seldinger technique and a 6 [place] radial artery glide sheath was placed. Patient was provided antispasmodics including nicardipine and nitroglycerin. He had been on heparin drip just prior to arrival. All catheters were advanced and exchanged over a 0.035 J-tip wire. Coronary angiography findings: [id number] vessel bifurcating into the LAD and circumflex. It is at least moderately calcified. There appears to be diffuse mild to moderate disease with up to 70 percent distal stenosis. LAD-large caliber and transapical vessel. It is at least moderately calcified in the proximal to mid segment. There is complex aneurysmal disease proximally with stenosis preceding the aneurysm of 70 to 80%. LAD the gives a large septal branch and the first diagonal is medium to large with an ostial aneurysmal segment. The mid LAD has diffuse disease with up to 50 to 70% stenosis. Second diagonal is medium in caliber with diffuse mild disease. The third diagonal is medium to large caliber and branching. Distal LAD has diffuse mild disease. LCx-this is large caliber and nondominant. Mild to moderate calcification. There appears to be an ostial aneurysm occurring just after the distal left main disease. Then there is focal 70 to 80% stenosis. Circumflex travels in the AV groove providing a medium caliber OM1 which has diffuse mild disease. Continues further in the AV groove where it gives a medium to large caliber OM 2 which has mild luminal irregularities. It also provides a large atrial branch. RCA-this is heavily calcified at the right coronary cusp/ostium. It is 100% occluded. The mid, distal, and branch vessels (PDA, PLB) fills via robust left to right collateralization. Summary: 1. Significant calcification of the proximal to mid major epicardial vessels. 2. Complex aneurysmal disease of the LAD, diagonal, and circumflex. 3. Severe stenotic disease in the left main, LAD, circumflex, and RCA vessels. 4. Patient's disease is not readily amenable to PCI. CABG would be preferred to revascularization, however, his comorbid disease and age likely preclude. 5. Guideline directed medical therapy for secondary prevention of coronary disease to include; low-dose aspirin, high intensity statin therapy, beta- richard, plus or minus MICHAEL inhibitor/ARB. Hemodynamics Rest Ao:: 102/79 mmHg Final Ao: 113/84 mmHg LV: Not performed Recommendations Recommendations: Medical Therapy and/or Counseling Radiation Exposure (mGy) 864 mGy, fluoroscopy time 3.0 minutes Contrast (mls) 79 Anesthesia 1 mg IV Versed, 25 mcg IV fentanyl. Start time 1154, end time 1209 Procedural Complication(s) None Disposition Recovery Room\PACU I attest to the content of the Intraoperative Record and any orders documented therein. Any exceptions are noted below. [facility] Card Cath Procedure Codes Cardiac Catheterization Procedure 1: Cardiovascular Cath Procedures: 01666 Coronaries Moderate Sedation Procedure 1: Sedation/Anesthesia: 12347 Mod Sedation by the same physician;Init15 Min Child Age 5 & Up (Start time 1154, end time 1209) PG Care Time/CCT Total # of Minutes Spent Total Time Spent with Patient: Total time spent is greater than 50% in coordination of care (as documented) at patient's floor/unit and/or counseling patient:
[2023-03-21 17:12] LABS: BUN Creatinine Ratio 20.3 (10-20); Calcium 8.4 mg/dl (8.6-10.3); Creatinine Clr Calc Pharmacy 45.6 ml/min; Est GFR (African American) 60.4 ml/min; Est GFR (Non-African American) 52.1 ml/min; Potassium 3.6 mmol/L (3.5-5.1)
--- NOTE | 2023-03-21 19:06 | Hospitalist Progress Note ---
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 Pt meets sepsis criteria 2/2 leukocytosis, tachycardia. blood cultures obtained, received broad spectrum antibiotics with IV zosyn. Initially he did receive IVF; however this since d/c in setting of possible CHF will also obtain urine specimen Acute respiratory failure with hypoxia Multifocal pneumonia Sepsis Admit to PCU Broad-spectrum antibiotics with IV Zosyn and doxycycline Consult pulmonology obtain CT Chest Continue BiPAP therapy and wean down to nasal cannula as able received 40mg IV lasix in ED aspiration precautions respiratory Biofire, MRSA screen no further fluids at this time due to concern for CHF 03/21 On room air Clinically improving Cultures pending Bio fire and MRSA screen negative Continue IV antibiotics for now Neurology service on board CAD NSTEMI ACUTE HFpEF likey in setting of underlying illness cycle trops, consult cardiology received 40mg IV lasix in ED daily weights, Strict I and O last echo 01/2023 EF 55%, moderate will repeat echo to r/o regional wall motion abnormality known fixed CAD, on statin, metoprolol and asa as outpatient 03/21 S/p cardiac cath revealing severe CAD Not amenable to PCI, patient not a candidate for surgical intervention Continue medical management for now Continue metoprolol, Imdur, apixaban, aspirin, Lipitor PAF continue apixaban, metoprolol chronic, stable HTN pt with recent changes to BP meds, amlodipine/hctz stopped in January, Lisinopril recently d/c on 03/13 currently only on metoprolol tartrate 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 CKD-3 baseline cr 1-1.2 bun/cr stable, continue to monitor Anemia, likely of chronic disease h/h 10/4 and 33.0 stable, no s/sx of bleeding Dispo: admit to PCU, pt/ot when appropriate FULL CODE PCP: Dr. Lenz Pt was seen and examined in collaboration with Dr. Funez, please see addendum Admission and Anticipated Discharge Date Admission Date: March 20, 2023 Subjective Follow-up for NSTEMI, acute hypoxic respiratory failure, etc. Status post cardiac cath this morning Seen resting in bed, sitting up, comfortable, not in distress On room air States he feels improved today compared to yesterday Breathing is easier No chest pain, palpitations, dizziness Denies cough today, fevers or chills No other new symptom Review of Systems Review of Systems: all noted and negative except for above Results & Data Results & Data Vital Signs (Past 12 Hours) Vital Signs Temp Pulse Pulse Resp BP BP Pulse Ox 03/21/23 17:00 57 L 03/21/23 16:30 57 L 03/21/23 16:30 55 L 16 113/65 96 03/21/23 16:00 57 L 16 106/54 L 97 03/21/23 15:45 36.7 C 55 L 18 106/57 L 97 03/21/23 15:30 63 16 105/65 96 03/21/23 14:30 68 16 116/65 93 03/21/23 13:30 70 16 116/62 95 03/21/23 13:00 67 16 113/69 94 03/21/23 12:30 89 18 123/77 92 03/21/23 12:15 78 18 113/70 96 03/21/23 11:26 36.7 C 66 20 134/81 96 03/21/23 07:51 74 03/21/23 07:51 03/21/23 07:37 36.9 C 80 20 128/77 97 O2 Del Method O2 Flow Rate 03/21/23 17:00 03/21/23 16:30 03/21/23 16:30 Room Air 03/21/23 16:00 Room Air 03/21/23 15:45 Room Air 03/21/23 15:30 Room Air 03/21/23 14:30 Room Air 03/21/23 13:30 Room Air 03/21/23 13:00 Room Air 03/21/23 12:30 Room Air 03/21/23 12:15 Room Air 03/21/23 11:26 Room Air 03/21/23 07:51 03/21/23 07:51 Room Air 03/21/23 07:37 Nasal Cannula 1 (4) CHF (congestive heart failure) Heart failure chronicity: acute on chronic Heart failure type: combined systolic and diastolic Qualified Code(s): I50.43 - Acute on chronic combined systolic (congestive) and diastolic (congestive) heart failure
[2023-03-21] MEDS: APIXABAN 2.5 MG TAB PO SCH (20:10)
[2023-03-21] MEDS: ATORVASTATIN 40 MG TAB PO SCH (20:10)
[2023-03-21] MEDS: METOPROLOL SUCC 25MG EXT REL TAB PO SCH (20:11)
--- OUTSIDE RECORDS SUMMARY | 2023-03-22 00:38 | External Medical Summary | Summary of Care ---
Author Name Unknown Organization [facility] Address [address] [facility] [place] [address] Phone [phone] Care Team Providers Care Ict Analyst Name Role Phone Sergio Lenz MD Primary Care Provider [phone] Encounter Details Date Type Department Care Team (Late st Contact Info) Description 01/30/2023 Population Health External Data Unspecified Department Allergies No known active allergiesdocumented as of this encounter (statuses as of 03/18/2023) Medications Medication Sig Dispensed Refills Start Date End Date Status ASPIRIN EC LOW STRENGTH TBEC 81 MG OR one by mouth daily 0 0 12/18/2002 Active Cholecalciferol (VITAMIN D) 1000 UNIT CapsuleIndications :Vitamin D deficiency Take 1 Capsule by mouth. One capsule daily 30 Cap 11 06/03/2015 Active oxyCODONE HCl 5 MG Oral Capsule (Oxy IR) Take 1 Capsule by mouth every 4 hours as needed for Pain, Moderate or Pain, Severe. 0 Active Ferrous Sulfate 325 (65 Fe) MG Oral Tablet Delayed Release Take 1 Tablet by mouth. Take daily at 11 AM 0 07/16/2022 Active Apixaban 2.5 MG Oral Tablet (Eliquis)Indicatio ns:Paroxysmal atrial fibrillation (HCC) Take 1 Tablet by mouth in the morning and 1 Tablet before bedtime. 180 Tablet 3 07/18/2022 Active Erythromycin 5 MG/GM Ophthalmic Ointment 0 06/21/2021 Active Atorvastatin Calcium 80 MG Oral Tablet (Lipitor)Indicatio ns:Dyslipidemia, goal to be determined TAKE ONE TABLET BY MOUTH IN THE MORNING 90 Tablet 1 12/13/2022 Active cefTRIAXone IV IJ (AMBULATORY) Administer 1 g intravenously daily. 0 Active HYDROcodone-Acetam inophen 5-325 MG Oral Tablet Take 1 Tablet by mouth every 4 hours as needed. 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 12/12/2020 Overview: Per CKD protocol Chronic kidney disease, stage 3b 12/12/2020 Overview: Per CKD protocol Prediabetes 07/13/2019 Overview: Per Prediabetes protocol History of parotid cancer 05/30/2017 HTN, goal below 150/90 06/03/2015 Hyperlipidemia with target LDL less than 100 Overview: ICD-10 update of inactive term Vitamin D deficiency 05/21/2011 ADVANCE DIRECTIVE INFORMATION 11/13/2005 Overview: Has living will- advise to bring in copy Mitral valve regurgitation 12/18/2002 Overview: per echo 08/05 documented as of this encounter (statuses as of 03/18/2023) Resolved Problems Problem Noted Date Diagnosed Date Resolved Date Chronic kidney disease, stage 3a 10/18/2020 12/20/2020 Overview: Per CKD protocol 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 On list Benign neoplasm of colon 03/29/200805/2016 Overview: adenomatous and hyperplastic-repeat colonoscopy in 2 yrs SYLWIA HYPERTEN HRT DIS NOS 12/18/2002 Overview: Per Heart Failure Taxonomy Protocol. LVH per echo Bacterial pneumonia 03/06/20 17 Dyslipidemia, goal to be determined 03/06/2017 Screening for prostate cancer 07/14/2008 Overview: Resolved per Screening Diagnosis Protocol #6 documented as of this encounter (statuses as of 03/18/2023) Immunizations Name Administration Dates Next Due COVID-19 mRNA, LNP-s, No Pre serve, 2-Dose Series (Moderna) 07/06/2020,05/27/2020 COVID-19, mRNA, LNP-s, PF, B ooster, 100mcg/0.5mg (Moderna) 04/24/2021 Pneumococcal Conjugate Vacc, 13 Valent (Prevnar) 11/16/2014 SEASONAL INFLUENZA, PF, 6 M & Above, IM , (FLULAVAL or FLUZONE) 04/09/2018,02/12/2017 Season Influenza, Quad, PF, Adjuvanted, 65+ Yrs, IM (FLUAD) 02/29/2020 Seasonal Influenza Virus Vac cine, Unspecified Formulation 01/20/2019 Seasonal Influenza, Quadriva lent Hd (Fluzone Hd) 03/07/2022 Seasonal Influenza, Quadriva lent, No Preserve, IM 04/04/2016,04/05/2015 Seasonal Influenza, Split, I IV3, With Preserve, Inj 03/09/2014,04/16/2013,05/08/2012,2010,02/06/2010,02/10/2009,02/16/2008,1 ,03/06/2006 TD, Preservative Free 06/09/2010 TDAP (age 10 and older)(Boostrix) 11/27/2016 Varicella Zoster Vaccine (Adult) 07/16/2011 Zoster Vaccine Recombinant (Shingrix) 04/02/2018 ,12/25/2017 documented as of this encounter Social History Tobacco Use Types Packs/Day Years Used Date Smoking Tobacco: Former Cigarettes 20 Q uit: 05[birth year]06/1963 Smokeless Tobacco: Never Alcohol Use Standard Drinks/Week Comments Yes 0 (1 standard drink = 0.6 oz pur e alcohol) very rare PHQ-2 Answer Date Recorded PHQ Adult Total Score 0 04/11/2022 Hunger Vital Sign Answer Date Recorded Within the past 12 months, y ou worried that your food would run out before you got the money to buy more. Never true 04/11/20 22 Within the past 12 months, t he food you bought just didn't last and you didn't have money to get more. Never true 04/11/2022 Sex and Gender Information Value Date Recorded Sex Assigned at Male 02/24/2019 9:01 AM EDT Gender Identity Male 02/24/2019 9:01 AM EDT Sexual Orientation Not on file Job Start Date Occupation Industry Not on file Not on file Not on file documented as of this encounter Plan of Treatment Upcoming Encounters Date Type Department Care Team (Late st Contact Info) Description 04/11/2023 8:00 AM EST Nurse Only Ancillary Department, [place] [address], [place] [id number] [place], Nurse [facility] [address], [place] [phone] 06/14/2023 9:40 AM EST Office Visit Family Practice, [place] [address] [facility] [place] [phone] Sergio Lenz MD [address] [facility] [place] [id number] Health Maintenance Due Date Last Done Comments MENINGOCOCCAL (MENACTRA/MENVEO) (1 - Risk 2-dose series) 1937 Meningitis B Vaccine (Bexsero/Trumemba) (1 of 4 - Increased Risk) 1945 COLONOSCOPY-EVERY 5 YRS AGES 18-100 2016 01/24/2011, 01/24/2011, 03/29/2008, Additional history exists COVID-19 Vaccine (4 - season) 2023 04/24/2021, 07/06/2020, 05/27/2020 Depression Screening 04/11/2023 04/11/2022 Albumin/Creatinine Ratio 01/19/2024 023, 02/23/2022, 04/05/2021, Additional history exists CKD PHOS USE SMARTSET 79672 01/19/202401/04, 02/23/2022, 05/29/2019, Additional history exists HbA1c 01/19/2024 01/18/2023, 02/04, 06/20/2020, Additional history exists CKD HGB USE SMARTSET 95674 03/12/202403/12, 03/12/2023, 2023, Additional history exists DTaP,Tdap,and Td Vaccines (2 - Td or Tdap) 11/27/2026 11/27/2016, 06/09/2010, 10/04/1998 Pneumococcal Vaccine: 65+ Years Completed 11/16/2014, 06/06/2001 Zoster Vaccines Completed 04/02/2018, 12/05, 08/05/2011, Additional history exists Influenza Vaccine (FLU shot) Completed 11/2022, 03/07/2022, 02/29/2020, Additional history exists GARDASIL-HPV IMMUNIZATION SERIES Aged Out No longer eligible based on patient's age to complete this topic Hepatitis B Aged Out No longer eligi ble based on patient's age to complete this topic documented as of this encounter Medical Devices Implanted Type Area Gamemaster Device Identifier Shelf Expiration Date Model / Serial / Lot Lens Intraoc 18.0 - [id number] - [id number] Implanted:Qty: 1 on 03/26/2017 by Fran Bearden MD at OR [facility] Right: Eye [employer]OM[employer] 06/05/2021 [id number] / [id number] / Lens Intraoc 18.5 - [id number] - [id number] Implanted:Qty: 1 on 04/04/2017 by Fran Bearden MD at OR [facility] Left: Eye [employer] LOMB 10/03/2021 [id number] / [id number] / [id number] documented as of this encounter Advance Directives Latest Code Status on File Code Status Date Activated Date Inactivated Comments Full Code 04/04/2017 8:39 AM 04/04/2017 3:04 PM Thi s order reflects the patients wishes and were consensually agreed upon. Code Status History Code Status Date Activated Date Inactivated Comments Full Code 03/26/2017 10:55 AM 03/26/2017 5:09 PM Th is order reflects the patients wishes and were consensually agreed upon. Care Teams Ict Analyst Relationship Specialty Start Date End Date Sergio Lenz MD [address] [place] [address] PCP - General 09/14/02 documented as of this encounter
--- OUTSIDE RECORDS SUMMARY | 2023-03-22 00:38 | External Medical Summary | Summary of Care ---
Author Name Unknown Organization [facility] Address [address] [place] [address] Phone [phone] Care Team Providers Care Reduction Plant Supervisor Name Role Phone Sergio Lenz MD Primary Care Provider Reason for Visit * Reason Onset Date Comments Advice 03/13/2023 Encounter Details Date Type Department Care Team (Late st Contact Info) Description 03/13/2023 Telephone [facility] [address] [place] [address] Sergio Lenz MD [address] [place] [address] Advice Allergies No known active allergiesdocumented as of this encounter (statuses as of 03/14/2023) Medications Medication Sig Dispensed Refills Start Date End Date Status ASPIRIN EC LOW STRENGTH TBEC 81 MG OR one by mouth daily 0 0 3 Active Cholecalciferol (VITAMIN D) 1000 UNIT CapsuleIndicatio ns:Vitamin D deficiency Take 1 Capsule by mouth. One capsule daily 30 Cap 11 6 Active oxyCODONE HCl 5 MG Oral Capsule (Oxy IR) Take 1 Capsule by mouth every 4 hours as needed for Pain, Moderate or Pain, Severe. 0 Active Ferrous Sulfate 325 (65 Fe) MG Oral Tablet Delayed Release Take 1 Tablet by mouth. Take daily at 11 AM 0 3 Active Apixaban 2.5 MG Oral Tablet (Eliquis)Indicat ions:Paroxysmal atrial fibrillation (HCC) Take 1 Tablet by mouth in the morning and 1 Tablet before bedtime. 180 Tablet 3 3 Active Erythromycin 5 MG/GM Ophthalmic Ointment 0 2 Active Atorvastatin Calcium 80 MG Oral Tablet (Lipitor)Indicat ions:Dyslipidemi a, goal to be determined TAKE ONE TABLET BY MOUTH IN THE MORNING 90 Tablet 1 3 Active cefTRIAXone IV IJ (AMBULATORY) Administer 1 g intravenously daily. 0 Active HYDROcodone-Acet aminophen 5-325 MG Oral Tablet Take 1 Tablet by mouth every 4 hours as needed. 0 3 Active Tamsulosin HCl 0.4 MG Oral Capsule (Flomax) Take 1 Capsule by mouth in the morning. 90 Capsule 3 3 Active Metoprolol Tartrate 50 MG Oral Tablet (Lopressor)Indic ations:Paroxysma l atrial fibrillation (HCC) Take 1 Tablet by mouth in the morning and 1 Tablet before bedtime. 180 Tablet 3 3 Active Lisinopril 10 MG Oral Tablet (Prinivil)Indica tions:HTN, goal below 150/90 Take 1 Tablet by mouth in the morning. 90 Tablet 3 3 023 Discontinued Metoprolol Tartrate 50 MG Oral Tablet (Lopressor)Indic ations:Paroxysma l atrial fibrillation (HCC) Take 0.5 Tablets by mouth in the morning and 0.5 Tablets before bedtime. 0 3 023 Discontinued(Re fill) documented as of this encounter (statuses as of 03/14/2023) Active Problems Problem Noted Date Diagnosed Date [...] as of this encounter (statuses as of 03/14/2023) Resolved Problems Problem Noted Date Diagnosed Date [...] Heart Failure Taxonomy Protocol. LVH per echo 2/002 Bacterial pneumonia 03/06/20 17 Dyslipidemia, goal to be determined 03/06/2017 Screening for prostate cancer 07/14/2008 Overview: Resolved per Screening Diagnosis Protocol #6 documented as of this encounter (statuses as of 03/14/2023) Immunizations Name Administration Dates Next Due COVID-19 mRNA, LNP-s, No Pre serve, 2-Dose Series (Moderna) 07/06/2020,05/27/2020 COVID-19, mRNA, LNP-s, PF, B ooster, 100mcg/0.5mg (Moderna) 04/24/2021 Pneumococcal Conjugate Vacc, 13 Valent (Prevnar) 11/16/2014 Pneumococcal Polysaccharide PPV23 (Pneumovax) 06/06/2001 SEASONAL INFLUENZA, PF, 6 M & Above, IM , (FLULAVAL or FLUZONE) 04/09/2018,02/12/2017 Season Influenza, Quad, PF, Adjuvanted, 65+ Yrs, IM (FLUAD) 02/29/2020 Seasonal Influenza Virus Vac cine, Unspecified Formulation 01/20/2019 Seasonal Influenza, Quadriva lent Hd (Fluzone Hd) 03/12/2023,03/07/2022 Seasonal Influenza, Quadriva lent, No Preserve, IM 04/04/2016,04/05/2015 Seasonal Influenza, Split, I IV3, With Preserve, Inj 03/09/2014,04/16/2013,05/08/2012,03/15,02/06/2010,02/10/2009,02/16/2008 ,03/05/2007,03/06/2006 TD - Tetanus/Diptheria (ADULT) 10/04/1998 TD, Preservative Free 06/09/2010 TDAP (age 10 [...] on file documented as of this encounter Miscellaneous Notes * Telephone Encounter - Kelsy Almanzar LPN - 03/14/2023 12:36 PM EST Unable to reach Home Health, # not in service, spoke to pt Verbalized understanding of message, did repeat back to me what he needed to do. Pt will let [facility] know * Telephone Encounter - Sergio Lenz MD - 03/13/2023 7:18 PM EST Notify Home Health and Pt: stop Lisinopril. I had him half his dose when seen in office a few days ago. Increase the Metoprolol to 50mg twice daily. I had him half that dose a few days ago. * Telephone Encounter - Desiree Duval OSA - 03/13/2023 11:51 AM EST Zoraida- [facility] reporting that patient's blood pressure today was 90/60 and pulse resting 112. No symptoms and patient reports feeling fine. documented in this encounter Plan of Treatment Upcoming Encounters Date Type Department Care Team (Late st Contact Info) Description 04/11/2023 8:00 AM EST Nurse Only Ancillary Department, [place] [address] [facility] [place] [id number] [place], Nurse Annual Wellness [address] [place] [facility] [place] [place] [id number] 06/14/2023 9:40 AM EST Office Visit [facility] [address] [place] [address] Sergio Lenz MD [address] [place] [address] Health Maintenance Due Date Last Done Comments MENINGOCOCCAL (MENACTRA/MENVEO) (1 - Risk 2-dose series) 1937 Meningitis B Vaccine (Bexsero/Trumemba) (1 of 4 - Increased Risk) 1945 COLONOSCOPY-EVERY 5 YRS AGES 18-100 2016 01/24/2011, 01/24/2011, 03/29/2008, Additional history exists COVID-19 Vaccine ( - 2022- season) 2023 04/24/2021, 07/06/2020, 05/27/2020 Depression Screening 04/11/2023 04/11/2022 Albumin/Creatinine Ratio 01/19/2024 023, 02/23/2022, 04/05/2021, Additional history exists CKD PHOS USE SMARTSET 56298 01/19/202401/04, 02/23/2022, 05/29/2019, Additional history exists HbA1c 01/19/2024 01/18/2023, 02/04, 06/20/2020, Additional history exists CKD HGB USE SMARTSET 53189 03/12/202403/12, 03/12/2023, 2023, Additional history exists DTaP,Tdap,and [...] this encounter Medical Devices Implanted Type Area Frame Operator Device Identifier Shelf Expiration Date Model / Serial / Lot Lens Intraoc 18.0 - [id number] - [id number] Implanted:Qty: 1 on 03/26/2017 by Fran Bearden MD at OR [facility] Right: Eye [employer]OM[employer] 06/05/2021 [id number] / [id number] / Lens Intraoc 18.5 - [id number] - [id number] Implanted:Qty: 1 on 04/04/2017 by Fran Bearden MD at OR [facility] Left: Eye BAUSCH [employer] LOMB 10/03/2021 [id number] / [id number] / [id number] documented as of this encounter Visit Diagnoses Diagnosis Paroxysmal atrial fibrillation (HCC) Atrial fibrillation documented in this encounter Advance Directives Latest Code Status [...] and were consensually agreed upon. Care Teams Reduction Plant Supervisor Relationship Specialty Start Date End Date Sergio Lenz MD [address] [place] [address] PCP - General 09/14/02 documented as of this encounter
--- OUTSIDE RECORDS SUMMARY | 2023-03-22 00:39 | External Medical Summary ---
Author Name Unknown Address Unknown Organization [id number]:LAB[facility]ORY [facility] [place] - [facility] [address] [place] [address] Laboratory Report Ordering Provider Test Date Status UMANG PERALTA 03/12/2023 08:30:03 Final Observation Date Value Abnormality Reference (Units ) Status WBC, Total 03/12/2023 08:30:03 15.52 Above high normal 4.00-10.80 (K/uL) Final RBC 03/12/2023 08:30:03 3.52 4.50-5.25 (M/uL) Final Hemoglobin 03/12/2023 08:30:03 11.2 Below low normal 14.0-16.8 (g/dL) Final HCT 03/12/2023 08:30:03 36.0 Below low normal 40.0-48.4 (%) Final MCV 03/12/2023 08:30:03 102.3 82.0-99.5 (fL) Final MCH 03/12/2023 08:30:03 31.8 27.0-34.0 (pg) Final MCHC 03/12/2023 08:30:03 31.1 32.0-36.0 (g/dL) Final RDW 03/12/2023 08:30:03 14.8 11.5-15.5 (%) Final Platelets 03/12/2023 08:30:03 339 140-400 (K/uL) Final MPV 03/12/2023 08:30:03 10.9 6.6-11.1 (fL) Final Nucleated erythrocytes/100 leukocytes [Ratio] in Blood by Automated count 03/12/2023 08:30:03 0 <=0 (/100 WBCs) Final Performing Location [facility]ORY [facility] [place] - [facility] [address] [place] [address]
--- OUTSIDE RECORDS SUMMARY | 2023-03-22 00:39 | External Medical Summary | Summary of Care ---
Author Name Unknown Organization [facility] Address [address] [place] [address] Phone [phone] Care Team Providers Care Supervisor Post Wave Name Role Phone Sergio Lenz MD Primary Care Provider Reason for Visit * Reason Onset Date Comments Advice 03/13/2023 Encounter Details Date Type Department Care Team (Late st Contact Info) Description 03/13/2023 Telephone [facility] [address] [place] [address] Sergio Lenz MD [address] [place] [address] Advice Allergies No known active [...] he needed to do. Pt will let [facility] know * Telephone Encounter - Sergio Lenz [...] OSA - 03/13/2023 11:51 AM EST Zoraida- [facility] reporting that patient's blood pressure today was 90/60 and pulse resting 112. No symptoms and patient reports feeling fine. documented in this encounter Plan of Treatment Upcoming Encounters Date Type Department Care Team (Late st Contact Info) Description 04/11/2023 8:00 AM EST Nurse Only Ancillary Department, [place] [address] [place] [address] [place], Nurse Annual Wellness [address] [facility] [place] [address] 06/14/2023 9:40 AM EST Office Visit [facility] [address] [place] [address] Sergio Lenz MD [address] [place] [address] Health Maintenance Due Date Last [...] Additional history exists CKD PHOS USE SMARTSET 15271 01/19/202401/04, 02/23/2022, 05/29/2019, Additional history exists HbA1c 01/19/2024 01/18/2023, 02/04, 06/20/2020, Additional history exists CKD HGB USE SMARTSET 61614 03/12/202403/12, 03/12/2023, 2023, Additional history exists DTaP,Tdap,and [...] this encounter Medical Devices Implanted Type Area Commodity Supervisor Device Identifier Shelf Expiration Date Model / Serial / Lot Lens Intraoc 18.0 - [id number] - [id number] Implanted:Qty: 1 on 03/26/2017 by Fran Bearden MD at OR [facility] Right: Eye [employer]CH [employer] LOMB 06/05/2021 [id number] / [id number] / Lens Intraoc 18.5 - [id number] - [id number] Implanted:Qty: 1 on 04/04/2017 by Fran Bearden MD at OR [facility] Left: Eye BAUSCH [employer] LOMB 10/03/2021 [id number] / [id number] / [id number] documented as of this encounter Visit Diagnoses [...] and were consensually agreed upon. Care Teams Supervisor Post Wave Relationship Specialty Start Date End Date Sergio Lenz MD [address] [place] [address] PCP - General 09/14/02 documented as of this encounter
--- OUTSIDE RECORDS SUMMARY | 2023-03-22 00:39 | External Medical Summary ---
Author Name Unknown Address Unknown Organization [id number]:[facility] [place] [address] [place] [address] Laboratory Report Ordering Provider Test Date Status UMANG PERALTA 03/12/2023 08:30:03 Final Observation Date Value Abnormality Reference (Units ) Status SYNC LEUKOCYTES IN BLOOD BY AUTOMATED COUNT 03/12/2023 08:30:03 15.52 Above high normal 4.00-10.80 (K/uL) Final Segs 03/12/2023 08:30:03 62.2 40.0-75.0 (%) Final Lymphs % 03/12/2023 08:30:03 26.4 18.0-42.0 (%) Final Monos 03/12/2023 08:30:03 7.2 1.0-11.0 (%) Final Eosinophils 03/12/2023 08:30:03 2.9 0.0-6.0 (%) Final Basos 03/12/2023 08:30:03 0.3 0.0-2.0 (%) Final Immature Granulocyte, Percent 03/12/2023 08:30:03 1.0 0.0-2.0 (%) Final Absolute Segs 03/12/2023 08:30:03 9.65 Above high normal 1.80-7.70 (K/uL) Final Lymphs, absolute 03/12/2023 08:30:03 4.10 1.00-4.80 (K/ul) Final Monos, Abs 03/12/2023 08:30:03 1.11 Above high normal 0.00-1.10 (K/uL) Final Eos, Abs 03/12/2023 08:30:03 0.45 0.00-0.70 (K/uL) Final Basos, Abs 03/12/2023 08:30:03 0.05 0.00-0.20 (K/uL) Final Immature Granulocytes, Number 03/12/2023 08:30:03 0.16 0.00-0.20 (K/uL) Final Performing Location [facility] [place] [address]
--- OUTSIDE RECORDS SUMMARY | 2023-03-22 00:39 | External Medical Summary | Summary of Care ---
Author Name Unknown Organization [facility] Address [address] [place] [address] Phone [phone] Care Team Providers Care Mold Bunch Trimmer Name Role Phone Sergio Lenz MD Primary Care Provider Reason for Visit * Reason Onset Date Comments Follow Up 6 month return Medication Administration 03/12/2023 Flu an d/or Pneumo Inj Encounter Details Date Type Department Care Team (Late st Contact Info) Description 03/12/2023 7:40 AM EST [facility] [address] [place] [address] Sergio Lenz MD [address] [place] [address] Need for prophylactic vaccination and inoculation against influenza*; Generalized weakness; HTN, goal below 150/90; Paroxysmal atrial fibrillation (HCC) Allergies No known active allergiesdocumented as of this encounter (statuses as of 03/12/2023) Medications Medication Sig Dispensed Refills Start Date End Date Status ASPIRIN EC LOW STRENGTH TBEC 81 MG OR one by mouth daily 0 0 12/18/2002 Active Cholecalciferol (VITAMIN D) 1000 UNIT CapsuleIndication s:Vitamin D deficiency Take 1 Capsule by mouth. [...] 07/16/2022 Active Apixaban 2.5 MG Oral Tablet (Eliquis)Indicati ons:Paroxysmal atrial fibrillation (HCC) Take 1 Tablet by mouth in the morning and 1 Tablet before bedtime. 180 Tablet 3 07/18/2022 Active Erythromycin 5 MG/GM Ophthalmic Ointment 0 06/21/2021 Active Atorvastatin Calcium 80 MG Oral Tablet (Lipitor)Indicati ons:Dyslipidemia, goal to be determined TAKE ONE TABLET BY MOUTH IN THE MORNING 90 Tablet 1 12/13/2022 Active cefTRIAXone IV IJ (AMBULATORY) Administer 1 g intravenously daily. 0 Active HYDROcodone-Aceta minophen 5-325 MG Oral Tablet Take 1 Tablet by mouth every 4 hours as needed. 0 10/30/2022 Active Tamsulosin HCl 0.4 MG Oral Capsule (Flomax) Take 1 Capsule by mouth in the morning. 90 Capsule 3 02/15/2023 Active Lisinopril 10 MG Oral Tablet (Prinivil)Indicat ions:HTN, goal below 150/90 Take 1 Tablet by mouth in the morning. 90 Tablet 3 03/12/2023 Active Metoprolol Tartrate 50 MG Oral Tablet (Lopressor)Indica tions:Paroxysmal atrial fibrillation (HCC) Take 0.5 Tablets by mouth in the morning and 0.5 Tablets before bedtime. 0 03/12/2023 Active Metoprolol Tartrate 50 MG Oral Tablet (Lopressor)Indica tions:Paroxysmal atrial fibrillation (HCC) Take 1 Tablet by mouth in the morning and 1 Tablet before bedtime. 180 Tablet 3 09/11/2022 3 Discontinu ed(Refill) Lisinopril 20 MG Oral Tablet (Prinivil)Indicat ions:HTN, goal below 150/90 TAKE 1 TABLET BY MOUTH EVERY MORNING 90 Tablet 3 03/07/2023 3 Discontinu ed(Medicat ion/Dose Changed) documented as of this encounter (statuses as of 03/12/2023) Active Problems Problem Noted Date Diagnosed Date [...] as of this encounter (statuses as of 03/12/2023) Resolved Problems Problem Noted Date Diagnosed Date [...] as of this encounter (statuses as of 03/12/2023) Immunizations Name Administration Dates Next Due COVID-19 [...] 20 Q uit: 05/06/1963 Smokeless Tobacco: Never Tobacco Cessation:Counseling Given: Not Answered Alcohol Use Standard Drinks/Week Comments Yes 0 (1 standard drink = 0.6 oz pur e alcohol) very rare PHQ-2 Answer Date Recorded PHQ Adult Total Score 0 04/11/2022 Hunger Vital Sign Answer Date Recorded Within the past 12 months, y ou worried that your food would run out before you got the money to buy more. Never true 04/11/20 Within the past 12 months, t he [...] on file documented as of this encounter Last Filed Vital Signs Vital Sign Reading Time Taken Comments Blood Pressure 106/64 03/12/2023 7:45 AM EST Pulse 52 03/12/2023 7:45 AM EST Temperature 35.7 C (96.2 F) 03/12/2023 7:45 AM ES T Respiratory Rate 16 03/12/2023 7:45 AM EST Oxygen Saturation 98% 03/12/2023 7:45 AM EST Inhaled Oxygen Concentration - - Weight 82.2 kg (181 lb 3.2 oz) 03/12/2023 7:45 A M EST Height 177.8 cm (5' 10") 03/12/2023 7:45 AM EST Body Mass Index 26 03/12/2023 7:45 AM EST documented in this encounter Patient Instructions * Patient Instructions* Chapis Soto CCMA - 03/12/2023 7:47 AM EST ~~PATIENT INSTRUCTIONS FOR FLU SHOT~~ Possible side effects of influenza vaccine, (flu shot), are usually mild and include: 1. Soreness or redness at injection site 2. Low grade fever 3. Body aches You may use Tylenol/Acetaminophen as needed for these symptoms. LET YOUR DOCTOR KNOW IMMEDIATELY IF YOU HAVE DIFFICULTY BREATHING OR SWALLOWING, EXPERIENCE ITCHINGOF FEET OR HANDS, HAVE SWELLING OF EYES, FACE OR INSIDE OF NOSE. documented in this encounter Progress Notes * Sergio Lenz MD - 03/12/2023 8:15 AM EST Subjective: Kevin Guthrie is a 88 year old male. Chief Complaint Patient presents with Follow Up 6 month return Medication Administration Flu and/or Pneumo Inj HPI: 88-year-old seen today primarily in follow-up after recent urologic procedures. I saw him in mid January after [facility] hospitalization with bacteremia of unknown underlying etiology. That hospitalization was complicated by urinary retention requiring Whitfield catheter at time of discharge. He didhave Whitfield catheter removed through [facility] about 1 week after discharge. At that time though, Dr. Jacobs (urologist ) noted significant kidney stones on CT scan that was done to evaluate low back pain during the hospitalization. Patient then underwent ureteral cystoscopy with laser treatment of stones and stent placement. A few weeks later he had another ureteral cystoscopy and additional laser treatment and a temporary ureteral stent placed. That a temporary stent has subsequently been removed. At this point, Urology feels that his kidney stones adequately been treated. He has had significant generalize weakness over the last month. He is not aware of any fever. No generalize sweats. Appetite is poor and his weight is down as much as 15 lb from 7 months ago / down about 8 lb from 1 year ago. He is had more than 1 fall in with recent fall he suffered flap lacerations to the left arm. His daughter has been Um bandaging the arm but questions whether anything further knee be done During his hospitalization in January his amlodipine and hydrochlorothiazide were discontinued because of relatively low blood pressure. He remains off of these medicines. Today he again shows Um low blood pressure as well as bradycardia. He is on Eliquis 2.5 mg twice a day. This was restarted after being discontinued when he was hospitalized after checking renal function in mid January. 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 One capsule daily 30 Cap 11 oxyCODONE HCl 5 MG Oral Capsule (Oxy IR) Take 1 Capsule by mouth every 4 hours as needed for Pain, Moderate or Pain, Severe. Ferrous Sulfate 325 (65 Fe) MG Oral Tablet Delayed Release Take 1 Tablet by mouth. Take daily at 11AM Apixaban 2.5 MG Oral Tablet (Eliquis) Take 1 Tablet by mouth in the morning and 1 Tablet before bedtime. 180 Tablet 3 Erythromycin 5 MG/GM Ophthalmic Ointment Atorvastatin Calcium 80 MG Oral Tablet (Lipitor) TAKE ONE TABLET BY MOUTH IN THE MORNING 90 Tablet 1 cefTRIAXone IV IJ (AMBULATORY) Administer 1 g intravenously daily. HYDROcodone-Acetaminophen 5-325 MG Oral Tablet Take 1 Tablet by mouth every 4 hours as needed. Tamsulosin HCl 0.4 MG Oral Capsule (Flomax) Take 1 Capsule by mouth in the morning. 90 Capsule 3 Lisinopril 10 MG Oral Tablet (Prinivil) Take 1 Tablet by mouth in the morning. 90 Tablet 3 Metoprolol Tartrate 50 MG Oral Tablet (Lopressor) Take 0.5 Tablets by mouth in the morning and 0.5 Tablets before bedtime. No current facility-administered medications for this visit. Review of patient's allergies indicates: No Known Allergies Objective: BP 106/64 (BP Site: Left Arm, BP Position: Sitting, BP Cuff Size: Regular) | Pulse 52 | Temp 35.7 C (96.2 F) (Temporal Artery) | Resp 16 | Ht 1.778 m (5' 10") | Wt 82.2 kg (181 lb 3.2 oz) | SpO2 98% | BMI 26.00 kg/m | BSA 2.01 m Physical Exam: CONST: alert, pleasant, no acute distress But he looks tired/weak HEAD: normocephalic, atraumatic NECK: supple, soft, no adenopathy Eyes - PERRLA, EOM'I. No conjunctiva CV: slow rate and rhythm, no murmur CHEST: clear to auscultation bilaterally, decreased breath sounds at both bases.no rales or wheezing ABD: soft, non tender, non distended, no masses or hepatosplenomegaly EXT: no edema, no joint swelling or deformities, NEURO: AAOx3, no gross focal deficits, cerebellar signs normal, affect appropriate MENTAL STATUS: no evidence of thought disorder, no delusional thought, no evidence of paranoia, thought is non-tangential. SKIN: Flap lacerations over much of his left forearm. No signs of infection ASSESSMENT/PLAN: Need for prophylactic vaccination and inoculation against influenza (Primary) - INFLUENZA VACC, QUAD, HIGH DOSE (FLUZONE HD) Generalized weakness -this may be all consequence of the multiple medical interventions including hospitalizations and urologic procedures. But also some concern that there could be more significant underlying problem that may also have led to his bacteremia in January. - CBC WITH WBC DIFFERENTIAL; Future; Expected date: 03/12/2023 - BASIC METABOLIC PANEL; Future; Expected date: 03/12/2023 Lower dose of beta-richard and lower dose of antihypertensive HTN, goal below 150/90 -blood pressure has been low recently - lisinopril -decrease dose from 20 mg to 10 mg daily Lisinopril 10 MG Oral Tablet (Prinivil); Take1 Tablet by mouth in the morning. - lower dose of metoprolol tartrate from 50 mg twice a day to 25 mg twice a day He is off Amlodipine and HCTZ. Paroxysmal atrial fibrillation (HCC) -continue the Eliquis as well as lower dose of metoprolol Bradycardia: maybe causing some of his weakness: decrease Meoprolol to 25mg twice daily See again 3 months Sergio Lenz MD * Chapis Soto CCMA - 03/12/2023 7:47 AM EST PRE - ADMINISTRATION DOCUMENTATION Are you experiencing any cold symptoms or fever? No Have you had Guillain-Billings Syndrome (an illness that causes paralysis) within the last 6 weeks? No Have you had the flu shot in the past? YES Have you ever had a reaction to the flu shot? No VADIM Jane, 03/12/2023 7:47 AM Immunization Administration Documentation Time Out Procedure Performed: Yes Patient Identified (Ask Name/Date of ): Yes Does the patient have a fever greater than 101 degrees today? No Patient allergic to latex? No VFC Stock: No Immunization(s) verified: Yes, Immunization Name: Flu, VIS Sheet(s) given: Yes Verified Side and Site: Yes Verified Shot(s) with Parent(s)/Patient: Yes documented in this encounter Nursing Notes * Chapis Soto CCMA - 03/12/2023 7:45 AM EST Kevin Guthrie is a 88 year old male who presents today for Chief Complaint Patient presents with Follow Up 6 month return documented in this encounter Plan of Treatment Upcoming Encounters Date Type Department Care Team (Late st Contact Info) Description 04/11/2023 8:00 AM EST Nurse Only Ancillary Department, [place] [address] [place] [address] [place], Nurse Annual [facility]ness [address] [place] [address] 06/14/2023 9:40 AM EST Office Visit Family [facility], [place] [address] [place] [address] Sergio Lenz MD [address] [place], [place] [id number] Pending Results Name Type Priority Associated Diagnoses Date /Time CBC WITH WBC DIFFERENTIAL Lab Routine Generalized weakness 03/12/2023 8:30 AM EST BASIC METABOLIC PANEL Lab Routine Generalized weakness 03/12/2023 8:30 AM EST Scheduled Orders Name Type Priority Associated Diagnoses Orde r Schedule CBC WITH WBC DIFFERENTIAL Lab Routine Generalized weakness Expected: 03/12/2023 (Approximate), Expires: 03/12/2024 BASIC METABOLIC PANEL Lab Routine Generalized weakness Expected: 03/12/2023 (Approximate), Expires: 03/11/2024 Health Maintenance Due Date Last Done Comments MENINGOCOCCAL (MENACTRA/MENVEO) (1 - Risk 2-dose series) 1937 Meningitis B Vaccine (Bexsero/Trumemba) (1 of 4 - Increased Risk) 1945 COLONOSCOPY-EVERY 5 YRS AGES 18-100 2016 01/24/2011, 01/24/2011, 03/29/2008, Additional history exists COVID-19 Vaccine (4 - 2022- season) 2023 04/24/2021, 07/06/2020, 05/27/2020 Depression Screening 04/11/2023 04/11/2022 Albumin/Creatinine Ratio 01/19/2024 023, 02/23/2022, 04/05/2021, Additional history exists CKD PHOS USE SMARTSET 39362 01/19/202401/04, 02/23/2022, 05/29/2019, Additional history exists HbA1c 01/19/2024 01/18/2023, 02/04, 06/20/2020, Additional history exists CKD HGB USE SMARTSET 81918 01/26/202401/25, 01/18/2023, 01/18/2023, Additional history exists DTaP,Tdap,and Td Vaccines (2 [...] this encounter Medical Devices Implanted Type Area Tire Service Supervisor Device Identifier Shelf Expiration Date Model / Serial / Lot Lens Intraoc 18.0 - [id number] - [id number] Implanted:Qty: 1 on 03/26/2017 by Fran Bearden MD at [facility] Right: Eye [employer] 06/05/2021 [id number] / [id number] / Lens Intraoc 18.5 - [id number] - [id number] Implanted:Qty: 1 on 04/04/2017 by Fran Bearden MD at OR [facility] Left: Eye [employer]OM[employer] 10/03/2021 [id number] / [id number] / [id number] documented as of this encounter Visit Diagnoses Diagnosis Need for prophylactic vaccination and inoculation against influenza- Primary Generalized weakness Other malaise and fatigue HTN, goal below 150/90 Paroxysmal atrial fibrillation (HCC) Atrial fibrillation documented [...] and were consensually agreed upon. Care Teams Mold Bunch Trimmer Relationship Specialty Start Date End Date Sergio Lenz MD [address] [place] [address] PCP - General 09/14/02 documented as of this encounter
--- OUTSIDE RECORDS SUMMARY | 2023-03-22 00:39 | External Medical Summary | Summary of Care ---
Author Name Unknown Organization [facility] Address [address] [place] [address] Phone [phone] Care Team Providers Care Brick Paver Name Role Phone Sergio Lenz MD Primary Care Provider [phone] Reason for Visit * Reason Comments Outpatient Testing Encounter Details Date Type Department Care Team (Late st Contact Info) Description 03/12/2023 8:30 AM EST Laboratory Laboratory, [place] [address] [place] [address] [place], Laboratory [address] [place] [address] Generalized weakness Allergies No known active allergiesdocumented as of [...] 02/15/2023 Active Lisinopril 10 MG Oral Tablet (Prinivil)Indicati ons:HTN, goal below 150/90 Take 1 Tablet by mouth in the morning. 90 Tablet 3 03/12/2023 Active Metoprolol Tartrate 50 MG Oral Tablet (Lopressor)Indicat ions:Paroxysmal atrial fibrillation (HCC) Take 0.5 Tablets by mouth in the morning and 0.5 Tablets before bedtime. 0 03/12/2023 Active documented as of this encounter (statuses [...] Mitral valve regurgitation 12/18/2002 Overview: per echo / documented as of this encounter (statuses as [...] 8:00 AM EST Nurse Only Ancillary Department, [place] [address] [place] [facility] [place] [address] [place], Nurse Annual Wellness [address] [place] [facility] [place] [address] 06/14/2023 9:40 AM EST Office Visit Family Practice, [place] [address] [place] [facility] [place] [id number] Sergio Lenz MD [address] [place] [facility] [place] [address] Pending Results Name Type Priority Associated Diagnoses Date /Time CBC WITH WBC DIFFERENTIAL Lab Routine Generalized weakness 03/12/2023 8:30 AM EST BASIC METABOLIC PANEL Lab Routine Generalized weakness 03/12/2023 8:30 AM EST CBC Lab Routine Generalized weakness 03/12/2023 8:30 AM EST DIFFERENTIAL, AUTOMATED Lab Routine Generalized weakness 03/12/2023 8:30 AM EST Health Maintenance Due Date Last Done Comments [...] Additional history exists CKD PHOS USE SMARTSET 95724 01/19/202401/04, 02/23/2022, 05/29/2019, Additional history exists HbA1c 01/19/2024 01/18/2023, 02/04, 06/20/2020, Additional history exists CKD HGB USE SMARTSET 23542 01/26/202401/25, 01/18/2023, 01/18/2023, Additional history exists DTaP,Tdap,and [...] this encounter Medical Devices Implanted Type Area Personnel Officer Device Identifier Shelf Expiration Date Model / Serial / Lot Lens Intraoc 18.0 - [id number] - [id number] Implanted:Qty: 1 on 03/26/2017 by Fran Bearden MD at OR [facility] Right: Eye [employer]OM[employer] 06/05/2021 [id number] / [id number] / Lens Intraoc 18.5 - [id number] - [id number] Implanted:Qty: 1 on 04/04/2017 by Fran Bearden MD at OR [facility] Left: Eye [employer]OM[employer] 10/03/2021 [id number] / [id number] / [id number] documented as of this encounter Visit Diagnoses Diagnosis Generalized weakness Other malaise and fatigue documented in this encounter Advance Directives Latest [...] and were consensually agreed upon. Care Teams Brick Paver Relationship Specialty Start Date End Date Rozick, Sergio S, MD [address] [facility] [place] [address] PCP - General 09/14/02 documented as of this encounter
--- OUTSIDE RECORDS SUMMARY | 2023-03-22 00:39 | External Medical Summary ---
Author Name Unknown Address Unknown Organization K01:[facility] - [facility] [place] [address] [facility] [address] [place] [address] Laboratory Report Ordering Provider Test Date Status UMANG PERALTA 03/12/2023 08:30:03 Final Observation Date Value Abnormality Reference (Units ) Status BUN 03/12/2023 08:30:03 29 Above high normal 6-20 (mg/dL) Final Creatinine 03/12/2023 08:30:03 1.5 Above high normal 0.6-1.2 (mg/dL) Final Glomerular filtration rate/1.73 sq M.predicted [Volume Rate/Area] in Serum, Plasma or Blood by Creatinine-based formula (CKD-EPI) 03/12/2023 08:30:03 46 Below low normal >=60 (mL/min) Final eGFR is calculated based on the CKD-EPI 2020 equation SODIUM 03/12/2023 08:30:03 141 135-146 (m mol/L) Final Potassium 03/12/2023 08:30:03 3.8 3.5-5.1 (m mol/L) Final Cl 03/12/2023 08:30:03 99 98-107 (mm ol/L) Final CO2 03/12/2023 08:30:03 30 22-32 (mmo l/L) Final Anion gap 03/12/2023 08:30:03 12 7-15 (mmol /L) Final Glucose 03/12/2023 08:30:03 104 70-120 (mg /dL) Final Calcium 03/12/2023 08:30:03 8.7 8.4-10.2 ( mg/dL) Final Performing Location [facility] [place] - [address] [place] [address]
[2023-03-22] MEDS: PIPERACILLIN/TAZOBACTAM 4.5 GM in DEXTROSE 5% MINI-B 100 ML IV SCH ×3 (05:20→21:27)
[2023-03-22 06:11] LABS: BUN Creatinine Ratio 18.1 (10-20); Basophils # (auto) 0.09 K/uL (0.00-0.20); Calcium 8.3 mg/dl (8.6-10.3); Creatinine Clr Calc Pharmacy 38.9 ml/min; Eosinophils # (auto) 0.18 K/uL (0.00-0.50); Eosinophils % (auto) 1.9 %; Est GFR (African American) 49.9 ml/min; Hematocrit (blood only) 26.8 % (42.0-52.0); Hemoglobin 8.7 g/dl (14.0-18.0); Immature Granulocytes # (auto) 0.03 K/uL (0.01-0.20); Immature Granulocytes % (auto) 0.3 %; Lymphocytes # (auto) 2.93 K/uL (1.20-3.40); Lymphocytes % (auto) 31.2 %; Mean Corpuscular Hemoglobin 31.8 pg (25.0-34.0); Mean Corpuscular Hgb Conc 32.5 g/dL (32.0-36.0); Mean Corpuscular Volume 97.8 fL (80.0-100.0); Mean Platelet Volume 9.8 fL (9.4-12.4); Monocytes # (auto) 0.78 K/uL (0.11-0.59); Monocytes % (auto) 8.3 %; Neutrophils # (auto) 5.37 K/uL (1.40-6.50); Neutrophils % (auto) 57.3 %; Platelet Count 385 K/uL (130-400); Potassium 3.5 mmol/L (3.5-5.1); RDW Coefficient of Variation 15.9 % (11.5-14.5); RDW Standard Deviation 57.1 fL (36.4-46.3); Red Blood Count 2.74 M/uL (4.70-6.10); White Blood Count 9.38 K/ul (4.8-10.8)
[2023-03-22 06:23] LABS: Partial Thromboplastin Ratio 0.9; Partial Thromboplastin Time 26.5 Seconds (21.0-31.0)
[2023-03-22] MEDS: DOXYCYCLINE HYCLATE 100 MG in DEXTROSE 5% MINI-B 100 ML IV SCH ×2 (07:56→21:28)
[2023-03-22] MEDS: ASPIRIN 81 MG ECTAB PO SCH (08:00)
[2023-03-22] MEDS: TAMSULOSIN HCL 0.4 MG CAP PO SCH (08:00)
[2023-03-22] MEDS: METOPROLOL SUCC 25MG EXT REL TAB PO SCH ×2 (08:02→21:36)
[2023-03-22] MEDS: CHOLECALCIFEROL 1,000 UNITS 25 MCG TAB PO SCH (08:03)
[2023-03-22] MEDS: ISOSORBIDE MONO EXTENDED REL 30 MG TABCR PO SCH (08:03)
[2023-03-22] MEDS: APIXABAN 2.5 MG TAB PO SCH ×2 (08:03→21:29)
[2023-03-22] MEDS ORDERED: XOPENEX/ATROVENT 1.25mg/0.5MG NEB COMBO NEB SCH (09:45)
[2023-03-22] MEDS: SODIUM CHLOR 7% 4 ML NEB NEB SCH ×2 (10:21→19:24)
[2023-03-22] MEDS: IPRATROPIUM BROMIDE NEB SOLN 0.02% 2.5 ML VIAL INH SCH ×3 (10:22→19:24)
[2023-03-22] MEDS: LEVALBUTEROL 1.25 MG/3 ML NEB NEB SCH ×3 (10:22→19:24)
[2023-03-22] MEDS: FERROUS SULFATE 325 MG TAB PO SCH (10:45)
[2023-03-22] MEDS ORDERED: POTASSIUM CHLORIDE 10 MEQ TABCR PO ONE (11:56)
--- NOTE | 2023-03-22 11:59 | Cardiology Progress Note ---
Date of Service March 22, 2023 Assessment & Plan (1) Multifocal pneumonia: (2) Acute non-ST elevation myocardial infarction (NSTEMI): (3) Pneumonia: (4) CHF (congestive heart failure): (5) CKD (chronic kidney disease), stage III: (6) Hypertensive urgency: (7) Elevated troponin: Plan Presentation consistent with ACS/NSTEMI, recurrent atrial fibrillation/flutter March 21, 2023 coronary angiography with a 70% distal left main stenosis, 70 to 80% ostial LAD stenosis, aneurysmal proximal LAD, 50 to 70% mid LAD stenosis, diffusely diseased distal LAD, aneurysmal D1, 70 to 80% ostial left circumflex stenosis followed by aneurysmal segment, 100% calcified RCA DRUM STRAIGHTENER RPDA and RPL 1 filling via left to right collaterals Patient declines outpatient CT Surgery evaluation and requests conservative medical management. Imdur 30 mg/day added this admission Metoprolol tartrate 50 BID changed to metoprolol succinate 75 mg twice per day this admission. This may need to be increased as an outpatient. Continue ASA 81 mg per day Continue atorvastatin 80 mg/day Continue reduced dose Eliquis anticoagulation given age and renal dysfunction, 2.5 mg twice per day, for the nonvalvular atrial fibrillation r Recheck H&H. Supplement potassium orally. Pneumonia treatment as per Hospitalist. Increase activity as tolerated. Admission and Anticipated Discharge Date Admission Date: March 20, 2023 Supervising Physician Co-Signing Physician Notes Patient seen and examined at the bedside. Denies chest pain or shortness of breath. Enjoying his evening meal. Offers no complaints. PE: VSS. Gen: NAD, awake and alert. Heart: Regular rhythm, normal S1-S2. No murmur. Lungs: Diminished breath sounds at the bases. No rhonchi or wheeze. Extremities: No edema. A/P: Agree with above PA-C history, physical exam, assessment and plan. 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 Isosorbide monohydrate added. Other evidence-based cardiovascular medical therapies as noted above. No further inpatient cardiac testing or intervention recommended at this time. Cardiology will sign off. Please call with further concerns/questions. Subjective Patient seen and examined. Chart, medications, telemetry reviewed. No complaints or concerns. Patient denies chest pain, palpitations, shortness of breath, orthopnea, PND, edema, lightheadedness, dizziness, fevers, or chills, epistaxis, hemoptysis, melena, hematochezia, or hematuria. Telemetry: Atrial fibrillation currently in the 80s, heart rates ranging from 60 to 110 bpm. Occasional PVC. Review of Systems Review of Systems: Complete Review of Systems is as stated above, negative, or noncontributory. Physical Exam Physical Exam: General: A&Ox3. NAD. HENT: Right sided facial droop, extensive changes post parotid surgery. Eyes: Right eye ptosis. Neck: No carotid bruits. No JVD. Heart: RRR. Soft systolic murmur. No diastolic murmur. No rub. Lungs: Clear to auscultation. No wheeze. Abdomen: Surgical scar, history of remote splenectomy. +BS. Soft. Nontender. No masses or organomegaly. Extremities: No clubbing, cyanosis, or edema. Limited neurological examination is without focal deficits. Pulses: radial=2/4, posterior tibial=2/4. Results & Data Vital Signs (Past 12 Hours) Vital Signs Temp Pulse Pulse Pulse Resp BP BP 03/22/23 11:13 36.4 C L 86 19 104/70 03/22/23 10:26 82 20 03/22/23 08:01 84 03/22/23 07:45 03/22/23 07:30 56 L 03/22/23 07:27 36.7 C 81 19 156/75 H 03/22/23 03:00 36.5 C 55 L 18 110/69 03/22/23 00:43 72 Pulse Ox O2 Del Method 03/22/23 11:13 95 Room Air 03/22/23 10:26 96 Room Air 03/22/23 08:01 03/22/23 07:45 Room Air 03/22/23 07:30 03/22/23 07:27 94 Room Air 03/22/23 03:00 95 Room Air 03/22/23 00:43 Laboratory Results Coagulation 03/22/23 Range/Units 05:29 APTT 26.5 (21.0-31.0) Seconds CBC 03/22/23 Range/Units 05:29 WBC 9.38 (4.8-10.8) K/ul RBC 2.74 L (4.70-6.10) M/uL Hgb 8.7 L (14.0-18.0) g/dl Hct 26.8 L (42.0-52.0) % Plt Count 385 (130-400) K/uL Neut # (Auto) 5.37 (1.40-6.50) K/uL Lymph # (Auto) 2.93 (1.20-3.40) K/uL Waldo # (Auto) 0.78 H (0.11-0.59) K/uL Eos # (Auto) 0.18 (0.00-0.50) K/uL Baso # (Auto) 0.09 (0.00-0.20) K/uL Comprehensive Metabolic Panel 03/21/23 03/22/23 Range/Units 15:36 05:29 Sodium 140 139 (136-145) mmol/L Potassium 3.6 3.5 (3.5-5.1) mmol/L Chloride 101 102 (98-107) mmol/L Carbon Dioxide 31 30 (21-32) mmol/L BUN 25 H 26 H (6-23) mg/dl Creatinine 1.23 1.44 H (0.6-1.4) mg/dl Glucose 139 H 102 H (70-99(Fasting)) mg/dl Calcium 8.4 L 8.3 L (8.6-10.3) mg/dl Intake and Output 03/21/23 03/22/23 03/22/23 22:59 06:59 14:59 Intake Total 705 / 1243.283 100 / 1243.283 200 / 200 Output Total 0 / 0 Balance 705 / 1243.283 100 / 1243.283 200 / 200 Intake: IV 465 / 1003.283 100 / 1003.283 200 / 200 Doxycycline Hyclate 100 mg In 100 / 200 100 / 100 Dextrose 5% Mini-B 100 ml @ 50 mls/hr IV Q12H JORDAN Rx#:[id number] Heparin Sodium/Dextrose 25,000 265 / 503.283 units In 500 ml @ 1,450 UNITS/ HR 29 mls/hr IV .[id number] JORDAN Rx #:[id number] Piperacillin/Tazobactam 4.5 gm 100 / 300 100 / 300 100 / 100 In Dextrose 5% Mini-B 100 ml @ 25 mls/hr IV Q8H JORDAN Rx#: [id number] Oral 240 / 240 Output: Urine 0 / 0 Other: Weight 79.1 kg Weight Measurement Method Built in [facility] (4) CHF (congestive heart failure) Heart failure chronicity: acute on chronic Heart failure type: combined systolic and diastolic Qualified Code(s): I50.43 - Acute on chronic combined systolic (congestive) and diastolic (congestive) heart failure (5) CKD (chronic kidney disease), stage III Chronic kidney disease stage 3 subtype: unspecified whether 3a or 3b Qualified Code(s): N18.30 - Chronic kidney disease, stage 3 unspecified
[2023-03-22 12:30] LABS: Hematocrit (blood only) 28.1 % (42.0-52.0); Hemoglobin 9.3 g/dl (14.0-18.0)
--- NOTE | 2023-03-22 17:20 | Hospitalist Progress Note ---
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 Pt meets sepsis criteria 2/2 leukocytosis, tachycardia. blood cultures obtained, received broad spectrum antibiotics with IV zosyn. Initially he did receive IVF; however this since d/c in setting of possible CHF will also obtain urine specimen Acute respiratory failure with hypoxia Multifocal pneumonia Sepsis Admit to PCU Broad-spectrum antibiotics with IV Zosyn and doxycycline Consult pulmonology obtain CT Chest Continue BiPAP therapy and wean down to nasal cannula as able received 40mg IV lasix in ED aspiration precautions respiratory Biofire, MRSA screen no further fluids at this time due to concern for CHF 03/21 On room air Clinically improving Cultures pending Bio fire and MRSA screen negative Continue IV antibiotics for now Pulmonology service on board 03/22 stable blood culture negative Sputum culture negative so far DC IV Zosyn Continue doxycycline Nebs started Flutter valve, incentive spirometry CAD NSTEMI ACUTE HFpEF likey in setting of underlying illness cycle trops, consult cardiology received 40mg IV lasix in ED daily weights, Strict I and O last echo 01/2023 EF 55%, moderate will repeat echo to r/o regional wall motion abnormality known fixed CAD, on statin, metoprolol and asa as outpatient 03/21 S/p cardiac cath revealing severe CAD Not amenable to PCI, patient not a candidate for surgical intervention Continue medical management for now Continue metoprolol, Imdur, apixaban, aspirin, Lipitor 03/22 Stable Continue above regimen PAF continue apixaban, metoprolol chronic, stable HTN pt with recent changes to BP meds, amlodipine/hctz stopped in January, Lisinopril recently d/c on 03/13 currently only on metoprolol tartrate 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 CKD-3 baseline cr 1-1.2 Crea 1.4 Monitor closely Anemia, likely of chronic disease h/h 10/4 and 33.0 stable, no s/sx of bleeding Dispo: admit to PCU, pt/ot when appropriate FULL CODE PCP: Dr. Lenz Pt was seen and examined in collaboration with Dr. Funez, please see addendum Admission and Anticipated Discharge Date Admission Date: March 20, 2023 Subjective ff up for NSTEMI, etc. Seen sitting up in bed, comfortable, not in distress States breathing is better Denies cough, fevers or chills Denies problems with swallowing No chest pain, palpitations, dizziness No other symptoms Review of Systems Review of Systems: all noted and negative except for above Physical Exam Physical Exam: General- oriented x 3, not in distress, speaks in sentences with no effort or accessory muscle use Eyes- anicteric Neck- no JVD Lungs- clear breath sounds bilaterally, no rales/wheezes Heart- normal rate, regular rhythm; no murmurs Abdomen- normal bowel sounds, nondistended, soft, nontender Extremities- no pretibial edema, no calf tenderness Neuro- alert, oriented x 3; no gross focal neurologic deficits Skin- warm & dry Results & Data Results & Data Vital Signs (Past 12 Hours) Vital Signs Temp Pulse Pulse Pulse Resp BP Pulse Ox 03/22/23 17:05 03/22/23 16:06 36.6 C 97 H 19 96/66 L 94 03/22/23 16:00 56 L 03/22/23 13:45 89 16 98 03/22/23 11:13 36.4 C L 86 19 104/70 95 03/22/23 10:26 82 20 96 03/22/23 08:01 84 03/22/23 07:45 03/22/23 07:30 56 L 03/22/23 07:27 36.7 C 81 19 156/75 H 94 O2 Del Method 03/22/23 17:05 Room Air 03/22/23 16:06 Room Air 03/22/23 16:00 03/22/23 13:45 Room Air 03/22/23 11:13 Room Air 03/22/23 10:26 Room Air 03/22/23 08:01 03/22/23 07:45 Room Air 03/22/23 07:30 03/22/23 07:27 Room Air all noted and reviewed including below (4) CHF (congestive heart failure) Heart failure chronicity: acute on chronic Heart failure type: combined systolic and diastolic Qualified Code(s): I50.43 - Acute on chronic combined systolic (congestive) and diastolic (congestive) heart failure
[2023-03-22] MEDS: ATORVASTATIN 40 MG TAB PO SCH (21:29)
[2023-03-23] MEDS: IPRATROPIUM BROMIDE NEB SOLN 0.02% 2.5 ML VIAL INH SCH ×4 (00:15→19:22)
[2023-03-23] MEDS: LEVALBUTEROL 1.25 MG/3 ML NEB NEB SCH ×4 (00:16→19:22)
[2023-03-23] MEDS: PIPERACILLIN/TAZOBACTAM 4.5 GM in DEXTROSE 5% MINI-B 100 ML IV SCH (05:31)
[2023-03-23] MEDS: SODIUM CHLOR 7% 4 ML NEB NEB SCH ×2 (07:35→19:22)
[2023-03-23 07:50] LABS: Basophils # (auto) 0.06 K/uL (0.00-0.20); Basophils % (auto) 0.6 %; Eosinophils # (auto) 0.21 K/uL (0.00-0.50); Eosinophils % (auto) 2.1 %; Hematocrit (blood only) 27.3 % (42.0-52.0); Hemoglobin 8.9 g/dl (14.0-18.0); Immature Granulocytes # (auto) 0.03 K/uL (0.01-0.20); Immature Granulocytes % (auto) 0.3 %; Lymphocytes # (auto) 3.11 K/uL (1.20-3.40); Lymphocytes % (auto) 30.9 %; Mean Corpuscular Hemoglobin 31.7 pg (25.0-34.0); Mean Corpuscular Hgb Conc 32.6 g/dL (32.0-36.0); Mean Corpuscular Volume 97.2 fL (80.0-100.0); Mean Platelet Volume 9.7 fL (9.4-12.4); Monocytes # (auto) 0.83 K/uL (0.11-0.59); Monocytes % (auto) 8.2 %; Neutrophils # (auto) 5.83 K/uL (1.40-6.50); Neutrophils % (auto) 57.9 %; Platelet Count 367 K/uL (130-400); RDW Coefficient of Variation 15.9 % (11.5-14.5); RDW Standard Deviation 55.8 fL (36.4-46.3); Red Blood Count 2.81 M/uL (4.70-6.10); White Blood Count 10.07 K/ul (4.8-10.8)
[2023-03-23] MEDS: APIXABAN 2.5 MG TAB PO SCH ×2 (08:07→20:09)
[2023-03-23] MEDS: ISOSORBIDE MONO EXTENDED REL 30 MG TABCR PO SCH (08:07)
[2023-03-23] MEDS: TAMSULOSIN HCL 0.4 MG CAP PO SCH (08:08)
[2023-03-23] MEDS: CHOLECALCIFEROL 1,000 UNITS 25 MCG TAB PO SCH (08:08)
[2023-03-23] MEDS: ASPIRIN 81 MG ECTAB PO SCH (08:09)
[2023-03-23] MEDS: METOPROLOL SUCC 25MG EXT REL TAB PO SCH ×2 (08:09→20:09)
[2023-03-23 08:16] LABS: Calcium 8.4 mg/dl (8.6-10.3); Potassium 3.6 mmol/L (3.5-5.1)
[2023-03-23 08:22] LABS: BUN Creatinine Ratio 16.1 (10-20); Creatinine Clr Calc Pharmacy 36.2 ml/min; Est GFR (African American) 45.6 ml/min; Est GFR (Non-African American) 39.4 ml/min
[2023-03-23] MEDS: ADVANCED PROBIOTIC 1250 MG CAPSULE PO SCH (09:22)
[2023-03-23] MEDS: FERROUS SULFATE 325 MG TAB PO SCH (11:21)
--- NOTE | 2023-03-23 19:13 | Hospitalist Progress Note ---
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 Pt meets sepsis criteria 2/2 leukocytosis, tachycardia. blood cultures obtained, received broad spectrum antibiotics with IV zosyn. Initially he did receive IVF; however this since d/c in setting of possible CHF will also obtain urine specimen Acute respiratory failure with hypoxia Multifocal pneumonia Sepsis Admit to PCU Broad-spectrum antibiotics with IV Zosyn and doxycycline Consult pulmonology obtain CT Chest Continue BiPAP therapy and wean down to nasal cannula as able received 40mg IV lasix in ED aspiration precautions respiratory Biofire, MRSA screen no further fluids at this time due to concern for CHF 03/21 On room air Clinically improving Cultures pending Bio fire and MRSA screen negative Continue IV antibiotics for now Pulmonology service on board 03/22 stable blood culture negative Sputum culture negative so far DC IV Zosyn Continue doxycycline Nebs started Flutter valve, incentive spirometry 03/23 Improving overall Transition to Augmentin p.o. twice daily Continue nebs, flutter valve, incentive spirometry CAD NSTEMI ACUTE HFpEF likey in setting of underlying illness cycle trops, consult cardiology received 40mg IV lasix in ED daily weights, Strict I and O last echo 01/2023 EF 55%, moderate will repeat echo to r/o regional wall motion abnormality known fixed CAD, on statin, metoprolol and asa as outpatient 03/21 S/p cardiac cath revealing severe CAD Not amenable to PCI, patient not a candidate for surgical intervention Continue medical management for now Continue metoprolol, Imdur, apixaban, aspirin, Lipitor 03/22 Stable Continue above regimen 03/23 Remains stable Continue present regimen PAF continue apixaban, metoprolol chronic, stable HTN pt with recent changes to BP meds, amlodipine/hctz stopped in January, Lisinopril recently d/c on 03/13 currently only on metoprolol tartrate 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 CKD-3 baseline cr 1-1.2 Crea 1.5 Monitor closely Anemia, likely of chronic disease Hemoglobin around 9 Monitor Dispo: Anticipate discharge to home when medically stable FULL CODE PCP: Dr. Lenz Admission and Anticipated Discharge Date Admission Date: March 20, 2023 Subjective Follow-up for NSTEMI, etc. Seen resting in bed, comfortable, not in distress States he feels fine overall No recurrence of chest pain, shortness of breath, palpitations Breathing continues to improve No cough Review of Systems Review of Systems: all noted and negative except for above Physical Exam Physical Exam: General- oriented x 3, not in distress, speaks in sentences with no effort or accessory muscle use Eyes- anicteric Neck- no JVD Lungs-no crackles or wheezes Heart- normal rate, regular rhythm; no murmurs Abdomen- normal bowel sounds, nondistended, soft, no tenderness Extremities- no pretibial edema, no calf tenderness Neuro- alert, oriented x 3; no gross focal neurologic deficits Skin- warm & dry Results & Data Results & Data Vital Signs (Past 12 Hours) Vital Signs Temp Pulse Pulse Resp BP Pulse Ox O2 Del Method 03/23/23 15:40 108 H 03/23/23 15:37 36.4 C L 107 H 19 117/75 93 Room Air 03/23/23 12:53 108 H 16 94 Room Air 03/23/23 10:51 36.7 C 98 H 19 109/73 95 Room Air 03/23/23 07:45 Room Air 03/23/23 07:35 81 16 96 Room Air 03/23/23 07:24 36.6 C 61 19 134/67 100 Room Air all noted and reviewed including below (4) CHF (congestive heart failure) Heart failure chronicity: acute on chronic Heart failure type: combined systolic and diastolic Qualified Code(s): I50.43 - Acute on chronic combined systolic (congestive) and diastolic (congestive) heart failure
[2023-03-23] MEDS ORDERED: SODIUM CHLORIDE 0.9% 500 ML IV SCH (19:15)
[2023-03-23] MEDS: AMOXICILLIN/CLAVULANATE 875 MG TAB PO SCH (20:09)
[2023-03-23] MEDS: ATORVASTATIN 40 MG TAB PO SCH (20:09)
[2023-03-24] MEDS: LEVALBUTEROL 1.25 MG/3 ML NEB NEB SCH ×3 (01:33→13:33)
[2023-03-24] MEDS: IPRATROPIUM BROMIDE NEB SOLN 0.02% 2.5 ML VIAL INH SCH ×3 (01:33→13:33)
[2023-03-24] MEDS ORDERED: METOPROLOL SUCC 25MG EXT REL TAB PO STA (05:46)
[2023-03-24] MEDS ORDERED: POTASSIUM CHLORIDE CRTAB 20 MEQ TABCR PO STA (05:47)
[2023-03-24 06:33] LABS: Basophils # (auto) 0.06 K/uL (0.00-0.20); Basophils % (auto) 0.6 %; Eosinophils # (auto) 0.31 K/uL (0.00-0.50); Eosinophils % (auto) 3.2 %; Hematocrit (blood only) 30.1 % (42.0-52.0); Hemoglobin 9.7 g/dl (14.0-18.0); Immature Granulocytes # (auto) 0.03 K/uL (0.01-0.20); Immature Granulocytes % (auto) 0.3 %; Lymphocytes # (auto) 3.14 K/uL (1.20-3.40); Mean Corpuscular Hemoglobin 31.4 pg (25.0-34.0); Mean Corpuscular Hgb Conc 32.2 g/dL (32.0-36.0); Mean Corpuscular Volume 97.4 fL (80.0-100.0); Mean Platelet Volume 9.9 fL (9.4-12.4); Monocytes # (auto) 0.69 K/uL (0.11-0.59); Neutrophils # (auto) 5.58 K/uL (1.40-6.50); Neutrophils % (auto) 56.9 %; Platelet Count 404 K/uL (130-400); RDW Coefficient of Variation 15.9 % (11.5-14.5); RDW Standard Deviation 55.8 fL (36.4-46.3); Red Blood Count 3.09 M/uL (4.70-6.10); White Blood Count 9.81 K/ul (4.8-10.8)
[2023-03-24 06:45] LABS: Calcium 8.5 mg/dl (8.6-10.3); Creatinine Clr Calc Pharmacy 46.7 ml/min; Est GFR (African American) 62.2 ml/min; Est GFR (Non-African American) 53.7 ml/min; Magnesium 1.9 mg/dl (1.7-2.4); Potassium 3.9 mmol/L (3.5-5.1)
[2023-03-24] MEDS: SODIUM CHLOR 7% 4 ML NEB NEB SCH (06:58)
[2023-03-24] MEDS: AMOXICILLIN/CLAVULANATE 875 MG TAB PO SCH (08:28)
[2023-03-24] MEDS: ASPIRIN 81 MG ECTAB PO SCH (08:29)
[2023-03-24] MEDS: TAMSULOSIN HCL 0.4 MG CAP PO SCH (08:29)
[2023-03-24] MEDS: ISOSORBIDE MONO EXTENDED REL 30 MG TABCR PO SCH (08:29)
[2023-03-24] MEDS: APIXABAN 2.5 MG TAB PO SCH (08:29)
[2023-03-24] MEDS: ADVANCED PROBIOTIC 1250 MG CAPSULE PO SCH (08:29)
[2023-03-24] MEDS: CHOLECALCIFEROL 1,000 UNITS 25 MCG TAB PO SCH (08:29)
[2023-03-24] MEDS: FERROUS SULFATE 325 MG TAB PO SCH (10:54)
--- NOTE | 2023-03-24 18:32 | Discharge Summary ---
Discharge Summary Date of Service March 24, 2023 Notes For Next Care Provider Medication Changes From Visit Imdur 30 mg daily Change metoprolol tartrate to metoprolol succinate 75 mg twice a day Take Eliquis 2.5 mg twice a day Augmentin-antibiotic for pneumonia Take a probiotic daily for at least 2 weeks. Renew life brand recommended. 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 Of significance patient recently hospitalized 01/09 to 01/16/2023 secondary to group C beta strep bacteremia. During this hospitalization SHARAN was negative for endocarditis. MRI did reveal trace fluid in intravertebral space between L5 and S1 which was nonspecific and felt likely degenerative in etiology. Initially he was started on Vanco and Zosyn and transition to IV Rocephin. He was seen and evaluated by infectious disease who recommended a 2-week course of antibiotic therapy. At time of discharge there is no clear source of bacteremia however, repeat blood cultures from 01/09 have remained negative prior to discharge. He completed antibiotics. He did develop urinary retention during hospital stay and a Whitfield catheter had to be placed. He had a failed voiding trial for which required him to follow-up with urology as an outpatient. He did follow-up with urology approximately 1 week from discharge and had Whitfield catheter removed. At that time patient was noted to have significant kidney stones on CT and he eventually underwent a ureteral cystoscopic with laser lithotripsy of stones and stent placement. A few weeks later he underwent repeat ureteral cystoscopically and additional laser treatment and temporary ureteral stent was placed. Since then the ureteral stent had since been removed. Urology feels that the kidney stones have been adequately treated. He has also since followed up with his primary care provider. He continued to be generally weak and overall poor appetite. He has had approximately 15 pound weight loss over the last 6 months as well as intermittent falls. During this evaluation his blood pressure was noted to be low. In January amlodipine and hydrochlorothiazide was discontinued. Due to low blood pressure at this visit his lisinopril was decreased to 10 mg daily and his metoprolol was cut in half to 25 mg twice daily. Home health agency then reach back out to primary care provider and further adjustments were made to blood pressure medications in which his lisinopril was completely stopp ed and metoprolol tartrate was increased back to 50 mg twice daily. Patient shortness of breath started acutely this morning at 1 AM. He alerted that he was more short of breath. then called the daughter who lives next door. EMS was summoned. Daughter felt patient's color was overall decreased. Family at bedside report patient has had recent increased cough. He typically does not wear oxygen at baseline. He does have prior history of aspiration pneumonia but family denies any signs of aspiration while eating. At home he was in his normal state of health yesterday. Patient denies any lower extremity swelling. Prior to this morning's episode he further denies any fever, chills, sweats, lightheadedness, dizziness, chest pain, orthopnea, hemoptysis, nausea, vomiting or abdominal pain. He has been urinating without difficulty. He denies any hematuria or melena. He is moving bowels appropriately. Admission Exam Per Admitting Provider Constitutional: Chronically ill-appearing, elderly, male, currently on BiPAP, appears in no distress, vitals as above, able to answer yes/no questions, sitti ng up in bed Head: Normocephalic, Atraumatic Eyes: PERRL, conjunctivae normal, anicteric sclerae ENMT: external ear and nose normal, oropharynx normal, + bipap mask, R parotid surgical changes noted Neck: trachea midline, no thyromegaly normal visual inspection Respiratory: +bipap, normal respiratory effort, lungs clear to auscultation with decrease breath sounds at bases, no wheeze, rales, rhonchi. Normal insp/exp effort, no accessory muscle use Cardiovascular: tachycardic rate, regular rhythm, no murmur, no edema Vessels: no JVD or carotid bruit Chest: normal inspection of chest Abdomen: normal bowel sounds, soft, nontender, no hepatosplenomegaly Musculoskeletal: no cyanosis or clubbing,AROM x4 Skin: no rashes, warm and dry normal turgor Neurologic: chronic R facial droop, no dysarthria CN's II-XI intact bilaterally and moves all extremities Psychiatric: A+Ox3, euthymic affect Lymphatic: no cervical or axillary lymphadenopathy : deferred Principal Dx & Hospital Course #1 = Principal Diagnosis (1) Acute respiratory failure with hypoxia: (2) NSTEMI (non-ST elevated myocardial infarction): (3) Multifocal pneumonia: (4) CHF (congestive heart failure): Plan per admitting service notes with addendum: This is an 88-year-old male Who has a significant past medical history of PAF anticoagulated on apixaban, nonobstructive CAD, HTN, HLD, chronic HFpEF, 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 Pt meets sepsis criteria 2/2 leukocytosis, tachycardia. blood cultures obtained, received broad spectrum antibiotics with IV zosyn. Initially he did receive IVF; however this since d/c in setting of possible CHF will also obtain urine specimen Acute respiratory failure with hypoxia Multifocal pneumonia Sepsis Admit to PCU Broad-spectrum antibiotics with IV Zosyn and doxycycline given IV Lasix Biofire: negative MRSA screen: negative CT chest: 1. Cardiomegaly with mild pulmonary edema and small pleural effusions. 2. Interval development of patchy groundglass and irregular nodular consolidative opacities within the lungs suggestive of a multifocal infectious or inflammatory pneumonitis. One-month follow-up chest CT recommended. 3. Unchanged thoracic lymphadenopathy. 4. Emphysema with bronchitis. 5. Mild T1-T3 superior endplate compression deformities without retropulsion are new/progressed compared to the 05/28/2021 exam. initially placed on Bipap, weaned off given Zosyn, Doxycycline Nebs QID Flutter valve, incentive spirometry 03/24 Improved Transition to Augmentin p.o. twice daily One-month follow-up chest CT recommended. CAD NSTEMI ACUTE HFpEF likey in setting of underlying illness trop increased to 2,472 03/21 S/p cardiac cath revealing severe CAD Not amenable to PCI, patient not a candidate for surgical intervention Continue medical management per Cardiology Metoprol changed to succinate 75mg BID Imdur increased to 30mg daily Continue apixaban, aspirin, Lipitor PAF continue apixaban, metoprolol chronic, stable HTN pt with recent changes to BP meds, amlodipine/hctz stopped in January, Lisinopril recently d/c on 03/13 currently only on metoprolol 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 CKD-3 baseline cr 1-1.2 back to baseline Anemia, likely of chronic disease Hemoglobin around 9 Monitor Dispo: Anticipate discharge to home when medically stable FULL CODE PCP: Dr. Lenz Discharge Exam General- oriented x 3, not in distress, speaks in sentences with no effort or accessory muscle use Eyes- anicteric Neck- no JVD Lungs- clear breath sounds bilaterally, no rales/wheezes Heart- normal rate, regular rhythm; no murmurs Abdomen- normal bowel sounds, nondistended, soft, nontender Extremities- no pretibial edema, no calf tenderness Neuro- alert, oriented x 3; no gross focal neurologic deficits Skin- warm & dry Updated Medication List Medication Instructions Recorded Confirmed Type aspirin 81 mg tablet,delayed 81 mg PO DAILY 11/16/20 03/20/23 History release atorvastatin 80 mg tablet 80 mg PO HS 11/16/20 03/20/23 History cholecalciferol (vitamin D3) 25 25 mcg PO DAILY 11/16/20 03/20/23 History mcg (1,000 unit) tablet (Vitamin D3) apixaban 5 mg tablet (Eliquis) 2.5 mg PO BID 07/02/22 03/20/23 History oxycodone 5 mg tablet 5 mg PO Q4H PRN severe pain #10 07/03/22 03/20/23 Rx tabs ferrous sulfate 325 mg (65 mg 325 mg PO DAILY@1100 #30 tabs 07/15/22 03/20/23 Rx iron) tablet,delayed release tamsulosin 0.4 mg capsule 0.4 mg PO QAM #30 caps 01/15/23 03/20/23 Rx amoxicillin 875 mg-potassium 1 tab PO BIDM 3 days #6 tabs 03/24/23 Rx clavulanate 125 mg tablet isosorbide mononitrate 30 mg 30 mg PO QAM 30 days #30 tabs 03/24/23 Rx tablet,extended release 24 hr metoprolol succinate 25 mg 75 mg (3 x 25 mg) PO BID 30 days 03/24/23 Rx tablet,extended release 24 hr #180 tabs Hospital Stay Data Consultations 03/20/23 08:10 Consult Cardiology Routine Consult Pulmonology Routine 03/20/23 08:25 ED Decision to Admit Stat Procedures Performed Operation Date: 03/21/23 11:30 Actual Procedures s Cineradiography w/Routine Exam - Luis Azul MD, PhD p Cath, Coronaries ONLY (no LV) - uLis Azul MD, PhD Diagnostic Imagining Performed Laboratory Results WBC 9.81 K/ul (4.8-10.8) 03/24/23 05:22 RBC 3.09 M/uL (4.70-6.10) L 03/24/23 05:22 Hgb 9.7 g/dl (14.0-18.0) L 03/24/23 05:22 Hct 30.1 % (42.0-52.0) L 03/24/23 05:22 MCV 97.4 fL (80.0-100.0) 03/24/23 05:22 MCH 31.4 pg (25.0-34.0) 03/24/23 05:22 MCHC 32.2 g/dL (32.0-36.0) 03/24/23 05:22 RDW Std Deviation 55.8 fL (36.4-46.3) H 03/24/23 05:22 RDW Coeff of Derrek 15.9 % (11.5-14.5) H 03/24/23 05:22 Plt Count 404 K/uL (130-400) H 03/24/23 05:22 MPV 9.9 fL (9.4-12.4) 03/24/23 05:22 Immature Gran % (Auto) 0.3 % 03/24/23 05:22 Neut % (Auto) 56.9 % 03/24/23 05:22 Lymph % (Auto) 32.0 % 03/24/23 05:22 [place] % (Auto) 7.0 % 03/24/23 05:22 Eos % (Auto) 3.2 % 03/24/23 05:22 Baso % (Auto) 0.6 % 03/24/23 05:22 Neut # (Auto) 5.58 K/uL (1.40-6.50) 03/24/23 05:22 Lymph # (Auto) 3.14 K/uL (1.20-3.40) 03/24/23 05:22 [place] # (Auto) 0.69 K/uL (0.11-0.59) H 03/24/23 05:22 Eos # (Auto) 0.31 K/uL (0.00-0.50) 03/24/23 05:22 Baso # (Auto) 0.06 K/uL (0.00-0.20) 03/24/23 05:22 Immature Gran # (Auto) 0.03 K/uL (0.01-0.20) 03/24/23 05:22 APTT 26.5 Seconds (21.0-31.0) 03/22/23 05:29 PTT Ratio 0.9 03/22/23 05:29 Activ Coag Time Kaolin 191 SECONDS (94-140) H 03/21/23 12:01 VBG pH 7.41 (7.36-7.41) 03/20/23 07:25 VBG pCO2 51 mmHg (38-50) H 03/20/23 07:25 VBG pO2 32 mmHg 03/20/23 07:25 VBG HCO3 32 mmol/L 03/20/23 07:25 VBG O2 Saturation < 60.0 % 03/20/23 07:25 VBG Base Excess 6.6 mEq/L 03/20/23 07:25 Sodium 142 mmol/L (136-145) 03/24/23 05:22 Potassium 3.9 mmol/L (3.5-5.1) 03/24/23 05:22 Chloride 107 mmol/L (98-107) 03/24/23 05:22 Carbon Dioxide 28 mmol/L (21-32) 03/24/23 05:22 Anion Gap 7 (3-11) 03/24/23 05:22 BUN 24 mg/dl (6-23) H 03/24/23 05:22 Creatinine 1.20 mg/dl (0.6-1.4) D 03/24/23 05:22 Est Cr Clr Drug Dosing 46.7 ml/min 03/24/23 05:22 Est GFR ( Amer) 62.2 ml/min 03/24/23 05:22 Est GFR (Non-Af Amer) 53.7 ml/min 03/24/23 05:22 BUN/Creatinine Ratio 20.0 (10-20) 03/24/23 05:22 Glucose 101 mg/dl (70-99(Fasting)) H 03/24/23 05:22 Lactate 1.5 mmol/L (0.4-2.0) 03/20/23 07:13 Calcium 8.5 mg/dl (8.6-10.3) L 03/24/23 05:22 Magnesium 1.9 mg/dl (1.7-2.4) 03/24/23 05:22 Total Bilirubin 0.8 mg/dl (0.2-1.0) 03/20/23 06:31 AST 15 U/L (13-39) 03/20/23 06:31 ALT 17 U/L (7-52) 03/20/23 06:31 Alkaline Phosphatase 82 U/L (34-104) 03/20/23 06:31 Troponin I High Sens 2472.4 pg/ml (0-20) H* D 03/20/23 17:19 B-Natriuretic Peptide 755 pg/ml (0-100) H 03/20/23 06:31 Total Protein 7.5 gm/dl (6.0-8.3) 03/20/23 06:31 Albumin 3.4 gm/dl (3.4-5.0) 03/20/23 06:31 Globulin 4.1 gm/dl (2.5-4.0) H 03/20/23 06:31 Albumin/Globulin Ratio 0.8 (0.9-2) L 03/20/23 06:31 LDL Cholesterol Direct 61 mg/dl 03/21/23 15:36 Lipase 57 U/L (11-82) 03/20/23 06:31 Procalcitonin < 0.05 ng/ml (0-0.5) 03/20/23 06:33 Urine Color Yellow 03/20/23 Unknown Urine Appearance Clear (Clear) 03/20/23 Unknown Urine pH 5.0 (4.5-7.5) 03/20/23 Unknown Ur Specific Blanket 1.011 (1.000-1.030) 03/20/23 Unknown Urine Protein Negative (Negative) 03/20/23 Unknown Urine Glucose (UA) Negative (Negative) 03/20/23 Unknown Urine Ketones Negative (Negative) 03/20/23 Unknown Urine Blood Negative (Negative) 03/20/23 Unknown Urine Nitrite Negative (Negative) 03/20/23 Unknown Urine Bilirubin Negative (Negative) 03/20/23 Unknown Urine Urobilinogen Negative (Negative) 03/20/23 Unknown Ur Leukocyte Esterase Negative (Negative) 03/20/23 Unknown Nasal Screen MRSA (PCR) Negative (Negative) 03/20/23 10:01 Adenovirus (PCR) Not Detected (NotDetected) 03/20/23 10:01 B. pertussis DNA (PCR) Not Detected (NotDetected) 03/20/23 10:01 B.parapertussis DNA PCR Not Detected (NotDetected) 03/20/23 10:01 C. pneumoniae DNA (PCR) Not Detected (NotDetected) 03/20/23 10:01 Coronavirus OC43 (PCR) Not Detected (NotDetected) 03/20/23 10:01 Coronavirus HKU1 (PCR) Not Detected (NotDetected) 03/20/23 10:01 Coronavirus 229E (PCR) Not Detected (NotDetected) 03/20/23 10:01 SARS-CoV-2 (PCR) Not Detected (NotDetected) 03/20/23 10:01 Coronavirus NL63 (PCR) Not Detected (NotDetected) 03/20/23 10:01 Human Metapneumovir PCR Not Detected (NotDetected) 03/20/23 10:01 Influenza Type A (PCR) Not Detected (NotDetected) 03/20/23 10:01 Influenza Type B (PCR) Not Detected (NotDetected) 03/20/23 10:01 M. pneumoniae (PCR) Not Detected (NotDetected) 03/20/23 10:01 Parainfluenza 1 (PCR) Not Detected (NotDetected) 03/20/23 10:01 Parainfluenza 2 (PCR) Not Detected (NotDetected) 03/20/23 10:01 Parainfluenza 3 (PCR) Not Detected (NotDetected) 03/20/23 10:01 Parainfluenza 4 (PCR) Not Detected (NotDetected) 03/20/23 10:01 RSV (PCR) Not Detected (NotDetected) 03/20/23 10:01 Entero/Rhino (PCR) Not Detected (NotDetected) 03/20/23 10:01 Impressions Chest X-Ray 03/20/23 05:50 XR chest 1V portable HISTORY: 88 years-old Male Chest pain, nonspecific COMPARISON: 01/10/2023 TECHNIQUE: AP view of the chest FINDINGS: Cardiac silhouette is enlarged. Right greater than left multifocal mixed interstitial and alveolar opacities. Trace pleural effusions. No pneumothorax. Bones appear grossly intact. IMPRESSION: 1. Cardiomegaly with right greater than left mixed interstitial and alveolar opacities suggestive of multifocal pneumonia versus asymmetric pulmonary edema. 2. Trace pleural effusions. ACT 112: Negative or not required by law. The above report was generated using voice recognition software. It may contain grammatical, syntax or spelling errors. Electronically signed by: Jake Colon M.D. 03/20/2023 6:[address] 03/20/23 08:10 CT chest diagnostic wo con CT DOSE: 592.46 mGy.cm CLINICAL HISTORY: 88 years-old Male with pneumonia vs chf. Acute shortness of breath TECHNIQUE: Multiaxial CT images of the chest were performed without contrast. A dose lowering technique was utilized adhering to the principles of ALARA. COMPARISON: Chest radiograph of same day, CT chest 05/28/2021, CT abdomen and pelvis 02/20/2023 FINDINGS: Heterogeneous thyroid. Unchanged mediastinal and hilar lymphadenopathy. Stable 10 mm subcarinal lymph node. Partially calcified lymph nodes measuring up to 11 mm in the precarinal tissues are also unchanged. No new or progressive adenopathy. Small right greater than left pleural effusions. No pneumothorax. Emphysema with bronchitis redemonstrated. Unchanged 1.2 cm right upper lobe pulmonary hamartoma on image 52. Right-sided calcified pleural plaques. Patchy groundglass and irregular nodular consolidative opacities are noted bilaterally. This includes a subpleural nodular density within the left upper lobe measuring 11 mm on image 73. There is an additional irregular 2.3 cm subpleural nodular density of the right middle lobe on image 173. Mild intralobular septal thickening. Several new pulmonary nodules which are mostly subcentimeter noted within all lobes bilaterally. Central airways are patent. Unchanged appearance of the upper abdomen. Distended gallbladder. Left upper quadrant splenules. Unremarkable soft tissue tissues. Degenerative changes of the shoulders and spine. Healed chronic mid sternal body fracture. There is progressive superior endplate compression involving the T1-T2 3 segments without retropulsion. IMPRESSION: 1. Cardiomegaly with mild pulmonary edema and small pleural effusions. 2. Interval development of patchy groundglass and irregular nodular consolidative opacities within the lungs suggestive of a multifocal infectious or inflammatory pneumonitis. One-month follow-up chest CT recommended. 3. Unchanged thoracic lymphadenopathy. 4. Emphysema with bronchitis. 5. Mild T1-T3 superior endplate compression deformities without retropulsion are new/progressed compared to the 05/28/2021 exam. ACT 112: Negative or not required by law. Electronically signed by: Jake Colon M.D. 03/20/2023 11:26 AM Pending Results Patient Have Any Pending Studies at Discharge: No Discharge Instructions Given to Patient (Per Discharging Provider) PLEASE REFER TO YOUR NEW MEDICATION LIST AND FOLLOW INSTRUCTIONS CAREFULLY. YOUR NEW MEDICATIONS INCLUDE: Imdur 30 mg daily Change metoprolol tartrate to metoprolol succinate 75 mg twice a day Take Eliquis 2.5 mg twice a day Augmentin-antibiotic for pneumonia Please continue using incentive spirometry frequently at home. Take a probiotic daily for at least 2 weeks. Renew life brand recommended. PLEASE CALL YOUR PRIMARY CARE PHYSICIAN OR RETURN TO THE ER IF WITH WORSENING OF SYMPTOMS, INCLUDING Shortness of breath, chest pain, palpitations, dizziness, Fevers or chills, cough, sputum production, nausea vomiting, weakness, etc. FOLLOW UP WITH PRIMARY CARE PHYSICIAN IN 1 WEEK. FOLLOW-UP WITH [facility] IN 2 TO 3 WEEKS. THE CLINIC WILL BE CALLING YOU SOON FOR THE APPOINTMENT. Total Time Total Time Spent Total Time Spent (In Minutes): >30 minutes
[2023-03-24] MEDS ORDERED: METOPROLOL SUCC 25MG EXT REL TAB PO SCH (21:00)
--- NOTE | 2023-03-26 12:30 | Coding Query ---
CODING QUERY To promote full compliance with coding requirements relating to patient care, provider participation is requested in all cases of medical billing coder uncertainty. Please assist us with the question(s) below: Coding Question(s): Sepsis is documented. Please specify below, in your clinical opinion, the most likely cause(s) of Sepsis: (x ) Most likely Pneumonia ( ) Other: Please Specify: ( ) Unknown likely source Physician's Response(s): Thank you Ester Darling Principal Diagnosis: "that condition established after study, to be chiefly responsible for occasioning the admission of the patient to the hospital for care." Co-Existing Principal Diagnosis: "when two or more diagnoses equally meet the criteria for principal diagnosis as determined by the circumstances of admission, diagnostic work up, and/or therapy provided, and the Alphabetic Index, Tabular List, or another coding guideline does not provide sequencing direction, any one of the diagnoses may be sequenced first." "When the physician has documented what appears to be a current diagnosis in the body of the record, but has not included the diagnosis in the final diagnostic statement, the physician should be asked whether the diagnosis should be added." (Source [facility]oding [facility] 2 QTR90. p3-4) RODOLFO
== END 2023-03-24 15:28 | disposition home health service (06) | DRG 871 ==
LOC: ED 05:37 → EDINP 07:55 → 2S 11:02
PROC: CLB.CCO (2023-03-21 11:30)
DX: Z79.01 Long term (current) use of anticoagulants; R73.03 Prediabetes; Z85.818 Personal history of malignant neoplasm of other sites of lip, oral cavity, and pharynx; G89.28 Other chronic postprocedural pain; I25.10 Atherosclerotic heart disease of native coronary artery without angina pectoris; I50.33 Acute on chronic diastolic (congestive) heart failure; J18.9 Pneumonia, unspecified organism; I13.0 Hypertensive heart and chronic kidney disease with heart failure and stage 1 through stage 4 chronic kidney disease, or unspecified chronic kidney disease; I35.0 Nonrheumatic aortic (valve) stenosis; Z79.899 Other long term (current) drug therapy; I48.0 Paroxysmal atrial fibrillation; N18.30 Chronic kidney disease, stage 3 unspecified; A41.9 Sepsis, unspecified organism; I21.4 Non-ST elevation (NSTEMI) myocardial infarction; Z87.891 Personal history of nicotine dependence; E78.5 Hyperlipidemia, unspecified; Z92.21 Personal history of antineoplastic chemotherapy; Z92.3 Personal history of irradiation; D63.1 Anemia in chronic kidney disease; I25.2 Old myocardial infarction; Z79.82 Long term (current) use of aspirin; J96.01 Acute respiratory failure with hypoxia

== ENCOUNTER 2023-04-01 08:48 | Inpatient (IN) ==
[2023-04-01] MEDS ORDERED: ASPIRIN CHEW 324 MG PO STA (08:59)
[2023-04-01] MEDS ORDERED: cefTRIAXone SODIUM 2,000 MG/50 ML BAG IV STA (09:03)
--- NOTE | 2023-04-01 09:03 | Emergency Department Note ---
Impression & Plan Hypoxia, CHF (congestive heart failure) ED Provider Note NAME: MICHAEL JOHNSTON AGE: 88 SEX: M : 1935 ARRIVES VIA: Ambulance INFORMANT: Patient ED PROVIDER(S): Casey Hatch DO CHIEF COMPLAINT: shortness of breath HPI: Patient is an 88-year-old male who presents to the ER with a past medical history of multifocal pneumonia, CHF, CKD, hypertension, bacteremia for shortness of breath. Started this morning around 2 AM. He admits to cough and congestion. Denies any chest pain unless he is coughing. No headache but does have shortness of breath. No belly pain, nausea, vomiting or diarrhea. No dysuria, urgency or frequency. No other exacerbating or remitting factors. He notes he has been taking his medications. Additional history obtained from EMS who notes he was just discharged following pneumonia and a heart attack. He notes he has not gained any weight but rather has been losing weight. ADDITIONAL HISTORY OBTAINED: Per HPI Chronic Medical/Social Conditions Affecting Care: Per HPI PAST MEDICAL HISTORY:See Below PAST SURGICAL HISTORY:See Below FAMILY HISTORY:See Below SOCIAL HISTORY:See Below HOME MEDICATIONS:See Below ALLERGIES:See Below VITALS:See Below PHYSICAL EXAMINATION: GENERAL: Sitting up in bed, alert, disheveled, on nasal cannula EYE EXAM: normal conjunctiva. OROPHARYNX:mucous membranes are moist NECK: supple, no nuchal rigidity, no adenopathy, non-tender LUNGS: Diminished bilaterally. Normal chest wall mechanics HEART: no murmurs, S1 normal and S2 normal ABDOMEN: abdomen soft, non-tender, normo-active bowel sounds, no masses, no rebound or guarding. BACK: Back is symmetrical on inspection and there is no deformity, no midline tenderness, no CVA tenderness. SKIN: no rashes and no bruising UPPER EXTREMITIES: upper extremities are grossly normal. LOWER EXTREMITIES: No pitting edema. NEURO EXAM: Normal sensorium, cranial nerves II-XII grossly intact, normal speech, no gross weakness of arms, no gross weakness of legs. MEDICAL DECISION MAKING: Patient is an 88-year-old male who presents ER for above-stated complaint. IV was established blood work was obtained. He was found to be hypoxic at 85% was placed on 4 L nasal cannula. Labs show mild leukocytosis of 10,000. Mild anemia 11.2. BMP along LFTs bilirubin was unremarkable. Troponin was mildly elevated in the 60s. proBNP elevated at 915. Pro-William was normal. COVID- positive. Patient was given steroids. Did give him a small dose of Lasix with the effusion on his chest x-ray. Chest x-ray does appear to be improved from his previous. He was updated bedside. Discussed with the hospitalist. He was admitted for further workup. He remained on nasal cannula throughout his stay in the ER. External Records Reviewed: Recent admission reviewed which included catheterization which showed severe CAD not amenable to intervention Consults/Care Managements Discussions: Per [facility] Triage Nursing notes reviewed. Limited review of prior medical records performed Vital Signs: reviewed and remarkable for hypoxia Differential diagnosis: Differential diagnoses includes but is not limited to pneumonia, bronchitis, COPD/Asthma exacerbation, pneumothorax, pulmonary embolism, congestive heart failure, acute coronary syndrome ER treatment provided: See below Diagnostics interpreted by me include EKG and cardiac monitoring as listed below: -Cardiac Monitoring: An order was placed for continuous cardiac monitoring. The monitor shows a rate of 60 with atrial flutter rhythm. -ECG: A flutter rate of 50 Normal axis No PVCs Poor baseline QTc 388 -Laboratory studies:Interpreted by me as stated above in MDM and shown below. Imaging studies: Xrays: As interpreted by me: Chest x-ray with bilateral infiltrates CTs show: none Procedures:none Critical Care: I have personally spent 35 minutes of critical care time in the direct management of this patient. This includes bedside care, interpretation of diagnostic studies, and testing, discussion with consultants, patient, and family members, and other required patient management activities. This 35 minutes is in excess of all separately billable procedures. 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 Sepsis Admitted to [facility] 01/08/23-01/16/23 - sepsis and bacteremia- treated with abx x 2 weeks/ pt feeling better. Kidney stone reason for upcoming procedure. Fever Acute renal disease Noted during 01/2023 admission- has since improved to baseline per records (HFpEF) heart failure with preserved ejection fraction EF 55-60% per 01/09/23 SH[facility] CAD (coronary artery disease) Nonobstructive per records CKD (chronic kidney disease), stage III Dyslipidemia, goal LDL below 70 HTN (hypertension) NSTEMI (non-ST elevated myocardial infarction) denies hx heart attack "supply/demand NSTEMI in 11/2020" per records NSTEMI Type II per 01/16/23 discharge summary from [facility] PAF (paroxysmal atrial fibrillation) no hx cardioversion on Eliquis Surgical History S/P cystoscopy with ureteral stent placement w/laser lithotripsy History of surgery right eye , trouble closing eyelid after parotid sx - they put a weight in so i can close my eye at night. History of colonoscopy History of parotidectomy History of transesophageal echocardiography ([facility]) 01/09/23, [facility] w/dr. patel Hx of tonsillectomy H/O splenectomy Hx of cataract surgery both Family History Other Heart disease Hypertension Social History Smoking Status: Former smoker Tobacco Type: Cigarettes Second Hand Exposure: No; Hx Alcohol Use: No Hx Substance Use: No Preferred Language: [place] Communication Ability: Effective Projects Manager Required: No Beliefs That Will Affect Care: None marital status: Current Living Situation: Spouse Current Living Situation Comment: Lives at home ith How many Children do You have: 2 Feels Safe at Home: Yes Assistive Devices: Cane and Walker Allergies Allergies Allergy/AdvReac Type Severity Reaction Status Date / Time No Known Allergies Allergy Verified 03/05/23 07:23 Home Meds Home Medications Medication Instructions Recorded Confirmed aspirin 81 mg tablet,delayed 81 mg PO DAILY 11/16/20 04/01/23 release atorvastatin 80 mg tablet 80 mg PO HS 11/16/20 04/01/23 cholecalciferol (vitamin D3) 25 25 mcg PO DAILY 11/16/20 04/01/23 mcg (1,000 unit) tablet (Vitamin D3) apixaban 5 mg tablet (Eliquis) 2.5 mg PO BID 07/02/22 04/01/23 Previous Rx's Medication Instructions Recorded oxycodone 5 mg tablet 5 mg PO Q4H PRN severe pain #10 07/03/22 tabs ferrous sulfate 325 mg (65 mg 325 mg PO DAILY@1100 #30 tabs 07/15/22 iron) tablet,delayed release tamsulosin 0.4 mg capsule 0.4 mg PO QAM #30 caps 01/15/23 isosorbide mononitrate 30 mg 30 mg PO QAM 30 days #30 tabs 03/24/23 tablet,extended release 24 hr metoprolol succinate 25 mg 75 mg (3 x 25 mg) PO BID 30 days 03/24/23 tablet,extended release 24 hr #180 tabs Results & Data (ED) Vital Signs Vital Signs - 24 hr 04/01/23 08:53 04/01/23 08:53 04/01/23 08:53 Temperature 37.2 C Temperature Source Oral Pulse Rate 83 Pulse Rate [Apical] 83 Respiratory Rate 30 H 30 H Respiratory Effort / Characteristics Spontaneous Labored Spontaneous Labored Respiratory Depth Normal Normal Respiratory Pattern Regular Regular Blood Pressure 192/86 H Blood Pressure [Right Arm] 192/86 H Blood Pressure Mean 121 Blood Pressure Mean [Right Arm] 121 Blood Pressure Position [Right Arm] Pulse Oximetry 96 84 L 96 Oxygen Delivery Method Oxymask Room Air Oxymask Oxygen Flow Rate 4 4 Sepsis Recent Fever Within 48 Hours No Sepsis New/Unexplained Change in Mental Status No Sepsis Action Taken by Nursing No Action Required Oxygen Flow Rate - Titration 4 Pulse Oximetry Post Tiitration 96 04/01/23 08:53 04/01/23 08:57 04/01/23 08:58 Temperature Temperature Source Pulse Rate 83 72 Pulse Rate [Apical] Respiratory Rate 30 H 28 H Respiratory Effort / Characteristics Respiratory Depth Respiratory Pattern Blood Pressure 192/86 H Blood Pressure [Right Arm] Blood Pressure Mean 103 Blood Pressure Mean [Right Arm] Blood Pressure Position [Right Arm] Pulse Oximetry 97 97 Oxygen Delivery Method Oxymask Oxymask Oxygen Flow Rate 4 4 Sepsis Recent Fever Within 48 Hours Sepsis New/Unexplained Change in Mental Status Sepsis Action Taken by Nursing Oxygen Flow Rate - Titration Pulse Oximetry Post Tiitration 04/01/23 09:00 04/01/23 09:00 04/01/23 09:26 Temperature Temperature Source Pulse Rate 60 55 L Pulse Rate [Apical] Respiratory Rate 28 H Respiratory Effort / Characteristics Respiratory Depth Respiratory Pattern Blood Pressure 158/87 H Blood Pressure [Right Arm] Blood Pressure Mean 115 Blood Pressure Mean [Right Arm] Blood Pressure Position [Right Arm] Pulse Oximetry 98 Oxygen Delivery Method Oxymask Oxygen Flow Rate 4 Sepsis Recent Fever Within 48 Hours Sepsis New/Unexplained Change in Mental Status Sepsis Action Taken by Nursing Oxygen Flow Rate - Titration Pulse Oximetry Post Tiitration 04/01/23 10:32 Temperature Temperature Source Pulse Rate Pulse Rate [Apical] 53 L Respiratory Rate 26 H Respiratory Effort / Characteristics Respiratory Depth Normal Respiratory Pattern Blood Pressure Blood Pressure [Right Arm] 143/67 H Blood Pressure Mean Blood Pressure Mean [Right Arm] 92 Blood Pressure Position [Right Arm] Sitting Pulse Oximetry 96 Oxygen Delivery Method Oxymask Oxygen Flow Rate 2 Sepsis Recent Fever Within 48 Hours Sepsis New/Unexplained Change in Mental Status Sepsis Action Taken by Nursing Oxygen Flow Rate - Titration Pulse Oximetry Post Tiitration Laboratory Data 04/01/23 08:58 04/01/23 08:58 Lab Results 04/01/23 04/01/23 04/01/23 Range/Units 08:55 08:58 09:00 WBC 10.82 H (4.8-10.8) K/ul RBC 3.46 L (4.70-6.10) M/uL Hgb 11.2 L (14.0-18.0) g/dl Hct 34.6 L (42.0-52.0) % MCV 100.0 (80.0-100.0) fL MCH 32.4 (25.0-34.0) pg MCHC 32.4 (32.0-36.0) g/dL RDW Std Deviation 67.0 H (36.4-46.3) fL RDW Coeff of Derrek 18.2 H (11.5-14.5) % Plt Count 320 (130-400) K/uL MPV 9.8 (9.4-12.4) fL Immature Gran % (Auto) 0.5 % Neut % (Auto) 74.7 % Lymph % (Auto) 16.5 % [place] % (Auto) 7.5 % Eos % (Auto) 0.4 % Baso % (Auto) 0.4 % Neut # (Auto) 8.09 H (1.40-6.50) K/uL Lymph # (Auto) 1.79 (1.20-3.40) K/uL [place] # (Auto) 0.81 H (0.11-0.59) K/uL Eos # (Auto) 0.04 (0.00-0.50) K/uL Baso # (Auto) 0.04 (0.00-0.20) K/uL Immature Gran # (Auto) 0.05 (0.01-0.20) K/uL Sodium 140 (136-145) mmol/L Potassium 4.1 (3.5-5.1) mmol/L Chloride 106 (98-107) mmol/L Carbon Dioxide 27 (21-32) mmol/L Anion Gap 7 (3-11) BUN 22 (6-23) mg/dl Creatinine 1.21 (0.6-1.4) mg/dl Est Cr Clr Drug Dosing 46.3 ml/min Est GFR ( Amer) 61.6 ml/min Est GFR (Non-Af Amer) 53.1 ml/min BUN/Creatinine Ratio 18.2 (10-20) Glucose 104 H (70-99(Fasting)) mg/dl Calcium 8.7 (8.6-10.3) mg/dl Total Bilirubin 0.9 (0.2-1.0) mg/dl AST 20 (13-39) U/L ALT 12 (7-52) U/L Alkaline Phosphatase 79 (34-104) U/L Troponin I High Sens 46.3 H (0-20) pg/ml B-Natriuretic Peptide 915 H (0-100) pg/ml Total Protein 7.5 (6.0-8.3) gm/dl Albumin 3.5 (3.4-5.0) gm/dl Globulin 4.0 (2.5-4.0) gm/dl Albumin/Globulin Ratio 0.9 (0.9-2) Lipase 29 (11-82) U/L Procalcitonin < 0.05 (0-0.5) ng/ml Adenovirus (PCR) Not Detected (NotDetected) B. pertussis DNA (PCR) Not Detected (NotDetected) B.parapertussis DNA PCR Not Detected (NotDetected) C. pneumoniae DNA (PCR) Not Detected (NotDetected) Coronavirus OC43 (PCR) Not Detected (NotDetected) Coronavirus HKU1 (PCR) Not Detected (NotDetected) Coronavirus 229E (PCR) Not Detected (NotDetected) SARS-CoV-2 (PCR) DETECTED A* (NotDetected) Coronavirus NL63 (PCR) Not Detected (NotDetected) Human Metapneumovir PCR Not Detected (NotDetected) Influenza Type A (PCR) Not Detected (NotDetected) Influenza Type B (PCR) Not Detected (NotDetected) M. pneumoniae (PCR) Not Detected (NotDetected) Parainfluenza 1 (PCR) Not Detected (NotDetected) Parainfluenza 2 (PCR) Not Detected (NotDetected) Parainfluenza 3 (PCR) Not Detected (NotDetected) Parainfluenza 4 (PCR) Not Detected (NotDetected) RSV (PCR) Not Detected (NotDetected) Entero/Rhino (PCR) Not Detected (NotDetected) 04/01/23 Range/Units 10:52 WBC (4.8-10.8) K/ul RBC (4.70-6.10) M/uL Hgb (14.0-18.0) g/dl Hct (42.0-52.0) % MCV (80.0-100.0) fL MCH (25.0-34.0) pg MCHC (32.0-36.0) g/dL RDW Std Deviation (36.4-46.3) fL RDW Coeff of Derrke (11.5-14.5) % Plt Count (130-400) K/uL MPV (9.4-12.4) fL Immature Gran % (Auto) % Neut % (Auto) % Lymph % (Auto) % [place] % (Auto) % Eos % (Auto) % Baso % (Auto) % Neut # (Auto) (1.40-6.50) K/uL Lymph # (Auto) (1.20-3.40) K/uL [place] # (Auto) (0.11-0.59) K/uL Eos # (Auto) (0.00-0.50) K/uL Baso # (Auto) (0.00-0.20) K/uL Immature Gran # (Auto) (0.01-0.20) K/uL Sodium (136-145) mmol/L Potassium (3.5-5.1) mmol/L Chloride (98-107) mmol/L Carbon Dioxide (21-32) mmol/L Anion Gap (3-11) BUN (6-23) mg/dl Creatinine (0.6-1.4) mg/dl Est Cr Clr Drug Dosing ml/min Est GFR ( Amer) ml/min Est GFR (Non-Af Amer) ml/min BUN/Creatinine Ratio (10-20) Glucose (70-99(Fasting)) mg/dl Calcium (8.6-10.3) mg/dl Total Bilirubin (0.2-1.0) mg/dl AST (13-39) U/L ALT (7-52) U/L Alkaline Phosphatase (34-104) U/L Troponin I High Sens 62.1 H* D (0-20) pg/ml B-Natriuretic Peptide (0-100) pg/ml Total Protein (6.0-8.3) gm/dl Albumin (3.4-5.0) gm/dl Globulin (2.5-4.0) gm/dl Albumin/Globulin Ratio (0.9-2) Lipase (11-82) U/L Procalcitonin (0-0.5) ng/ml Adenovirus (PCR) (NotDetected) B. pertussis DNA (PCR) (NotDetected) B.parapertussis DNA PCR (NotDetected) C. pneumoniae DNA (PCR) (NotDetected) Coronavirus OC43 (PCR) (NotDetected) Coronavirus HKU1 (PCR) (NotDetected) Coronavirus 229E (PCR) (NotDetected) SARS-CoV-2 (PCR) (NotDetected) Coronavirus NL63 (PCR) (NotDetected) Human Metapneumovir PCR (NotDetected) Influenza Type A (PCR) (NotDetected) Influenza Type B (PCR) (NotDetected) M. pneumoniae (PCR) (NotDetected) Parainfluenza 1 (PCR) (NotDetected) Parainfluenza 2 (PCR) (NotDetected) Parainfluenza 3 (PCR) (NotDetected) Parainfluenza 4 (PCR) (NotDetected) RSV (PCR) (NotDetected) Entero/Rhino (PCR) (NotDetected) Administered Medications Levalbuterol HCl (Levalbuterol Hcl 0.63 Mg/3 Ml Neb) 0.63 mg NEB Q6R [facility]; Protocol Stop: 05/01/23 12:59 Last Admin: 04/01/23 12:17 Dose: 0.63 mg Documented By: MELVI Discontinued Medications Aspirin (Aspirin Chew 324 Mg) 324 mg PO NOW STA Stop: 04/01/23 09:00 Last Admin: 04/01/23 09:32 Dose: 324 mg Documented By: SCHUYLER Dexamethasone Sodium Phosphate (DexamethasonePf 10 Mg/Ml Vial) 6 mg IV NOW ONE Stop: 04/01/23 11:00 Last Admin: 04/01/23 11:13 Dose: 6 mg Documented By: MELVI Furosemide (Furosemide 40 Mg/4 Ml Vial) 40 mg IV NOW STA Stop: 04/01/23 10:38 Last Admin: 04/01/23 11:13 Dose: 40 mg Documented By: MELVI Ceftriaxone Sodium (Rocephin) 2,000 mg in 50 mls @ 100 mls/hr IV NOW STA Stop: 04/01/23 09:32 Last Infusion: 04/01/23 11:17 Dose: Infused Documented By: Admin: 04/01/23 09:32 Dose: 100 mls/hr Documented By: SCHUYLER Vancomycin HCl 1,750 mg/ (Sodium Chloride) 535 mls @ 200 mls/hr IV NOW ONE Stop: 04/01/23 12:02 Last Infusion: 04/01/23 14:20 Dose: Infused Documented By: Admin: 04/01/23 10:40 Dose: 200 mls/hr Documented By: SCHUYLER Remdesivir 200 mg/ Sodium (Chloride) 250 mls @ 125 mls/hr IV ONE ONE; Protocol Stop: 04/01/23 14:29 Last Admin: 04/01/23 14:01 Dose: 125 mls/hr Documented By: MELVI Imaging Data Radiologist's Impression: Chest X-Ray 04/01/23 08:55 XR chest 1V portable HISTORY: 88 years-old Male Chest pain, nonspecific COMPARISON: 03/20/2023 TECHNIQUE: AP view of the chest FINDINGS: Cardiac silhouette is enlarged. Atherosclerosis of the aorta. Emphysema with chronic interstitial coarsening. Reticular nodular densities with ill-defined nodular foci of the lungs again noted. Chronic blunting of the costophrenic angles. Right basilar calcified pleural plaques with patchy right greater than left bibasilar consolidation. Small right pleural effusion. Bones appear grossly intact. IMPRESSION: 1. Small right pleural effusion again noted with mildly progressed right basilar consolidation. 2. Emphysema with ill-defined bilateral pulmonary opacities again noted, likely infectious or inflammatory. 3. Please refer to the chest CT from 03/20/2023 for additional findings. ACT 112: Negative or not required by law. The above report was generated using voice recognition software. It may contain grammatical, syntax or spelling errors. Electronically signed by: Jake Colon M.D. 04/01/2023 9:34 AM Discharge Plan Visit Data Chief Complaint: Shortness of Breath/Dyspnea Stated Complaint: shortness of breath ED Provider: Casey Hatch Discharge Problem: Hypoxia, CHF (congestive heart failure) Discharge Instructions Interventions: ED Discharge Assessment Last Done: 04/01/23 12:34 Discharge Problem: CHF (congestive heart failure) Qualifiers: Heart failure type: unspecified Heart failure chronicity: unspecified Qualified Code(s): I50.9 - Heart failure, unspecified
[2023-04-01 09:12] LABS: Basophils # (auto) 0.04 K/uL (0.00-0.20); Basophils % (auto) 0.4 %; Eosinophils # (auto) 0.04 K/uL (0.00-0.50); Eosinophils % (auto) 0.4 %; Hematocrit (blood only) 34.6 % (42.0-52.0); Hemoglobin 11.2 g/dl (14.0-18.0); Immature Granulocytes # (auto) 0.05 K/uL (0.01-0.20); Immature Granulocytes % (auto) 0.5 %; Lymphocytes # (auto) 1.79 K/uL (1.20-3.40); Lymphocytes % (auto) 16.5 %; Mean Corpuscular Hemoglobin 32.4 pg (25.0-34.0); Mean Corpuscular Hgb Conc 32.4 g/dL (32.0-36.0); Mean Platelet Volume 9.8 fL (9.4-12.4); Monocytes # (auto) 0.81 K/uL (0.11-0.59); Monocytes % (auto) 7.5 %; Neutrophils # (auto) 8.09 K/uL (1.40-6.50); Neutrophils % (auto) 74.7 %; Platelet Count 320 K/uL (130-400); RDW Coefficient of Variation 18.2 % (11.5-14.5); Red Blood Count 3.46 M/uL (4.70-6.10); White Blood Count 10.82 K/ul (4.8-10.8)
[2023-04-01] MEDS ORDERED: VANCOMYCIN CONSULT ACTIVE PRN (09:22)
[2023-04-01] MEDS ORDERED: VANCOMYCIN HCL 1,750 MG in SODIUM CHLORIDE 0.9% 500 ML IV ONE (09:22)
--- OUTSIDE RECORDS SUMMARY | 2023-04-01 09:25 | External Medical Summary | Summary of Care ---
Author Name Unknown Organization [facility] Address [address] [place] [address] Phone [phone] Care Team Providers Care Carton Folder Name Role Phone Sergio Lenz MD Primary Care Provider [phone] Reason for Referral * Precert (Within 10 days (routine)) - Authorized Specialty Diagnoses / Procedures Referred By Contac t Referred To Contact Radiology Diagnoses Abnormal CT of the chest Procedures CT CHEST WO CONTRAST Sergio Lenz MD [address] [place] [address] Referral ID Status Reason Start Date Expiration Date V isits Requested Visits Authorized [id number] Authorized 03/29/2023 999 999 Reason for Visit * Reason Onset Date Comments Hospital Follow-Up Issues with h is breathing and trouble getting his breath Hospital Follow-Up 03/29/2023 Encounter Details Date Type Department Care Team (Late st Contact Info) Description 03/29/2023 3:00 PM EST Office Visit [facility] [address] [facility] [address] Sergio Lenz MD [address] [place] [address] Risk and functional assessment*; Coronary artery disease involving jamul coronary artery without angina pectoris, unspecified whether jamul or transplanted heart; Abnormal CT of the chest; Hospital discharge follow-up Allergies No known active allergiesdocumented as of this encounter (statuses as of 03/29/2023) Medications Medication Sig Dispensed Refills Start Date [...] the morning. 90 Capsule 3 02/15/2023 Active Metoprolol Succinate ER 25 MG Oral Tablet Extended Release 24 Hour (toPROL XL)Indications:Co ronary artery disease involving jamul coronary artery without angina pectoris, unspecified whether jamul or transplanted heart Take 3 Tablets by mouth in the morning and 3 Tablets before bedtime. 540 Tablet 3 03/29/2023 Active Isosorbide Mononitrate ER 30 MG Oral Tablet Extended Release 24 Hour (Imdur)Indication s:Coronary artery disease involving jamul coronary artery without angina pectoris, unspecified whether jamul or transplanted heart One daily 90 Tablet 3 03/29/2023 Active Metoprolol Tartrate 50 MG Oral Tablet (Lopressor)Indica tions:Paroxysmal atrial fibrillation (HCC) Take 1 Tablet by mouth in the morning and 1 Tablet before bedtime. 180 Tablet 3 03/13/2023 3 Discontinu ed(Medicat ion/Dose Changed) Isosorbide Mononitrate ER 30 MG Oral Tablet Extended Release 24 Hour (Imdur) 0 03/24/2023 3 Discontinu ed(Refill) documented as of this encounter (statuses as of 03/29/2023) Active Problems Problem Noted Date Diagnosed Date [...] as of this encounter (statuses as of 03/29/2023) Resolved Problems Problem Noted Date Diagnosed Date [...] as of this encounter (statuses as of 03/29/2023) Immunizations Name Administration Dates Next Due COVID-19 [...] the money to buy more. Never true 01/31/20 23 Within the past 12 months, t he food you bought just didn't last and you didn't have money to get more. Never true 01/30/2023 Sex and Gender Information Value Date Recorded Sex Assigned at Male 02/24/2019 9:01 AM EDT Gender Identity Male 02/24/2019 9:01 AM EDT Sexual Orientation Not on file Job Start Date Occupation Industry Not on file Not on file Not on file documented as of this encounter Last Filed Vital Signs Vital Sign Reading Time Taken Comments Blood Pressure 132/64 03/29/2023 2:20 PM EST Pulse 53 03/29/2023 2:20 PM EST Temperature 36.3 C (97.3 F) 03/29/2023 2:20 PM ES T Respiratory Rate 18 03/29/2023 2:20 PM EST Oxygen Saturation 96% 03/29/2023 2:20 PM EST Inhaled Oxygen Concentration - - Weight 84.9 kg (187 lb 3.2 oz) 03/29/2023 2:20 P M EST Height - - Body Mass Index 26.86 03/12/2023 7:45 AM EST documented in this encounter Patient Instructions * Patient Instructions* Kyleigh Pendleton LPN - 03/29/2023 2:27 PM EST Patient Instructions - Fall Prevention (This education is for all patients over 65 regardless of symptoms) Remember to take your current medications as prescribed. In order to prevent falls, you are encouraged to: Exercise Utilize assistive/adaptive devices Avoid multifocal lenses when walking Avoid hazards in home Maintain a regular toileting schedule Any questions please contact our office. Preventing Falls in the Home (This education is for all patients over 65 regardless of symptoms) As you get older, falls are more likely. Thats because your reaction time slows. Your muscles and joints may also get stiffer, making them less flexible. Illness, medications, and vision changes can also affect your balance. A fall could leave you unable to live on your own. To make your home safer, follow these tips: Floors Put nonskid pads under area rugs Remove throw rugs Replace worn floor coverings Tack carpets firmly to each step on carpeted stairs. Put nonskid strips on the edges of uncarpeted stairs Keep floors and stairs free of clutter and cords Arrange furniture so there are clear pathways Clean up any spills right away Bathrooms Install grab bars in the tub or shower Apply nonskid strips or put a nonskid rubber mat in the tub or shower Sit on a bath chair to bathe Use bathmats with nonskid backing Lighting Keep a flashlight in each room Put a nightlight along the pathway between the bedroom and the bathroom Zach Patient Education Copyright 2008 - 2010 Zach except where otherwise noted Preventing Falls: Exercises to Improve Balance, Flexibility, Strength, and Staying Power (This education is for all patients over 65 regardless of symptoms) Certain types of exercises may help make you less likely to fall. Try the ones below. Or do other exercises that your healthcare provider suggests. Depending on your health, you may need to start slowly. Dont let that stop you. Even small amounts of exercise can help you. Be sure to talk to yourhealthcare provider before starting any exercise program. Improve Balance Many types of exercise can help improve balance. Slava chi and yoga are good examples. Heres another one to try. You can do it anytime and almost anywhere. Stand next to a counter or solid support. Push yourself up onto your tiptoes. Hold for 5 seconds. If you start to lose your balance, hold on to the counter. Rest and repeat 5 times. Work up to holding for 20 to 30 seconds, if you can. Increase Flexibility Being more flexible makes it easier for you to move around safely. Try exercises like the seated hamstring stretch. Sit in a chair and put one foot on a stool. Straighten your leg and reach with both hands down either side of your leg. Reach as far down your leg as you can. Hold for about 20 seconds. Go back to the starting position. Then repeat 5 times. Switch legs. Build Strength Resistance exercises help build strength. You can do them without equipment. Or you can use weights, elastic bands, or special machines. One such exercise is called the biceps curl. You can hold a 1 pound weight or even a can of soup. Do this exercise at least 3 times a week. Strive for everyday. Sit up straight in a chair. Keep your elbow close to your body and your wrist straight. Bend your arm, moving your hand up to your shoulder. Then slowly lower your arm. Repeat 5 times. Switch to the other arm. Build Your Staying Power Aerobic exercises make your heart and lungs stronger so you can keep moving longer. Walking and swimming are two of the best types of exercises you can do. Using a stationary bike is great, too. Find an aerobic exercise that you enjoy. Start slowly and build up. Even 5 minutes is helpful. Aimfor a goal of 30 minutes, at least 3 times a week. You dont have to do 30 minutes in one session. Break it up and walk a little throughout the day. More Helpful Tips Start easy. Slowly work up to doing more. Talk with your healthcare provider about the best exercises for you. Call senior centers or health clubs about exercise programs. If needed, have a family member watch you walk every so often to check your stability. Exercise with a friend. Choose an activity you both enjoy. Try exercises that you can do anytime, anywhere. Here are two examples. Have someone with you when you first try these: Practice walking by placing one foot right in front of the other. Stand up and sit down 10 times. Repeat this throughout the day. RlStatus Overload Patient Education Copyright 2008 - 2010 Zach except where otherwise noted. Preventing Falls: Moving Safely Using a Cane or Walker (This education is for all patients over 65 regardless of symptoms) Keep the cane away from your feet so you dont trip. A walking aid, such as a cane or walker, can help you stay more independent and avoid falls. Remember to keep your walking aid within easy reach when youre in a chair or in bed. And learn how to use it safely so you dont injure yourself. Using a Cane If you have a stronger side, hold the cane on that side. Get your balance. Move the cane and your weaker leg forward. Support your weight on both the cane and your weaker side. Step with your stronger leg. Start again from step 1. If youre using a folding walker, be sure you know how to lock it open. Check that its locked open before each use. Using a Walker Roll the walker (or lift it, if youre using one without wheels) forward about 12 inches. Step forward with your weaker leg first. Use the walker to help keep your balance. Bring your other foot forward to the center of the walker. Start again from step 1. Helpful Tips Check with your healthcare provider about the right walking aid to use. Ask about a walker with a seat attached. Check the tips of your cane or walker to make sure they have nonskid covers. Move slowly from room to room. Dont wang. Sit down to get dressed. Use a cachorro pack or backpack to keep your hands free. Get help for jobs that mean climbing, even on a stepstool. Zach Patient Education Copyright 2008 - 2010 Zach except where otherwise noted. Treating Urinary Incontinence in Men (This education is for all patients over 65 regardless of symptoms) You can't always control the release of urine. You may leak urine. Or you may not be able to hold your urine until you can get to a bathroom. This is called urinary incontinence. The problem can be managed. Talk to your doctor about your treatment options. Taking Medications Prescription medications may help you. They may: Help the sphincter to work better. (This is the muscle that closes to keep urine from leaking out of the bladder.) Help stop the bladder from che too often to push urine out. Help the bladder muscles contract with more force. Help relax the sphincter muscle and allow urine to flow more freely. Making Changes to Your Routine Certain changes in your daily routine may help. These include: Avoiding caffeine and alcohol. Using timed voiding. This is following a schedule for drinking fluids and urinating. Doing Kegel exercises daily. These exercises involve tightening the muscles in your sphincter and around your bladder to help strengthen them. Your doctor can explain how to do them. Using a Catheter A catheter is a narrow tube that is inserted through the urethra into the bladder. It drains urine.A condom catheter covers the penis. It channels urine into a collection bag. It is worn most of thetime. Intermittent catheterization means inserting a catheter to drain the bladder, then removing it. This is done on a regular schedule. Having Surgery If other options don't work, surgery may be recommended. If surgery is an option, your healthcare provider can discuss it with you and explain its risks and benefits. Healing After Prostate Surgery Surgery on the prostate gland can cause incontinence. Most often, the incontinence is only for a short time. It clears up when healing is complete. Very rarely, prostate surgery can result in permanent incontinence. documented in this encounter Progress Notes * Sergio Lenz MD - 03/29/2023 3:28 PM EST Subjective: Kevin Guthrie is a 88 year old male. Chief Complaint Patient presents with Hospital Follow-Up Issues with his breathing and trouble getting his breath Hospital Follow-Up HPI: 88-year-old recently hospitalized [facility] with admission on March 20 and discharged on March 24. Discharge summary was reviewed. He had developed sudden onset of shortness a breath. He had been hospitalized [facility] proximally 1 month prior with bacteremia of unknown site. This occurred during treatment for kidney stones. He did outpatient IV antibiotics- ceftriaxone. His evaluation for most recent admission included CT scan of the chest which showed diffuse nodular infiltrates as well as some ground-glass infiltrate. He was treated initially with IV antibiotics switching over to Augmentin at the time of discharge for possible pneumonia. But it was not clear that his symptoms were all related to Um pneumonia. He was not febrile. He had not developed a cough. He had a marked rise in his troponin level consistent with myocardial infarction. Cardiac catheterization showed diffuse significant stenoses. CABG was discussed but was felt given his age and other medical problems he ought to be treated with medications. His hemoglobin was slightly low at 9.7. He is on iron supplementation therapy. Changes made included switch ing from metoprolol tartrate 50 mg twice a day to metoprolol succinate 25 mg, 3 tablets or 75 mg twice a day. Imdur 30 mg daily was added. Since discharge he notes he still Um feel short of breath at times. He has been unable to sleep in bed in instead of sleeping on a recliner. No Um increasing leg or ankle edema. He was to have follow-up with Cardiology in 2-3 weeks' time. As of yet no appointment has been made. Patient Active Problem List Diagnosis Code Mitral [...] N18.31 Acute on chronic diastolic heart failure (HCC) I50.33 Current Outpatient Medications Medication Sig Dispense [...] 1 Tablet before bedtime. 180 Tablet 3 Atorvastatin Calcium 80 MG Oral Tablet (Lipitor) TAKE ONE TABLET BY MOUTH IN THE MORNING 90 Tablet 1 cefTRIAXone IV IJ (AMBULATORY) Administer 1 g intravenously daily. Tamsulosin HCl 0.4 MG Oral Capsule (Flomax) Take 1 Capsule by mouth in the morning. 90 Capsule 3 Metoprolol Succinate ER 25 MG Oral Tablet Extended Release 24 Hour (toPROL XL) Take 3 Tablets by mouth in the morning and 3 Tablets before bedtime. 540 Tablet 3 Isosorbide Mononitrate ER 30 MG Oral Tablet Extended Release 24 Hour (Imdur) One daily 90 Tablet 3 Erythromycin 5 MG/GM Ophthalmic Ointment HYDROcodone-Acetaminophen 5-325 MG Oral Tablet Take 1 Tablet by mouth every 4 hours as needed. (Patient not taking: Reported on 03/29/2023) No current facility-administered medications for this visit. Review of patient's allergies indicates: No Known Allergies Objective: BP 132/64 | Pulse 53 | Temp 36.3 C (97.3 F) | Resp 18 | Wt 84.9 kg (187 lb 3.2 oz) | SpO2 96% | BMI 26.86 kg/m | BSA 2.05 m Physical Exam: CONST: alert, pleasant, no acute distress HEAD: normocephalic, atraumatic NECK: supple, soft, no adenopathy Post surgical right facial droop Eyes - PERRLA, EOM'I OROPHARYNX: clear, no swelling or erythema, moist CV: regular rate and rhythm, grade 3/6 early systolic murmur CHEST: clear to auscultation bilaterally, no rales or wheezing ABD: soft, non tender, non distended, no masses or hepatosplenomegaly EXT: no edema, no joint swelling or deformities, ASSESSMENT/PLAN: Coronary artery disease involving jamul coronary artery without angina pectoris, unspecified whether jamul or transplanted heart: It is not clear whether significant underlying diffuse coronary disease is the cause of his shortness of breath. He felt short of breath in the office today in his pulse ox on room air was 97%. - Metoprolol Succinate ER 25 MG Oral Tablet Extended Release 24 Hour (toPROL XL); Take 3 Tablets bymouth in the morning and 3 Tablets before bedtime. - Isosorbide Mononitrate ER 30 MG Oral Tablet Extended Release 24 Hour (Imdur); One daily Paroxysmal atrial fibrillation-continue apixaban 2.5 mg twice a day and the metoprolol succinate ER25 mg, 3 tablets twice a day Abnormal CT of the chest-the recent findings are worrisome. The diffuse infiltrates could be a consequence of infection or heart failure or underlying neoplasm possibly metastatic- CT CHEST WO CONTRAST-to be done in 1 month Mild anemia-this was thought likely to be due to his significant medical problems recently i.e. anemia of chronic illness. He will continue on iron supplementation. Follow Up: Return for Return with Physician. | For: Return with Physician | Check-out note: Need apt with cardiology about 2 weeks. Can be Jah or Saritha (or anyone else) Um scheduled to see him in early June. He should keep that appointment. Sergio Lenz MD I spent a total of 30-39 minutes (exact time 39 mins) minutes on the date of service in preparation, delivery, and documentation of the care provided to Kevin Guthrie excluding any time spent in performance of separately billed services. Sergio Lenz MD * Kyleigh Pendleton LPN - 03/29/2023 2:27 PM EST Fall Risk Plan of Care Documentation: - Current medications reconciled Patient encouraged to: - Exercise - Provide education materials for Core strengthening - Utilize assistive/adaptive devices - Provide education materials - Avoid multifocal lenses when walking - Avoid hazards in home - Provide education materials - Maintain a regular toileting schedule Kyleigh Pendleton LPN 03/29/2023 documented in this encounter Nursing Notes * Kyleigh Pendleton LPN - 03/29/2023 2:26 PM EST The patient has been properly identified by confirmation of name and date of . Chief Complaint Patient presents with Hospital Follow-Up Issues with his breathing and trouble getting his breath documented in this encounter Plan of Treatment Upcoming Encounters Date Type Department Care Team (Late st Contact Info) Description 04/11/2023 8:00 AM EST Nurse Only Ancillary Department, [place] [address] [facility] [id number] [place], Nurse [facility] [address] [facility] [id number] 06/14/2023 9:40 AM EST Office Visit [facility] [place], [place] [address] [facility] [id number] Sergio Lenz MD [address] [place] [facility] [place] [address] Scheduled Orders Name Type Priority Associated Diagnoses Orde r Schedule CT CHEST WO CONTRAST Medical Imaging Routine Abnormal CT of the chest Ordered: 03/29/2023 Health Maintenance Due Date Last Done Comments [...] Additional history exists CKD PHOS USE SMARTSET 50947 01/19/202401/04, 02/23/2022, 05/29/2019, Additional history exists HbA1c 01/19/2024 01/18/2023, 02/04, 06/20/2020, Additional history exists CKD HGB USE SMARTSET 87883 03/12/202403/12, 03/12/2023, 2023, Additional history exists DTaP,Tdap,and Td Vaccines (2 - Td or Tdap) 11/27/2026 11/27/2016, 06/09/2010, 10/04/1998 Pneumococcal Vaccine: 65+ Years Completed 11/17/2015, 11/16/2014, 06/06/2001 Zoster Vaccines Completed 04/02/2018, 12/05, [...] this encounter Medical Devices Implanted Type Area Regular Senior Care Provider Device Identifier Shelf Expiration Date Model / Serial / Lot Lens Intraoc 18.0 - [id number] - [id number] Implanted:Qty: 1 on 03/26/2017 by Fran Bearden MD at [facility] Right: Eye [employer] 06/05/2021 [id number] / [id number] / Lens Intraoc 18.5 - [id number] - [id number] Implanted:Qty: 1 on 04/04/2017 by Fran Bearden MD at [facility] Left: Eye [employer]OMB 10/03/2021 [id number] / [id number] / [id number] documented as of this encounter Visit Diagnoses Diagnosis Risk and functional assessment- Primary Screening for unspecified condition Coronary artery disease involving jamul coronary artery without angina pectoris, unspecified whether jamul or transplanted heart Abnormal CT of the chest Nonspecific (abnormal) findings on radiological and other examination of other intrathoracic organs Hospital discharge follow-up Other follow-up examination documented in this encounter Advance Directives Latest [...] and were consensually agreed upon. Care Teams Carton Folder Relationship Specialty Start Date End Date Sergio Lenz MD [address] [place] [address] PCP - General 09/14/02 documented as of this encounter"
--- OUTSIDE RECORDS SUMMARY | 2023-04-01 09:25 | External Medical Summary | Summary of Care ---
Author Name Unknown Organization [facility] Address [address] [facility] [place] [address] Phone [phone] Care Team Providers Care Solar Process Engineer Name Role Phone Sergio Lenz MD Primary Care Provider [phone] Encounter Details Date Type Department Care Team (Late st Contact Info) Description 03/21/2023 Result Scan Unspecified Department <No scans attached> Allergies No known active allergiesdocumented as of this encounter (statuses as of 03/25/2023) Medications Medication Sig Dispensed Refills Start Date [...] morning. 90 Capsule 3 02/15/2023 Active Metoprolol Tartrate 50 MG Oral Tablet (Lopressor)Indicat ions:Paroxysmal atrial fibrillation (HCC) Take 1 Tablet by mouth in the morning and 1 Tablet before bedtime. 180 Tablet 3 03/13/2023 Active documented as of this encounter (statuses as of 03/25/2023) Active Problems Problem Noted Date Diagnosed Date [...] as of this encounter (statuses as of 03/25/2023) Resolved Problems Problem Noted Date Diagnosed Date [...] Heart Failure Taxonomy Protocol. LVH per echo / Bacterial pneumonia 03/06/20 17 Dyslipidemia, goal to be determined 03/06/2017 Screening for prostate cancer 07/14/2008 Overview: Resolved per Screening Diagnosis Protocol #6 documented as of this encounter (statuses as of 03/25/2023) Immunizations Name Administration Dates Next Due COVID-19 [...] 8:00 AM EST Nurse Only Ancillary Department, [place] [facility] [address] [place] [address] [place], Nurse Annual Wellness [address] [place] [address] 06/14/2023 9:40 AM EST Office Visit Family Practice, [place] [address] [place] [address] Sergio Lenz MD [address] [facility] [place] [id number] Health Maintenance Due Date Last Done Comments [...] Additional history exists CKD PHOS USE SMARTSET 98019 01/19/202401/04, 02/23/2022, 05/29/2019, Additional history exists HbA1c 01/19/2024 01/18/2023, 02/04, 06/20/2020, Additional history exists CKD HGB USE SMARTSET 62614 03/12/202403/12, 03/12/2023, 2023, Additional history exists DTaP,Tdap,and [...] this encounter Medical Devices Implanted Type Area Php Programmer Device Identifier Shelf Expiration Date Model / Serial / Lot Lens Intraoc 18.0 - [id number] - [id number] Implanted:Qty: 1 on 03/26/2017 by Fran Bearden MD at OR [facility] Right: Eye [employer] 06/05/2021 [id number] / [id number] / Lens Intraoc 18.5 - [id number] - [id number] Implanted:Qty: 1 on 04/04/2017 by Fran Bearden MD at OR [facility] Left: Eye [employer]OM[employer] 10/03/2021 [id number] / [id number] / [id number] documented as of this encounter Procedures Procedure Name Priority Date/Time Associated Diagnosis Comments CARDIAC CATH SCANNED RESULT 03/21/2023 documented in this encounter Results * CARDIAC CATH SCANNED RESULT (03/21/2023) 03/21/2023 No Physician Data Unknown CARD CATH documented in this encounter Advance Directives Latest [...] and were consensually agreed upon. Care Teams Solar Process Engineer Relationship Specialty Start Date End Date Sergio Lenz MD [address] [place] [address] PCP - General 09/14/02 documented as of this encounter
[2023-04-01 09:31] LABS: Albumin Globulin Ratio 0.9 (0.9-2); Albumin Level 3.5 gm/dl (3.4-5.0); BUN Creatinine Ratio 18.2 (10-20); Bilirubin,Total 0.9 mg/dl (0.2-1.0); Calcium 8.7 mg/dl (8.6-10.3); Creatinine Clr Calc Pharmacy 46.3 ml/min; Est GFR (African American) 61.6 ml/min; Est GFR (Non-African American) 53.1 ml/min; Potassium 4.1 mmol/L (3.5-5.1); Total Protein 7.5 gm/dl (6.0-8.3)
--- NOTE | 2023-04-01 09:35 | XRay Report ---
XR chest 1V portable HISTORY: 88 years-old Male Chest pain, nonspecific COMPARISON: 03/20/2023 TECHNIQUE: AP view of the chest FINDINGS: Cardiac silhouette is enlarged. Atherosclerosis of the aorta. Emphysema with chronic interstitial coa rsening. Reticular nodular densities with ill-defined nodular foci of the lungs again noted. Chronic blunting of the costophrenic angles. Right basilar calcified pleural plaques with patchy right greate r than left bibasilar consolidation. Small right pleural effusion. Bones appear grossly intact. IMPRESSION: 1. Small right pleural effusion again noted with mildly progressed right basilar consolidation. 2. Emphysema with ill-defined bilateral pulmonary opacities again noted, likely infectious or inflamm atory. 3. Please refer to the chest CT from 03/20/2023 for additional findings. ACT 112: Negative or not required by law. The above report was generated using voice recognition software. It may contain grammatical, syntax o r spelling errors. Electronically signed by: Jake Colon M.D. 04/01/2023 9:34 AM
[2023-04-01 09:37] LABS: Troponin I High Sensitivity 46.3 pg/ml (0-20)
[2023-04-01 10:09] LABS: Adenovirus PCR Not Detected (NotDetected); Bordetella parapertussis PCR Not Detected (NotDetected); Bordetella pertussis PCR Not Detected (NotDetected); Chlamydia pneumoniae PCR Not Detected (NotDetected); Coronavirus 229E PCR Not Detected (NotDetected); Coronavirus HKU1 PCR Not Detected (NotDetected); Coronavirus NL63 PCR Not Detected (NotDetected); Coronavirus OC43PCR Not Detected (NotDetected); Human Metapneumovirus PCR Not Detected (NotDetected); Influenza A PCR Not Detected (NotDetected); Influenza B PCR Not Detected (NotDetected); Mycoplasma pneumoniae PCR Not Detected (NotDetected); Parainfluenza Virus 1 PCR Not Detected (NotDetected); Parainfluenza Virus 2 PCR Not Detected (NotDetected); Parainfluenza Virus 3 PCR Not Detected (NotDetected); Parainfluenza Virus 4 PCR Not Detected (NotDetected); Respiratory Syncytial VirusPCR Not Detected (NotDetected); Rhinovirus/Enterovirus PCR Not Detected (NotDetected)
[2023-04-01] MEDS ORDERED: FUROSEMIDE 40 MG/4 ML VIAL IV STA (10:37)
--- NOTE | 2023-04-01 10:45 | History & Physical Report ---
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 Recently admitted to our service from 03/20-03/24 for acute hypoxia in setting of ACS/NSTEMI undergoing cardiac cath on 03/21 revealing severe CAD not amenable to PCI. CABG was discussed but patient declines outpatient CT surgery evaluation and requested conservative medical management. Per cardiology, patient was transitioned to Toprol 75mg BID and Imdur increased to 30mg, continuing apixaban, aspirin and statin. Patient also met sepsis criteria with findings of multifocal pneumonia. Was discharged home on Augmentin BID to complete abx course for PNA as well as nebs QID. Acute respiratory failure with hypoxia Multifactorial in setting of covid 19, possible PNA and CHF Does not require O2 at baseline Transitioning from 4L oxymask to BiPAP therapy given accessory muscle use and clinically worsening resp status wean to NC as able See further discussion of problems below Covid 19 Possible PNA Pt meets SIRs criteria 2/2 tachycardia and tachypnea Given rocephin and vanco in ED for possible PNA, stared on IV decadron for covid 19 CXR with small right pleural effusion again noted with mildly progressed right basilar consolidation. Emphysema with ill-defined bilateral pulmonary opacities again noted, likely infectious or inflammatory Obtaining a CT chest wo con for better visualization, procal pending Xopenex nebs Q6H, continue Decadron, starting Remdesivir, antitussives PRN Decompensated CHF Likey in setting of underlying illness as above, severe known CAD Notable BLE edema over the past week that is new, per family at bedside BNP 915 Received 40mg IV lasix in ED, monitor diuresis Daily weights, Strict I&O 2D echo from earlier this month with slightly reduced EF:45-50%, moderate , mild MR, mild TR, mild concentric LVH Continue Toprol, lisinopril dc'd earlier this month Routine cards consult CAD Recent NSTEMI, medically managing Recent ACS/NSTEMI and underwent cardiac cath on 03/21 revealing severe CAD not amenable to PCI. CABG was discussed but patient declines outpatient CT surgery evaluation and requested conservative medical management Discussed again today and patient continuing to elect med mgmt only No acute CP, EKG with abnormalities but no ST elevation Trop 43 -> 62 Continue recent med changes with Toprol 75mg BID and Imdur increased to 30mg, continuing apixaban, aspirin and statin PAF Continue Toprol, apixaban for anticoagulation HTN Pt with recent changes to BP meds, amlodipine/hctz stopped in January, Lisinopril recently d/c on 03/13 Continue Toprol Squamous cell carcinoma involving the right parotid gland s/p resection, chemo, radiation 2010 Permanent facial nerve damage, erythematous changes and chronic pain Home oxycodone 5mg prn, chronic pain is controlled CKD-3 Cr at baseline (1-1.2) Bun/cr stable, continue to monitor Anemia, likely of chronic disease Stable, hgb 11.2 No s/sx of bleeding Dispo: admit to PCU, pt/ot when appropriate FULL CODE PCP: Dr. Lenz Pt was seen and examined in collaboration with Dr. 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 Recently admitted to our service from 03/20-03/24 for acute hypoxia in setting of ACS/NSTEMI undergoing cardiac cath on 03/21 revealing severe CAD not amenable to PCI. CABG was discussed but patient declines outpatient CT surgery evaluation and requested conservative medical management. Per cardiology, patient was transitioned to Toprol 75mg BID and Imdur increased to 30mg, continuing apixaban, aspirin and statin. Patient also met sepsis criteria with findings of multifocal pneumonia. Was discharged home on Augmentin BID to complete abx course for PNA as well as nebs QID. Was weaned off of O2 and returned home on room air with one month follow up CT chest recommended. History obtained from patient as well as his and daughter at bedside. States that patient felt better at time of discharge home but has not returned to full strength. Starting 2 days ago, patient developed nasal congestion, fever (Tmax 100 F) and dyspnea on exertion and then with progression at rest as well, prompting return to ED today. No known exposure and did get COVID-vaccine this season. Denies any chest pain or palpitations. No lightheadedness, headache, muscle aches, nausea, vomiting, abdominal pain, dysuria, diarrhea or constipation. Daughter brings attention to lower extremity swelling, which is new for patient. Is not on a diuretic per home medication and no additional med changes were made at PCP follow-up. Allergies Allergy/AdvReac Type Severity Reaction Status Date / Time No Known Allergies Allergy Verified 03/05/23 07:23 Home Medications Medication Instructions Recorded Confirmed Type aspirin 81 mg tablet,delayed 81 mg PO DAILY 11/16/20 04/01/23 History release atorvastatin 80 mg tablet 80 mg PO HS 11/16/20 04/01/23 History cholecalciferol (vitamin D3) 25 25 mcg PO DAILY 11/16/20 04/01/23 History mcg (1,000 unit) tablet (Vitamin D3) apixaban 5 mg tablet (Eliquis) 2.5 mg PO BID 07/02/22 04/01/23 History oxycodone 5 mg tablet 5 mg PO Q4H PRN severe pain #10 07/03/22 04/01/23 Rx tabs ferrous sulfate 325 mg (65 mg 325 mg PO DAILY@1100 #30 tabs 07/15/22 04/01/23 Rx iron) tablet,delayed release tamsulosin 0.4 mg capsule 0.4 mg PO QAM #30 caps 01/15/23 04/01/23 Rx isosorbide mononitrate 30 mg 30 mg PO QAM 30 days #30 tabs 03/24/23 04/01/23 Rx tablet,extended release 24 hr metoprolol succinate 25 mg 75 mg (3 x 25 mg) PO BID 30 days 03/24/23 04/01/23 Rx tablet,extended release 24 hr #180 tabs Past Med/Surg History Medical History (Updated 04/01/23 @ 13:27 by ALICIA Bond) Prediabetes Aortic stenosis Moderate per 01/09/23 [facility] 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 Sepsis Admitted to [facility] 01/08/23-01/16/23 - sepsis and bacteremia- treated with abx x 2 weeks/ pt feeling better. Kidney stone reason for upcoming procedure. Fever Acute renal disease Noted during 01/2023 admission- has since improved to baseline per records (HFpEF) heart failure with preserved ejection fraction EF 55-60% per 01/09/23 [facility] CAD (coronary artery disease) Nonobstructive per records CKD (chronic kidney disease), stage III Dyslipidemia, goal LDL below 70 HTN (hypertension) NSTEMI (non-ST elevated myocardial infarction) denies hx heart attack "supply/demand NSTEMI in 11/2020" per records NSTEMI Type II per 01/16/23 discharge summary from [facility] PAF (paroxysmal atrial fibrillation) no hx cardioversion on Eliquis Surgical History S/P cystoscopy with ureteral stent placement w/laser lithotripsy History of surgery right eye , trouble closing eyelid after parotid sx - they put a weight in so i can close my eye at night. History of colonoscopy History of parotidectomy History of transesophageal echocardiography ([facility]) 01/09/23, [facility] w/dr. patel Hx of tonsillectomy H/O splenectomy Hx of cataract surgery both Family History Other Heart disease Hypertension Social History Smoking Status: Former smoker Tobacco Type: Cigarettes Second Hand Exposure: No; Hx Alcohol Use: No Hx Substance Use: No Preferred Language: Urdu Communication Ability: Effective Systems Administrator Required: No Beliefs That Will Affect Care: None marital status: Current Living Situation: Spouse Current Living Situation Comment: Lives at home ith How many Children do You have: 2 Feels Safe at Home: Yes Assistive Devices: Cane and Walker Review of Systems Review of Systems: At least ten systems reviewed and negative except as noted in the HPI. Physical Exam Physical Exam: General Appearance: WD/WN, vitals as above, appears ill, conversational dyspnea, facial droop (chronic) Head: normocephalic, atraumatic Eyes: normal inspection, PERRL, conjunctivae normal, anicteric sclerae ENT: external ear and nose normal, oropharynx normal Neck: normal visual inspection, trachea midline, no thyromegaly Respiratory: increased respiratory effort with accessory muscle use , diminished breath sounds throughout, no wheezing Cardiovascular: bradycardic rate, regular rhythm, +ESTEPHANIA, normal peripheral pulses, 2+ BLE edema Chest: normal inspection of chest Abdomen/GI: normal bowel sounds, soft, nontender, no hepatosplenomegaly Extremities/Musculoskeletal: no cyanosis or clubbing, extremities motor strength 5/5 Neurologic: PERRL, EOMI, accommodation nl, no face palsy, no dysarthria, CN's II-XI intact bilaterally and moves all extremities Psychiatric: A+Ox3, euthymic affect Skin: no rashes, normal color, warm/dry Results & Data Results & Data Vital Signs (Past 12 Hours) Vital Signs Temp Pulse Pulse Resp BP BP Pulse Ox 04/01/23 09:26 55 L 04/01/23 09:00 60 28 H 98 04/01/23 09:00 158/87 H 04/01/23 08:58 72 28 H 97 04/01/23 08:57 192/86 H 04/01/23 08:53 83 30 H 97 04/01/23 08:53 83 30 H 192/86 H 96 04/01/23 08:53 84 L 04/01/23 08:53 37.2 C 83 30 H 192/86 H 96 O2 Del Method O2 Flow Rate 04/01/23 09:26 04/01/23 09:00 Oxymask 4 04/01/23 09:00 04/01/23 08:58 Oxymask 4 04/01/23 08:57 04/01/23 08:53 Oxymask 4 04/01/23 08:53 Oxymask 4 04/01/23 08:53 Room Air 04/01/23 08:53 Oxymask 4 Laboratory Results Short CBC 04/01/23 Range/Units 08:58 WBC 10.82 H (4.8-10.8) K/ul Hgb 11.2 L (14.0-18.0) g/dl Hct 34.6 L (42.0-52.0) % Plt Count 320 (130-400) K/uL BMP 04/01/23 08:58 Sodium 140 Potassium 4.1 Chloride 106 Carbon Dioxide 27 BUN 22 Creatinine 1.21 Glucose 104 H Calcium 8.7 Liver Function 04/01/23 Range/Units 08:58 Total Bilirubin 0.9 (0.2-1.0) mg/dl AST 20 (13-39) U/L ALT 12 (7-52) U/L Alkaline Phosphatase 79 (34-104) U/L Albumin 3.5 (3.4-5.0) gm/dl Diagnostic Findings Chest X-Ray 04/01/23 08:55 XR chest 1V portable HISTORY: 88 years-old Male Chest pain, nonspecific COMPARISON: 03/20/2023 TECHNIQUE: AP view of the chest FINDINGS: Cardiac silhouette is enlarged. Atherosclerosis of the aorta. Emphysema with chronic interstitial coarsening. Reticular nodular densities with ill-defined nodular foci of the lungs again noted. Chronic blunting of the costophrenic angles. Right basilar calcified pleural plaques with patchy right greater than left bibasilar consolidation. Small right pleural effusion. Bones appear grossly intact. IMPRESSION: 1. Small right pleural effusion again noted with mildly progressed right basilar consolidation. 2. Emphysema with ill-defined bilateral pulmonary opacities again noted, likely infectious or inflammatory. 3. Please refer to the chest CT from 03/20/2023 for additional findings. ACT 112: Negative or not required by law. The above report was generated using voice recognition software. It may contain grammatical, syntax or spelling errors. Electronically signed by: Jake Colon M.D. 04/01/2023 9:34 AM ECG Additional Comments: EKG reviewed: Atrial flutter with 4:1 A-V conduction Possible Inferior infarct , age undetermined Abnormal ECG When compared with ECG of 20-MAR-2023 19:10, Atrial flutter has replaced Sinus rhythm Vent. rate has decreased BY 56 BPM Nonspecific T wave abnormality no longer evident in Inferior leads Nonspecific T wave abnormality now evident in Lateral leads Supervising Physician Co-Signing Physician Notes Pt seen and examined by myself, Lissett Retana MD on the day of service. Care was coordinated with Bethany Simmons PA-C. 88yoM with PMHx significant for significant cardiac Hx including recent NSTEMI with severe CAD being medically managed, CHF and recent multifocal pneumonia presenting with acute hypoxic respiratory failure requiring bipap in the setting of a covid infection. Family at bedside notes that he was not completely back to baseline on the last discharge but was stable. Started becoming significantly SOB overnight. They note that he did partake in a thanksgiving meal but his food was not salted. They state that the noted bilateral lower extremity edema on exam is new since the last admission. Pt using accessory muscles to breathe on exam even with oxymask on his face. Breath sounds were decreased bilaterally. Chest XRAY with pleural effusions, progressing opacity, question of infection. CT chest pending. Echo pending given new onset significant lower extremity edema. Will start on bipap, IV Lasix, empiric Vanc and Rocepin, Remdesivir, Decadron, cardiology and pulmonology consults. Appreciate recs for this pt. Whitfield to accurately measure ins and outs and response to IV Lasix. Otherwise as above. (1) CKD (chronic kidney disease), stage III Chronic kidney disease stage 3 subtype: unspecified whether 3a or 3b Qualified Code(s): N18.30 - Chronic kidney disease, stage 3 unspecified (2) CHF (congestive heart failure) Heart failure chronicity: acute on chronic Heart failure type: combined systolic and diastolic Qualified Code(s): I50.43 - Acute on chronic combined systolic (congestive) and diastolic (congestive) heart failure
[2023-04-01 10:59] LABS: Coronavirus CoV-2 (COVID19)PCR DETECTED (NotDetected)
[2023-04-01] MEDS ORDERED: dexAMETHasone**PF** 10 MG/ML VIAL IV ONE (10:59)
[2023-04-01] MEDS ORDERED: guaiFENesin/CODEINE 100MG/10MG 5ML UDC PO PRN (11:55)
[2023-04-01] MEDS: LEVALBUTEROL HCL 0.63 MG/3 ML NEB NEB SCH ×2 (12:17→20:47)
[2023-04-01] MEDS ORDERED: REMDESIVIR 200 MG in SODIUM CHLORIDE 0.9% 210 ML IV ONE (12:30)
[2023-04-01] MEDS ORDERED: ACETAMINOPHEN 325 MG TAB PO PRN (12:34)
[2023-04-01] MEDS ORDERED: POLYETHYLENE (MIRALAX) 17 GM PACK PO PRN (12:34)
[2023-04-01] MEDS ORDERED: ONDANSETRON INJ 2 MG/ML 2 ML VIAL IV PRN (12:34)
[2023-04-01] MEDS ORDERED: oxyCODONE HCL IR 5 MG TAB (IMMEDIATE RELEASE) PO PRN (12:36)
--- NOTE | 2023-04-01 12:54 | Cardiology Consultation ---
Date of Consultation April 01, 2023 Assessment & Plan (1) Acute hypoxemic respiratory failure: (2) Acute on chronic combined systolic (congestive) and diastolic (congestive) heart failure: (3) COVID-19: (4) Pneumonia: Plan IMPRESSION: Medically complex 88-year-old male with known ischemic cardiomyopathy with a mildly reduced LV systolic function of 45 to 49% presented to [facility] emergency department due to progressive shortness of breath and fluid retention over the last week. Found to be COVID-19 positive with pneumonia. Shortness of breath likely multifactorial due to COVID-19 pneumonia with superimposed acute on chronic combined CHF/valvular heart disease with moderate , Mild MR/TR. PLAN: Acute on chronic combined CHF: Patient appears hypervolemic on exam with approximately a 10 pound weight gain over the last week--agree with IV Lasix 40 mg daily. Monitor renal function and electrolytes. Replace potassium to a goal of 4.0 and mag goal of 2.0. 2 g sodium diet when able to tolerate food. Strict I&O. Daily standing weights. CHF education. Coronary artery disease: Multivessel CAD on prior cardiac catheterization 03/2023 not amendable to PCI. Declining surgical workup with focus on conservative medical management. Currently no angina. Continue goal-directed medical therapy with metoprolol. Not currently on ACEi/ARB. Continue Imdur Continue ASA and Statin. Paroxysmal atrial fibrillation/flutter: Difficult to determine rhythm on telemetry due to poor tracing, appears the patient is in A-fib/flutter with rates in the low 100s currently. Rates as low as mid 50s on admission. Repeat EKG pending. Patient currently anticoagulated with Eliquis 2.5 mg twice daily, continue for stroke prevention Continue metoprolol succinate 75 mg twice daily, acute illness likely driving elevated heart rates. Patient asymptomatic. Anticipate heart rates to improve as acute illness improves. COVID-19 pneumonia: Treatment per primary team. Currently on IV Decadron, remdesivir, and DuoNebs. Currently requiring BiPAP therapy, wean oxygen as tolerated. Case discussed with Dr. Cummins I spent a total of 40 minutes on the date of service in preparation, delivery, and documentation of the care provided to this patient, excluding any time spent in the performance of separately billed services. Supervising Physician Co-Signing Physician Notes Patient seen and examined at the bedside. Awoke this morning acutely short of breath. Came to the ER for further evaluation and treatment. Diagnosed with COVID-19 infection and acute decompensated heart failure. Responded to BiPAP and intravenous diuretic therapy. Up until this a.m., patient had been feeling well. Reports subjective fever and chills. No orthopnea or PND. Mild bilateral pedal and ankle edema. Telemetry reveals atrial flutter with 2-1 and 4-1 conduction. PE: VSS. Gen: NAD, AAO x3. Heart: Irregular rhythm, normal S1-S2. 2/6 systolic ejection murmur. Pulmonary:+ Crackles at the bases bilaterally. Extremities: 1+ bilateral pedal and ankle edema. A/P: Agree with above LOW [employer]IT[employer] history, physical exam, assessment and plan. Patient with multifactorial acute respiratory insufficiency secondary to COVID-19 infection and acute on chronic heart failure with mildly reduced systolic function. Continue IV diuretic therapy with furosemide 40 mg daily. Steroids and remdesivir as per internal medicine service. Severe multivessel coronary disease diagnosed during most recent hospitalization with patient declining referral to CT surgery. Continue conservative medical management. Chronic atrial flutter on telemetry with fair rate control. Continue rate control strategy and anticoagulation with eliquis. History of Present Illness Reason for Consultation: acute on chronic CHF/PAF Requesting Physician: Carolina hunter Attending Physician: Lissett Retana MD History of Present Illness 88-year-old medically complex male who presented to [facility] emergency department this morning due to nasal congestion and fever accompanied by dyspnea with exertion and lower extremity edema. Found to be COVID-19 positive. Chest x-ray revealed a small right pleural effusion with right bibasilar consolidation/possible pneumonia. CT of the chest pending. Started on IV Decadron and remdesivir along with DuoNebs. Treated with 40 mg of IV Lasix in the ED. High-sensitivity troponins minimally elevated (46.3>>62.1), but around baseline. BNP elevated at 915. Renal function and electrolytes stable. Recent admission 03/20 to 03/24 due to NSTEMI. Cardiac catheterization revealed a 70% distal left main stenosis, 70 to 80% ostial LAD stenosis, aneurysmal proximal LAD, 50 to 70% mid LAD stenosis, diffusely diseased distal LAD, aneurysmal D1, 70 to 80% ostial left circumflex stenosis followed by aneurysmal segment, 100% calcified RCA FIELD HAULER RPDA and RPL 1 filling via left to right collaterals. Declined surgical intervention and preferred conservative medical management. Patient also met sepsis criteria with findings of multifocal pneumonia. Was discharged home on Augmentin BID to complete abx course for PNA as well as nebs QID. Upon entrance into the room patient resting in bed. Requiring BiPAP therapy. and daughter at bedside who help provide some of the history. Daughter notes that since discharge patient has been more short of breath. Initially attributed to deconditioning however symptoms worsened and this morning he developed lower extremity edema. + Orthopnea. Appears that weight is up 10-15 lbs since discharge, unsure of accuracy of bed scale. Increase in urination with IV lasix. Does not normally require supplemental oxygen therapy. Oxygen saturations are in the low 90s with BiPAP. He denies any chest pain or palpitations. Asymptomatic with atrial fibrillation. No lightheadedness or dizziness. No fevers. Denies any missed doses of his medications. Telemetry: Persistent atrial fibrillation/flutter. Rates initially in the 50s to 60s however trending in the low 100s. I&O: -501 mL Weight: 86.6 kg Primary outpatient clinical research management associate: Dr. 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 CKD stage III Allergies Allergy/AdvReac Type Severity Reaction Status Date / Time No Known Allergies Allergy Verified 03/05/23 07:23 Home Medications Medication Instructions Recorded Confirmed Type aspirin 81 mg tablet,delayed 81 mg PO DAILY 11/16/20 04/01/23 History release atorvastatin 80 mg tablet 80 mg PO HS 11/16/20 04/01/23 History cholecalciferol (vitamin D3) 25 25 mcg PO DAILY 11/16/20 04/01/23 History mcg (1,000 unit) tablet (Vitamin D3) apixaban 5 mg tablet (Eliquis) 2.5 mg PO BID 07/02/22 04/01/23 History oxycodone 5 mg tablet 5 mg PO Q4H PRN severe pain #10 07/03/22 04/01/23 Rx tabs ferrous sulfate 325 mg (65 mg 325 mg PO DAILY@1100 #30 tabs 07/15/22 04/01/23 Rx iron) tablet,delayed release tamsulosin 0.4 mg capsule 0.4 mg PO QAM #30 caps 01/15/23 04/01/23 Rx isosorbide mononitrate 30 mg 30 mg PO QAM 30 days #30 tabs 03/24/23 04/01/23 Rx tablet,extended release 24 hr metoprolol succinate 25 mg 75 mg (3 x 25 mg) PO BID 30 days 03/24/23 04/01/23 Rx tablet,extended release 24 hr #180 tabs Patient History Medical History (Updated 04/01/23 @ 14:50 by Casey Hatch DO) Prediabetes Aortic stenosis Moderate per 01/09/23 SHARAN 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 Sepsis Admitted to [facility] 01/08/23-01/16/23 - sepsis and bacteremia- treated with abx x 2 weeks/ pt feeling better. Kidney stone reason for upcoming procedure. Fever Acute renal disease Noted during 01/2023 admission- has since improved to baseline per records (HFpEF) heart failure with preserved ejection fraction EF 55-60% per 01/09/23 SHARAN CAD (coronary artery disease) Nonobstructive per records CKD (chronic kidney disease), stage III Dyslipidemia, goal LDL below 70 HTN (hypertension) NSTEMI (non-ST elevated myocardial infarction) denies hx heart attack "supply/demand NSTEMI in 11/2020" per records NSTEMI Type II per 01/16/23 discharge summary from [facility] PAF (paroxysmal atrial fibrillation) no hx cardioversion on Eliquis Surgical History S/P cystoscopy with ureteral stent placement w/laser lithotripsy History of surgery right eye , trouble closing eyelid after parotid sx - they put a weight in so i can close my eye at night. History of colonoscopy History of parotidectomy History of transesophageal echocardiography (SHARAN) 01/09/23, [facility] w/dr. 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: No Beliefs That Will Affect Care: None marital status: Current Living Situation: Spouse Current Living Situation Comment: Lives at home ith How many Children do You have: 2 Feels Safe at Home: Yes Assistive Devices: Cane and Walker Review of Systems Review of Systems: All systems reviewed & are unremarkable except as noted in HPI & below Physical Exam Constitutional: + ill appearing; no acute distress Neck: normal visual inspection and trachea midline Respiratory: + cough, able to speak in complete sente nces and + tachypneic; no respiratory distress Auscultation: + rales and + rhonchi Cardiovascular: Rate/Rhythm: + tachycardic and + irregularly irregular Heart Sounds: normal S1, normal S2 and + murmur (+3/6 systolic murmur ) Vessels: no JVD Extremities: + edema (+2 BLLE pitting edema to knees ) Gastrointestinal (Abdomen): normal bowel sounds, soft, nontender, no hepatosplenomegaly Skin: no rashes, warm and dry Psychiatric: A+Ox3, euthymic affect Results & Data Vital Signs (Past 12 Hours) Vital Signs Temp Pulse Pulse Resp BP BP Pulse Ox 04/01/23 12:34 04/01/23 12:30 106 H 17 98 04/01/23 12:00 103 H 28 H 149/83 H 94 04/01/23 10:32 53 L 26 H 143/67 H 96 04/01/23 09:26 55 L 04/01/23 09:00 60 28 H 98 04/01/23 09:00 158/87 H 04/01/23 08:58 72 28 H 97 04/01/23 08:57 192/86 H 04/01/23 08:53 83 30 H 97 11/27/23 08:53 83 30 H 192/86 H 96 04/01/23 08:53 84 L 04/01/23 08:53 37.2 C 83 30 H 192/86 H 96 O2 Del Method O2 Flow Rate FiO2 04/01/23 12:34 Room Air 04/01/23 12:30 30 04/01/23 12:00 Oxymask 2 04/01/23 10:32 Oxymask 2 04/01/23 09:26 04/01/23 09:00 Oxymask 4 04/01/23 09:00 04/01/23 08:58 Oxymask 4 04/01/23 08:57 04/01/23 08:53 Oxymask 4 04/01/23 08:53 Oxymask 4 04/01/23 08:53 Room Air 04/01/23 08:53 Oxymask 4 Laboratory Results Cardiac Enzymes 04/01/23 04/01/23 Range/Units 08:58 10:52 AST 20 (13-39) U/L Troponin I High Sens 46.3 H 62.1 H* D (0-20) pg/ml B-Natriuretic Peptide 915 H (0-100) pg/ml Coagulation 04/01/23 Range/Units 08:58 B-Natriuretic Peptide 915 H (0-100) pg/ml CBC 04/01/23 Range/Units 08:58 WBC 10.82 H (4.8-10.8) K/ul RBC 3.46 L (4.70-6.10) M/uL Hgb 11.2 L (14.0-18.0) g/dl Hct 34.6 L (42.0-52.0) % Plt Count 320 (130-400) K/uL Neut # (Auto) 8.09 H (1.40-6.50) K/uL Lymph # (Auto) 1.79 (1.20-3.40) K/uL [place] # (Auto) 0.81 H (0.11-0.59) K/uL Eos # (Auto) 0.04 (0.00-0.50) K/uL Baso # (Auto) 0.04 (0.00-0.20) K/uL Comprehensive Metabolic Panel 04/01/23 Range/Units 08:58 Sodium 140 (136-145) mmol/L Potassium 4.1 (3.5-5.1) mmol/L Chloride 106 (98-107) mmol/L Carbon Dioxide 27 (21-32) mmol/L BUN 22 (6-23) mg/dl Creatinine 1.21 (0.6-1.4) mg/dl Glucose 104 H (70-99(Fasting)) mg/dl Calcium 8.7 (8.6-10.3) mg/dl AST 20 (13-39) U/L ALT 12 (7-52) U/L Alkaline Phosphatase 79 (34-104) U/L Total Protein 7.5 (6.0-8.3) gm/dl Albumin 3.5 (3.4-5.0) gm/dl Intake and Output 03/31/23 04/01/23 04/01/23 22:59 06:59 14:59 Intake Total 50 / 50 Output Total 551 / 551 Balance -501 / -501 Intake: IV 50 / 50 cefTRIAXone SODIUM 2,000 mg In 50 / 50 50 ml @ 100 mls/hr IV NOW STA Rx#:[id number] Output: Urine 200 / 200 Stool 350 / 350 # Bowel Movements Other: # Bowel Movement Diapers 2 Weight 86.6 kg Weight Measurement Method Built in [facility] Patient Weight 04/02/23 06:59 Weight 86.6 kg Diagnostic Findings Echocardiogram 03/20/2023 LVEF 45 to 50% Aortic valve moderately calcified with moderate aortic stenosis RV systolic function is normal Left atrium moderately dilated Right atrium mild to moderately dilated Mild MR Mild TR Mild concentric LVH (4) Pneumonia Laterality: bilateral Lung location: lower lobe of lung Pneumonia type: due to unspecified organism Qualified Code(s): J18.9 - Pneumonia, unspecified organism
--- NOTE | 2023-04-01 13:21 | Pharmacy Report ---
Pharmacy PK ABX Note - Date of Service April 01, 2023 - Assessment and Plan Assessment 88 year old M receiving vancomycin for treatment of pneumonia. Patient is positive for COVID-19. Pertinent microbiologic data includes: MRSA nasal swab ordered. Mild leukocytosis. Awaiting further work-up to determine if antibiotics will continue. Plan Vancomycin * Loading dose: 1750 mg IV x 1 * Maintenance dose: 1250 mg IV every 24 hours * Regimen is predicted to achieve target AUC/SAVANNAH of 400-600 mg/L.hr * Level to be ordered if antibiotics continue >48 hours Pharmacy will continue to follow and will adjust dose/frequency as necessary. Thank you. Pharmacy has transitioned to AUC monitoring for vancomycin. AUC/SAVANNAH is the preferred PK/PD target and is associated with decreased risk of nephrotoxicity compared to traditional trough targets.
[2023-04-01 14:53] LABS: Base Excess VBG 0.7 mEq/L; HCO3 VBG 25 mmol/L; PCO2 VBG 40 mmHg (38-50); PO2 VBG 44 mmHg; pH VBG 7.41 (7.36-7.41)
--- NOTE | 2023-04-01 15:36 | CT Scan Report ---
CT chest diagnostic wo con CT DOSE: 388.86 mGy.cm CLINICAL HISTORY: 88 years-old Male with hypoxia, chf vs pna. Acute hypoxia with shortness of breath . TECHNIQUE: Multiaxial CT images of the chest were performed without contrast. A dose lowering techni que was utilized adhering to the principles of ALARA. COMPARISON: Chest radiograph of same day, chest CT 03/20/2023. FINDINGS: Heterogeneous thyroid. Unchanged mediastinal and hilar lymphadenopathy. Stable 10 mm subcar inal lymph node. Partially calcified lymph nodes measuring up to 11 mm in the precarinal distribution as also unchanged. No new or progressive adenopathy. Unchanged small left pleural effusion. Increased size of the right pleural effusion which is now smal [id number]-[id number] in size. No pneumothorax. Emphysema with bronchitis is again noted. Unchanged 1.2 cm ri ght upper lobe pulmonary hamartoma on image 65. Right-sided calcified pleural plaques. Patchy groundg lass and irregular nodular consolidative opacities are noted bilaterally. This includes a subpleural nodular density within the left upper lobe measuring 11 mm on image 68. There is an additional irregu lar stable 2.3 cm subpleural nodular density of the right middle lobe on image 175. Mild intralobular septal thickening. Several additional pulmonary nodules which are mostly subcentimeter noted within all lobes bilaterally. Central airways are patent. Mildly progressed dependent right basilar consolid ation. Unchanged appearance of the upper abdomen. Distended gallbladder. Left upper quadrant splenules. Unre markable soft tissue tissues. Degenerative changes of the shoulders and spine. Healed chronic mid [place] rnal body fracture. There is unchanged superior endplate compression involving the T1-T2 segments wit hout retropulsion. IMPRESSION: 1. Study degraded by respiratory motion artifact. 2. Cardiomegaly with mild pulmonary edema, small left and [id number] right pleural effusions. The right pleural effusion has increased in size compared to the 03/20/2023 study and there is progre ssive dependent right lower lobe consolidation suggestive of atelectasis. 3. Patchy groundglass and irregular nodular opacities within the lungs are again noted which may be i nfectious or inflammatory. As stated on the prior study, follow-up recommended in order to document r esolution. 4. Stable thoracic lymphadenopathy. 5. Emphysema. 6. Additional findings as above. ACT 112: Negative or not required by law. Dictated: 04/01/2023 2:47 PM Transcribed: 04/01/2023 3:08 PM Ricarda [id number] REGINA_Raman [id number] Electronically signed by: Jake Colon M.D. 04/01/2023 3:35 PM
[2023-04-01 17:37] LABS: Troponin I High Sensitivity 107.9 pg/ml (0-20)
--- NOTE | 2023-04-01 17:59 | Pulmonary Consultation ---
Date of Consultation April 01, 2023 Assessment & Plan (1) CHF (congestive heart failure): Heart failure chronicity: unspecified Heart failure type: u nspecified Qualified Code(s): I50.9 - Heart failure, unspecified (2) Acute on chronic combined systolic (congestive) and diastolic (congestive) heart failure: (3) Acute hypoxemic respiratory failure: (4) COVID-19: (5) Aortic stenosis: Cardiac valve disease etiology: nonrheumatic Qualified Code(s): I 35.0 - Nonrheumatic aortic (valve) stenosis Plan CT chest 04/01/2023 personally reviewed: Centrilobular and paraseptal emphysema appreciated bilaterally Minimal patchy groundglass opacities appreciated bilaterally Right upper lobe 12 mm pulmonary nodule, another 11 mm left upper lobe peripheral pulmonary nodule Bilateral pleural effusion, right> left Dependent atelectasis bilateral lower lobes No significant mediastinal lymphadenopathy 2D echo 04/01/2023: EF 55-60%, mild concentric LVH, moderate aortic stenosis, mild MR, mild TR, RVSP 37 -- Acute hypoxic respiratory failure Multifactorial COVID-19 PCR positive on bio fire 04/01/2023 BNP 915 Procalcitonin negative -- Bilateral pleural effusion Right greater than left Likely secondary to HFpEF as well as aortic stenosis --COPD with emphysema Not on any inhalers at home Outpatient PFT -- A-fib On Eliquis at home Plan: No significant hilar opacities think the patient's shortness of breath is coming from COVID-19 pneumonia Follow-up CRP, if it is elevated then start dexamethasone Recommend aggressive diuresis to keep the patient negative balance BiPAP nightly and as needed shortness of breath Start Incruse while in the hospital Please note the above document was generated using voice recognition software. It may contain grammatical, syntax or spelling errors.Any formal questions or concerns about the content, text or information contained within the body of this dictation should be directly addressed to the provider for clarification. 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 Denied any headache, no nausea, no vomiting. He did complain of shortness of breath going on since last couple of days progressively getting worse Coughing up clear phlegm. Denies any subjective chills. Mild low-grade fever of 100. He is compliant with his home medications. He was recently hospitalized approximately a week ago for pneumonia and treated with antibiotics Allergies Allergy/AdvReac Type Severity Reaction Status Date / Time No Known Allergies Allergy Verified 03/05/23 07:23 Home Medications Medication Instructions Recorded Confirmed Type aspirin 81 mg tablet,delayed 81 mg PO DAILY 11/16/20 04/01/23 History release atorvastatin 80 mg tablet 80 mg PO HS 11/16/20 04/01/23 History cholecalciferol (vitamin D3) 25 25 mcg PO DAILY 11/16/20 04/01/23 History mcg (1,000 unit) tablet (Vitamin D3) apixaban 5 mg tablet (Eliquis) 2.5 mg PO BID 07/02/22 04/01/23 History oxycodone 5 mg tablet 5 mg PO Q4H PRN severe pain #10 07/03/22 04/01/23 Rx tabs ferrous sulfate 325 mg (65 mg 325 mg PO DAILY@1100 #30 tabs 07/15/22 04/01/23 Rx iron) tablet,delayed release tamsulosin 0.4 mg capsule 0.4 mg PO QAM #30 caps 01/15/23 04/01/23 Rx isosorbide mononitrate 30 mg 30 mg PO QAM 30 days #30 tabs 03/24/23 04/01/23 Rx tablet,extended release 24 hr metoprolol succinate 25 mg 75 mg (3 x 25 mg) PO BID 30 days 03/24/23 04/01/23 Rx tablet,extended release 24 hr #180 tabs Patient History Medical History (Updated 04/02/23 @ 13:01 by Sebastien Cummins DO) Prediabetes Aortic stenosis Moderate per 01/09/23 [facility] 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 Sepsis Admitted to [facility] 01/08/23-01/16/23 - sepsis and bacteremia- treated with abx x 2 weeks/ pt feeling better. Kidney stone reason for upcoming procedure. Fever Acute renal disease Noted during 01/2023 admission- has since improved to baseline per records (HFpEF) heart failure with preserved ejection fraction EF 55-60% per 01/09/23 [facility] CAD (coronary artery disease) Nonobstructive per records CKD (chronic kidney disease), stage III Dyslipidemia, goal LDL below 70 HTN (hypertension) NSTEMI (non-ST elevated myocardial infarction) denies hx heart attack "supply/demand NSTEMI in 11/2020" per records NSTEMI Type II per 01/16/[address] [facility] PAF (paroxysmal atrial fibrillation) no hx cardioversion on Eliquis Surgical History S/P cystoscopy with ureteral stent placement w/laser lithotripsy History of surgery right eye , trouble closing eyelid after parotid sx - they put a weight in so i can close my eye at night. History of colonoscopy History of parotidectomy History of transesophageal echocardiography ([facility]) 01/09/23, [facility] w/dr. patel Hx of tonsillectomy H/O splenectomy Hx of cataract surgery both Family History Other Heart disease Hypertension Social History Smoking Status: Former smoker Tobacco Type: Cigarettes Second Hand Exposure: No; Hx Alcohol Use: No Hx Substance Use: No Preferred Language: Frisian Communication Ability: Effective Uniform Maker Required: No Beliefs That Will Affect Care: None marital status: Current Living Situation: Spouse Current Living Situation Comment: Lives at home ith How many Children do You have: 2 Feels Safe at Home: Yes Safety Concerns: Feels Safe At This Time Assistive Devices: Glasses and Hearing Aid - Bilateral Review of Systems 2 Review of Systems: All systems reviewed & are unremarkable except as noted in HPI & below Physical Exam 2 Physical Exam: Constitutional: No acute distress HEENT: EOMI, PERRLA Respiratory system: Currently bilaterally, no wheeze, rhonchi, positive crackles bilateral lower lobes CVS: S1-S2 positive, positive 2 out of 6 systolic murmur appreciated best at aorta Abdomen: Soft, nontender, nondistended, positive bowel sounds x4 Extremities: +2 pulses bilaterally radialis/ dorsalis pedis, no cyanosis, no edema Neuro: Awake alert oriented x3 Psych: Normal mood and affect G/U: No [place] Skin: no rashes, warm and dry Lymphatic: no cervical or axillary lymphadenopathy Results & Data Results & Data Vital Signs (Past 12 Hours) Vital Signs Temp Pulse Pulse Resp BP BP Pulse Ox 04/01/23 17:07 104 H 24 147/101 H 96 04/01/23 15:34 105 H 04/01/23 14:01 92 H 26 H 138/88 96 04/01/23 12:34 04/01/23 12:30 106 H 17 98 04/01/23 12:00 103 H 28 H 149/83 H 94 04/01/23 10:32 53 L 26 H 143/67 H 96 04/01/23 09:26 55 L 04/01/23 09:00 60 28 H 98 04/01/23 09:00 158/87 H 04/01/23 08:58 72 28 H 97 04/01/23 08:57 192/86 H 04/01/23 08:53 83 30 H 97 04/01/23 08:53 83 30 H 192/86 H 96 04/01/23 08:53 84 L 04/01/23 08:53 37.2 C 83 30 H 192/86 H 96 O2 Del Method O2 Flow Rate FiO2 04/01/23 17:07 Oxymask 2 04/01/23 15:34 04/01/23 14:01 BiPAP 04/01/23 12:34 Room Air 04/01/23 12:30 30 04/01/23 12:00 Oxymask 2 04/01/23 10:32 Oxymask 2 04/01/23 09:26 04/01/23 09:00 Oxymask 4 04/01/23 09:00 04/01/23 08:58 Oxymask 4 04/01/23 08:57 04/01/23 08:53 Oxymask 4 04/01/23 08:53 Oxymask 4 04/01/23 08:53 Room Air 04/01/23 08:53 Oxymask 4 Laboratory Results 04/01/23 08:58 04/01/23 08:58 PG Care Time/CCT Total # of Minutes Spent Total Time Spent with Patient: Total time spent is greater than 50% in coordination of care (as documented) at patient's floor/unit and/or counseling patient: Coding Level of Care Code 31247 INT INP/OBS CARE MIN Diagnoses CHF (congestive heart failure) I50.9 Heart failure chronicity: unspecified Heart failure type: unspecified Acute on chronic combined systolic (congestive) and diastolic (congestive) heart failure I50.43 Acute hypoxemic respiratory failure J96.01 COVID-19 U07.1 Nonrheumatic aortic valve stenosis I35.0 Cardiac valve disease etiology: nonrheumatic
[2023-04-01 18:24] LABS: C Reactive Protein 5.09 mg/dl (0-0.5)
[2023-04-01] MEDS: METOPROLOL SUCC 25MG EXT REL TAB PO SCH (20:31)
[2023-04-01] MEDS: APIXABAN 2.5 MG TAB PO SCH (20:31)
[2023-04-01] MEDS ORDERED: ATORVASTATIN 40 MG TAB PO SCH (21:00)
[2023-04-01] MEDS ORDERED: VANCOMYCIN HCL 1,250 MG in SODIUM CHLORIDE 0.9% 250 ML IV SCH (22:00)
[2023-04-02] MEDS: LEVALBUTEROL HCL 0.63 MG/3 ML NEB NEB SCH ×3 (00:24→12:56)
[2023-04-02] MEDS ORDERED: RAPID SEQUENCE INDUCTION BAG ONE (02:44)
[2023-04-02] MEDS: MAGNESIUM SULFATE / D5W 1 GM/100 ML BAG IV SCH ×7 (03:02→11:52)
[2023-04-02 03:22] LABS: Base Excess VBG -4.4 mEq/L; HCO3 VBG 21 mmol/L; Oxygen Saturation VBG 89.9 %; PCO2 VBG 39 mmHg (38-50); PO2 VBG 61 mmHg; pH VBG 7.34 (7.36-7.41)
[2023-04-02 03:29] LABS: Hematocrit (blood only) 29.9 % (42.0-52.0); Hemoglobin 9.7 g/dl (14.0-18.0); Mean Corpuscular Hemoglobin 32.8 pg (25.0-34.0); Mean Corpuscular Hgb Conc 32.4 g/dL (32.0-36.0); Mean Platelet Volume 10.2 fL (9.4-12.4); Nucleated RBC # (auto) 0.02 K/uL (0.00-0.12); Nucleated RBC % (auto) 0.1 %; Platelet Count 258 K/uL (130-400); RDW Standard Deviation 65.8 fL (36.4-46.3); Red Blood Count 2.96 M/uL (4.70-6.10); White Blood Count 16.59 K/ul (4.8-10.8)
[2023-04-02 03:51] LABS: Alanine Aminotransferase 36 U/L (7-52); Albumin Level 2.8 gm/dl (3.4-5.0); Alkaline Phosphatase 66 U/L (34-104); Anion Gap 13 (3-11); BUN Creatinine Ratio 22.3 (10-20); Bilirubin,Total 0.6 mg/dl (0.2-1.0); Blood Urea Nitrogen 27 mg/dl (6-23); C Reactive Protein 6.81 mg/dl (0-0.5); Calcium 7.7 mg/dl (8.6-10.3); Carbon Dioxide 20 mmol/L (21-32); Chloride 107 mmol/L (98-107); Creatinine Clr Calc Pharmacy 46.3 ml/min; Est GFR (African American) 61.6 ml/min; Est GFR (Non-African American) 53.1 ml/min; Glucose 171 mg/dl (70-99(Fasting)); Magnesium 2.1 mg/dl (1.7-2.4); Phosphorus 4.6 mg/dl (2.5-4.9); Sodium 140 mmol/L (136-145); Total Protein 6.2 gm/dl (6.0-8.3)
[2023-04-02 03:53] LABS: Troponin I High Sensitivity 91.7 pg/ml (0-20)
[2023-04-02 05:14] LABS: Bilirubin Direct 0.1 mg/dl (0-0.2); Potassium 3.2 mmol/L (3.5-5.1)
[2023-04-02] MEDS ORDERED: POTASSIUM CHLORIDE CRTAB 20 MEQ TABCR PO STA ×2 (06:07)
[2023-04-02] MEDS: POTASSIUM CHLORIDE / WTR 10 MEQ/100 ML PLCT IV SCH ×6 (06:21→13:20)
--- NOTE | 2023-04-02 07:42 | Communication Note ---
Date of Service: April 02, 2023 Last night around 2:40am code marjorie was called as v.fib/torsades seen on monitor and patient was unresponsive. Cpr was initiated and patient received one epi and one shock after which patient became responsive and woke up. His vitals then were stable. Ordered 2 units of iv magnesium. Labs ordered . Ekg no acute findings. Labs showed elevated wbc. MAg 2.1. Potassium 3.2. VBG ok.Troponin trending down to 91 from 107. Checked on patient again and he was alert and oriented x3. Denied headache, denied chest pain or sob. No nausea or abdominal pain. Speech was clear.Lifting his extremities easily. Seems comfortable. Notified Daughter. Daughter was concerned this episode could be side effect from Remdesevir and wanted to hold it for now. Stopped remdesevir for now.Ordered serial CE. Notified AM providers.CArdio and pulmonary already on board.
[2023-04-02] MEDS: METOPROLOL SUCC 25MG EXT REL TAB PO SCH (08:00)
[2023-04-02] MEDS ORDERED: POTASSIUM CHLORIDE / WTR 10 MEQ/100 ML PLCT IV SCH (08:00)
[2023-04-02] MEDS: APIXABAN 2.5 MG TAB PO SCH (08:00)
[2023-04-02] MEDS ORDERED: CHOLECALCIFEROL 1,000 UNITS 25 MCG TAB PO SCH (09:00)
[2023-04-02] MEDS ORDERED: cefTRIAXone SODIUM 2,000 MG in DEXTROSE 5 % MINI-B 50 ML IV SCH (09:00)
[2023-04-02] MEDS ORDERED: ASPIRIN 81 MG ECTAB PO SCH (09:00)
[2023-04-02] MEDS ORDERED: dexAMETHasone 6 MG in SYRINGE 0 ML IV SCH (09:00)
[2023-04-02] MEDS ORDERED: TAMSULOSIN HCL 0.4 MG CAP PO SCH (09:00)
[2023-04-02] MEDS ORDERED: DEXAMETHASONE SOD INJ 4 MG/ML VIAL IV SCH (09:00)
[2023-04-02] MEDS ORDERED: FUROSEMIDE 40 MG/4 ML VIAL IV SCH (09:00)
[2023-04-02] MEDS ORDERED: ISOSORBIDE MONO EXTENDED REL 30 MG TABCR PO SCH (09:00)
--- NOTE | 2023-04-02 10:36 | XRay Report ---
SINGLE VIEW CHEST CLINICAL HISTORY: Status post cardiac arrest. FINDINGS: An AP, portable, upright chest radiograph is compared to chest x-ray and chest CT dated . The heart is enlarged noting atherosclerotic calcification of the thoracic aorta. There is p ulmonary vascular congestion. Emphysema and chronic interstitial thickening is similar to previous. M ultifocal bilateral airspace opacities have modestly worsened as compared to yesterday. There are sma ll pleural effusions. Pulmonary nodules seen on yesterday's chest CT are not visualized by x-ray. No pneumothorax is seen. Linear lucencies projecting over the right apex likely represent skin folds. Th e skeletal structures are osteopenic. The bony thorax is grossly intact. Advanced arthritic change is noted in the shoulders. IMPRESSION: 1. Cardiomegaly and emphysema with evidence of congestive failure. 2. Multiple focal bilateral airspace opacities have modestly worsened as compared to yesterday. This could represent pulmonary edema and/or pneumonia/aspiration pneumonitis. Clinical correlation will be essential. 3. Small pleural effusions. ACT 112: Negative or not required by law. Electronically signed by: Morro Silvestre M.D. 04/02/2023 10:35 AM
[2023-04-02] MEDS ORDERED: FERROUS SULFATE 325 MG TAB PO SCH (11:00)
--- NOTE | 2023-04-02 11:03 | Cardiology Progress Note ---
Date of Service April 02, 2023 Assessment & Plan (1) Cardiac arrest with ventricular fibrillation: (2) Torsades de pointes: (3) Acute hypoxemic respiratory failure: (4) Acute on chronic combined systolic (congestive) and diastolic (congestive) heart failure: (5) COVID-19: (6) Pneumonia: (7) Aortic stenosis: (8) Coronary atherosclerosis due to severely calcified coronary lesion: Plan IMPRESSION: Medically complex 88-year-old male with known ischemic cardiomyopathy with a mildly reduced LV systolic function of 45 to 49% presented to [facility] emergency department due to progressive shortness of breath and fluid retention over the last week. Found to be COVID-19 positive with pneumonia. Shortness of breath likely multifactorial due to COVID-19 pneumonia with superimposed acute on chronic combined CHF/valvular heart disease with moderate , Mild MR/TR. Overnight patient had cardiac arrest with torsades, requiring CPR and defibrillation. PLAN: Torsades/VT overnight -Required one round of CPR, Epi and one defibrillation with conversion back to Afib. -Patient awake/alert after event. He was asleep at time of arrhythmia. -Replace electrolytes. recheck BMP/magnesium this afternoon. Potassium goal > 4.0 and mag goal > 2.0. -Beta richard/antiarrhythmic limited due to bradycardia. -Metoprolol reduced to 50 mg BID this morning. Remains in afib, with slow rates in the 50s. -Etiology of arrhythmia on certain. Certainly underlying ischemic heart disease could be contributing factor, along with electrolyte disturbances, and COVID + Acute on chronic combined CHF: Patient appeared hypervolemic on exam with approximately a 10 pound weight gain over the last week---started on IV lasix yesterday. Good outputs overnight. Weight down. FLuid status improving. Continue furosemide today Monitor renal function and electrolytes. Coronary artery disease: Multivessel CAD on prior cardiac catheterization 03/2023 not amendable to PCI. Declining surgical workup with focus on conservative medical management. Currently no angina. Continue goal-directed medical therapy with metoprolol. Not currently on ACEi/ARB. Continue Imdur Continue ASA and Statin. Paroxysmal atrial fibrillation/flutter: Difficult to determine rhythm on telemetry due to poor tracing, appears the patient is in A-fib/flutter with rates in the low 100s currently. Rates as low as mid 50s on admission. Repeat EKG pending. Patient currently anticoagulated with Eliquis 2.5 mg twice daily, continue for stroke prevention Continue metoprolol succinate 75 mg twice daily, acute illness likely driving elevated heart rates. Patient asymptomatic. Anticipate heart rates to improve as acute illness improves. COVID-19 pneumonia: Treatment per primary team. Currently on IV Decadron, DuoNebs. Remdesivir on hold. Continue O2 Case discussed with Dr. Cummins I spent a total of 40 minutes on the date of service in preparation, delivery, and documentation of the care provided to this patient, excluding any time spent in the performance of separately billed services. Admission and Anticipated Discharge Date Admission Date: April 01, 2023 Supervising Physician Co-Signing Physician Notes Patient seen and examined at the bedside. Episode of polymorphic ventricular tachycardia recorded overnight. Tachycardia induced with PVC R on T phenomenon. Patient required CPR, epinephrine, and defibrillation. He was transferred to the ICU. This morning, patient again spontaneously experienced episode of ventricular fibrillation. It appears the episode was induced during atrial flutter with slow ventricular response followed by PVC with R-on-T phenomenon and subsequent ventricular fibrillation. He was treated with IV amiodarone with subsequent conversion to atrial flutter with slow ventricular response. Heart rate currently in the 40s. He is awake and alert. Currently hemodynamically stable. Son present at bedside. No chest pain other than musculoskeletal discomfort related to chest compressions. PE: VSS. Gen: NAD, AAO x3. Heart: Irregular rhythm, bradycardic, normal S1-S2. 2/6 systolic ejection murmur. Pulmonary:+ Crackles at the bases bilaterally. Extremities: trace bilateral pedal and ankle edema. A/P: Case discussed with PA. Agree with assessment and plan with the following additions. Complex 88-year-old with severe/critical CAD including left main stenosis and occlusion of the right coronary artery. Patient declined referral for CT surgery approximately 10 days ago. Admitted 04/01 with COVID-19 infection, and acute decompensated heart failure. He has developed unstable ventricular arrhythmias which appear to be bradycardia mediated as described above. Treatment options are limited. In some cases temporary pacemaker or Isoprel infusion can be employed to increase resting heart rate, however, I am reluctant to induce tachycardia in this patient due to his critical underlying CAD, COVID infection with hypoxia as demand ischemia would ensue and worsen ventricular arrhythmias. Agree with continue intravenous amiodarone at this time to suppress PVCs and recurrent ventricular fibrillation. Beta-richard will be placed on hold to allow resting heart rate to slowly increase. Consider adding back beta-richard as clinical course unfolds. I had a long conversation with both the patient and his son at bedside regarding patient's cardiovascular status, specifically results of recent cardiac catheterization and current unstable dysrhythmias. Prognosis is poor. Patient wishes to remain a full code at this time. Will continue to follow patient during his stay in the intensive care unit and hospitalization. I spent a total of 40 minutes of critical care time on the date of service in preparation, delivery, and documentation of the care provided to this patient, excluding any time spent in the performance of separately billed services. Subjective Patient resting in bed comfortably. Last night around 2:35 patient was sleeping and developed VT/torsades. He was unresponsive and code blue was called. He received one round of CPR with one dose epi and one defibrillation, converting back to afib with a pulse. Patient awakened and was alert and oriented. No recurrent events overnight or this morning. He reports chest soreness after CPR but no angina. SOB/cough improving. Denies orthopnea, PND or edema. No dizziness. Afib, with slow ventricular rates in the 50's noted on telemetry since event. Review of Systems Review of Systems: All systems reviewed & are unremarkable except as noted in HPI & below Physical Exam Constitutional: no acute distress Neck: normal visual inspection and trachea midline Respiratory: + cough, able to speak in complete sente nces and + tachypneic; no respiratory distress Auscultation: + rales and + rhonchi Cardiovascular: Rate/Rhythm: + bradycardic and + irregularly irregular Heart Sounds: normal S1, normal S2 and + murmur (+3/6 systolic murmur ) Vessels: no JVD Extremities: + edema (Trace pretibial edema ) Gastrointestinal (Abdomen): normal bowel sounds, soft, nontender, no hepatosplenomegaly Skin: no rashes, warm and dry Psychiatric: A+Ox3, euthymic affect Results & Data Vital Signs (Past 12 Hours) Vital Signs Temp Pulse Pulse Pulse Resp BP BP 04/02/23 10:45 04/02/23 10:41 04/02/23 10:41 36.6 C 11/28/23 10:14 61 20 04/02/23 10:14 94/45 L 04/02/23 10:00 53 L 24 04/02/23 09:14 66 24 04/02/23 09:14 103/65 04/02/23 08:50 36.3 C L 67 20 04/02/23 08:29 04/02/23 07:40 36.6 C 67 20 04/02/23 07:23 65 18 04/02/23 07:07 65 04/02/23 03:00 36.3 C L 83 20 105/61 04/01/23 23:02 78 BP Pulse Ox O2 Del Method O2 Flow Rate 04/02/23 10:45 Nasal Cannula 3 04/02/23 10:41 Nasal Cannula 04/02/23 10:41 04/02/23 10:14 92 04/02/23 10:14 04/02/23 10:00 93 Nasal Cannula 3 04/02/23 09:14 04/02/23 09:14 04/02/23 08:50 119/61 95 Nasal Cannula 3.0 04/02/23 08:29 Nasal Cannula 3 04/02/23 07:40 124/70 97 Oxymask 3.0 04/02/23 07:23 98 Oxymask 4 04/02/23 07:07 04/02/23 03:00 95 Oxymask 04/01/23 23:02 Laboratory Results Cardiac Enzymes 04/01/23 04/01/23 04/02/23 Range/Units 10:52 16:57 02:50 AST TNP Troponin I High Sens 62.1 H* D 107.9 H* D 91.7 H* D (0-20) pg/ml 04/02/23 04/02/23 04/02/23 Range/Units 04:37 04:44 08:07 AST 56 H Cancelled Troponin I High Sens 191.8 H* D (0-20) pg/ml CBC 04/02/23 Range/Units 04:44 WBC 16.59 H (4.8-10.8) K/ul RBC 2.96 L (4.70-6.10) M/uL Hgb 9.7 L (14.0-18.0) g/dl Hct 29.9 L (42.0-52.0) % Plt Count 258 (130-400) K/uL Comprehensive Metabolic Panel 04/02/23 04/02/23 04/02/23 Range/Units 02:50 04:37 04:44 Sodium 140 Cancelled (136-145) mmol/L Potassium TNP 3.2 L D Cancelled Chloride 107 Cancelled (98-107) mmol/L Carbon Dioxide 20 L Cancelled (21-32) mmol/L BUN 27 H Cancelled (6-23) mg/dl Creatinine 1.21 Cancelled (0.6-1.4) mg/dl Glucose 171 H Cancelled (70-99(Fasting)) mg/dl Calcium 7.7 L Cancelled (8.6-10.3) mg/dl Direct Bilirubin TNP 0.1 Cancelled AST TNP 56 H Cancelled ALT 36 Cancelled (7-52) U/L Alkaline Phosphatase 66 Cancelled (34-104) U/L Total Protein 6.2 Cancelled (6.0-8.3) gm/dl Albumin 2.8 L Cancelled (3.4-5.0) gm/dl Intake and Output 04/01/23 04/02/23 04/02/23 22:59 06:59 14:59 Intake Total 525 / 1335.833 225.833 / 1335.833 670 / 670 Output Total 125 / 1452 376 / 1452 400 / 400 Balance 400 / -116.167 -150.167 / -116.167 270 / 270 Intake: IV 525 / 1305.833 195.833 / 1305.833 550 / 550 Magnesium Sulfate / D5w 1 gm In 195.833 / 195.833 200 / 200 100 ml @ 50 mls/hr IV Q2H [facility] Rx#:[id number] Potassium Chloride / Wtr 10 meq 300 / 300 In 100 ml @ 100 mls/hr IV Q1H [facility] Rx#:[id number] Remdesivir 200 mg In Sodium 250 / 250 Chloride 0.9% 210 ml @ 125 mls/ hr IV ONE ONE Rx#:[id number] Vancomycin HCl 1,250 mg In 275 / 275 Sodium Chloride 0.9% 250 ml @ 200 mls/hr IV Q24H [facility] Rx#: [id number] cefTRIAXone SODIUM 2,000 mg In 50 / 50 Dextrose 5 % Mini-B 50 ml @ 100 mls/hr IV Q24H [facility] Rx#: [id number] Oral 30 / 30 120 / 120 Output: Urine Amount (Catheter) 125 / 500 375 / 500 400 / 400 [place]/Indwelling 125 / 500 375 / 500 400 / 400 # Bowel Movements 1 / 2 Other: Weight 86.6 kg 80.4 kg Weight Measurement Method [facility] Built in [facility] Diagnostic Findings Telemetry reviewed: Currently atrial fibrillation with slow ventricular rates in the 50'. Last night around 2:35 AM patient developed VT/torsades requiring CPR/defibrillation, with successful conversion to afib. Repeat EKG this morning: Afib with controlled rates. No acute ST/T wave abnormalities QT/QTC 378/444 ms Chest xray today: IMPRESSION: 1. Cardiomegaly and emphysema with evidence of congestive failure. 2. Multiple focal bilateral airspace opacities have modestly worsened as compared to yesterday. This could represent pulmonary edema and/or pneumonia/aspiration pneumonitis. Clinical correlation will be essential. 3. Small pleural effusions. Echo yesterday demonstrated: Normal LVEF at 55-60% (improved from prior echo on 03/2023) Mild concentric LVH Moderate aortic stenosis mild MR Medications Administered Current Inpatient Medications Acetaminophen (Acetaminophen 325 Mg Tab) 650 mg PO Q4H PRN PRN Reason: Pain or Fever Stop: 05/01/23 12:33 Apixaban (Apixaban 2.5 Mg Tab) 2.5 mg PO BID JORDAN Stop: 05/01/23 20:59 Last Admin: 04/02/23 08:00 Dose: 2.5 mg Aspirin (Aspirin 81 Mg Ectab) 81 mg PO DAILY JORDAN Stop: 05/02/23 08:59 Last Admin: 04/02/23 08:00 Dose: 81 mg Atorvastatin Calcium (Atorvastatin 40 Mg Tab) 80 mg PO HS JORDAN Stop: 05/01/23 20:59 Last Admin: 04/01/23 20:30 Dose: 80 mg Ferrous Sulfate (Ferrous Sulfate 325 Mg Tab) 325 mg PO DAILY@1100 JORDAN Stop: 05/02/23 10:59 Furosemide (Furosemide 40 Mg/4 Ml Vial) 40 mg IV DAILY JORDAN Stop: 05/02/23 08:59 Last Admin: 04/02/23 08:01 Dose: 40 mg Guaifenesin/Codeine Phosphate (Guaifenesin/Codeine 100mg/10mg 5ml Udc) 5 ml PO Q6H PRN PRN Reason: Cough Stop: 05/01/23 11:54 Dexamethasone 6 mg/ Syringe 1.5 mls @ 1 mls/min IV DAILY [facility] Stop: 05/02/23 08:59 Last Admin: 04/02/23 08:01 Dose: 1 mls/min Ceftriaxone Sodium 2,000 mg/ (Dextrose) 50 mls @ 100 mls/hr IV Q24H [facility]; Protocol Stop: 04/09/23 08:59 Last Infusion: 04/02/23 08:31 Dose: Infused Magnesium Sulfate/Dextrose (Magnesium Sulfate / D5w) 1 gm in 100 mls @ 50 mls/hr IV Q2H [facility] Stop: 04/02/23 15:29 Last Admin: 04/02/23 11:04 Dose: Not Given Isosorbide Mononitrate (Isosorbide [place] Extended Rel 30 Mg Tabcr) 30 mg PO QAM [facility] Stop: 05/02/23 08:59 Last Admin: 04/02/23 08:00 Dose: 30 mg Levalbuterol HCl (Levalbuterol Hcl 0.63 Mg/3 Ml Neb) 0.63 mg NEB Q6R [facility]; Protocol Stop: 05/01/23 12:59 Last Admin: 04/02/23 07:22 Dose: 0.63 mg Metoprolol Succinate (Metoprolol Succ 25mg Ext Rel Tab) 50 mg PO BID [facility] Stop: 05/02/23 20:59 Ondansetron HCl (Ondansetron Inj 2 Mg/Ml 2 Ml Vial) 4 mg IV Q6H PRN PRN Reason: Nausea Stop: 05/01/23 12:33 Oxycodone HCl (Oxycodone Hcl Ir 5 Mg Tab (Immediate Release)) 5 mg PO Q4H PRN PRN Reason: severe pain Stop: 04/15/23 12:35 Polyethylene Glycol (Polyethylene (Miralax) 17 Gm Pack) 17 gm PO DAILY PRN PRN Reason: Constipation Stop: 05/01/23 12:33 Tamsulosin HCl (Tamsulosin Hcl 0.4 Mg Cap) 0.4 mg PO QAM [facility] Stop: 05/02/23 08:59 Last Admin: 04/02/23 08:00 Dose: 0.4 mg Vitamin D (Cholecalciferol 1,000 Units 25 Mcg Tab) 1,000 units PO DAILY [facility] Stop: 05/02/23 08:59 Last Admin: 04/02/23 08:00 Dose: 1,000 units (6) Pneumonia Laterality: bilateral Lung location: lower lobe of lung Pneumonia type: due to unspecified organism Qualified Code(s): J18.9 - Pneumonia, unspecified organism (7) Aortic stenosis Cardiac valve disease etiology: nonrheumatic Qualified Code(s): I35.0 - Nonrheumatic aortic (valve) stenosis
[2023-04-02] MEDS ORDERED: AMIODARONE 150MG / 100ML D5W IV ONE (11:29)
[2023-04-02] MEDS ORDERED: AMIODARONE 360MG / 200ML D5W IV ONE (11:29)
[2023-04-02] MEDS ORDERED: REMDESIVIR 100 MG in SODIUM CHLORIDE 0.9% 230 ML IV SCH (12:00)
--- NOTE | 2023-04-02 12:57 | Hospitalist Progress Note ---
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 Recently admitted to our service from 03/20-03/24 for acute hypoxia in setting of ACS/NSTEMI undergoing cardiac cath on 03/21 revealing severe CAD not amenable to PCI. CABG was discussed but patient declines outpatient CT surgery evaluation and requested conservative medical management. Per cardiology, patient was transitioned to Toprol 75mg BID and Imdur increased to 30mg, continuing apixaban, aspirin and statin. Patient also met sepsis criteria with findings of multifocal pneumonia. Was discharged home on Augmentin BID to complete abx course for PNA as well as nebs QID. Patient was admitted to telemetry floor for management of acute respiratory failure and COVID-19 infection. In the morning of April 02, 2023 around 2 AM; patient had CODE BLUE with V- fib arrest. ROSC was achieved with defibrillation and CPR. Patient was transferred to ICU for closer monitoring. He had second V-fib arrest requiring defibrillation and CPR again. Cardiac arrest Ventricular fibrillation Multivessel CAD In the morning of April 02, 2023 around 2 AM; patient had CODE BLUE with V- fib arrest. ROSC was achieved with defibrillation and CPR. Patient was transferred to ICU for closer monitoring. He had second V-fib arrest requiring defibrillation and CPR again on April 02, 2023. Recent ACS/NSTEMI and underwent cardiac cath on 03/21 revealing severe CAD not amenable to PCI. CABG was discussed but patient declines outpatient CT surgery evaluation and requested conservative medical management EKG personally reviewed; atrial fibrillation; QTc of 444 Discussed with cardiology (Dr. Cummins); will follow recommendation. Discussed with Dr. Fuentes from ICU; CODE STATUS changed to DNR/DNI after discussion with the family. Mag and potassium repleted Acute respiratory failure with hypoxia Acute on chronic decompensated CHF COVID-19 infection Possible PNA Multifactorial in setting of covid 19, possible PNA and CHF Does not require O2 at baseline Chest x-ray personally reviewed; consistent with pulmonary edema 2D echo from earlier this month with slightly reduced EF:45-50%, moderate , mild MR, mild TR, mild concentric LVH Currently on Lasix 40 mg IV daily. Also on Decadron 6 mg IV daily. Continue on ceftriaxone; plan to treat for 5 to 7 days. Vancomycin DC'd as MRSA was negative. Patient was started on remdesivir and currently stopped as per family's request. PAF Continue Toprol, apixaban for anticoagulation HTN Pt with recent changes to BP meds, amlodipine/hctz stopped in January, Lisinopril recently d/c on 03/13 Continue Toprol Squamous cell carcinoma involving the right parotid gland s/p resection, chemo, radiation 2010 Permanent facial nerve damage, erythematous changes and chronic pain Home oxycodone 5mg prn, chronic pain is controlled CKD-3 Cr at baseline (1-1.2) Bun/cr stable, continue to monitor Anemia, likely of chronic disease Stable, hgb 11.2 Continue to monitor DNR/DNI PCP: Dr. Lenz Disposition: Patient admitted for acute hypoxic respiratory failure. He had cardiac arrest x2. Currently in ICU. Discussed with patient's daughter over the phone and son at bedside. Time spent evaluating patient, direct bedside care, chart review, placing orders, interpretation of diagnostic studies, discussion with consultants, patient, and family members, as well as other required patient management activities is 75 minutes Please note the above document was generated using voice recognition software. It may contain grammatical, syntax or spelling errors. Any formal questions or concerns about the content, text or information contained within the body of this dictation should be directly addressed to the provider for clarification Admission and Anticipated Discharge Date Admission Date: April 01, 2023 Subjective Patient seen and examined at bedside. Overnight, patient had CODE BLUE with V-fib arrest; downtime was 4 minutes. ROSC was achieved after 1 round of epi and defibrillation. Discussion was done with ICU; patient was transferred to ICU for closer monitoring. Patient had another episode of CODE BLUE in the ICU; resuscitated again. Review of Systems Review of Systems: All systems reviewed & are unremarkable except as noted in Subjective Physical Exam Physical Exam: Constitutional: Awake, oriented to self person place. Respiratory: Decreased breath sounds on left lower lung base. Clear breath sounds otherwise Cardiovascular: Irregular, no murmur, no edema Vessels: no JVD or carotid bruit Chest: normal inspection of chest Abdomen: normal bowel sounds, soft, nontender, no hepatosplenomegaly Musculoskeletal: no cyanosis or clubbing, extremities motor strength 5/5 Skin: no rashes, warm and dry normal turgor Neurologic: Grossly intact. Psychiatric: A+Ox3, euthymic affect Results & Data Results & Data Vital Signs (Past 12 Hours) Vital Signs Temp Pulse Pulse Pulse Resp BP BP 04/02/23 11:34 80 04/02/23 10:45 04/02/23 10:41 04/02/23 10:41 36.6 C 04/02/23 10:14 61 20 04/02/23 10:14 94/45 L 04/02/23 10:00 53 L 24 04/02/23 09:14 66 24 04/02/23 09:14 103/65 04/02/23 08:50 36.3 C L 67 20 04/02/23 08:29 04/02/23 07:40 36.6 C 67 20 04/02/23 07:23 65 18 04/02/23 07:07 65 04/02/23 03:00 36.3 C L 83 20 105/61 BP Pulse Ox O2 Del Method O2 Flow Rate 04/02/23 11:34 98 Oxymask 11 04/02/23 10:45 Nasal Cannula 3 04/02/23 10:41 Nasal Cannula 04/02/23 10:41 04/02/23 10:14 92 04/02/23 10:14 04/02/23 10:00 93 Nasal Cannula 3 04/02/23 09:14 04/02/23 09:14 04/02/23 08:50 119/61 95 Nasal Cannula 3.0 04/02/23 08:29 Nasal Cannula 3 04/02/23 07:40 124/70 97 Oxymask 3.0 04/02/23 07:23 98 Oxymask 4 04/02/23 07:07 04/02/23 03:00 95 Oxymask Laboratory Results Laboratory Results WBC 16.59 K/ul (4.8-10.8) H 04/02/23 04:44 RBC 2.96 M/uL (4.70-6.10) L 04/02/23 04:44 Hgb 9.7 g/dl (14.0-18.0) L 04/02/23 04:44 Hct 29.9 % (42.0-52.0) L 04/02/23 04:44 MCV 101.0 fL (80.0-100.0) H 04/02/23 04:44 MCH 32.8 pg (25.0-34.0) 04/02/23 04:44 MCHC 32.4 g/dL (32.0-36.0) 04/02/23 04:44 RDW Std Deviation 65.8 fL (36.4-46.3) H 04/02/23 04:44 RDW Coeff of Derrek 18.0 % (11.5-14.5) H 04/02/23 04:44 Plt Count 258 K/uL (130-400) 04/02/23 04:44 MPV 10.2 fL (9.4-12.4) 04/02/23 04:44 Immature Gran % (Auto) 0.5 % 04/01/23 08:58 Neut % (Auto) 74.7 % 04/01/23 08:58 Lymph % (Auto) 16.5 % 04/01/23 08:58 [place] % (Auto) 7.5 % 04/01/23 08:58 Eos % (Auto) 0.4 % 04/01/23 08:58 Baso % (Auto) 0.4 % 04/01/23 08:58 Neut # (Auto) 8.09 K/uL (1.40-6.50) H 04/01/23 08:58 Lymph # (Auto) 1.79 K/uL (1.20-3.40) 04/01/23 08:58 [place] # (Auto) 0.81 K/uL (0.11-0.59) H 04/01/23 08:58 Eos # (Auto) 0.04 K/uL (0.00-0.50) 04/01/23 08:58 Baso # (Auto) 0.04 K/uL (0.00-0.20) 04/01/23 08:58 Immature Gran # (Auto) 0.05 K/uL (0.01-0.20) 04/01/23 08:58 Absolute Nucleated RBC 0.02 K/uL (0.00-0.12) 04/02/23 04:44 Nucleated RBC % (auto) 0.1 % 04/02/23 04:44 VBG pH 7.34 (7.36-7.41) L 04/02/23 02:52 VBG pCO2 39 mmHg (38-50) 04/02/23 02:52 VBG pO2 61 mmHg 04/02/23 02:52 VBG HCO3 21 mmol/L 04/02/23 02:52 VBG O2 Saturation 89.9 % 04/02/23 02:52 VBG Base Excess -4.4 mEq/L 04/02/23 02:52 Sodium Cancelled 04/02/23 04:44 Potassium Cancelled 04/02/23 04:44 Chloride Cancelled 04/02/23 04:44 Carbon Dioxide Cancelled 04/02/23 04:44 Anion Gap Cancelled 04/02/23 04:44 BUN Cancelled 04/02/23 04:44 Creatinine Cancelled 04/02/23 04:44 Est Cr Clr Drug Dosing Cancelled 04/02/23 04:44 Est GFR ( Amer) Cancelled 04/02/23 04:44 Est GFR (Non-Af Amer) Cancelled 04/02/23 04:44 BUN/Creatinine Ratio Cancelled 04/02/23 04:44 Glucose Cancelled 04/02/23 04:44 Calcium Cancelled 04/02/23 04:44 Phosphorus 4.6 mg/dl (2.5-4.9) 04/02/23 02:50 Magnesium 2.1 mg/dl (1.7-2.4) 04/02/23 02:50 Total Bilirubin Cancelled 04/02/23 04:44 Direct Bilirubin Cancelled 04/02/23 04:44 AST Cancelled 04/02/23 04:44 ALT Cancelled 04/02/23 04:44 Alkaline Phosphatase Cancelled 04/02/23 04:44 Troponin I High Sens 191.8 pg/ml (0-20) H* D 04/02/23 08:07 C-Reactive Protein Cancelled 04/02/23 04:44 B-Natriuretic Peptide 915 pg/ml (0-100) H 04/01/23 08:58 Total Protein Cancelled 04/02/23 04:44 Albumin Cancelled 04/02/23 04:44 Globulin 4.0 gm/dl (2.5-4.0) 04/01/23 08:58 Albumin/Globulin Ratio 0.9 (0.9-2) 04/01/23 08:58 Lipase 29 U/L (11-82) 04/01/23 08:58 Procalcitonin < 0.05 ng/ml (0-0.5) 04/01/23 08:55 Nasal Screen MRSA (PCR) Negative (Negative) 04/01/23 Unknown Adenovirus (PCR) Not Detected (NotDetected) 04/01/23 09:00 B. pertussis DNA (PCR) Not Detected (NotDetected) 04/01/23 09:00 B.parapertussis DNA PCR Not Detected (NotDetected) 04/01/23 09:00 C. pneumoniae DNA (PCR) Not Detected (NotDetected) 04/01/23 09:00 Coronavirus OC43 (PCR) Not Detected (NotDetected) 04/01/23 09:00 Coronavirus HKU1 (PCR) Not Detected (NotDetected) 04/01/23 09:00 Coronavirus 229E (PCR) Not Detected (NotDetected) 04/01/23 09:00 SARS-CoV-2 (PCR) DETECTED (NotDetected) A* 04/01/23 09:00 Coronavirus NL63 (PCR) Not Detected (NotDetected) 04/01/23 09:00 Human Metapneumovir PCR Not Detected (NotDetected) 04/01/23 09:00 Influenza Type A (PCR) Not Detected (NotDetected) 04/01/23 09:00 Influenza Type B (PCR) Not Detected (NotDetected) 04/01/23 09:00 M. pneumoniae (PCR) Not Detected (NotDetected) 04/01/23 09:00 Parainfluenza 1 (PCR) Not Detected (NotDetected) 04/01/23 09:00 Parainfluenza 2 (PCR) Not Detected (NotDetected) 04/01/23 09:00 Parainfluenza 3 (PCR) Not Detected (NotDetected) 04/01/23 09:00 Parainfluenza 4 (PCR) Not Detected (NotDetected) 04/01/23 09:00 RSV (PCR) Not Detected (NotDetected) 04/01/23 09:00 Entero/Rhino (PCR) Not Detected (NotDetected) 04/01/23 09:[address] 04/01/23 11:51 CT chest diagnostic wo con CT DOSE: 388.86 mGy.cm CLINICAL HISTORY: 88 years-old Male with hypoxia, chf vs pna. Acute hypoxia with shortness of breath. TECHNIQUE: Multiaxial CT images of the chest were performed without contrast. A dose lowering technique was utilized adhering to the principles of ALARA. COMPARISON: Chest radiograph of same day, chest CT 03/20/2023. FINDINGS: Heterogeneous thyroid. Unchanged mediastinal and hilar lymphadenopathy. Stable 10 mm subcarinal lymph node. Partially calcified lymph nodes measuring up to 11 mm in the precarinal distribution as also unchanged. No new or progressive adenopathy. Unchanged small left pleural effusion. Increased size of the right pleural effusion which is now [id number] in size. No pneumothorax. Emphysema with bronchitis is again noted. Unchanged 1.2 cm right upper lobe pulmonary hamartoma on image 65. Right-sided calcified pleural plaques. Patchy groundglass and irregular nodular consolidative opacities are noted bilaterally. This includes a subpleural nodular density within the left upper lobe measuring 11 mm on image 68. There is an additional irregular stable 2.3 cm subpleural nodular density of the right middle lobe on image 175. Mild intralobular septal thickening. Several additional pulmonary nodules which are mostly subcentimeter noted within all lobes bilaterally. Central airways are patent. Mildly progressed dependent right basilar consolidation. Unchanged appearance of the upper abdomen. Distended gallbladder. Left upper quadrant splenules. Unremarkable soft tissue tissues. Degenerative changes of the shoulders and spine. Healed chronic mid sternal body fracture. There is unchanged superior endplate compression involving the T1-T2 segments without retropulsion. IMPRESSION: 1. Study degraded by respiratory motion artifact. 2. Cardiomegaly with mild pulmonary edema, small left and [id number] right pleural effusions. The right pleural effusion has increased in size compared to the 03/20/2023 study and there is progressive dependent right lower lobe consolidation suggestive of atelectasis. 3. Patchy groundglass and irregular nodular opacities within the lungs are again noted which may be infectious or inflammatory. As stated on the prior study, follow-up recommended in order to document resolution. 4. Stable thoracic lymphadenopathy. 5. Emphysema. 6. Additional findings as above. ACT 112: Negative or not required by law. Dictated: 04/01/2023 2:47 PM Transcribed: 04/01/2023 3:08 PM Ricarda [id number] Marva [id number] Electronically signed by: Jake Colon M.D. 04/01/2023 3:35 PM Chest X-Ray 04/02/23 09:54 SINGLE VIEW CHEST CLINICAL HISTORY: Status post cardiac arrest. FINDINGS: An AP, portable, upright chest radiograph is compared to chest x-ray and chest CT dated 04/01/2023. The heart is enlarged noting atherosclerotic calcification of the thoracic aorta. There is pulmonary vascular congestion. Emphysema and chronic interstitial thickening is similar to previous. Multifocal bilateral airspace opacities have modestly worsened as compared to yesterday. There are small pleural effusions. Pulmonary nodules seen on yesterday's chest CT are not visualized by x-ray. No pneumothorax is seen. Linear lucencies projecting over the right apex likely represent skin folds. The skeletal structures are osteopenic. The bony thorax is grossly intact. Advanced arthritic change is noted in the shoulders. IMPRESSION: 1. Cardiomegaly and emphysema with evidence of congestive failure. 2. Multiple focal bilateral airspace opacities have modestly worsened as compared to yesterday. This could represent pulmonary edema and/or pneumonia/aspiration pneumonitis. Clinical correlation will be essential. 3. Small pleural effusions. ACT 112: Negative or not required by law. Electronically signed by: Morro Silvestre M.D. 04/02/2023 10:35 AM (1) CKD (chronic kidney disease), stage III Chronic kidney disease stage 3 subtype: unspecified whether 3a or 3b Qualified Code(s): N18.30 - Chronic kidney disease, stage 3 unspecified (2) CHF (congestive heart failure) Heart failure chronicity: acute on chronic Heart failure type: combined systolic and diastolic Qualified Code(s): I50.43 - Acute on chronic combined systolic (congestive) and diastolic (congestive) heart failure (6) Aortic stenosis Cardiac valve disease etiology: nonrheumatic Qualified Code(s): I35.0 - Nonrheumatic aortic (valve) stenosis
--- NOTE | 2023-04-02 13:06 | Procedure Note ---
Procedure Note Date of Service April 02, 2023 Note Critical care addendum: CODE JULIETA was called as patient heart rhythm showed V-fib/V. tach around 11:18 AM. CPR was started by the ICU staff. Patient was given 1 dose of epi and he was defibrillated x 1. When I arrived to the room patient was arousable but confused. Heart rate was in the 30s and gradually increasing. 1122 ROSC was achieved with A-fib tachycardia on the monitor. MAP was in the mid 70s. Patient was alert and responding. Did complain of chest pain which was pleuritic in nature. After looking at the strip I ordered 2 g of magnesium, 1 amp of bicarb, 150 mg of amiodarone followed by drip 20 mg of potassium will also be given on top of the 40 mEq that he already got. Patient's son was unfortunately also in the room when all this happened. I was able to brief him after the code regarding patient's current condition and the prognosis going forward. I had another meeting with patient's , daughter as well as patient's son and they decided not to escalate the care and goals more towards comfort measures in future if there is cardiac arrest/V. tach/V-fib All questions inquiries of the patient's family were answered in depth Dr. Goins was updated Please note the above document was generated using voice recognition software. It may contain grammatical, syntax or spelling errors.Any formal questions or concerns about the content, text or information contained within the body of this dictation should be directly addressed to the provider for clarification. Coding CPT Codes Resuscitation - Resuscitation: 81130 Heart/lung resuscitation CPR ([id number]) MNP Procedure Codes (Charges) Resuscitation Resuscitation: 86462 Heart/lung resuscitation CPR
--- NOTE | 2023-04-02 13:06 | Critical Care Progress Note ---
Date of Service April 02, 2023 Assessment & Plan (1) CHF (congestive heart failure): (2) Acute on chronic combined systolic (congestive) and diastolic (congestive) heart failure: (3) Acute hypoxemic respiratory failure: (4) COVID-19: (5) Aortic stenosis: (6) Cardiac arrest with ventricular fibrillation: (7) Torsades de pointes: (8) Coronary atherosclerosis due to severely calcified coronary lesion: (9) Hypoxia: Plan CT chest 04/01/2023 personally reviewed: Centrilobular and paraseptal emphysema appreciated bilaterally Minimal patchy groundglass opacities appreciated bilaterally Right upper lobe 12 mm pulmonary nodule, another 11 mm left upper lobe peripheral pulmonary nodule Bilateral pleural effusion, right> left Dependent atelectasis bilateral lower lobes No significant mediastinal lymphadenopathy 2D echo 04/01/2023: EF 55-60%, mild concentric LVH, moderate aortic stenosis, mild MR, mild TR, RVSP 37 -- Cardiac arrest Torsades de pointes followed by V. tach ROSC was achieved within 4 minutes Underlying etiology is most likely severe coronary artery disease Try to keep magnesium greater than 2, phosphorus greater than 3 and potassium greater than 4 --History of hypertension Patient blood pressure right now is on the softer side -- Acute hypoxic respiratory failure Multifactorial COVID-19 PCR positive on bio fire 04/01/2023 BNP 915 Procalcitonin negative -- Bilateral pleural effusion Right greater than left Likely secondary to HFpEF as well as aortic stenosis --COPD with emphysema Not on any inhalers at home Outpatient PFT -- Severe coronary artery disease Not amenable to stenting -- A-fib On Eliquis at home Plan: Overnight patient had cardiac arrest with torsade the point, he was defibrillated and magnesium was given to the patient Patient's QTc is actually 404 which is not prolonged His electrolytes showed potassium of 3.2 which is being replaced, phosphorus and magnesium are within normal limit COVID-19 is associated with pericarditis as well. But I think the underlying etiology of patient's V-fib/V. tach is his underlying coronary artery disease Case was discussed with cardiology as well. Unfortunately there is not much to be offered from their perspective when it comes to any intervention Given the patient's borderline bradycardia and low normal MAP we will decrease the dose of beta-richard to 50 mg twice daily. Will decrease the dose more if patient is not able to tolerate it This was relayed to patient as well as patient's family which included son, and daughter I have personally spent 42 minutes of critical care time in the direct management of this patient. This is a life/limb threatening event. This includes time spent evaluating patient, direct bedside care, chart review, placing orders, interpretation of diagnostic studies, discussion with consultants, patient, and family members, as well as other required patient management activities. This time is exclusive of all separately billable procedures, and teaching time and separate from and in addition to any other critical care service time. Please note the above document was generated using voice recognition software. It may contain grammatical, syntax or spelling errors. Admission and Anticipated Discharge Date Admission Date: April 01, 2023 Subjective Patient seen and examined at bedside. No acute distress. Overnight patient had V-fib/V. tach for which he was cardioverted and ROSC was achieved in 4 minutes At the time of examination he did complain of chest pain which was worse when he is taking a deep breath in Denies any nausea vomiting. No headache Review of Systems 2 Review of Systems: All systems reviewed & are unremarkable except as noted in Subjective Physical Exam 2 Physical Exam: Constitutional: No acute distress HEENT: EOMI, PERRLA, right facial scar Respiratory system: Currently bilaterally, no wheeze, rhonchi, positive crackles bilateral lower lobes CVS: S1-S2 positive, positive 2 out of 6 systolic murmur appreciated best at aorta Abdomen: Soft, nontender, nondistended, positive bowel sounds x4 Extremities: +2 pulses bilaterally radialis/ dorsalis pedis, no cyanosis, no edema Neuro: Awake alert oriented x3 Psych: Normal mood and affect G/U: No [place] Skin: no rashes, warm and dry Lymphatic: no cervical or axillary lymphadenopathy Results & Data Results & Data Vital Signs (Past 12 Hours) Vital Signs Temp Pulse Pulse Pulse Resp BP BP 04/02/23 12:56 99 H 24 04/02/23 11:34 80 04/02/23 10:45 04/02/23 10:41 04/02/23 10:41 36.6 C 04/02/23 10:14 61 20 04/02/23 10:14 94/45 L 04/02/23 10:00 53 L 24 04/02/23 09:14 66 24 11/28/23 09:14 103/65 04/02/23 08:50 36.3 C L 67 20 04/02/23 08:29 04/02/23 07:40 36.6 C 67 20 04/02/23 07:23 65 18 04/02/23 07:07 65 04/02/23 03:00 36.3 C L 83 20 105/61 BP Pulse Ox O2 Del Method O2 Flow Rate 04/02/23 12:56 95 Oxymask 6 04/02/23 11:34 98 Oxymask 11 04/02/23 10:45 Nasal Cannula 3 04/02/23 10:41 Nasal Cannula 04/02/23 10:41 04/02/23 10:14 92 04/02/23 10:14 04/02/23 10:00 93 Nasal Cannula 3 04/02/23 09:14 04/02/23 09:14 04/02/23 08:50 119/61 95 Nasal Cannula 3.0 04/02/23 08:29 Nasal Cannula 3 04/02/23 07:40 124/70 97 Oxymask 3.0 04/02/23 07:23 98 Oxymask 4 04/02/23 07:07 04/02/23 03:00 95 Oxymask Laboratory Results 04/02/23 04:44 04/02/23 12:49 Coding Level of Care Code 36483 CRITICAL CARE 1ST 30-74M Diagnoses CHF (congestive heart failure) I50.9 Heart failure chronicity: unspecified Heart failure type: unspecified Acute on chronic combined systolic (congestive) and diastolic (congestive) heart failure I50.43 Acute hypoxemic respiratory failure J96.01 COVID-19 U07.1 Nonrheumatic aortic valve stenosis I35.0 Cardiac valve disease etiology: nonrheumatic Cardiac arrest with ventricular fibrillation I46.9; I49.01 Torsades de pointes I47.21 Coronary atherosclerosis due to severely calcified coronary lesion I25.84 Hypoxia R09.02 (1) CHF (congestive heart failure) Heart failure chronicity: unspecified Heart failure type: unspecified Qualified Code(s): I50.9 - Heart failure, unspecified (5) Aortic stenosis Cardiac valve disease etiology: nonrheumatic Qualified Code(s): I35.0 - Nonrheumatic aortic (valve) stenosis
[2023-04-02] MEDS ORDERED: MoRPHine SULFATE 4 MG/ML 1 ML CARP\\VIAL IV PRN (13:07)
[2023-04-02] MEDS ORDERED: LORazepam 0.5 MG TAB PO PRN (13:07)
[2023-04-02] MEDS ORDERED: ONDANSETRON INJ 2 MG/ML 2 ML VIAL IV PRN (13:07)
[2023-04-02] MEDS ORDERED: ONDANSETRON 4 MG OD TAB SL PRN (13:07)
[2023-04-02] MEDS ORDERED: LORazepam 0.5 MG in SYRINGE 0.25 ML IV PRN (13:07)
[2023-04-02] MEDS ORDERED: HYDROmorphone INJ 0.5 MG/0.5 ML SYR IV PRN (13:07)
[2023-04-02 13:32] LABS: Albumin Globulin Ratio 0.8 (0.9-2); Albumin Level 2.7 gm/dl (3.4-5.0); BUN Creatinine Ratio 26.1 (10-20); Bilirubin,Total 0.5 mg/dl (0.2-1.0); Calcium 9.2 mg/dl (8.6-10.3); Creatinine Clr Calc Pharmacy 48.7 ml/min; Est GFR (African American) 65.5 ml/min; Est GFR (Non-African American) 56.5 ml/min; Globulin 3.3 gm/dl (2.5-4.0); Magnesium 3.3 mg/dl (1.7-2.4); Phosphorus 3.8 mg/dl (2.5-4.9); Potassium 4.3 mmol/L (3.5-5.1); Troponin I High Sensitivity 261.8 pg/ml (0-20)
--- NOTE | 2023-04-02 14:01 | Electrocardiogram Report ---
Test Reason : Blood Pressure : / mmHG Vent. Rate : 076 BPM Atrial Rate : 101 BPM P-R Int : 000 ms QRS Dur : 114 ms QT Int : 360 ms P-R-T Axes : 000 029 180 degrees QTc Int : 405 ms Atrial fibrillation with premature ventricular or aberrantly conducted complexes Nonspecific ST and T wave abnormality Abnormal ECG When compared with ECG of 01-APR-2023 08:55, (unconfirmed) Atrial fibrillation has replaced Atrial flutter Confirmed by José Mcginnis ([id number]) on 04/02/2023 2:01:19 PM Referred By: REFERRED SELF Confirmed By:Melvin Mcginnis
--- NOTE | 2023-04-02 14:28 | Electrocardiogram Report ---
Test Reason : Blood Pressure : / mmHG Vent. Rate : 076 BPM Atrial Rate : 100 BPM P-R Int : 000 ms QRS Dur : 110 ms QT Int : 336 ms P-R-T Axes : 000 030 163 degrees QTc Int : 378 ms atrial flutter with premature ventricular or aberrantly conducted complexes Low voltage QRS Abnormal ECG When compared with ECG of 02-APR-2023 05:41, (unconfirmed) ST now depressed in Lateral leads Inverted T waves have replaced nonspecific T wave abnormality in Lateral leads QT has shortened Confirmed by José Mcginnis ([id number]) on 04/02/2023 2:28:46 PM Referred By: REFERRED SELF Confirmed By:Melvin Mcginnis
[2023-04-02] MEDS ORDERED: FUROSEMIDE 40 MG/4 ML VIAL IV ONE (15:14)
[2023-04-02] MEDS ORDERED: LEVALBUTEROL HCL 0.63 MG/3 ML NEB NEB PRN (16:58)
[2023-04-02] MEDS ORDERED: METOPROLOL SUCC 25MG EXT REL TAB PO SCH (21:00)
[2023-04-03] MEDS ORDERED: SODIUM CHLORIDE 0.9% 10ML FLUSH IV ONE (00:12)
[2023-04-03] MEDS ORDERED: AMIODARONE HCL INJ 50 MG/ML 3 ML VIAL IV ONE (00:12)
[2023-04-03] MEDS ORDERED: SODIUM BICARB 8.4% INJ 50 MEQ/50 ML SYR IV ONE (00:12)
--- NOTE | 2023-04-03 09:58 | Death Pronouncement Note ---
Date of Service April 03, 2023 Pronouncement Note Admission Date April 01, 2023 Date and Time of Date of : 04/02/23 Time of : 21:32 Additional Data Confirmation of : no pulse, no respirations, no heart sounds and pupils fixed and dilated Family: contacted Attending physician: Mik Goins MD
--- NOTE | 2023-04-03 14:03 | Discharge Summary ---
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 Recently admitted to our service from 03/20-03/24 for acute hypoxia in setting of ACS/NSTEMI undergoing cardiac cath on 03/21 revealing severe CAD not amenable to PCI. CABG was discussed but patient declines outpatient CT surgery evaluation and requested conservative medical management. Per cardiology, patient was transitioned to Toprol 75mg BID and Imdur increased to 30mg, continuing apixaban, aspirin and statin. Patient also met sepsis criteria with findings of multifocal pneumonia. Was discharged home on Augmentin BID to complete abx course for PNA as well as nebs QID. Was weaned off of O2 and returned home on room air with one month follow up CT chest recommended. History obtained from patient as well as his and daughter at bedside. States that patient felt better at time of discharge home but has not returned to full strength. Starting 2 days ago, patient developed nasal congestion, fever (Tmax 100 F) and dyspnea on exertion and then with progression at rest as well, prompting return to ED today. No known exposure and did get COVID-vaccine this season. Denies any chest pain or palpitations. No lightheadedness, headache, muscle aches, nausea, vomiting, abdominal pain, dysuria, diarrhea or constipation. Daughter brings attention to lower extremity swelling, which is new for patient. Is not on a diuretic per home medication and no additional med changes were made at PCP follow-up. Discharge Exam Constitutional: Awake, oriented to self person place. Respiratory: Decreased breath sounds on left lower lung base. Clear breath sounds otherwise Cardiovascular: Irregular, no murmur, no edema Vessels: no JVD or carotid bruit Chest: normal inspection of chest Abdomen: normal bowel sounds, soft, nontender, no hepatosplenomegaly Musculoskeletal: no cyanosis or clubbing, extremities motor strength 5/5 Skin: no rashes, warm and dry normal turgor Neurologic: Grossly intact. Psychiatric: A+Ox3, euthymic affect Discharge Data Allergies Allergy/AdvReac Type Severity Reaction Status Date / Time No Known Allergies Allergy Verified 03/05/23 07:23 Consultations 04/01/23 10:37 ED Decision to Admit Stat 04/01/23 11:53 Consult Cardiology Routine 04/01/23 14:25 Consult Pulmonology Routine 04/02/23 09:36 Consult Tour Driver Routine Ordered Studies 04/01/23 11:51 CT chest without contrast [CT chest diagnostic wo con] Routine Hospital Course (1) CKD (chronic kidney disease), stage III: (2) CHF (congestive heart failure): (3) COVID-19: (4) CAD (coronary artery disease): (5) Dyslipidemia, goal LDL below 70: (6) Aortic stenosis: Plan This is an 88yo M with a PMH of PAF anticoagulated on apixaban, recent ACS/NSTEMI, HTN, HLD, chronic HFpEF, moderate aortic stenosis, 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 Recently admitted to our service from 03/20-03/24 for acute hypoxia in setting of ACS/NSTEMI undergoing cardiac cath on 03/21 revealing severe CAD not amenable to PCI. CABG was discussed but patient declines outpatient CT surgery evaluation and requested conservative medical management. Per cardiology, patient was transitioned to Toprol 75mg BID and Imdur increased to 30mg, continuing apixaban, aspirin and statin. Patient also met sepsis criteria with findings of multifocal pneumonia. Was discharged home on Augmentin BID to complete abx course for PNA as well as nebs QID. Patient was admitted to telemetry floor for management of acute respiratory failure and COVID-19 infection. In the morning of April 02, 2023 around 2 AM; patient had CODE BLUE with V- fib arrest. ROSC was achieved with defibrillation and CPR. Patient was transferred to ICU for closer monitoring. He had second V-fib arrest requiring defibrillation and CPR again. Cardiac arrest Ventricular fibrillation Multivessel CAD In the morning of April 02, 2023 around 2 AM; patient had CODE BLUE with V- fib arrest. ROSC was achieved with defibrillation and CPR. Patient was transferred to ICU for closer monitoring. He had second V-fib arrest requiring defibrillation and CPR again on April 02, 2023. Recent ACS/NSTEMI and underwent cardiac cath on 03/21 revealing severe CAD not amenable to PCI. CABG was discussed but patient declines outpatient CT surgery evaluation and requested conservative medical management EKG personally reviewed; atrial fibrillation; QTc of 444 Discussed with cardiology (Dr. Cummins); will follow recommendation. Discussed with Dr. Fuentes from ICU; CODE STATUS changed to DNR/DNI after discussion with the family. Mag and potassium repleted Acute respiratory failure with hypoxia Acute on chronic decompensated CHF COVID-19 infection Possible PNA Multifactorial in setting of covid 19, possible PNA and CHF Does not require O2 at baseline Chest x-ray personally reviewed; consistent with pulmonary edema 2D echo from earlier this month with slightly reduced EF:45-50%, moderate , mild MR, mild TR, mild concentric LVH Currently on Lasix 40 mg IV daily. Also on Decadron 6 mg IV daily. Continue on ceftriaxone; plan to treat for 5 to 7 days. Vancomycin DC'd as MRSA was negative. Patient was started on remdesivir and currently stopped as per family's request. PAF Continue Toprol, apixaban for anticoagulation HTN Pt with recent changes to BP meds, amlodipine/hctz stopped in January, Lisinopril recently d/c on 03/13 Continue Toprol Squamous cell carcinoma involving the right parotid gland s/p resection, chemo, radiation 2010 Permanent facial nerve damage, erythematous changes and chronic pain Home oxycodone 5mg prn, chronic pain is controlled CKD-3 Cr at baseline (1-1.2) Bun/cr stable, continue to monitor Anemia, likely of chronic disease Stable, hgb 11.2 Continue to monitor DNR/DNI PCP: Dr. Lenz Disposition: Patient admitted for acute hypoxic respiratory failure. He had cardiac arrest x2. Currently in ICU. Discussed with patient's daughter over the phone and son at bedside. Time spent evaluating patient, direct bedside care, chart review, placing orders, interpretation of diagnostic studies, discussion with consultants, patient, and family members, as well as other required patient management activities is 75 minutes Please note the above document was generated using voice recognition software. It may contain grammatical, syntax or spelling errors. Any formal questions or concerns about the content, text or information contained within the body of this dictation should be directly addressed to the provider for clarification Discharge Plan Discharge Items Patient Disposition: Other Date/Time: 04/02/23 21:32
--- NOTE | 2023-04-04 14:06 | Electrocardiogram Report ---
Test Reason : Blood Pressure : / mmHG Vent. Rate : 083 BPM Atrial Rate : 136 BPM P-R Int : 000 ms QRS Dur : 110 ms QT Int : 378 ms P-R-T Axes : 000 011 191 degrees QTc Int : 444 ms Atrial fibrillation Low voltage QRS Cannot rule out Inferior infarct , age undetermined Nonspecific ST abnormality Abnormal ECG When compared with ECG of 02-APR-2023 03:21, (unconfirmed) No significant change was found Confirmed by José Mcginnis ([id number]) on 04/04/2023 2:05:30 PM Referred By: REFERRED SELF Confirmed By:Melvin Mcginnis
--- NOTE | 2023-04-05 18:08 | Electrocardiogram Report ---
Test Reason : Blood Pressure : / mmHG Vent. Rate : 055 BPM Atrial Rate : 227 BPM P-R Int : 000 ms QRS Dur : 106 ms QT Int : 406 ms P-R-T Axes : 147 021 102 degrees QTc Int : 388 ms Poor data quality, interpretation may be adversely affected Sinus bradycardia Possible Inferior infarct , age undetermined Abnormal ECG When compared with ECG of 20-MAR-2023 19:10, Vent. rate has decreased BY 56 BPM Nonspecific T wave abnormality no longer evident in Inferior leads Nonspecific T wave abnormality now evident in Lateral leads Confirmed by José Mcginnis ([id number]) on 04/05/2023 6:07:43 PM Referred By: Confirmed By:Melvin Mcginnis
== END 2023-04-02 21:33 | disposition expired | DRG 177 ==
LOC: ED 08:48 → SUATTDRO 10:54 → EDINP 10:54 → 2S 12:34 → 1E 04-02 09:10 → 2E 04-02 15:14